=== PATIENT | male | born 1940 | race Caucasian/White ===

== ENCOUNTER 2023-04-25 12:34 | Inpatient (IN) | payer MEDICARE, SELFPAY ==
[2023-04-25] VITALS (30 sets, daily range): BP systolic 105–134; BP diastolic 58–79; PULSE 74–142; RESP 19–41; TEMP 36.9–37.6; O2SAT 90–99; BMI 28.7; BMI 31.7
--- NOTE | 2023-04-25 12:44 | XR_ITS ---
The [place] [id number] Patient Name: CAREN BELLO MRN: [id number] date: 1940 Sex: M Assigned Patient Location: ER Current Patient Location: ER Accession/Order Number: [id number] Exam Date: 04/25/2023 12:55 Report Date: 04/25/2023 13:21 At the request of: ANAIS JONES Procedure: XR hand RT min 3V STUDY: XR hand RT min 3V, [id number] HISTORY: redness, swelling for a few days COMPARISON: None FINDINGS: No acute fracture, dislocation, or suspicious osseous lesion. Severe osteoarthritis of the first carpometacarpal joint and moderate osteoarthritis of the first metacarpophalangeal joint. Extensive vascular calcifications are present. XR/XR hand RT min 3V IMPRESSION: No acute osseous abnormality. Electronically authenticated by: EVANS WHEELER Date: 04/25/2023 13:21
--- NOTE | 2023-04-25 12:44 | ECG_ITS ---
The [facility] Test Date: 2023-04-25 Pat Name: CAREN BELLO Department: Room: - Gender: Male [employer]: : 1940 Requested By: CYNDY PLAZA Order Number: [id number] Reading MD: CYNDY PLAZA Measurements Intervals [place] Rate: 142 P: -50288 HI: -74624 QRS: 42 QRSD: 86 T: -69 QT: 310 QTc: 392 Interpretive Statements 88923 Atrial fibrillation with rapid ventricular response with aberrant conduction, or ventricular premature complexes [address] depression, possible subendocardial injury or digitalis effect ST [place], can't exclude inferolateral ischemia 9150 abnormal ECG No previous ECG available for comparison Electronically Signed On 04-26-2023 7:08:02 EDT by CYNDY PLAZA
--- NOTE | 2023-04-25 12:44 | XR_ITS ---
[facility] [place] [id number] Patient Name: CAREN BELLO MRN: [id number] date: 1940 Sex: M Assigned Patient Location: ER Current Patient Location: ER Accession/Order Number: [id number] Exam Date: 04/25/2023 12:55 Report Date: 04/25/2023 13:22 At the request of: ANAIS JONES Procedure: XR elbow RT min 3V EXAMINATION: XR elbow RT min 3V, [id number] HISTORY: fall COMPARISON: None. FINDINGS: No fracture, dislocation, or suspicious osseous lesion. No elbow joint effusion. Mild triceps insertional enthesopathy. Extensive vascular calcifications are present. XR/XR elbow RT min 3V IMPRESSION: No acute osseous abnormality. Electronically authenticated by: EVANS WHEELER Date: 04/25/2023 13:22
--- NOTE | 2023-04-25 12:45 | ED_ITS ---
HPI - General Adult General Chief complaint: Extremity Injury, Upper Stated complaint: FALL Time Seen by Provider: 04/25/23 12:42 Source: patient Mode of arrival: ambulance History of Present Illness HPI narrative: 83-year-old male presents for right elbow pain. He lost his balance and he fell and he landed on his right elbow. The shoulder and wrist don't hurt and he didn't hit his head. He had difficulty getting himself up. Upon arrival he was noted to have some redness and swelling in his right hand and apparently gets been going on for a few days. He gives no history of trauma to the hand and didn't realize that it was red and swollen. No lower extremity injury including the hips. Related Data Home Medications Medication Instructions Recorded Confirmed hydrochlorothiazide 25 mg tablet 25 mg PO DAILY 04/25/23 04/25/23 metoprolol tartrate 50 mg tablet 50 mg PO Q12H 04/25/23 04/25/23 tamsulosin 0.4 mg capsule 0.4 mg PO DAILY 04/25/23 04/25/23 Allergies Allergy/AdvReac Type Severity Reaction Status Date / Time No Known Drug Allergies Allergy Verified 04/25/23 12:35 Review of Systems ROS Narrative A ten point review of systems is negative except as noted above. PFSH PFSH Social History Smoking status: Never smoker Exam Narrative Exam Narrative: Nurses note and vital signs reviewed and patient is not hypoxic. General: The patient appears well and in no apparent distress. Patient is resting comfortably on cart. Skin: Warm, dry, no pallor noted. There is no rash noted. Head: Normocephalic, atraumatic Eye: Normal conjunctiva, no drainage Ears, Nose, Mouth, and Throat: oral mucosa is moist. Nares patent. Cardiovascular: irregularly irregular Respiratory: Patient is in no distress, no accessory muscle use, lungs are clear to auscultation, no wheezing, rales or rhonchi Back: non-tender GI: obese and nontender Musculoskeletal: the right shoulder is nontender. The right elbow is tender in the skin is intact. The right wrist is nontender. He has erythema and swelling to the dorsum of the right hand. There is no abscess or purulent drainage. Neurological: A&O, normal speech Psychiatric: Cooperative Constitutional Vital Signs, click to edit/add: Last Vital Signs Temp 99.7 F 04/25/23 12:36 Pulse 114 H 04/25/23 14:31 Resp 25 H 04/25/23 14:31 BP 132/67 04/25/23 14:31 Pulse Ox 99 04/25/23 14:20 Course Vital Signs Vital signs: Vital Signs Temperature 99.7 F 04/25/23 12:36 Pulse Rate 77 04/25/23 12:36 Respiratory Rate 24 04/25/23 12:36 Blood Pressure 130/62 04/25/23 12:36 Pulse Oximetry 98 04/25/23 12:36 Temperature 99.7 F 04/25/23 12:36 Pulse Rate 114 H 04/25/23 14:31 Respiratory Rate 25 H 04/25/23 14:31 Blood Pressure 132/67 04/25/23 14:31 Pulse Oximetry 99 04/25/23 14:20 Medical Decision Making MDM Narrative Medical decision making narrative: X-ray of elbow is negative. The patient has right hand cellulitis as WBC is nineteen thousand. Blood cultures were obtained and he was given IV Ancef and he is being admitted. Findings are discussed with the patient and his daughter. Differential Diagnosis Differential Diagnosis: elbow fracture, elbow contusion, cellulitis Lab Data Lab results reviewed: Yes I reviewed the patient's lab results Labs: Lab Results 04/25/23 Range/Units 13:34 WBC 19.2 H (4.0-11.0) 10^3/uL RBC 4.55 L (4.70-6.10) 10^6/uL Hgb 14.2 (14.0-18.0) g/dL Hct 43.2 (42.0-54.0) % MCV 94.9 H (80.0-94.0) fL MCH 31.2 (25.9-34.0) pg MCHC 32.9 (29.9-35.2) g/dL RDW 15.9 H (11.0-15.0) % Plt Count 262 (150-450) 10^3/uL MPV 8.8 L (9.5-13.5) fL Neut % (Auto) 83.1 H (43.0-75.0) % Lymph % (Auto) 4.3 L (20.5-60.0) % [place] % (Auto) 11.5 (1.7-12.0) % Eos % (Auto) 0.1 L (0.9-7.0) % Baso % (Auto) 0.3 (0.2-2.0) % Neut # (Auto) 15.9 H (1.4-6.5) 10^3/uL Lymph # (Auto) 0.8 L (1.2-3.8) 10^3/uL [place] # (Auto) 2.2 H (0.3-0.8) 10^3/uL Eos # (Auto) 0.0 (0.0-0.7) 10^3/uL Baso # (Auto) 0.1 (0.0-0.1) 10^3/uL Abs Immat Gran (auto) 0.14 H (0.00-0.03) 10^3/uL Imm/Tot Granulo (auto) 0.7 H (0.0-0.5) % Sodium 135 L (136-145) mmol/L Potassium 4.2 (3.5-5.1) mmol/L Chloride 99 (98-107) mmol/L Carbon Dioxide 25.4 (21.0-32.0) mmol/L Anion Gap 14.8 BUN 33.0 H (7.0-18.0) mg/dL Creatinine 1.76 H (0.70-1.30) mg/dL Est GFR ( Amer) 45 L (>=60) Est GFR (Non-Af Amer) 37 L (>=60) BUN/Creatinine Ratio 18.8 Glucose 124 H (74-106) mg/dL Lactate 2.8 H* (0.4-2.0) mmol/L Calcium 9.0 (8.5-10.1) mg/dL Total Creatine Kinase 172 (39-308) U/L Imaging Data x-ray of elbow and hand: Radiologist's impression: Procedure: XR hand RT min 3V STUDY: XR hand RT min 3V, [id number] HISTORY: redness, swelling for a few days COMPARISON: None FINDINGS: No acute fracture, dislocation, or suspicious osseous lesion. Severe osteoarthritis of the first carpometacarpal joint and moderate osteoarthritis of the first metacarpophalangeal joint. Extensive vascular calcifications are present. IMPRESSION: No acute osseous abnormality. Electronically authenticated by: EVANS WHEELER Date: 04/25/2023 13:21 Procedure: XR elbow RT min 3V EXAMINATION: XR elbow RT min 3V, [id number] HISTORY: fall COMPARISON: None. FINDINGS: No fracture, dislocation, or suspicious osseous lesion. No elbow joint effusion. Mild triceps insertional enthesopathy. Extensive vascular calcifications are present. IMPRESSION: No acute osseous abnormality. Electronically authenticated by: EVANS WHEELER Date: 04/25/2023 13:22 Discharge Plan Discharge Chief Complaint: Extremity Injury, Upper Clinical Impression: Cellulitis of right hand Patient Disposition: Admitted As Inpatient Time of Disposition Decision: 14:42 Condition: Good
[2023-04-25] MEDS: DILTIAZEM HCL 25 MG/5 ML VIAL 10 MG IV (13:16)
[2023-04-25 13:50] LABS: Basophils Absolute Auto 0.1 10^3/uL (0.0-0.1); Basophils Percent Auto 0.3 % (0.2-2.0); Eosinophils Percent Auto 0.1 % (0.9-7.0); Hematocrit 43.2 % (42.0-54.0); Hemoglobin 14.2 g/dL (14.0-18.0); Immature Granulocytes Abs Auto 0.14 10^3/uL (0.00-0.03); Immature Granulocytes Pct Auto 0.7 % (0.0-0.5); Lymphocytes Absolute Auto 0.8 10^3/uL (1.2-3.8); Lymphocytes Percent Auto 4.3 % (20.5-60.0); Mean Corpuscular HGB Conc 32.9 g/dL (29.9-35.2); Mean Corpuscular Hemoglobin 31.2 pg (25.9-34.0); Mean Corpuscular Volume 94.9 fL (80.0-94.0); Mean Platelet Volume 8.8 fL (9.5-13.5); Monocytes Absolute Auto 2.2 10^3/uL (0.3-0.8); Monocytes Percent Auto 11.5 % (1.7-12.0); Neutrophils Absolute Auto 15.9 10^3/uL (1.4-6.5); Neutrophils Percent Auto 83.1 % (43.0-75.0); Platelet Count 262 10^3/uL (150-450); Red Blood Count 4.55 10^6/uL (4.70-6.10); Red Cell Distribution Width 15.9 % (11.0-15.0); White Blood Count 19.2 10^3/uL (4.0-11.0)
[2023-04-25 13:59] LABS: Anion Gap 14.8; BUN Creatinine Ratio 18.8; Carbon Dioxide 25.4 mmol/L (21.0-32.0); Chloride 99 mmol/L (98-107); Estimated GFR (African America 45 (>=60); Estimated GFR (Non-African Ame 37 (>=60); Glucose 124 mg/dL (74-106); Potassium 4.2 mmol/L (3.5-5.1); Sodium 135 mmol/L (136-145)
[2023-04-25 14:04] LABS: Creatine Kinase 172 U/L (39-308)
[2023-04-25] MEDS: CEFAZOLIN SODIUM/DEXTROSE,ISO 1 GM/50 ML IV.SOLN IV (14:17)
[2023-04-25 14:20] LABS: Lactate/Lactic Acid 2.8 mmol/L (0.4-2.0)
[2023-04-25 15:47] LABS: Lactate/Lactic Acid 1.6 mmol/L (0.4-2.0)
[2023-04-25] MEDS: ENOXAPARIN SODIUM 40 MG/0.4 ML SYRINGE SUBQ (18:14)
[2023-04-25] MEDS: LACTATED RINGER'S SOLUTION 1,000 ML 100 ML IV (18:14)
[2023-04-25] MEDS: ACETAMINOPHEN 325 MG TABLET 650 MG PO (20:40)
[2023-04-25] MEDS: DOCUSATE SODIUM 100 MG CAPSULE PO (20:40)
[2023-04-25] MEDS: LINEZOLID IN DEXTROSE 5% 600 MG/300 ML PIGGYBACK 300 MG IV (20:40)
[2023-04-25] MEDS: METOPROLOL TARTRATE 50 MG TABLET PO (20:41)
[2023-04-26] VITALS (18 sets, daily range): BP systolic 94–130; BP diastolic 58–76; PULSE 64–134; RESP 18–22; TEMP 36.3–37.2; O2SAT 92–97
[2023-04-26] MEDS: LACTATED RINGER'S SOLUTION 1,000 ML 100 ML IV ×3 (04:46→23:42)
[2023-04-26] MEDS: DOCUSATE SODIUM 100 MG CAPSULE PO (04:46)
[2023-04-26] MEDS: ACETAMINOPHEN 325 MG TABLET 650 MG PO ×2 (04:46→20:47)
[2023-04-26 05:40] LABS: Basophils Absolute Auto 0.1 10^3/uL (0.0-0.1); Basophils Percent Auto 0.5 % (0.2-2.0); Eosinophils Absolute Auto 0.1 10^3/uL (0.0-0.7); Hematocrit 40.5 % (42.0-54.0); Hemoglobin 13.4 g/dL (14.0-18.0); Immature Granulocytes Abs Auto 0.17 10^3/uL (0.00-0.03); Immature Granulocytes Pct Auto 1.2 % (0.0-0.5); Lymphocytes Absolute Auto 1.2 10^3/uL (1.2-3.8); Lymphocytes Percent Auto 8.3 % (20.5-60.0); Mean Corpuscular HGB Conc 33.1 g/dL (29.9-35.2); Mean Corpuscular Hemoglobin 31.1 pg (25.9-34.0); Mean Platelet Volume 9.1 fL (9.5-13.5); Monocytes Absolute Auto 1.8 10^3/uL (0.3-0.8); Monocytes Percent Auto 12.1 % (1.7-12.0); Neutrophils Absolute Auto 11.3 10^3/uL (1.4-6.5); Neutrophils Percent Auto 76.9 % (43.0-75.0); Platelet Count 249 10^3/uL (150-450); Red Blood Count 4.31 10^6/uL (4.70-6.10); Red Cell Distribution Width 15.8 % (11.0-15.0); White Blood Count 14.6 10^3/uL (4.0-11.0)
[2023-04-26 06:06] LABS: Alanine Aminotransferase 9 U/L (16-63); Albumin Globulin Ratio 0.7; Albumin Level 2.8 g/dL (3.4-5.0); Alkaline Phosphatase 124 U/L (46-116); Anion Gap 13.1; Aspartate Amino Transferase 22 U/L (15-37); Bilirubin Total 3.4 mg/dL (0.2-1.0); Calcium 8.5 mg/dL (8.5-10.1); Carbon Dioxide 25.9 mmol/L (21.0-32.0); Chloride 97 mmol/L (98-107); Estimated GFR (African America 48 (>=60); Estimated GFR (Non-African Ame 39 (>=60); Globulin 3.8 g/dL; Glucose 105 mg/dL (74-106); Sodium 132 mmol/L (136-145); Total Protein 6.6 g/dL (6.4-8.2)
[2023-04-26] MEDS: LINEZOLID IN DEXTROSE 5% 600 MG/300 ML PIGGYBACK 300 MG IV ×2 (10:28→20:47)
[2023-04-26] MEDS: METOPROLOL TARTRATE 50 MG TABLET PO ×2 (10:28→20:47)
[2023-04-26] MEDS: TAMSULOSIN HCL 0.4 MG CAPSULE PO (10:28)
--- NOTE | 2023-04-26 10:49 | P.HP_ITS ---
H&P: HPI History of Present Illness Chief complaint: right hand cellulitis Narrative: 83 y male who lives alone by himself presented with right hand pain/swelling and redness x 3 days. Started after he sustained a fall at home. Reports being febrile at home. Denies nausea/vomiting, poor PO intake. Admitted for right hand cellulitis overnight for IV abx and Fluids. He has hx of Afib and on arrival his HR was poorly controlled for which he received one dose of IV cardizem This morning when I evaluated him - he reports feeling slightly better but his right hand is still extremely painful, he can barely move his hand. Review of Systems ROS Status of ROS 10 or more systems reviewed and unremarkable except as noted in history and below [facility] Medical History Social History Within the past year, how often did you have a drink containing alcohol: 4 or more times a week Within the past year, how many standard drinks containing alcohol did you have on a typical day: 5 or 6 Within the past year, how often did you have six or more drinks on one occasion: monthly Total score: 6 Score interpretation: A score of 4 or more indicates drinking is likely to affect patient's safety. Smoking status: Never smoker Non-prescribed substance use: denies use Meds Home Medications and Allergies Home Medications Medication Instructions Recorded Confirmed Type hydrochlorothiazide 25 mg tablet 25 mg PO DAILY 04/25/23 04/25/23 History metoprolol tartrate 50 mg tablet 50 mg PO Q12H 04/25/23 04/25/23 History tamsulosin 0.4 mg capsule 0.4 mg PO DAILY 04/25/23 04/25/23 History Allergies Allergy/AdvReac Type Severity Reaction Status Date / Time No Known Drug Allergies Allergy Verified 04/25/23 12:35 Exam Constitutional Vital Signs, click to edit/add: Last Vital Signs Temp 98.1 F 04/26/23 04:42 Pulse 110 H 04/26/23 08:00 Resp 20 04/26/23 08:00 BP 101/70 04/26/23 04:42 Pulse Ox 97 04/26/23 10:27 O2 Del Method Room Air 04/26/23 10:27 Documenting provider has reviewed patient's vital signs: yes Common normals: no apparent distress and oriented x3 General appearance: cooperative HENMT Common normals: normocephalic and head/scalp atraumatic Head and scalp: normocephalic and atraumatic Eye Common normals: conjunctivae normal and no scleral icterus Conjunctiva: conjunctiva(e) normal Respiratory Common normals: normal respiratory effort and clear to auscultation bilaterally Effort & inspection: able to speak in complete sentences Auscultation: clear to auscultation bilaterally Cardio Common normals: regular rate, S1 normal heart sound and S2 normal heart sound Rate: regular rate Heart sounds: S1 normal and S2 normal GI Common normals: Normal to inspection, nondistended, normoactive bowel sounds present, soft to palpation, non-tender and no hepatosplenomegaly Palpation: soft and no hepatosplenomegaly Extremity Right upper extremity: hand and digits Right hand and digits: inspection (swollen, erythematous), palpation (extremely tender and painful), ROM exam (severe ROM - unable to move fingers at all), neurovascular exam (radial pulse is palpable. ) and other (fingers appear pale) Other: thick dried off dirt noted on bottom of his feet. Neuro Common normals: oriented x3, moves all extremities and no focal motor deficits Psych Common normals: mental status grossly normal, denies hallucinations, denies homicidal ideation and denies suicidal ideation Results Labs Labs: Short CBC 04/25/23 04/26/23 Range/Units 13:34 03:50 WBC 19.2 H 14.6 H (4.0-11.0) 10^3/uL Hgb 14.2 13.4 L (14.0-18.0) g/dL Hct 43.2 40.5 L (42.0-54.0) % Plt Count 262 249 (150-450) 10^3/uL BMP 04/25/23 04/26/23 13:34 03:50 Sodium 135 L 132 L Potassium 4.2 4.0 Chloride 99 97 L Carbon Dioxide 25.4 25.9 BUN 33.0 H 35.0 H Creatinine 1.76 H 1.67 H Glucose 124 H 105 Calcium 9.0 8.5 Cardiac Enzymes 04/25/23 Range/Units 13:34 Total Creatine Kinase 172 (39-308) U/L Liver Function 04/26/23 Range/Units 03:50 Total Bilirubin 3.4 H (0.2-1.0) mg/dL AST 22 (15-37) U/L ALT 9 L (16-63) U/L Alkaline Phosphatase 124 H (46-116) U/L Albumin 2.8 L (3.4-5.0) g/dL Assessment and Plan Assessment and Plan (1) Sepsis: Assessment and Plan: SIRS (HR > 100, WBC 19k) along with PRATIK. Improved hemodynamics. Leukocytosis trending down. C/w IVF 100 /hr On IV zyvox and rocephin. F/u blood cx. (2) Cellulitis of right hand: Assessment and Plan: Right hand cellulitis - with sig swelling/painful with suspicion of compartment syndrome Consulted Orthopedic, discussed case and Dr Kwok would evaluate him later today On IV Zyvox/Rocephin Will order an US to r/o DVT/SVT (3) PRATIK (acute kidney injury): Assessment and Plan: Baseline Cr is 1.0 - 1.3 likely pre renal - improving with Hydration (4) A-fib: Assessment and Plan: Persistent AFIB. Presented with RVR. Rate is better controlled now. Cw Lopressor Not on AC as outpatient. (5) Hypertension: Assessment and Plan: HCTZ on hold due to PRATIK and sepsis BP is at goal. (6) Alcohol abuse: Assessment and Plan: Drinks hard Liquor daily - 4,5 drinks. Recent fall. Noted to have poor balance while working with PT Discussed and counseled on alcohol use brandon considering his age, hx of afib. Plan PT/OT eval as poor balance, recent fall IV abx. US ordered to r/o DVT/SVT Orthopedic consult for possible compartment syndrome.
--- NOTE | 2023-04-26 11:38 | CM.NOTE ---
Rounds made with Dr. Cuevas, consulting Dr. Kwok for R wrist and hand swelling. Dr. Cuevas will consult Rissa himself.
--- NOTE | 2023-04-26 11:46 | CM.NOTE ---
Important Message From Medicare discussed with pt, pt verbalizes understanding and signs paper. Original given to pt and copy placed on pt's chart.
[2023-04-26] MEDS: CEFTRIAXONE 1,000 MG in 0.9 % SODIUM CHLORIDE 50 ML 100 MG IV (11:48)
--- NOTE | 2023-04-26 15:03 | US_ITS ---
The [address] [address] Patient Name: CAREN BELLO MRN: [id number] date: 1940 Sex: M Assigned Patient Location: MS Current Patient Location: MS Accession/Order Number: [id number] Exam Date: 04/26/2023 15:20 Report Date: 04/26/2023 17:04 At the request of: SHAIKH BLACK Procedure: US venous doppler UE RT EXAM: US venous doppler UE RT HISTORY: The patient fell, with swelling of the wrist and hand. COMPARISON: None. TECHNIQUE: Multiple sonographic images of the deep veins of the right upper extremity were obtained, supplemented with Doppler. FINDINGS: The deep veins of the right upper extremity are relatively well visualized from the neck to the forearm, although the study is bit limited due to difficulty with moving and positioning of the arm. No filling defect is identified in the visualized deep veins to indicate a thrombus. There is normal compression augmentation to flow in the accessible deep veins. US/US venous doppler UE RT IMPRESSION: The study is bit limited. No direct or indirect evidence of deep vein thrombosis is identified in the right upper extremity at this time. Electronically authenticated by: TEJ DELONG Date: 04/26/2023 17:04
--- NOTE | 2023-04-26 15:17 | SWNOTE1 ---
SW met with pt to discuss dc needs. Pt lives at home by himself. He has a daughter and sister that do help at times as needed. Pt uses a walker at home sometimes to help him get around. Pt is not current with any home health at this time. SW and pt discussed his discharge plans and that therapy recommended he go skilled for strengthening. Pt is in agreement and does feel he needs to get stonger. SW went over the list from medicare.gov with star ratings. Pt would like to stay in [place] and he has been to [facility] before. He would like [facility]. TRA let pt know he is a precert and SW will send for [facility] to review. If they can accept we have to wait for approval from insurance. TRA sent referral to [facility].
--- NOTE | 2023-04-26 16:08 | P.ORCN_ITS ---
History of Present Illness HPI Consult date: 04/26/23 Consult reason: other (Right hand pain and swelling) Chief complaint: right hand cellulitis Narrative: Patient was admitted with right hand pain and swelling after a fall 3 days ago. Since being admitted on IV antibiotics patient reports improvement in symptoms but pain persists. Review of Systems ROS Status of ROS 10 or more systems reviewed and unremarkable except as noted in history and below [facility] Medical History Social History Within the past year, how often did you have a drink containing alcohol: 4 or more times a week Within the past year, how many standard drinks containing alcohol did you have on a typical day: 5 or 6 Within the past year, how often did you have six or more drinks on one occasion: monthly Total score: 6 Score interpretation: A score of 4 or more indicates drinking is likely to affect patient's safety. Smoking status: Never smoker Non-prescribed substance use: denies use Meds Home Medications and Allergies Home Medications Medication Instructions Recorded Confirmed Type hydrochlorothiazide 25 mg tablet 25 mg PO DAILY 04/25/23 04/25/23 History metoprolol tartrate 50 mg tablet 50 mg PO Q12H 04/25/23 04/25/23 History tamsulosin 0.4 mg capsule 0.4 mg PO DAILY 04/25/23 04/25/23 History Allergies Allergy/AdvReac Type Severity Reaction Status Date / Time No Known Drug Allergies Allergy Verified 04/25/23 12:35 Exam Narrative Exam Narrative: Right hand in dependent position. Moderate dorsal swelling. Erythema at 2nd and 3rd MTP joints. Compartments soft. Able to move fingers but with pain. No tenderness in palm or extending to wrist. No fluctuance. Sensation intact to light touch. good cap refill. Constitutional Vital Signs, click to edit/add: Last Vital Signs Temp 98.5 F 04/26/23 14:00 Pulse 107 H 04/26/23 15:42 Resp 18 04/26/23 14:00 BP 94/58 04/26/23 14:00 Pulse Ox 97 04/26/23 14:00 O2 Del Method Room Air 04/26/23 14:00 Results Labs Labs: Abnormal lab results 04/26/23 Range/Units 03:50 WBC 14.6 H (4.0-11.0) 10^3/uL RBC 4.31 L (4.70-6.10) 10^6/uL Hgb 13.4 L (14.0-18.0) g/dL Hct 40.5 L (42.0-54.0) % RDW 15.8 H (11.0-15.0) % MPV 9.1 L (9.5-13.5) fL Neut % (Auto) 76.9 H (43.0-75.0) % Lymph % (Auto) 8.3 L (20.5-60.0) % [place] % (Auto) 12.1 H (1.7-12.0) % Neut # (Auto) 11.3 H (1.4-6.5) 10^3/uL [place] # (Auto) 1.8 H (0.3-0.8) 10^3/uL Abs Immat Gran (auto) 0.17 H (0.00-0.03) 10^3/uL Imm/Tot Granulo (auto) 1.2 H (0.0-0.5) % Sodium 132 L (136-145) mmol/L Chloride 97 L (98-107) mmol/L BUN 35.0 H (7.0-18.0) mg/dL Creatinine 1.67 H (0.70-1.30) mg/dL Est GFR ( Amer) 48 L (>=60) Est GFR (Non-Af Amer) 39 L (>=60) Total Bilirubin 3.4 H (0.2-1.0) mg/dL ALT 9 L (16-63) U/L Alkaline Phosphatase 124 H (46-116) U/L Albumin 2.8 L (3.4-5.0) g/dL H & H 04/25/23 04/26/23 Range/Units 13:34 03:50 Hgb 14.2 13.4 L (14.0-18.0) g/dL Hct 43.2 40.5 L (42.0-54.0) % All other labs normal. Diagnostic results Wrist/Hand x-ray: other (No fractures. Severe thumb CMC OA.) Assessment and Plan Assessment and Plan (1) Sepsis: (2) Cellulitis of right hand: Assessment and Plan: Agree with antibiotics. No concern for compartment syndrome. No sign of abscess. No surgical indication at this time. Reenforced with patient importance of elevation (3) PRATIK (acute kidney injury): (4) A-fib: (5) Hypertension: (6) Alcohol abuse:
[2023-04-26] MEDS: ENOXAPARIN SODIUM 40 MG/0.4 ML SYRINGE SUBQ (17:19)
[2023-04-27] VITALS (14 sets, daily range): BP systolic 105–121; BP diastolic 57–71; PULSE 63–140; RESP 18–24; TEMP 36.5–36.8; O2SAT 93–97
[2023-04-27 04:50] LABS: Basophils Absolute Auto 0.1 10^3/uL (0.0-0.1); Basophils Percent Auto 0.5 % (0.2-2.0); Eosinophils Absolute Auto 0.1 10^3/uL (0.0-0.7); Eosinophils Percent Auto 0.8 % (0.9-7.0); Hematocrit 37.1 % (42.0-54.0); Hemoglobin 12.7 g/dL (14.0-18.0); Immature Granulocytes Pct Auto 2.6 % (0.0-0.5); Lymphocytes Percent Auto 6.2 % (20.5-60.0); Mean Corpuscular HGB Conc 34.2 g/dL (29.9-35.2); Mean Corpuscular Hemoglobin 31.6 pg (25.9-34.0); Mean Corpuscular Volume 92.3 fL (80.0-94.0); Mean Platelet Volume 9.1 fL (9.5-13.5); Monocytes Absolute Auto 1.3 10^3/uL (0.3-0.8); Monocytes Percent Auto 8.6 % (1.7-12.0); Neutrophils Absolute Auto 12.6 10^3/uL (1.4-6.5); Neutrophils Percent Auto 81.3 % (43.0-75.0); Platelet Count 275 10^3/uL (150-450); Red Blood Count 4.02 10^6/uL (4.70-6.10); Red Cell Distribution Width 15.6 % (11.0-15.0); White Blood Count 15.4 10^3/uL (4.0-11.0)
[2023-04-27 05:06] LABS: Alanine Aminotransferase 11 U/L (16-63); Albumin Globulin Ratio 0.7; Albumin Level 2.5 g/dL (3.4-5.0); Alkaline Phosphatase 130 U/L (46-116); Anion Gap 14.6; Aspartate Amino Transferase 18 U/L (15-37); BUN Creatinine Ratio 24.5; Bilirubin Total 2.7 mg/dL (0.2-1.0); Carbon Dioxide 23.7 mmol/L (21.0-32.0); Chloride 96 mmol/L (98-107); Estimated GFR (African America 55 (>=60); Estimated GFR (Non-African Ame 46 (>=60); Globulin 3.7 g/dL; Glucose 114 mg/dL (74-106); Potassium 3.3 mmol/L (3.5-5.1); Sodium 131 mmol/L (136-145); Total Protein 6.2 g/dL (6.4-8.2)
[2023-04-27] MEDS: METOPROLOL TARTRATE 50 MG TABLET PO (08:22)
[2023-04-27] MEDS: TAMSULOSIN HCL 0.4 MG CAPSULE PO (08:22)
[2023-04-27] MEDS: LINEZOLID IN DEXTROSE 5% 600 MG/300 ML PIGGYBACK 300 MG IV (08:24)
--- NOTE | 2023-04-27 09:59 | SWNOTE1 ---
[facility] started precert 04/26/23.
[2023-04-27] MEDS: POTASSIUM CHLORIDE 10 MEQ ER TABLET 40 MEQ PO (10:12)
[2023-04-27] MEDS: CEFTRIAXONE 1,000 MG in 0.9 % SODIUM CHLORIDE 50 ML 100 MG IV (10:15)
--- NOTE | 2023-04-27 11:37 | CM.NOTE ---
Rounds made with Dr. Cuevas, [facility] when precert completed. IV antibiotics to continue.
--- NOTE | 2023-04-27 11:38 | PT.DAILY ---
Physical Therapy Daily Note PT Daily Note/Assess Start: 04/27/23 11:26 Freq: Status: Active Protocol: Document 04/27/23 11:26 RAMIRO (Rec: 04/27/23 11:31 RAMIRO [id number]) Physical Therapy Daily Note/Assessment Time In/Time Out Time In 10:20 Time Out 10:47 Pain In Pain N/A Pain Out Pain N/A Subjective Subjective Pt supine upon arrival. AGrees to get into bedside chair. director of student services present to assist with transfers. Therapeutic Activity Time Therapeutic Activity Minutes (minutes) 25 Therapeutic Activity Units 2 Therapeutic Activity Treatment Bed Mobility Ability Maximum Assist,Total Assist,2 Person Assist Therapeutic Activity Comments Pt transferred from supine>sit with MaxA+2. Needs ModA initially to maintain static sitting balance at EOB but then is able to sit unsupported after about 10 sec of support. Attempted sit> Stand to RW 5x - pt unable to clear bed and reports R hand is in too much pain to put pressure through it on RW. Attempted to transfer pt with Lisa Steady but again but unable to clear his bottom from the bed. Unable to extend knees to stand - bed is elevated at this point and is still unable to clear bed. Pt is laid back down with total assist of 2 and then scooted up in bed with a total assist of 2. Total Physical Therapy Time Total Therapy Minutes 25 Total Physical Therapy Units 2 Summary Daily Note Summary Decreased transfer ability today. Poor tolerance with session. Recommend SNF to regain strength/endurance to return to PLOF.
--- NOTE | 2023-04-27 12:14 | SWNOTE1 ---
[facility] did get approval for pt to go skilled. SW reached out to doctor to let him know.
--- NOTE | 2023-04-27 13:27 | PM.IMPN1 ---
Progress Note: A&P Assessment and Plan (1) Sepsis: Assessment and Plan: Stable hemodynamics except tachycardia which is due to underlying Afib. c/w Zyvox/rocephin. Leukocytosis trending down (2) Cellulitis of right hand: Assessment and Plan: C/w IV zyvox/rocephin F/u blood cx. US negative for DVT. XR negative for fx. Evaluated by orthopedic - no concern for Compartment syndrome. (3) PRATIK (acute kidney injury): Assessment and Plan: Pre renal due to sepsis Improving. More or less close to baseline (4) A-fib: Assessment and Plan: Poorly controlled rate. Increased Lopressor to 100 q12 HR fluctuates never persistently above 120. Asymptomatic Not on AC due to hx of alcoholism (5) Hypertension: Assessment and Plan: Hold HCTZ. Increased Lopressor to 100 q12 for poorly controlled HR. (6) Alcohol abuse: Assessment and Plan: Current sig/daily alcohol use. Does not appear to be in withdrawal. Monitor closely for it. (7) Inspiratory wheezing determined by examination: Assessment and Plan: Audible wheezing on exam. No resp distress. Added duonebs as needed. Monitor for now. CXR ordered to ensure no acute underlying lung disease. (8) Ambulatory dysfunction: Assessment and Plan: Poor balance, generalized weakness and very unsteady on his feet. Can barely ambulate with a walker while requiring assist from one person all the time. PT/OT eval. Will need rehab placement once medically stable. Plan Change to inpatient status as slow recovery, continued need for IV abx and clinical monitoring for Afib with RVR while adjusting his medications. At high risk of clinical deterioration given his age, poor functional status and alcohol use Internal Medicine - PN: Subj Subjective Interval history: Seen and examined. No overnight events. Mild improvement in pain/tenderness and swelling but right hand is still sig swollen and extremely tender to touch Exam Constitutional Vital Signs, click to edit/add: Last Vital Signs Temp 97.8 F 04/27/23 04:21 Pulse 117 H 04/27/23 07:35 Resp 18 04/27/23 07:35 BP 105/71 04/27/23 04:21 Pulse Ox 95 04/27/23 04:21 O2 Del Method Room Air 04/27/23 04:21 Documenting provider has reviewed patient's vital signs: yes Common normals: no apparent distress and oriented x3 General appearance: cooperative HENMT Common normals: normocephalic and head/scalp atraumatic Head and scalp: normocephalic and atraumatic Eye Common normals: conjunctivae normal and no scleral icterus Conjunctiva: conjunctiva(e) normal Respiratory Common normals: normal respiratory effort and no use of accessory muscles Effort & inspection: able to speak in complete sentences Auscultation: wheezes Cardio Common normals: regular rate, S1 normal heart sound and S2 normal heart sound Rate: regular rate Heart sounds: S1 normal and S2 normal GI Common normals: Normal to inspection, nondistended, normoactive bowel sounds present, soft to palpation, non-tender and no hepatosplenomegaly Palpation: soft and no hepatosplenomegaly Extremity Right upper extremity: hand and digits (slight improvement when compared to 04/26/23) Right hand and digits: inspection (swollen, erythematous), palpation (extremely tender and painful), ROM exam (severe ROM - unable to move fingers at all), neurovascular exam (radial pulse is palpable. ) and other Neuro Common normals: oriented x3, moves all extremities and no focal motor deficits Psych Common normals: mental status grossly normal, denies hallucinations, denies homicidal ideation and denies suicidal ideation Internal Medicine - PN: Obj Da Labs Labs: Laboratory Results - last 24 hr 04/26/23 04/27/23 11:21 03:54 WBC 15.4 H RBC 4.02 L Hgb 12.7 L Hct 37.1 L MCV 92.3 MCH 31.6 MCHC 34.2 RDW 15.6 H Plt Count 275 MPV 9.1 L Neut % (Auto) 81.3 H Lymph % (Auto) 6.2 L [place] % (Auto) 8.6 Eos % (Auto) 0.8 L Baso % (Auto) 0.5 Neut # (Auto) 12.6 H Lymph # (Auto) 1.0 L [place] # (Auto) 1.3 H Eos # (Auto) 0.1 Baso # (Auto) 0.1 Abs Immat Gran (auto) 0.40 H Imm/Tot Granulo (auto) 2.6 H Sodium 131 L Potassium 3.3 L Chloride 96 L Carbon Dioxide 23.7 Anion Gap 14.6 BUN 36.0 H Creatinine 1.47 H Est GFR ( Amer) 55 L Est GFR (Non-Af Amer) 46 L BUN/Creatinine Ratio 24.5 Glucose 114 H Calcium 8.0 L Total Bilirubin 2.7 H AST 18 ALT 11 L Alkaline Phosphatase 130 H Total Protein 6.2 L Albumin 2.5 L Globulin 3.7 Albumin/Globulin Ratio 0.7 Vitamin B12 416.0 Folate 2.60 L Urinary Catheter Management Urinary Catheter Management Urethral: Cath placed during this visit: yes Urethral indwelling: No Reason for continuing: acute urinary retention Insertion date: 04/27/23 Insertion time: 04:20
--- NOTE | 2023-04-27 13:40 | SWNOTE1 ---
Pt is not medically stable for discharge today. He is approved, approval is good thru 04/30/23 at midnight. SW to leave packet for weekend in case pt is ready for discharge.
--- NOTE | 2023-04-27 14:06 | XR_ITS ---
The [address] [address] Patient Name: CAREN BELLO MRN: [id number] date: 1940 Sex: M Assigned Patient Location: MS Current Patient Location: MS Accession/Order Number: [id number] Exam Date: 04/27/2023 14:00 Report Date: 04/27/2023 14:22 At the request of: SHAIKH BLACK Procedure: XR chest 1V EXAMINATION: XR chest 1V 04/27/2023 11:20 AM PDT HISTORY: wheezing/ TECHNIQUE: Single frontal view of the chest acquired. COMPARISONS: Chest x-ray 06/09/2020 FINDINGS: Lines/tubes/other: None. Heart and mediastinum: Similar. Bones: No acute osseous abnormality. Lungs: Mild scarring and/or atelectasis in the right base, similar. No new or worsening pulmonary opacity. No pulmonary edema. Pleura: There is no significant pleural effusion or pneumothorax. Other: None. XR/XR chest 1V IMPRESSION: Mild right basilar scarring and/or atelectasis. No new pulmonary abnormality demonstrated. Electronically authenticated by: EVANS WHEELER Date: 04/27/2023 14:22
[2023-04-27] MEDS: IPRATROPIUM/ALBUTEROL SULFATE 3 ML AMPUL.NEB IH (15:41)
[2023-04-27] MEDS: FUROSEMIDE 20 MG/2 ML VIAL IVP (16:57)
[2023-04-27 17:18] LABS: Bilirubin Urine MODERATE (NEGATIVE); Blood Urine LARGE (NEGATIVE); Clarity Urine CLEAR (CLEAR); Glucose Urine UA 100 mg/dL (NEGATIVE); Ketones Urine 15 mg/dL (NEGATIVE); Leukocyte Esterase Urine TRACE (NEGATIVE); Nitrite Urine NEGATIVE (NEGATIVE); Protein Urine 30 mg/dL (NEG/TRACE); Specific Gravity Urine 1.015 (1.005-1.025); Urobilinogen Urine >=8.0 EU/dL (0.2-1.0); pH Urine 5.5 (5.0-9.0)
[2023-04-27 17:36] LABS: Color Urine DK YELLOW (YELLOW)
[2023-04-27] MEDS: OXYCODONE HCL 5 MG TABLET PO (17:43)
[2023-04-27] MEDS: ENOXAPARIN SODIUM 40 MG/0.4 ML SYRINGE SUBQ (17:43)
[2023-04-27] MEDS: POLYETHYLENE GLYCOL 3350 17 GM POWDER PACKET PO (17:44)
[2023-04-27 18:02] LABS: Bacteria Urine TRACE #/HPF (NONE SEEN); Cast Seen? NONE SEEN #/LPF (NONE SEEN); Crystals Seen? None Seen #/HPF (None Seen); Mucus Urine NONE SEEN (NONE SEEN); Squamous Epithelial Cell Urine RARE #/LPF (NONE/RARE); Urine Culture Indicated NO
--- NOTE | 2023-04-27 19:27 | PC.NURSE ---
right hand and wrist is warm to the touch, redness, and edema noted
[2023-04-27] MEDS: METOPROLOL TARTRATE 50 MG TABLET 100 MG PO (20:29)
[2023-04-27] MEDS: MORPHINE SULFATE 2 MG/ML SYRINGE IV (20:29)
[2023-04-27] MEDS: LINEZOLID IN DEXTROSE 5% 600 MG/300 ML PIGGYBACK 150 MG IV (20:32)
[2023-04-28] VITALS (20 sets, daily range): BP systolic 89–118; BP diastolic 54–67; PULSE 62–129; RESP 20; TEMP 36.2–37.4; O2SAT 92–96
[2023-04-28] MEDS: DILTIAZEM HCL 60 MG TABLET 30 MG PO ×4 (05:25→22:40)
[2023-04-28] MEDS: OXYCODONE HCL 5 MG TABLET PO (05:26)
[2023-04-28 05:56] LABS: Basophils Absolute Auto 0.1 10^3/uL (0.0-0.1); Basophils Percent Auto 0.3 % (0.2-2.0); Eosinophils Absolute Auto 0.1 10^3/uL (0.0-0.7); Eosinophils Percent Auto 0.6 % (0.9-7.0); Hematocrit 36.8 % (42.0-54.0); Hemoglobin 12.4 g/dL (14.0-18.0); Immature Granulocytes Abs Auto 0.25 10^3/uL (0.00-0.03); Immature Granulocytes Pct Auto 1.7 % (0.0-0.5); Lymphocytes Absolute Auto 0.7 10^3/uL (1.2-3.8); Lymphocytes Percent Auto 4.6 % (20.5-60.0); Mean Corpuscular HGB Conc 33.7 g/dL (29.9-35.2); Mean Corpuscular Hemoglobin 31.4 pg (25.9-34.0); Mean Corpuscular Volume 93.2 fL (80.0-94.0); Mean Platelet Volume 9.2 fL (9.5-13.5); Monocytes Absolute Auto 1.3 10^3/uL (0.3-0.8); Monocytes Percent Auto 8.7 % (1.7-12.0); Neutrophils Absolute Auto 12.7 10^3/uL (1.4-6.5); Neutrophils Percent Auto 84.1 % (43.0-75.0); Platelet Count 281 10^3/uL (150-450); Red Blood Count 3.95 10^6/uL (4.70-6.10); Red Cell Distribution Width 15.8 % (11.0-15.0); White Blood Count 15.1 10^3/uL (4.0-11.0)
[2023-04-28 06:12] LABS: Alanine Aminotransferase 7 U/L (16-63); Albumin Globulin Ratio 0.6; Albumin Level 2.4 g/dL (3.4-5.0); Alkaline Phosphatase 133 U/L (46-116); Anion Gap 14.7; Aspartate Amino Transferase 15 U/L (15-37); BUN Creatinine Ratio 25.8; Calcium 8.3 mg/dL (8.5-10.1); Carbon Dioxide 23.5 mmol/L (21.0-32.0); Chloride 97 mmol/L (98-107); Estimated GFR (African America 51 (>=60); Estimated GFR (Non-African Ame 42 (>=60); Globulin 3.9 g/dL; Glucose 116 mg/dL (74-106); Potassium 4.2 mmol/L (3.5-5.1); Sodium 131 mmol/L (136-145); Total Protein 6.3 g/dL (6.4-8.2)
--- NOTE | 2023-04-28 08:08 | P.PN_ITS ---
Progress Note: Subjective Subjective Interval history: patient is an 83-year-old gentleman with past medical history of atrial fibrillation, alcoholism, who was admitted for right hand cellulitis and pain. Also is having active atrial fibrillation with RVR. Yesterday his Lopressor was increased and he was also started on Cardizem 30 mg 4 times a day. His heart rate seems much improved today has been in the 80s still in atrial fibrillation. He denies any chest pain shortness of breath this morning. His right hand still has some erythema and is multi slide machine tender to the touch. He has remained afebrile. His left ankle also has some swelling and tenderness. Nurses reported pain with physical therapy this morning. Exam Narrative Exam Narrative: General: Patient is alert, and oriented to person, place and time with normal affect, proper hygiene Skin: skin erythema over the joints of the right hand and medial mallolus of the left ankle Head: atraumatic, acephalic Eyes: PERRLA, no nystagmus present, conjunctiva clear, no scleral icterus Ears: diminished gross auditory acuity Nose: symmetric, no discharge, no maxillary or frontal sinus tenderness Heart: Normal rate and rhythm, no murmurs/rubs/gallops Lungs: no audible wheezes, crackles and normal breath sounds all lung davis Abdomen: Normal audible bowel sounds, no distension, No palpable masses, no organomegaly, no rebound/guarding/ or rigidity Neuro: CN II-X grossly intact, normal sensation upper and lower extremities Constitutional Vital Signs, click to edit/add: Last Vital Signs Temp 97.2 F L 04/28/23 05:33 Pulse 129 H 04/28/23 06:00 Resp 20 04/28/23 05:33 BP 118/67 04/28/23 05:33 Pulse Ox 95 04/28/23 05:33 O2 Del Method Room Air 04/28/23 05:33 Progress Note: Objective Labs Labs: Short CBC 04/28/23 Range/Units 04:45 WBC 15.1 H (4.0-11.0) 10^3/uL Hgb 12.4 L (14.0-18.0) g/dL Hct 36.8 L (42.0-54.0) % Plt Count 281 (150-450) 10^3/uL BMP 04/28/23 04:45 Sodium 131 L Potassium 4.2 Chloride 97 L Carbon Dioxide 23.5 BUN 41.0 H Creatinine 1.59 H Glucose 116 H Calcium 8.3 L Liver Function 04/28/23 Range/Units 04:45 Total Bilirubin 2.0 H (0.2-1.0) mg/dL AST 15 (15-37) U/L ALT 7 L (16-63) U/L Alkaline Phosphatase 133 H (46-116) U/L Albumin 2.4 L (3.4-5.0) g/dL Urine 04/27/23 Range/Units 15:00 Urine Color Dk yellow (YELLOW) Urine Clarity Clear (CLEAR) Urine pH 5.5 (5.0-9.0) Ur Specific [place] 1.015 (1.005-1.025) Urine Protein 30 A (NEG/TRACE) mg/dL Urine Glucose (UA) 100 A (NEGATIVE) mg/dL Progress Note: A&P Assessment and Plan (1) Cellulitis of right hand: Assessment and Plan: patient is currently on IV Zyvox and Rocephin, blood cultures so far have been negative. Patient still with leukocytosis although is trending down. No evidence of sepsis. I have added a CRP, ESR and uric acid level picture more concerning of an inflammatory arthritis and not cellulitis.I will add Solu-Medrol 125 mg twice a day to see if this also helps with the pain in the inflammatory arthritis. X-rays negative for fracture (2) PRATIK (acute kidney injury): Assessment and Plan: avoid nephrotoxins, continue to monitor daily (3) Atrial fibrillation with RVR: Assessment and Plan: rate much improved today continue the Lopressor increase and the addition of Cardizem. ON Telemetry, has not been on anticoagulant in the past due to drinking. Since going to acute rehab facility, will start on Eliquis for this. (4) Hypertension: Assessment and Plan: continue Lopressor at 100 mg twice a day, and continue with addition of Cardizem 30 mg 4 times a day which seems to be improving heart rate on a blood pressure has been stable (5) Alcohol abuse: Assessment and Plan: monitor CIWA scores, no acute withdrawal (6) Inspiratory wheezing determined by examination: Assessment and Plan: monitor for any signs of fluid overload (7) Ambulatory dysfunction: Assessment and Plan: continue to work with PT OT, will be doing patient rehab Plan patient is a full code Lovenox for deep vein thrombosis prophylaxis Hopeful discharge tomorrow pending improvement in symptoms, pain control and labs
--- NOTE | 2023-04-28 08:12 | PT.DAILY ---
Physical Therapy Daily Note PT Daily Note/Assess Start: 04/27/23 11:26 Freq: Status: Active Protocol: Document 04/28/23 08:09 RAMIRO (Rec: 04/28/23 08:12 RAMIRO [id number]) Visit Not Completed Visit Not Completed Visit Not Completed Due to: Inability to participate,Pt refusing Other Reason Visit Not Completed In patients room for 20 min. He agrees to PT but screams in pain every time he moves any part of his body. He screams in pain if my hands even gets close to his legs or R arm. Pt Verbalizes understanding of needed to attempt therapy but his actions do not reflect this. He rates his pain 8/10 with movement (taking pillows out from under legs/placing them back under legs) but denies pain at rest. Pt finally states he cannot participate and wishes to be left alone to rest. Physical Therapy Daily Note/Assessment Time In/Time Out Time In 07:10 Time Out 07:34 Pain In Pain N/A Pain Out Pain N/A GG. Functional Abilities and Goals-Complete for Swing Bed Patients Only [id number]. Self-Care [id number]. Mobility
[2023-04-28] MEDS: TAMSULOSIN HCL 0.4 MG CAPSULE PO (09:01)
[2023-04-28] MEDS: LINEZOLID IN DEXTROSE 5% 600 MG/300 ML PIGGYBACK 300 MG IV (09:01)
[2023-04-28] MEDS: METOPROLOL TARTRATE 50 MG TABLET 100 MG PO (09:01)
[2023-04-28] MEDS: MORPHINE SULFATE 2 MG/ML SYRINGE IV (09:02)
[2023-04-28] MEDS: CEFTRIAXONE 1,000 MG in 0.9 % SODIUM CHLORIDE 50 ML 100 MG IV (10:19)
[2023-04-28 10:40] LABS: Erythrocyte Sedimentation Rate 113 mm/hr (<=20)
[2023-04-28 11:51] LABS: C Reactive Protein 33.9 mg/dL (<=1.0); Uric Acid 7.3 mg/dL (3.5-7.2)
[2023-04-28] MEDS: METHYLPREDNISOLONE SOD SUCC PF 125 MG/2 ML VIAL IVP (12:09)
[2023-04-28] MEDS: MORPHINE SULFATE 2 MG/ML SYRINGE 1 MG IV (15:34)
--- NOTE | 2023-04-28 17:00 | XR_ITS ---
The [address] [address] Patient Name: CAREN BELLO MRN: [id number] date: 1940 Sex: M Assigned Patient Location: MS Current Patient Location: Accession/Order Number: [id number] Exam Date: 04/28/2023 17:20 Report Date: 04/28/2023 18:31 At the request of: DANNY ABDULLAHI Procedure: XR chest 1V EXAMINATION:XR chest 1V INDICATION:wheezing COMPARISON:04/27/2023 TECHNIQUE:A single frontal view of the chest is submitted. FINDINGS: Cardiomediastinal silhouette is enlarged but stable. Lungs are underinflated contributing to vascular crowding. There is elevation of the right hemidiaphragm similar to the previous study with adjacent atelectasis. No acute infiltrates have developed within the lungs. There is no costophrenic angle blunting. XR/XR chest 1V IMPRESSION: Hypoventilatory changes in the chest. No acute cardiopulmonary process. Electronically authenticated by: JENS VILLARREAL Date: 04/28/2023 18:31
[2023-04-28 17:12] LABS: Alanine Aminotransferase 9 U/L (16-63); Albumin Globulin Ratio 0.6; Albumin Level 2.4 g/dL (3.4-5.0); Alkaline Phosphatase 138 U/L (46-116); Anion Gap 19.3; Aspartate Amino Transferase 16 U/L (15-37); BUN Creatinine Ratio 23.7; Bilirubin Total 2.3 mg/dL (0.2-1.0); Calcium 8.4 mg/dL (8.5-10.1); Carbon Dioxide 19.8 mmol/L (21.0-32.0); Chloride 93 mmol/L (98-107); Estimated GFR (African America 37 (>=60); Estimated GFR (Non-African Ame 30 (>=60); Globulin 4.3 g/dL; Glucose 143 mg/dL (74-106); Potassium 5.1 mmol/L (3.5-5.1); Sodium 127 mmol/L (136-145); Total Protein 6.7 g/dL (6.4-8.2)
[2023-04-28 17:15] LABS: Lactate/Lactic Acid 1.8 mmol/L (0.4-2.0)
[2023-04-28] MEDS: ENOXAPARIN SODIUM 40 MG/0.4 ML SYRINGE SUBQ (17:19)
[2023-04-28] MEDS: ACETAMINOPHEN 325 MG TABLET 650 MG PO (17:19)
[2023-04-28] MEDS: LACTATED RINGER'S SOLUTION 1,000 ML 125 ML IV (17:31)
--- NOTE | 2023-04-28 20:54 | RESP.RT ---
Titrated to 1 lpm
[2023-04-29] VITALS (20 sets, daily range): BP systolic 87–100; BP diastolic 49–69; PULSE 69–112; RESP 18–20; TEMP 35.9–36.8; O2SAT 93–99
[2023-04-29] MEDS: METHYLPREDNISOLONE SOD SUCC PF 125 MG/2 ML VIAL IVP ×3 (02:50→23:16)
[2023-04-29] MEDS: LACTATED RINGER'S SOLUTION 1,000 ML 125 ML IV ×3 (02:51→18:09)
[2023-04-29 05:12] LABS: Basophils Percent Auto 0.2 % (0.2-2.0); Hematocrit 37.3 % (42.0-54.0); Hemoglobin 12.4 g/dL (14.0-18.0); Immature Granulocytes Abs Auto 0.21 10^3/uL (0.00-0.03); Immature Granulocytes Pct Auto 1.5 % (0.0-0.5); Lymphocytes Absolute Auto 0.6 10^3/uL (1.2-3.8); Lymphocytes Percent Auto 4.2 % (20.5-60.0); Mean Corpuscular HGB Conc 33.2 g/dL (29.9-35.2); Mean Corpuscular Hemoglobin 31.5 pg (25.9-34.0); Mean Corpuscular Volume 94.7 fL (80.0-94.0); Mean Platelet Volume 9.7 fL (9.5-13.5); Monocytes Absolute Auto 0.5 10^3/uL (0.3-0.8); Monocytes Percent Auto 3.5 % (1.7-12.0); Neutrophils Absolute Auto 12.8 10^3/uL (1.4-6.5); Neutrophils Percent Auto 90.6 % (43.0-75.0); Platelet Count 261 10^3/uL (150-450); Red Blood Count 3.94 10^6/uL (4.70-6.10); Red Cell Distribution Width 15.6 % (11.0-15.0); White Blood Count 14.2 10^3/uL (4.0-11.0)
[2023-04-29 05:30] LABS: Alanine Aminotransferase 12 U/L (16-63); Albumin Globulin Ratio 0.5; Albumin Level 2.1 g/dL (3.4-5.0); Alkaline Phosphatase 122 U/L (46-116); Anion Gap 15.5; Aspartate Amino Transferase 24 U/L (15-37); BUN Creatinine Ratio 28.3; Bilirubin Total 1.5 mg/dL (0.2-1.0); Calcium 8.4 mg/dL (8.5-10.1); Carbon Dioxide 23.2 mmol/L (21.0-32.0); Chloride 93 mmol/L (98-107); Estimated GFR (African America 34 (>=60); Estimated GFR (Non-African Ame 28 (>=60); Globulin 4.4 g/dL; Glucose 175 mg/dL (74-106); Potassium 4.7 mmol/L (3.5-5.1); Sodium 127 mmol/L (136-145); Total Protein 6.5 g/dL (6.4-8.2)
[2023-04-29 05:40] LABS: INR 1.14
--- NOTE | 2023-04-29 07:55 | US_ITS ---
The [address] [address] Patient Name: CAREN BLELO MRN: [id number] date: 1940 Sex: M Assigned Patient Location: MS Current Patient Location: MS Accession/Order Number: [id number] Exam Date: 04/29/2023 10:40 Report Date: 04/29/2023 12:11 At the request of: DANNY ABDULLAHI Procedure: US renal BI US renal BI CLINICAL HISTORY: worsening renal failure, low urine output COMPARISON: None Available. TECHNIQUE: Routine transverse and longitudinal grayscale images of the bilateral kidneys. FINDINGS: The right kidney measures 9.6 x 5.7 x 7.7 cm with parenchymal thickness 1.3 cm. No hydronephrosis. Normal parenchymal echogenicity. Right lower pole 3.0 cm hypoechoic focus from the kidney, suboptimally visualized and cannot exclude internal echoes. Left kidney measures 11.5 x 5.3 x 5.5 cm with parenchymal thickness 1.4 cm. No hydronephrosis. Normal parenchymal echogenicity. 4.8 cm left lower pole cyst and upper pole of 3.5 cm cyst. US/US renal BI IMPRESSION: Unobstructed kidneys. A few left renal cysts but right lower pole hypoechoic focus and cannot exclude internal echoes. Recommend multiphasic CT or MRI evaluation on a routine outpatient basis when patient can obtain oral IV contrast versus follow-up renal ultrasound in 3-4 months. Electronically authenticated by: MYRNA KELLOGG Date: 04/29/2023 12:11
--- NOTE | 2023-04-29 07:59 | PM.PN ---
Progress Note: Subjective Subjective Interval history: patient is an 83-year-old gentleman with past medical history of atrial fibrillation, alcoholism, who was admitted for right hand cellulitis and pain. Also is having active atrial fibrillation with RVR. His Lopressor was increased and he was also started on Cardizem 30 mg 4 times a day. His heart rate seems much improved. He denies any chest pain shortness of breath this morning. His right hand still has some erythema and is marking machine tender to the touch but improved. He has remained afebrile. He is more alert today and says he feels much better. Exam Narrative Exam Narrative: General: Patient is alert, and oriented to person, place and time with normal affect, proper hygiene Skin: skin erythema over the joints of the right hand and medial malleolus of the left ankle Head: atraumatic, acephalic Eyes: PERRLA, no nystagmus present, conjunctiva clear, no scleral icterus Ears: diminished gross auditory acuity Nose: symmetric, no discharge, no maxillary or frontal sinus tenderness Heart: Normal rate and rhythm, no murmurs/rubs/gallops Lungs: no audible wheezes, crackles and normal breath sounds all lung davis Abdomen: Normal audible bowel sounds, no distension, No palpable masses, no organomegaly, no rebound/guarding/ or rigidity Neuro: CN II-X grossly intact, normal sensation upper and lower extremities Constitutional Vital Signs, click to edit/add: Last Vital Signs Temp 98.2 F 04/29/23 06:00 Pulse 83 04/29/23 06:00 Resp 20 04/29/23 06:00 BP 91/50 04/29/23 06:00 Pulse Ox 95 04/29/23 06:00 O2 Del Method Nasal Cannula 04/29/23 06:00 O2 Flow Rate 1 04/29/23 06:00 Progress Note: Objective Labs Labs: Short CBC 04/29/23 Range/Units 04:35 WBC 14.2 H (4.0-11.0) 10^3/uL Hgb 12.4 L (14.0-18.0) g/dL Hct 37.3 L (42.0-54.0) % Plt Count 261 (150-450) 10^3/uL BMP 04/28/23 04/29/23 16:51 04:35 Sodium 127 L 127 L Potassium 5.1 4.7 Chloride 93 L 93 L Carbon Dioxide 19.8 L 23.2 BUN 50.0 H 63.0 H Creatinine 2.11 H 2.23 H Glucose 143 H 175 H Calcium 8.4 L 8.4 L Liver Function 04/28/23 04/29/23 Range/Units 16:51 04:35 Total Bilirubin 2.3 H 1.5 H (0.2-1.0) mg/dL AST 16 24 (15-37) U/L ALT 9 L 12 L (16-63) U/L Alkaline Phosphatase 138 H 122 H (46-116) U/L Albumin 2.4 L 2.1 L (3.4-5.0) g/dL Progress Note: A&P Assessment and Plan (1) Cellulitis of right hand: Assessment and Plan: patient is currently on IV Zyvox and Rocephin, blood cultures so far have been negative. Patient still with leukocytosis although is trending down. No evidence of sepsis. I have added a CRP, ESR and uric acid which all were elevated. More concerning for inflammatory arthritis and not cellulitis.I will add Solu-Medrol 125 mg twice a day which has helped with the pain in the inflammatory arthritis. X-rays negative for fracture. I also stopped Zyvox. (2) PRATIK (acute kidney injury): Assessment and Plan: worsening renal function, stopped Lovenox and placed on low dose eliquis, stopped Zyvox. provided fluid hydration, will check ultrasound of the kidneys and recheck UA (3) Atrial fibrillation with RVR: Assessment and Plan: rate controlled, placed on eliquis today, continue cardizem and lopressor (4) Hypertension: Assessment and Plan: more hypotensive today, push fluids, hold lopressor (5) Alcohol abuse: Assessment and Plan: no acute withdrawal (6) Ambulatory dysfunction: Assessment and Plan: approved for rehab once medically improved. continue to work with pt/ot Plan patient is a full code Eliquis for deep vein thrombosis prophylaxis patient is inpatient status and expected to stay more than 2 midnights yesterday afternoon patient became more somnolent, chest X-ray was normal, lactate normal, worsening renal function; started fluids, stopped linezolid, stopped lovenox. Stopped narcotics. Much improved today. hopeful discharge tomorrow if improvement in renal function.
[2023-04-29] MEDS: TAMSULOSIN HCL 0.4 MG CAPSULE PO (09:09)
[2023-04-29] MEDS: ACETAMINOPHEN 325 MG TABLET 650 MG PO (09:09)
[2023-04-29] MEDS: APIXABAN 5 MG TABLET 2.5 MG PO ×2 (09:09→23:16)
[2023-04-29] MEDS: DILTIAZEM HCL 60 MG TABLET 30 MG PO ×3 (09:09→23:16)
[2023-04-29] MEDS: CEFTRIAXONE 1,000 MG in 0.9 % SODIUM CHLORIDE 50 ML 100 MG IV (09:19)
[2023-04-29 12:49] LABS: Bilirubin Urine NEGATIVE (NEGATIVE); Blood Urine MODERATE (NEGATIVE); Clarity Urine CLEAR (CLEAR); Color Urine DK YELLOW (YELLOW); Glucose Urine UA NEGATIVE (NEGATIVE); Ketones Urine NEGATIVE (NEGATIVE); Leukocyte Esterase Urine NEGATIVE (NEGATIVE); Nitrite Urine NEGATIVE (NEGATIVE); Protein Urine NEGATIVE (NEG/TRACE); Urine Microscopic Indicated YES; pH Urine 5.5 (5.0-9.0)
[2023-04-29 12:54] LABS: Bacteria Urine NONE SEEN #/HPF (NONE SEEN); Cast Seen? SEEN #/LPF (NONE SEEN); Crystals Seen? None Seen #/HPF (None Seen); Hyaline Casts Urine FEW; Mucus Urine NONE SEEN (NONE SEEN); RBC Urine 0-2 #/HPF (0-2); Squamous Epithelial Cell Urine NONE SEEN #/LPF (NONE/RARE); WBC Urine NONE SEEN #/HPF (NONE SEEN)
[2023-04-29 12:55] LABS: Urine Culture Indicated NO
[2023-04-30] VITALS (11 sets, daily range): BP systolic 108–111; BP diastolic 64–65; PULSE 61–105; RESP 18–20; TEMP 36.4–36.5; O2SAT 94–95
[2023-04-30] MEDS: LACTATED RINGER'S SOLUTION 1,000 ML 125 ML IV (02:21)
[2023-04-30 04:59] LABS: Basophils Percent Auto 0.1 % (0.2-2.0); Hemoglobin 12.2 g/dL (14.0-18.0); Immature Granulocytes Abs Auto 0.15 10^3/uL (0.00-0.03); Immature Granulocytes Pct Auto 1.3 % (0.0-0.5); Lymphocytes Absolute Auto 0.5 10^3/uL (1.2-3.8); Lymphocytes Percent Auto 4.2 % (20.5-60.0); Mean Corpuscular HGB Conc 33.9 g/dL (29.9-35.2); Mean Corpuscular Hemoglobin 31.1 pg (25.9-34.0); Mean Corpuscular Volume 91.8 fL (80.0-94.0); Mean Platelet Volume 9.1 fL (9.5-13.5); Monocytes Absolute Auto 0.4 10^3/uL (0.3-0.8); Monocytes Percent Auto 3.1 % (1.7-12.0); Neutrophils Absolute Auto 10.5 10^3/uL (1.4-6.5); Neutrophils Percent Auto 91.3 % (43.0-75.0); Platelet Count 299 10^3/uL (150-450); Red Blood Count 3.92 10^6/uL (4.70-6.10); Red Cell Distribution Width 15.2 % (11.0-15.0); White Blood Count 11.5 10^3/uL (4.0-11.0)
[2023-04-30 05:23] LABS: Alanine Aminotransferase 11 U/L (16-63); Albumin Globulin Ratio 0.5; Albumin Level 1.9 g/dL (3.4-5.0); Alkaline Phosphatase 110 U/L (46-116); Anion Gap 13.2; Aspartate Amino Transferase 31 U/L (15-37); BUN Creatinine Ratio 43.8; Bilirubin Total 0.9 mg/dL (0.2-1.0); Calcium 8.4 mg/dL (8.5-10.1); Carbon Dioxide 23.4 mmol/L (21.0-32.0); Chloride 93 mmol/L (98-107); Estimated GFR (African America 45 (>=60); Estimated GFR (Non-African Ame 37 (>=60); Glucose 169 mg/dL (74-106); Potassium 4.6 mmol/L (3.5-5.1); Sodium 125 mmol/L (136-145); Total Protein 5.9 g/dL (6.4-8.2)
--- NOTE | 2023-04-30 08:09 | PM.DS1 ---
DS: Providers Provider Date of admission: 04/27/23 09:42 Primary care physician: Abdelrahman Reynoso DO Admitting clinician: Shaikh Faith Consults: 04/25/23 15:03 Occupational Therapy Eval and Treat Routine Reason for consultation: generalized weakness Physical Therapy Eval and Treat Routine Reason for consultation: generalized weakness 04/26/23 10:30 Consult to Orthopedics Routine Consulting Provider: Alli Kwok Reason for consultation: right hand cellulitis Attending physician on discharge: Shae Parker DS: Diagnosis Discharge Diagnosis (1) Cellulitis of right hand: (2) Reactive inflammatory arthritis: (3) PRATIK (acute kidney injury): (4) Atrial fibrillation with RVR: (5) Hypertension: (6) Alcohol abuse: (7) Ambulatory dysfunction: DS: Summary Hospital Course Hospital Course: Patient did well on the addition of the solumedrol and stopping Zyvox. His pain is improved, erythema in the hand and ankle have improved and leukocytosis has improved. will be discharged on prednisone 40mg daily for 7 days. Patient was continued on rocephin, Blood cultures negative. Will place on Keflex 500mg BID X 7 days for the presumed cellulitis. PRATIK has improved with IVF and stopping Lovenox and Linezolid. Cr was 1.76 this morning. Ultrasound of the kidneys did not show any acute changes. Afib has been rate controlled on Metoprolol and Cardizem, will continue these. Started on Eliquis, renally dosed. Dosage may need to be adjusted again as kidney function improves. REcommend cmp and cbc recheck within 1 week. Patient will be discharged to halfway facility, [facility] today. Status at Discharge Functional status at discharge: bed bound Time Spent with Patient Time attestation: Total time spent providing and/or coordinating discharge services: Time spent: greater than 30 minutes Quality: Stroke Symptom Onset Unknown: No Exam Narrative Exam Narrative: General: Patient is alert, and oriented to person, place and time with normal affect, proper hygiene Skin: skin erythema over the joints of the right hand and medial malleolus of the left ankle has improved, moving right hand much better today Head: atraumatic, acephalic Eyes: PERRLA, no nystagmus present, conjunctiva clear, no scleral icterus Ears: diminished gross auditory acuity Nose: symmetric, no discharge, no maxillary or frontal sinus tenderness Heart: Normal rate and rhythm, no murmurs/rubs/gallops Lungs: no audible wheezes, crackles and normal breath sounds all lung davis Abdomen: Normal audible bowel sounds, no distension, No palpable masses, no organomegaly, no rebound/guarding/ or rigidity Neuro: CN II-X grossly intact, normal sensation upper and lower extremities Constitutional Vital Signs, click to edit/add: Last Vital Signs Temp 97.6 F 04/30/23 08:00 Pulse 61 04/30/23 08:00 Resp 18 04/30/23 08:00 BP 111/65 04/30/23 08:00 Pulse Ox 94 L 04/30/23 08:00 O2 Del Method Room Air 04/30/23 08:00 O2 Flow Rate 1 04/29/23 06:00 DS: Data Data Completed and Pending Labs on day of discharge: Labs from last 24 hours 04/30/23 04/29/23 04:10 08:10 WBC 11.5 H RBC 3.92 L Hgb 12.2 L Hct 36.0 L MCV 91.8 MCH 31.1 MCHC 33.9 RDW 15.2 H Plt Count 299 MPV 9.1 L Neut % (Auto) 91.3 H Lymph % (Auto) 4.2 L [place] % (Auto) 3.1 Eos % (Auto) 0.0 L Baso % (Auto) 0.1 L Neut # (Auto) 10.5 H Lymph # (Auto) 0.5 L [place] # (Auto) 0.4 Eos # (Auto) 0.0 Baso # (Auto) 0.0 Abs Immat Gran (auto) 0.15 H Imm/Tot Granulo (auto) 1.3 H Sodium 125 L Potassium 4.6 Chloride 93 L Carbon Dioxide 23.4 Anion Gap 13.2 BUN 77.0 H* Creatinine 1.76 H Est GFR ( Amer) 45 L Est GFR (Non-Af Amer) 37 L BUN/Creatinine Ratio 43.8 Glucose 169 H Calcium 8.4 L Total Bilirubin 0.9 AST 31 ALT 11 L Alkaline Phosphatase 110 Total Protein 5.9 L Albumin 1.9 L Globulin 4.0 Albumin/Globulin Ratio 0.5 Urine Color Dk yellow Urine Clarity Clear Urine pH 5.5 Ur Specific [place] 1.020 Urine Protein Negative Urine Glucose (UA) Negative Urine Ketones Negative Urine Occult Blood Moderate A Urine Nitrite Negative Urine Bilirubin Negative Urine Urobilinogen 1.0 Ur Leukocyte Esterase Negative Urine RBC 0-2 Urine WBC None seen Ur Squamous Epith Cells None seen Urine Crystals None seen Urine Bacteria None seen Urine Casts Seen A Hyaline Casts Few Urine Mucus None seen Ur Culture Indicated? No Preliminary micro results at discharge 04/25/23 14:35 - Preliminary Blood NO GROWTH AT 36-48 HOURS. FINAL TO FOLLOW. 04/25/23 14:25 Blood Culture Result 1 - Preliminary Blood NO GROWTH AT 36-48 HOURS. FINAL TO FOLLOW. 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 Forms: Portal Instructions Follow Up Appointments: will need BMP and CBC within 1 week, medications are renally dosed so may need adjusted if renal function continues to improve
[2023-04-30] MEDS: DILTIAZEM HCL 60 MG TABLET 30 MG PO (09:00)
[2023-04-30] MEDS: CEFTRIAXONE 1,000 MG in 0.9 % SODIUM CHLORIDE 50 ML 100 MG IV (09:07)
[2023-04-30] MEDS: APIXABAN 5 MG TABLET 2.5 MG PO (09:10)
[2023-04-30] MEDS: TAMSULOSIN HCL 0.4 MG CAPSULE PO (09:12)
[2023-04-30] MEDS: ACETAMINOPHEN 325 MG TABLET 650 MG PO (09:14)
[2023-04-30] MEDS: METOPROLOL TARTRATE 50 MG TABLET 100 MG PO (09:14)
--- NOTE | 2023-04-30 10:08 | SWNOTE1 ---
SW spoke with doctor and pt is going to be dc today. SW to work on discharge once orders are in.
--- NOTE | 2023-04-30 10:44 | CM.NOTE ---
Rounds made with zita Carmen for pt to discharge to skilled facility today.
[2023-04-30] MEDS: METHYLPREDNISOLONE SOD SUCC PF 125 MG/2 ML VIAL IVP (11:03)
--- NOTE | 2023-04-30 11:31 | PT.DAILY ---
Physical Therapy Daily Note PT Daily Note/Assess Start: 04/27/23 11:26 Freq: Status: Active Protocol: Document 04/30/23 11:16 RAMIRO (Rec: 04/30/23 11:31 [email or web address] [id number]) Physical Therapy Daily Note/Assessment Time In/Time Out Time In 09:45 Time Out 10:23 Pain In Pain N/A Pain Out Pain N/A Subjective Subjective Pt supine upon arrival. Agreeable to PT today. When taking pt's blankets off him therapist noticed he has soiled his bed. Therapeutic Activity Time Therapeutic Activity Minutes (minutes) 30 Therapeutic Activity Units 2 Therapeutic Activity Treatment Bed Mobility Ability Maximum Assist,Total Assist,2 Person Assist Therapeutic Activity Comments pt needs maxA+2 to roll to R side while pericare is performed. Once in side lying he is able to hold bed rail and cont to need MaxA of 1 to maintain side lying position. MaxA+2 to then roll onto L side to clean other side. When finished cleaning bottom area pt washes his face with clean wash cloth and is assisted to clean under arms. Gown is changed along with his sheets at this time. Pt requires total assist of 2 to scoot him up in bed. Pillows placed under both arms and legs at this time. Call light is within reach and needs met. Total Physical Therapy Time Total Therapy Minutes 30 Total Physical Therapy Units 2 Summary Daily Note Summary Con to need heavy assistance for transfer/repositioning. Recommend SNF.
--- NOTE | 2023-04-30 12:15 | PC.NURSE ---
REport called to [facility] Sruthi
--- NOTE | 2023-04-30 12:28 | SWNOTE1 ---
Pt is able to be discharged today. TRA set up transport for 1:00 with [facility]. SW updated packet and sent over dc med rec and CRF. SW completed HENS as well. Pt is going to [facility] skilled.
--- NOTE | 2023-04-30 12:37 | PC.NURSE ---
discontinued urinary catheter for discharge to long-term, deflated balloon, patient tolerated well
== END 2023-04-30 13:20 | DRG 872 ==
LOC: ER 15:27 → MS 15:45
PROVIDERS: Admitting Provider Family Medicine; Emergency Provider Emergency Medicine; PCP Internal Medicine; Visit Provider Internal Medicine
DX: A41.9 Sepsis, unspecified organism (principal); L03.113 Cellulitis of right upper limb; N17.9 Acute kidney failure, unspecified; I48.19 Other persistent atrial fibrillation; R65.20 Severe sepsis without septic shock; D72.829 Elevated white blood cell count, unspecified; I10 Essential (primary) hypertension; F10.10 Alcohol abuse, uncomplicated; R26.81 Unsteadiness on feet; R53.1 Weakness; R29.6 Repeated falls; R06.2 Wheezing; Z91.81 History of falling; Z79.899 Other long term (current) drug therapy
CPT/HCPCS: 36415; 51798; 71045; 73080; 73130; 76775; 80048; 80053; 81001; 82550; 82607; 82746; 83605; 84550; 85025; 85610; 85652; 86140; 87040; 93005; 93971; 94640; 94761; 96365; 96366; 96367; 96368; 96372; 96375; 96376; 97110; 97112; 97162; 97165; 97530; 99285; G0378; J2020; J2930

== ENCOUNTER 2023-05-04 06:13 | Outpatient (REF) | payer MEDICARE, SELFPAY ==
[2023-05-04 10:27] LABS: Hematocrit 45.6 % (42.0-54.0); Hemoglobin 14.7 g/dL (14.0-18.0); Mean Corpuscular HGB Conc 32.2 g/dL (29.9-35.2); Mean Corpuscular Hemoglobin 30.9 pg (25.9-34.0); Mean Corpuscular Volume 95.8 fL (80.0-94.0); Platelet Count 236 10^3/uL (150-450); Red Blood Count 4.76 10^6/uL (4.70-6.10); Red Cell Distribution Width 15.6 % (11.0-15.0)
[2023-05-04 10:58] LABS: Alanine Aminotransferase 44 U/L (16-63); Albumin Globulin Ratio 0.7; Albumin Level 2.7 g/dL (3.4-5.0); Alkaline Phosphatase 173 U/L (46-116); Anion Gap 9.9; Aspartate Amino Transferase 45 U/L (15-37); BUN Creatinine Ratio 42.1; Bilirubin Total 0.9 mg/dL (0.2-1.0); C Reactive Protein 5.8 mg/dL (<=1.0); Calcium 8.9 mg/dL (8.5-10.1); Carbon Dioxide 31.9 mmol/L (21.0-32.0); Chloride 98 mmol/L (98-107); Estimated GFR (African America >60 (>=60); Estimated GFR (Non-African Ame >60 (>=60); Glucose 143 mg/dL (74-106); Potassium 4.8 mmol/L (3.5-5.1); Sodium 135 mmol/L (136-145); Total Protein 6.7 g/dL (6.4-8.2)
[2023-05-04 11:17] LABS: Band Neutrophils Absolute 0.2 10^3/uL (0.0-0.3); Lymphocytes Absolute Manual 2.21 10^3/uL (1.20-3.80); Metamyelocytes Absolute Manual 0.17; Monocytes Absolute Manual 1.02 10^3/uL (0.30-0.80); Segmented Neut Absolute Manual 13.43 10^3/uL (1.4-6.5)
== END 2023-05-04 06:14 | disposition home or self-care (01) ==
LOC: LAB 06:13
PROVIDERS: PCP Internal Medicine; Visit Provider Internal Medicine
DX: Z51.89 Encounter for other specified aftercare (principal)
CPT/HCPCS: 36415; 80053; 85027; 86140

== ENCOUNTER 2023-05-07 04:43 | Outpatient (REF) | payer MEDICARE, MEDICAID, SELFPAY ==
[2023-05-07 09:09] LABS: Hematocrit 44.8 % (42.0-54.0); Hemoglobin 14.5 g/dL (14.0-18.0); Mean Corpuscular HGB Conc 32.4 g/dL (29.9-35.2); Mean Corpuscular Hemoglobin 30.9 pg (25.9-34.0); Mean Corpuscular Volume 95.5 fL (80.0-94.0); Mean Platelet Volume 9.1 fL (9.5-13.5); Platelet Count 245 10^3/uL (150-450); Red Blood Count 4.69 10^6/uL (4.70-6.10); Red Cell Distribution Width 15.7 % (11.0-15.0); White Blood Count 21.1 10^3/uL (4.0-11.0)
[2023-05-07 09:26] LABS: Band Neutrophils Absolute 1.9 10^3/uL (0.0-0.3); Eosinophils Absolute Manual 0.21 10^3/uL (0.00-0.70); Lymphocytes Absolute Manual 1.47 10^3/uL (1.20-3.80); Monocytes Absolute Manual 1.68 10^3/uL (0.30-0.80); Segmented Neut Absolute Manual 15.82 10^3/uL (1.4-6.5)
[2023-05-07 09:27] LABS: Anisocytosis 1+
[2023-05-07 10:04] LABS: Anion Gap 10.1; BUN Creatinine Ratio 38.9; Calcium 8.7 mg/dL (8.5-10.1); Carbon Dioxide 29.5 mmol/L (21.0-32.0); Chloride 99 mmol/L (98-107); Estimated GFR (African America >60 (>=60); Estimated GFR (Non-African Ame >60 (>=60); Glucose 114 mg/dL (74-106); Potassium 4.6 mmol/L (3.5-5.1); Sodium 134 mmol/L (136-145)
== END 2023-05-07 04:44 | disposition home or self-care (01) ==
LOC: LAB 04:43
PROVIDERS: PCP Internal Medicine; Visit Provider Internal Medicine
DX: A41.9 Sepsis, unspecified organism (principal); I50.20 Unspecified systolic (congestive) heart failure
CPT/HCPCS: 36415; 80048; 83880; 85027

== ENCOUNTER 2023-05-14 03:33 | Outpatient (REF) | payer MEDICARE, MEDICAID, SELFPAY ==
[2023-05-14 10:01] LABS: Bilirubin Urine NEGATIVE (NEGATIVE); Blood Urine NEGATIVE (NEGATIVE); Clarity Urine CLEAR (CLEAR); Color Urine LT. YELLOW (YELLOW); Glucose Urine UA NEGATIVE (NEGATIVE); Ketones Urine NEGATIVE (NEGATIVE); Leukocyte Esterase Urine NEGATIVE (NEGATIVE); Nitrite Urine NEGATIVE (NEGATIVE); Protein Urine NEGATIVE (NEG/TRACE); Urobilinogen Urine 0.2 EU/dL (0.2-1.0); pH Urine 5.5 (5.0-9.0)
[2023-05-14 10:01] LABS: Basophils Percent Auto 0.2 % (0.2-2.0); Eosinophils Absolute Auto 0.2 10^3/uL (0.0-0.7); Eosinophils Percent Auto 1.4 % (0.9-7.0); Hematocrit 39.9 % (42.0-54.0); Hemoglobin 12.8 g/dL (14.0-18.0); Immature Granulocytes Abs Auto 0.13 10^3/uL (0.00-0.03); Lymphocytes Absolute Auto 1.2 10^3/uL (1.2-3.8); Mean Corpuscular HGB Conc 32.1 g/dL (29.9-35.2); Mean Corpuscular Hemoglobin 30.9 pg (25.9-34.0); Mean Corpuscular Volume 96.4 fL (80.0-94.0); Mean Platelet Volume 9.5 fL (9.5-13.5); Monocytes Percent Auto 7.9 % (1.7-12.0); Neutrophils Absolute Auto 9.9 10^3/uL (1.4-6.5); Neutrophils Percent Auto 79.5 % (43.0-75.0); Platelet Count 367 10^3/uL (150-450); Red Blood Count 4.14 10^6/uL (4.70-6.10); Red Cell Distribution Width 15.7 % (11.0-15.0); White Blood Count 12.4 10^3/uL (4.0-11.0)
[2023-05-14 10:02] LABS: Urine Microscopic Indicated NO
[2023-05-14 11:22] LABS: Alanine Aminotransferase 14 U/L (16-63); Albumin Globulin Ratio 0.7; Albumin Level 2.4 g/dL (3.4-5.0); Alkaline Phosphatase 161 U/L (46-116); Anion Gap 9.4; Aspartate Amino Transferase 23 U/L (15-37); BUN Creatinine Ratio 25.7; Bilirubin Total 1.4 mg/dL (0.2-1.0); Calcium 8.5 mg/dL (8.5-10.1); Carbon Dioxide 30.9 mmol/L (21.0-32.0); Chloride 98 mmol/L (98-107); Estimated GFR (African America 43 (>=60); Estimated GFR (Non-African Ame 36 (>=60); Globulin 3.5 g/dL; Glucose 133 mg/dL (74-106); Potassium 4.3 mmol/L (3.5-5.1); Sodium 134 mmol/L (136-145); Thyroid Stimulating Hormone 0.896 uIU/mL (0.358-3.740); Total Protein 5.9 g/dL (6.4-8.2)
== END 2023-05-14 03:34 | disposition home or self-care (01) ==
LOC: LAB 03:33
PROVIDERS: PCP Internal Medicine; Visit Provider Internal Medicine
DX: R41.0 Disorientation, unspecified (principal)
CPT/HCPCS: 36415; 80053; 81003; 83880; 84443; 85025

== ENCOUNTER 2023-05-16 04:18 | Outpatient (REF) | payer MEDICARE, MEDICAID, SELFPAY ==
[2023-05-16 10:18] LABS: Anion Gap 11.3; BUN Creatinine Ratio 23.2; Calcium 8.9 mg/dL (8.5-10.1); Carbon Dioxide 32.4 mmol/L (21.0-32.0); Chloride 98 mmol/L (98-107); Estimated GFR (African America 49 (>=60); Estimated GFR (Non-African Ame 40 (>=60); Glucose 158 mg/dL (74-106); Potassium 3.7 mmol/L (3.5-5.1); Sodium 138 mmol/L (136-145)
== END 2023-05-16 04:19 | disposition home or self-care (01) ==
LOC: LAB 04:18
PROVIDERS: PCP Internal Medicine; Visit Provider Internal Medicine
DX: N17.9 Acute kidney failure, unspecified (principal); I10 Essential (primary) hypertension
CPT/HCPCS: 36415; 80048; 83880

== ENCOUNTER 2023-05-28 03:51 | Outpatient (REF) | payer MEDICARE, MEDICAID, SELFPAY ==
[2023-05-28 07:55] LABS: Basophils Absolute Auto 0.1 10^3/uL (0.0-0.1); Basophils Percent Auto 1.2 % (0.2-2.0); Eosinophils Absolute Auto 0.6 10^3/uL (0.0-0.7); Eosinophils Percent Auto 9.5 % (0.9-7.0); Hematocrit 34.2 % (42.0-54.0); Hemoglobin 11.6 g/dL (14.0-18.0); Immature Granulocytes Abs Auto 0.41 10^3/uL (0.00-0.03); Immature Granulocytes Pct Auto 6.2 % (0.0-0.5); Lymphocytes Absolute Auto 1.3 10^3/uL (1.2-3.8); Mean Corpuscular HGB Conc 33.9 g/dL (29.9-35.2); Mean Corpuscular Hemoglobin 31.5 pg (25.9-34.0); Mean Corpuscular Volume 92.9 fL (80.0-94.0); Mean Platelet Volume 8.4 fL (9.5-13.5); Monocytes Absolute Auto 0.6 10^3/uL (0.3-0.8); Monocytes Percent Auto 8.5 % (1.7-12.0); Neutrophils Absolute Auto 3.6 10^3/uL (1.4-6.5); Neutrophils Percent Auto 54.6 % (43.0-75.0); Platelet Count 182 10^3/uL (150-450); Red Blood Count 3.68 10^6/uL (4.70-6.10); White Blood Count 6.6 10^3/uL (4.0-11.0)
[2023-05-28 08:25] LABS: Alanine Aminotransferase 13 U/L (16-63); Albumin Globulin Ratio 0.7; Alkaline Phosphatase 114 U/L (46-116); Anion Gap 8.1; Aspartate Amino Transferase 15 U/L (15-37); BUN Creatinine Ratio 6.9; Bilirubin Total 0.4 mg/dL (0.2-1.0); Calcium 8.2 mg/dL (8.5-10.1); Carbon Dioxide 28.9 mmol/L (21.0-32.0); Chloride 106 mmol/L (98-107); Estimated GFR (African America >60 (>=60); Estimated GFR (Non-African Ame >60 (>=60); Glucose 94 mg/dL (74-106); Sodium 139 mmol/L (136-145)
== END 2023-05-28 03:52 | disposition home or self-care (01) ==
LOC: LAB 03:51
PROVIDERS: PCP Internal Medicine; Visit Provider Internal Medicine
DX: R19.7 Diarrhea, unspecified (principal)
CPT/HCPCS: 36415; 80053; 85025; 87493

== ENCOUNTER 2023-05-28 16:16 | Outpatient (REF) | payer MEDICARE, MEDICAID, SELFPAY ==
[2023-05-29 14:17] LABS: C. Difficile PCR NEGATIVE (NEGATIVE)
== END 2023-05-28 16:17 | disposition home or self-care (01) ==
LOC: LAB 16:16
PROVIDERS: PCP Internal Medicine
DX: R19.7 Diarrhea, unspecified (principal)
CPT/HCPCS: 87493

== ENCOUNTER 2023-06-15 11:09 | Outpatient (OUT) | payer MEDICARE, MEDICAID, SELFPAY ==
[2023-06-15 11:54] LABS: Anion Gap 7.9; BUN Creatinine Ratio 13.5; Calcium 9.1 mg/dL (8.5-10.1); Carbon Dioxide 30.2 mmol/L (21.0-32.0); Chloride 102 mmol/L (98-107); Estimated GFR (African America >60 (>=60); Estimated GFR (Non-African Ame >60 (>=60); Glucose 103 mg/dL (74-106); Potassium 4.1 mmol/L (3.5-5.1); Sodium 136 mmol/L (136-145)
[2023-06-15 12:19] LABS: Basophils Absolute Auto 0.1 10^3/uL (0.0-0.1); Basophils Percent Auto 1.3 % (0.2-2.0); Eosinophils Absolute Auto 0.7 10^3/uL (0.0-0.7); Eosinophils Percent Auto 8.1 % (0.9-7.0); Hematocrit 38.8 % (42.0-54.0); Hemoglobin 12.2 g/dL (14.0-18.0); Immature Granulocytes Abs Auto 0.08 10^3/uL (0.00-0.03); Lymphocytes Absolute Auto 1.4 10^3/uL (1.2-3.8); Lymphocytes Percent Auto 16.3 % (20.5-60.0); Mean Corpuscular HGB Conc 31.4 g/dL (29.9-35.2); Mean Corpuscular Hemoglobin 30.3 pg (25.9-34.0); Mean Corpuscular Volume 96.3 fL (80.0-94.0); Monocytes Absolute Auto 0.9 10^3/uL (0.3-0.8); Monocytes Percent Auto 10.6 % (1.7-12.0); Neutrophils Absolute Auto 5.3 10^3/uL (1.4-6.5); Neutrophils Percent Auto 62.7 % (43.0-75.0); Platelet Count 192 10^3/uL (150-450); Red Blood Count 4.03 10^6/uL (4.70-6.10); Red Cell Distribution Width 15.1 % (11.0-15.0); White Blood Count 8.4 10^3/uL (4.0-11.0)
== END 2023-06-15 11:10 | disposition home or self-care (01) ==
LOC: LAB 11:11
PROVIDERS: PCP Internal Medicine; Visit Provider Internal Medicine
DX: R60.9 Edema, unspecified (principal)
CPT/HCPCS: 36415; 80048; 85025

== ENCOUNTER 2023-06-22 04:19 | Outpatient (REF) | payer MEDICARE, MEDICAID, SELFPAY ==
[2023-06-22 08:03] LABS: Basophils Absolute Auto 0.1 10^3/uL (0.0-0.1); Basophils Percent Auto 1.6 % (0.2-2.0); Eosinophils Absolute Auto 1.1 10^3/uL (0.0-0.7); Eosinophils Percent Auto 12.8 % (0.9-7.0); Hematocrit 36.4 % (42.0-54.0); Hemoglobin 11.6 g/dL (14.0-18.0); Immature Granulocytes Abs Auto 0.09 10^3/uL (0.00-0.03); Immature Granulocytes Pct Auto 1.1 % (0.0-0.5); Lymphocytes Percent Auto 23.7 % (20.5-60.0); Mean Corpuscular HGB Conc 31.9 g/dL (29.9-35.2); Mean Corpuscular Hemoglobin 30.6 pg (25.9-34.0); Monocytes Absolute Auto 0.9 10^3/uL (0.3-0.8); Monocytes Percent Auto 10.5 % (1.7-12.0); Neutrophils Absolute Auto 4.3 10^3/uL (1.4-6.5); Neutrophils Percent Auto 50.3 % (43.0-75.0); Platelet Count 213 10^3/uL (150-450); Red Blood Count 3.79 10^6/uL (4.70-6.10); Red Cell Distribution Width 14.7 % (11.0-15.0); White Blood Count 8.5 10^3/uL (4.0-11.0)
[2023-06-22 08:38] LABS: Anion Gap 13.6; BUN Creatinine Ratio 12.6; Calcium 8.5 mg/dL (8.5-10.1); Carbon Dioxide 29.8 mmol/L (21.0-32.0); Chloride 101 mmol/L (98-107); Estimated GFR (African America >60 (>=60); Estimated GFR (Non-African Ame >60 (>=60); Glucose 87 mg/dL (74-106); Potassium 3.4 mmol/L (3.5-5.1); Sodium 141 mmol/L (136-145); Uric Acid 8.2 mg/dL (3.5-7.2)
== END 2023-06-22 04:20 | disposition home or self-care (01) ==
LOC: LAB 04:19
PROVIDERS: PCP Internal Medicine; Visit Provider Internal Medicine
DX: Z51.81 Encounter for therapeutic drug level monitoring (principal)
CPT/HCPCS: 36415; 80048; 83880; 84550; 85025

== ENCOUNTER 2023-06-27 06:59 | Outpatient (REF) | payer MEDICARE, SELFPAY ==
[2023-06-27 08:44] LABS: Basophils Absolute Auto 0.1 10^3/uL (0.0-0.1); Basophils Percent Auto 1.5 % (0.2-2.0); Eosinophils Absolute Auto 0.9 10^3/uL (0.0-0.7); Eosinophils Percent Auto 12.1 % (0.9-7.0); Hematocrit 37.6 % (42.0-54.0); Hemoglobin 11.9 g/dL (14.0-18.0); Immature Granulocytes Abs Auto 0.06 10^3/uL (0.00-0.03); Immature Granulocytes Pct Auto 0.8 % (0.0-0.5); Lymphocytes Absolute Auto 1.8 10^3/uL (1.2-3.8); Lymphocytes Percent Auto 23.3 % (20.5-60.0); Mean Corpuscular HGB Conc 31.6 g/dL (29.9-35.2); Mean Corpuscular Hemoglobin 29.9 pg (25.9-34.0); Mean Corpuscular Volume 94.5 fL (80.0-94.0); Mean Platelet Volume 8.9 fL (9.5-13.5); Monocytes Absolute Auto 0.7 10^3/uL (0.3-0.8); Monocytes Percent Auto 9.1 % (1.7-12.0); Neutrophils Absolute Auto 4.1 10^3/uL (1.4-6.5); Neutrophils Percent Auto 53.2 % (43.0-75.0); Platelet Count 227 10^3/uL (150-450); Red Blood Count 3.98 10^6/uL (4.70-6.10); Red Cell Distribution Width 14.4 % (11.0-15.0); White Blood Count 7.8 10^3/uL (4.0-11.0)
[2023-06-27 10:05] LABS: Anion Gap 11.1; Calcium 8.6 mg/dL (8.5-10.1); Carbon Dioxide 31.7 mmol/L (21.0-32.0); Chloride 103 mmol/L (98-107); Estimated GFR (African America >60 (>=60); Estimated GFR (Non-African Ame >60 (>=60); Glucose 91 mg/dL (74-106); Potassium 3.8 mmol/L (3.5-5.1); Sodium 142 mmol/L (136-145)
== END 2023-06-27 07:00 | disposition home or self-care (01) ==
LOC: LAB 06:59
PROVIDERS: PCP Internal Medicine; Visit Provider Internal Medicine
DX: R60.9 Edema, unspecified (principal)
CPT/HCPCS: 36415; 80048; 85025

== ENCOUNTER 2023-07-02 14:06 | Outpatient (OUT) | payer MEDICARE, SELFPAY ==
--- NOTE | 2023-07-02 15:31 | CA_ITS ---
Patient Name: CAREN BELLO MR#: [id number] : 1940 Exam Date: 07/02/2023 Ordering Doctor: DR Abdelrahman Reynoso D.O. ECHOCARDIOGRAM REPORT PROCEDURE: CA ECHO DOPPLER COMPLETE INDICATIONS: Acute on chronic diastolic heart failure COMPARISON: None. DESCRIPTION: COMPLETE ECHOCARDIOGRAM Real-time transthoracic echocardiography with 2D, M-mode, spectral and color flow Doppler performed. QUALITY: Technical quality was difficult due to patient's condition and respiratory artifact. LEFT VENTRICLE: Normal chamber size. Mild concentric left ventricular hypertrophy. Global left ventricular systolic function is difficult to assess due to rhythm but appears mildly to moderately reduced. LV EF: Visual estimation of left ventricular ejection fraction is 35-40% DIASTOLIC: Not adequately assessed due to heart rhythm. ATRIAL SEPTUM: LEFT ATRIUM: Severe dilatation. RIGHT ATRIUM: Moderate dilatation. RIGHT VENTRICLE: Mild dilatation. Normal right ventricular systolic function. TRICUSPID VALVE: Normal mobility and thickness. No stenosis with mild regurgitation. Mild pulmonary hypertension. RVSP 35 mmHg MITRAL VALVE: Normal mobility and thickness. No evidence of mitral valve stenosis. Moderate mitral annular calcification. Mild mitral regurgitation. AORTIC VALVE: Moderately calcified aortic valve. Moderately diminished mobility. Doppler velocity suggests mild aortic valve stenosis. No aortic regurgitation. AORTIC ROOT: Mildly dilated. Measuring 3.9 cm. PULMONIC VALVE: Grossly normal. No stenosis. No regurgitation. PERICARDIUM: No evidence of pericardial effusion. IVC: Collapses with inspirations. Normal size. PLEURA: CONCLUSION: 1. Mild concentric left ventricular hypertrophy. Left ventricular systolic function is difficult to assess due to rhythm but appears mildly to moderately reduced. LVEF is estimated at 35 to 40%. 2. Mildly dilated right ventricle with normal systolic function. 3. Moderate to severe biatrial dilatation. 4. Mild mitral and tricuspid regurgitation. 5. Mild aortic valve stenosis. 6. Mildly elevated right-sided pressures. 7. Mildly dilated aortic root measuring 3.9 cm. Adult Echocardiography Procedure Report Left Ventricle LVEDD (3.7 - 5.6 cm): 5.28 cm LVESD (2.2 - 4.0 cm): 4.62 cm LVIVS thickness (0.6 - 1.2 cm): 1.19 cm LVPW thickness (0.5 - 1.0 cm): 1.06 cm e': 0.21 m/s E - e': 5.29 LVOT Max Gradient: 1.28 mm[Hg], 1.21 mm[Hg] LVOT Area (cm2): 0.56 m/s Peak Velocity (LVOT): 0.57 m/s, 0.55 m/s Mean Velocity (LVOT): 0.37 m/s LVOT Diameter 2.16 cm Left Ventricular Ejection Fraction: 35-40 % Left Atrium LA Volume Index (2D A2C): 41.13 ml/m2 Left Atrium Systolic Dimension: 3.90 cm Mitral Valve Mitral Valve E-Wave Peak Velocity: 1.13 m/s Right Ventricle RV Internal Diastolic Dimension: 3.66 cm Aorta AO Root Diam: 3.85 cm Ascending Ao Diam: 3.53 cm Aortic Valve AoV Area (Peak Hair): 1.22 cm2, 1.28 cm2, 1.16 cm2 AoV Area (VTI): 1.31 cm2, 1.37 cm2, 1.26 cm2 Peak Velocity(Antegrade Flow): 1.63 m/s, 1.74 m/s Peak Gradient(Antegrade Flow): 10.63 mm[Hg], 12.15 mm[Hg] Mean Velocity(Antegrade Flow): 1.12 m/s, 1.16 m/s Mean Gradient(Antegrade Flow): 5.78 mm[Hg], 6.21 mm[Hg] Velocity Time Integral: 32.06 cm, 31.69 cm Tricuspid Valve Peak Velocity (Regurgitant Flow): 2.83 m/s, 2.47 m/s, 2.84 m/s Pulmonic Valve Peak Velocity: 1.03 m/s Peak Gradient: 4.26 mm[Hg] Right Atrium Right Atrium Systolic Pressure: 60.95 ml, 60.95 ml Dictated by: Yayo Mayes M.D. on 07/04/2023 at 19:56 Approved by: Yayo Mayes M.D. on 07/04/2023 at 20:06
== END 2023-07-02 14:07 | disposition home or self-care (01) ==
LOC: CARD 14:07
PROVIDERS: PCP Internal Medicine; Visit Provider Internal Medicine
DX: I50.33 Acute on chronic diastolic (congestive) heart failure (principal)
CPT/HCPCS: 93306

== ENCOUNTER 2023-07-11 02:28 | Outpatient (REF) | payer MEDICARE, SELFPAY ==
[2023-07-11 06:44] LABS: Basophils Absolute Auto 0.2 10^3/uL (0.0-0.1); Basophils Percent Auto 2.2 % (0.2-2.0); Eosinophils Percent Auto 11.8 % (0.9-7.0); Hemoglobin 12.4 g/dL (14.0-18.0); Immature Granulocytes Abs Auto 0.13 10^3/uL (0.00-0.03); Immature Granulocytes Pct Auto 1.6 % (0.0-0.5); Lymphocytes Absolute Auto 1.8 10^3/uL (1.2-3.8); Lymphocytes Percent Auto 22.5 % (20.5-60.0); Mean Corpuscular HGB Conc 31.8 g/dL (29.9-35.2); Mean Corpuscular Hemoglobin 29.5 pg (25.9-34.0); Mean Corpuscular Volume 92.6 fL (80.0-94.0); Mean Platelet Volume 8.8 fL (9.5-13.5); Monocytes Absolute Auto 0.8 10^3/uL (0.3-0.8); Monocytes Percent Auto 9.2 % (1.7-12.0); Neutrophils Absolute Auto 4.3 10^3/uL (1.4-6.5); Neutrophils Percent Auto 52.7 % (43.0-75.0); Platelet Count 276 10^3/uL (150-450); Red Blood Count 4.21 10^6/uL (4.70-6.10); Red Cell Distribution Width 14.1 % (11.0-15.0); White Blood Count 8.2 10^3/uL (4.0-11.0)
[2023-07-11 07:13] LABS: Anion Gap 9.3; BUN Creatinine Ratio 25.8; Calcium 8.7 mg/dL (8.5-10.1); Carbon Dioxide 32.5 mmol/L (21.0-32.0); Chloride 101 mmol/L (98-107); Estimated GFR (African America >60 (>=60); Estimated GFR (Non-African Ame 54 (>=60); Glucose 96 mg/dL (74-106); Potassium 3.8 mmol/L (3.5-5.1); Sodium 139 mmol/L (136-145)
== END 2023-07-11 02:29 | disposition home or self-care (01) ==
LOC: LAB 02:28
PROVIDERS: PCP Internal Medicine; Visit Provider Internal Medicine
DX: I48.91 Unspecified atrial fibrillation (principal); R60.9 Edema, unspecified
CPT/HCPCS: 36415; 80048; 83880; 85025

== ENCOUNTER 2023-07-13 02:29 | Outpatient (REF) | payer MEDICARE, SELFPAY ==
[2023-07-13 08:39] LABS: Basophils Absolute Auto 0.2 10^3/uL (0.0-0.1); Basophils Percent Auto 2.1 % (0.2-2.0); Eosinophils Absolute Auto 0.9 10^3/uL (0.0-0.7); Eosinophils Percent Auto 9.1 % (0.9-7.0); Hematocrit 43.4 % (42.0-54.0); Hemoglobin 13.8 g/dL (14.0-18.0); Immature Granulocytes Abs Auto 0.12 10^3/uL (0.00-0.03); Immature Granulocytes Pct Auto 1.2 % (0.0-0.5); Lymphocytes Absolute Auto 2.2 10^3/uL (1.2-3.8); Lymphocytes Percent Auto 21.2 % (20.5-60.0); Mean Corpuscular HGB Conc 31.8 g/dL (29.9-35.2); Mean Corpuscular Hemoglobin 29.9 pg (25.9-34.0); Mean Corpuscular Volume 94.1 fL (80.0-94.0); Monocytes Absolute Auto 0.8 10^3/uL (0.3-0.8); Monocytes Percent Auto 7.7 % (1.7-12.0); Neutrophils Absolute Auto 6.1 10^3/uL (1.4-6.5); Neutrophils Percent Auto 58.7 % (43.0-75.0); Platelet Count 300 10^3/uL (150-450); Red Blood Count 4.61 10^6/uL (4.70-6.10); White Blood Count 10.3 10^3/uL (4.0-11.0)
[2023-07-13 08:41] LABS: Anion Gap 9.6; BUN Creatinine Ratio 19.8; Calcium 9.2 mg/dL (8.5-10.1); Carbon Dioxide 33.2 mmol/L (21.0-32.0); Chloride 101 mmol/L (98-107); Estimated GFR (African America >60 (>=60); Estimated GFR (Non-African Ame 55 (>=60); Glucose 110 mg/dL (74-106); Potassium 3.8 mmol/L (3.5-5.1); Sodium 140 mmol/L (136-145)
== END 2023-07-13 02:30 | disposition home or self-care (01) ==
LOC: LAB 02:29
PROVIDERS: PCP Internal Medicine; Visit Provider Internal Medicine
DX: R60.9 Edema, unspecified (principal)
CPT/HCPCS: 36415; 80048; 85025

== ENCOUNTER 2023-07-27 03:36 | Outpatient (REF) | payer MEDICARE, SELFPAY ==
--- OUTSIDE RECORDS SUMMARY | 2023-07-27 03:39 | XMS_ITS | CCD ---
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 Name Role Phone EDGARDO, DR NAYLOR Admitting Unavailable EDGARDO, DR NAYLOR Attending Unavailable EDGARDO, DR NAYLOR Primary Care Unavailable EDGARDO, DR NAYLOR Admitting Unavailable EDGARDO, DR NAYLOR Attending Unavailable EDGARDO, DR NAYLOR Primary Care Unavailable EDGARDO, DR NAYLOR Consulting Abdelrahman Argueta Unavailable ABDELRAHMAN REYNOSO Primary Care Physician Shanell FAGAN Attending Unavailable Shanell FAGAN Admitting Unavailable Allergies Allergy Classification Reported Allergen(s) Allergy Type Date of Onset Reaction(s) Facility (1 source) patient allergy list reviewed by nurse or physicia Propensity to adverse reactions Comment:Done [employer] Other (1 source) No Known Medication Allergies; Translations: [No Known Medication Allergies] Propensity to adverse reactions (disorder) [facility] Repository Medications Current Medications Medication Drug Class(es) Dates Sig (Normalized) Sig (Original) allopurinol 100 mg oral tablet (20 sources) Xanthine Oxidase Inhibitor Start: 05-10-2023 Allopurinol 100 MG 2 Orally Once a day for 30 days May, Active Start: 05-10-2023 take 1 tablet by samantha th every twenty-four hours Allopurinol 100 MG 1 tablet Orally Once a day May, Active apixaban 2.5 mg oral tablet (20 sources) Factor Xa Inhibitor Start: 04-30-2023 take 1 tablet by mouth twice daily apixaban 2.5 mg oral tablet 2.5 mg = 1 tab(s), Oral, BID Start Date: 04/30/23 Status: Ordered carvedilol 25 mg oral tablet (2 sources) alpha-Adrenergic Rene, beta-Adrenergic Rene take 1 tablet by mouth every twelve hours Carvedilol 25 MG 1 tablet with food Orally Twice a day Active colchicine 0.6 mg oral tablet (20 sources) Start: 05-24-2023 take 0.3 mg by mouth once daily colchicine 0.6 mg Tab 0.3 mg = 0.5 tab(s), Oral, Daily Start Date: 05/24/23 Status: Ordered Start: 05-10-2023 Colchicine 0.6 MG 1 tablet Orally bid x 7 days then qd for 30 days May, Active docusate sodium 100 mg oral capsule (17 sources) Start: 05-24-2023 take 1 capsule by mouth once daily docusate sodium 100 mg Cap 100 mg = 1 cap(s), Oral, Daily Start Date: 05/24/23 Status: Ordered inulin 200 mg / lactobacillus rhamnosus gg [id number] unt oral capsule (9 sources) Culturelle - as directed Orally Active ammonium lactate 120 mg/ml topical lotion (11 sources) Ammonium Lactate 12 % 1 application Externally Twice a day Active Ammonium Lactate 12 % 1 application Externally Twice a day Active levoFLOXacin 500 mg oral tablet (6 sources) Quinolone Antimicrobial Start: 05-25-2023 take 1 tablet by mouth once daily Levaquin 500 mg Tab 500 mg = 1 tab(s), Oral, Daily, # 7 tab(s), Refills(s) 0 Start Date: 05/25/23 Status: Ordered LORazepam 0.5 mg oral tablet (6 sources) Benzodiazepine Start: 05-25-2023 take 1 tablet by mouth twice daily as needed for anxiety Ativan 0.5 mg Tab 0.5 mg = 1 tab(s), Oral, BID, PRN as needed for anxiety, # 10 tab(s), Refills(s) 0 Start Date: 05/25/23 Status: Ordered take 1 tablet by samantha th every twelve hours as needed Ativan 0.5 MG 1 tablet Orally every 12 hours, as needed Active metoprolol tartrate 100 mg oral tablet (20 sources) beta-Adrenergic Rene Start: 05-24-2023 take 1 tablet by mouth twice daily metoprolol tartrate 100 mg Tab 100 mg = 1 tab(s), Oral, BID, Refills(s) 0 Start Date: 05/24/23 Status: Ordered Miralax (1 source) Osmotic Laxative Start: 05-23-2023 take 17 g by mouth once daily MiraLax 17 gm, Oral, Daily Constipation, Refill(s) 0 Start Date: 05/23/23 Status: Ordered Polyethylene Glycols (16 sources) Polyethylene Glycol - as directed Active predniSONE 20 mg oral tablet (7 sources) take 2 tablets by mouth every twenty-four hours predniSONE 20 MG 2 tablets Orally Once a day Active thiamine 100 mg oral tablet (12 sources) Start: 05-24-2023 take 1 tablet by mouth once daily thiamine 100 mg Tab 100 mg = 1 tab(s), Oral, Daily Start Date: 05/24/23 Status: Ordered torsemide 20 mg oral tablet (11 sources) Loop Diuretic Start: 06-15-2023 Torsemide 20 MG as directed Orally Once a day Jun, Active traMADol hydrochloride 50 mg oral tablet (20 sources) Opioid Agonist Start: 05-03-2023 take 1 tablet by mouth every eight hours as needed for pain traMADol HCl 50 MG 1 tablet as needed Orally every 8 hours PRN pain Apr, Active Triad Hydrophilic Wound Dress - (11 sources) Triad Hydrophili c Wound Dress - as directed Externally Active triamcinolone acetonide 5 mg/ml topical cream (11 sources) Corticosteroid Triamcinolone Acetonide 0.5 % 1 application Externally Two times a Week Active Triamcinolone Ac etonide 0.5 % 1 application Externally Two times a Week Active Completed/Discontinued Medications Medication Drug Class(es) Dates Sig (Normalized) Sig (Original) bumetanide 1 mg oral tablet (10 sources) Loop Diuretic Start: 05-10-20 take 1 tablet by mouth every twelve hours Bumetanide 1 MG 1 tablet Orally bid for 30 days May, Not-Taking cephalexin 500 mg oral capsule (5 sources) Cephalosporin Antibacterial Start: 04-30-20 End: 05-07-20 take 1 capsule by mouth twice daily Cephalexin 500 MG 1 capsule Orally TWO TIMES DAILY Apr, May, Active dilTIAZem hydrochloride 30 mg oral tablet (17 sources) Calcium Channel Rene take 1 tablet by mouth twice daily dilTIAZem HCl 30 MG 1 tablet Orally two times daily Not-Taking hydroCHLOROthiazide 25 mg oral tablet (12 sources) Thiazide Diuretic take 1 tablet by mouth every twenty-four hours hydroCHLOROthiazide 25 MG 1 tablet in the morning Orally Once a day Not-Taking losartan potassium 25 mg oral tablet (12 sources) Angiotensin 2 Receptor Rene Start: 05-10-20 take 1 tablet by mouth every twenty-four hours Losartan Potassium 25 MG 1 tablet Orally Once a day for 30 days May, Not-Taking tamsulosin hydrochloride 0.4 mg oral capsule (20 sources) alpha-Adrenergic Rene Start: 05-23-20 End: 05-25-20 tamsulosin 0.4 mg Cap 0.4 mg = 1 cap(s), Cap, Oral, Start date 05/25/23 9:00:00 AM EDT, 05/24/23 11:50:00 EDT Start Date: 05/25/23 Stop Date: 05/25/23 Status: Completed Problems Active Problems Problem Classification Problem Date Documented Date Episodic/Chronic Acute and unspecified renal failure (2 sources) Acute renal failure syndrome; Translations: [Acute kidney failure, unspecified] Onset: 05-23-2023 Episodic Cardiac dysrhythmias (20 sources) Persistent atrial fibrillation; Translations: [Other persistent atrial fibrillation] Onset: 05-23-2023 Resolved: 10-18-2020 Chronic Congestive heart failure; nonhypertensive (20 sources) Heart failure with reduced ejection fraction; Translations: [Unspecified systolic (congestive) heart failure] Chronic Fluid and electrolyte disorders (2 sources) Hypokalemia; Translations: [Hypokalemia] Onset: 05-23-2023 Episodic Genitourinary symptoms and ill-defined conditions (9 sources) Dysuria; Translations: [Dysuria] Episodic Gout and other crystal arthropathies (20 sources) Gout; Translations: [Gout, unspecified] Chronic Heart valve disorders (1 source) Cardiac murmur, unspecified Episodic Hyperplasia of prostate (20 sources) Benign prostatic hypertrophy with outflow obstruction; Translations: [Hypertrophy (benign) of prostate with urinary obstruction and other lower urinary tract symptoms [LUTS]] Onset: [birth year]06-1959 Resolved: 11-07-2019 Chronic Immunizations and screening for infectious disease (7 sources) Vaccination given; Translations: [Encounter for immunization] Episodic Inflammatory conditions of male genital organs (1 source) Acute prostatitis Episodic Malaise and fatigue (18 sources) Other fatigue; Translations: [Malaise and fatigue] Onset: 11-30-2017 Episodic Osteoarthritis (20 sources) Osteoarthritis; Translations: [Polyosteoarthritis, unspecified] Onset: 11-22-2018 Resolved: 11-07-2019 Chronic Other and ill-defined heart disease (7 sources) Heart disease; Translations: [Heart disease, unspecified] Chronic Other connective tissue disease (2 sources) Personal history of other diseases of the musculoskeletal system and connective tissue; Translations: [PERS HX OTH DZ MSK SYS AND CNCTV TISSUE] Onset: 11-30-2021 Episodic Other connective tissue disease (7 sources) H/O: musculoskeletal disease; Translations: [Personal history of other diseases of the musculoskeletal system and connective tissue] Episodic Other connective tissue disease (7 sources) Other bursal cyst, unspecified ankle and foot; Translations: [Other bursal cyst, unspecified ankle and foot] Episodic Other diseases of veins and lymphatics (20 sources) Peripheral venous insufficiency; Translations: [Venous insufficiency (chronic) (peripheral)] Onset: 01-02-2019 Episodic Other diseases of veins and lymphatics (5 sources) Venous insufficiency (chronic) (peripheral) Episodic Other ear and sense organ disorders (7 sources) Sensorineural hearing loss, bilateral; Translations: [Sensorineural hearing loss, bilateral] Onset: 03-07-2019 Chronic Other injuries and conditions due to external causes (7 sources) History of fall; Translations: [History of falling] Episodic Other non-traumatic joint disorders (1 source) Pain in right wrist Episodic Other nutritional; endocrine; and metabolic disorders (20 sources) Body mass index 30+ - obesity; Translations: [Body mass index 36.0-36.9, adult] Onset: 08-06-1959 Resolved: 11-07-2019 Chronic Other nutritional; endocrine; and metabolic disorders (7 sources) Obesity; Translations: [Obesity, unspecified] Chronic Other nutritional; endocrine; and metabolic disorders (1 source) Obesity, unspecified Chronic Other skin disorders (7 sources) Vesicular eczema of hands and/or feet; Translations: [Dyshidrosis [pompholyx]] Episodic Tasha-; endo-; and myocarditis; cardiomyopathy (except that caused by tuberculosis or sexually transmitted disease) (20 sources) Dilated cardiomyopathy; Translations: [Dilated cardiomyopathy] Onset: 11-30-2021 Chronic Septicemia (except in labor) (1 source) Sepsis, unspecified organism; Translations: [A41.9] Onset: 05-23-2023 Episodic Shock (3 sources) Septic shock; Translations: [Severe sepsis with septic shock] Onset: 05-23-2023 Episodic Spondylosis; intervertebral disc disorders; other back problems (20 sources) Lumbosacral spondylosis without myelopathy; Translations: [Spondylosis without myelopathy or radiculopathy, lumbar region] Chronic Spondylosis; intervertebral disc disorders; other back problems (7 sources) Low back pain; Translations: [Lumbago] Episodic Unclassified (7 sources) History of disease caused by Severe acute respiratory syndrome coronavirus 2 (situation); Translations: [Personal history of COVID-19] Urinary tract infections (1 source) Urinary tract infectious disease; Translations: [Urinary tract infection, site not specified] Onset: 05-23-2023 Episodic Past or Other Problems Problem Classification Problem Date Documented Date Episodic/Chronic Alcohol-related disorders (7 sources) Alcohol abuse; Translations: [Alcohol abuse, uncomplicated] Onset: 01-02-2019 Resolved: 11-07-2019 Chronic Essential hypertension (14 sources) Benign essential hypertension; Translations: [Essential hypertension, benign] Onset: 01-06-2015 Resolved: 06-30-2020 Chronic Fracture of lower limb (14 sources) Late effect of fracture of lower extremities; Translations: [Other fracture of right patella, sequela] Onset: 11-22-2018 Resolved: 11-07-2019 Episodic Hemorrhoids (7 sources) Hemorrhoids; Translations: [Unspecified hemorrhoids] Resolved: 11-07-2019 Episodic Other and ill-defined heart disease (7 sources) Cardiomegaly; Translations: [Cardiomegaly] Resolved: 11-07-2019 Chronic Other connective tissue disease (7 sources) Disorder of musculoskeletal system; Translations: [Other symptoms and signs involving the musculoskeletal system] Onset: 01-29-2019 Resolved: 11-07-2019 Episodic Other ear and sense organ disorders (7 sources) Impacted cerumen; Translations: [Impacted cerumen] Onset: 03-07-2019 Resolved: 11-07-2019 Episodic Other injuries and conditions due to external causes (7 sources) Accident while engaged in household activity; Translations: [Place of occurrence, home] Onset: 11-22-2018 Episodic Other nutritional; endocrine; and metabolic disorders (7 sources) Simple obesity ; Translations: [Other obesity due to excess calories] Onset: 08-06-1959 Resolved: 11-07-2019 Chronic Other nutritional; endocrine; and metabolic disorders (7 sources) Obese class I; Translations: [Body mass index 33.0-33.9, adult] Onset: 08-06-1959 Resolved: 11-07-2019 Chronic Other nutritional; endocrine; and metabolic disorders (7 sources) Obese class II; Translations: [Body mass index 35.0-35.9, adult] Onset: 08-06-1959 Resolved: 11-07-2019 Chronic Other nutritional; endocrine; and metabolic disorders (7 sources) Morbid obesity; Translations: [Morbid (severe) obesity due to excess calories] Onset: 08-06-1959 Resolved: 11-07-2019 Chronic Other nutritional; endocrine; and metabolic disorders (7 sources) Body mass index 40+ - severely obese; Translations: [Body mass index (BMI) 40.0-44.9, adult] Onset: 08-06-1959 Resolved: 11-07-2019 Chronic Other screening for suspected conditions (not mental disorders or infectious disease) (7 sources) Encounter for screening for diseases of the blood and blood-forming organs and certain disorders involving the immune mechanism; Translations: [Encntr screen for dis of the bld/bld-form org/immun mechnsm] Onset: 07-05-2017 Resolved: 11-07-2019 Episodic Pneumonia (except that caused by tuberculosis or sexually transmitted disease) (14 sources) Pneumonia due to Streptococcus; Translations: [Pneumonia due to other streptococci] Onset: 11-22-2018 Resolved: 11-07-2019 Episodic Unclassified (4 sources) Other persistent atrial fibrillation Viral infection (7 sources) Disease caused by 2019-nCoV; Translations: [COVID-19] Resolved: 05-17-2021 Results Test Name Value Interpretation Reference Range Facility Insurance Correspondence Off 06-08-2023 Insurance Correspondence Office [id number]# 1.00TIFF [facility] Insurance Correspondence Off 05-30-2023 Insurance Correspondence Office [id number]# 1.00TIFF [facility] Coding Queryon 05-27-2023 Coding Query - From: Chuyita Rosas RN To: Shanell FAGAN MD; Sent: 05/24/2023 10:52:39 EDT ! Subject: Coding Query Due Date/Time: 05/25/2023 10:52:00 EDT Caller Name: CAREN THORNE; Caller Number: H Documentation per a tax consultant in the medical record indicates this patient has been diagnosed as having: Pressure ulcer coccyx The following is also documented in the medical record: Documented by nursing on 05/23 no tenderness, surrounding tissue erythema, open to air Based on your medical judgment of the documented diagnoses by the tax consultant, do you agree with the diagnosis? [___]Yes, I agree with the diagnosis documented by the tax consultant. Please further specify location and stage [___]No, I do not agree with the diagnosis documented by the tax consultant. Reason: [___]Other: In responding to this request, please exercise your independent professional judgement. The fact that a question is asked does not imply that any particular answer is desired or expected. Thank you! Chuyita [phone] From: Shanell FAGAN MD To: Chuyita Rosas RN; Sent: 05/27/2023 17:56:12 EDT Subject: RE: Coding Query Caller Name: CAREN THORNE; Caller Number: H yes i agree [facility] Coding Query - From: hCuyita Rosas RN To: Shanell FAGAN MD; Sent: 05/24/2023 10:49:07 EDT ! Subject: Coding Query Due Date/Time: 05/25/2023 10:49:00 EDT Caller Name: CAREN THORNE; Caller Number: H Documentation in the medical record indicates this patient has been admitted with or diagnosed as having: Confused disoriented The following is also documented in the medical record: H&G-88-bdul-old white male past medical history of hypertension, A-fib, BPH presented to emergency room with change mental status. He was confused disoriented Based on your medical judgment, can you please clarify any underlying cause of the above clinical indicators/diagnosis? Select all that apply: [___]Metabolic encephalopathy [___]Septic encephalopathy [___]Other: In responding to this request, please exercise your independent professional judgement. The fact that a question is asked does not imply that any particular answer is desired or expected. Thank you! Chuyita [phone] From: Shanell FAGAN MD To: Chuyita Rosas RN; Sent: 05/27/2023 17:55:57 EDT Subject: RE: Coding Query Caller Name: CAREN THORNE; Caller Number: H metabolic encephalopathy Normal [facility] Coding Query - From: Chuyita Rosas RN To: Shanell FAGAN MD; Sent: 05/24/2023 10:46:31 EDT ! Subject: Coding Query Due Date/Time: 05/25/2023 10:46:00 EDT Caller Name: CAREN THORNE; Caller Number: H Documentation in the medical record indicates this patient has been admitted with or diagnosed as having: Sepsis (Septic shock-severe sepsis with septic shock) The following is also documented in the medical record: 05/24 progress note-No fever No Leukocytosis Blood cultures are pending Urine culture is pending C/w Rocephin IV Daily Based on your medical judgment, can you please further validate the above diagnosis? [___]The above diagnosis is not supported by clinical indicators and is ruled out. [___]The above diagnosis is supported by the following clinical indicators: [___]Other: In responding to this request, please exercise your independent professional judgement. The fact that a question is asked does not imply that any particular answer is desired or expected. Thank you! Chuyita [phone] From: Shanell FAGAN MD To: Alison CALHOUN, Chuyita; Sent: 05/27/2023 17:55:42 EDT Subject: RE: Coding Query Caller Name: CAREN THORNE; Caller Number: Bobby hypotension , not responded to fluid, on Levophed , positive urine culture Normal [facility] BMPon 05-25-2023 Anion gap [Moles/Vol] 9 mmol/L Normal 6-16 [facility] Comment on above: Performed By: #### 1 [id number], [id number] ####[facility] [address] [place] [address] Calcium [Mass/Vol] 7.9 mg/dL Low 8.9-11.1 [facility] Comment on above: Performed By: #### 1 [id number], [id number] ####[facility] [address] [place] [address] Chloride [Moles/Vol] 104 mmol/L Normal 101-111 [facility] Comment on above: Performed By: #### 1 [id number], [id number] ####[facility] [address] [place] [address] CO2 [Moles/Vol] 25 mmol/L Normal 21-31 [facility] Comment on above: Performed By: #### 1 [id number], [id number] ####[facility] [address] [place] [address] Creatinine [Mass/Vol] 0.9 mg/dL Normal 0.5-1.3 [facility] Comment on above: Performed By: #### 1 [id number], [id number] ####[facility] [address] [place] [address] Glucose [Mass/Vol] 86 mg/dL Normal 55-199 [facility] Comment on above: Result Comment: If t his glucose result represents a fasting glucose, interpretation should refer to the following reference range: 55-99 mg/dL Performed By: #### 1 [id number], [id number] ####[facility] [address] [place] [address] Potassium [Moles/Vol] 3.6 mmol/L Normal 3.5-5.3 [facility] Comment on above: Performed By: #### 1 [id number], [id number] ####[facility] [address] [place] [address] Sodium [Moles/Vol] 134 mmol/L Low 135-145 [facility] Comment on above: Performed By: #### 1 [id number], [id number] ####[facility] [address] [place] [address] Urea nitrogen [Mass/Vol] 13 mg/dL Normal 5-21 [facility] Comment on above: Performed By: #### 1 [id number], [id number] ####[facility] [address] [place] [address] Urea nitrogen/Creatinine [Mass ratio] 14 No Units Normal 10-20 [facility] Comment on above: Performed By: #### 1 [id number], [id number] ####[facility] [address] [place] [address] C Urineon 05-25-2023 Bacteria identified Cx Nom (U) Microbiology PROCEDURE: Urine Culture [R1] SOURCE: U Cath BODY SITE: COLLECTED DATE/TIME: 05/23/2023 11:36 EDT RECEIVED DATE/TIME: 05/23/2023 12:16 EDT START DATE/TIME: 05/23/2023 12:16 EDT FREE TEXT SOURCE: Higinio Fink DO, DO, Higinio Romero FINAL REPORTS Final Report [] Verified Date/Time: 05/25/2023 09:42 EDT >100,000 cfu/ml Citrobacter youngae SUSCEPTIBILITY RESULTS LEGEND: S=Susceptible, N/R=Not Reported, Blank=Data not available, or drug not advisable or tested, I=Intermediate, ESBL=Extended spectrum beta-lactamase, R=Resistant, TFG=Thymidine-depende nt strain, ZAC=Beta-lactamase positive, ROBBY=mcg/m;(mg/L), S*=Predicted susceptible interp, R*=Predicted resistant interp [facility] Antibiotic ROBBY Dilutn ROBBY Interp Amikacin <=16 S Ampicillin >16 R Ampicillin/ >16/8 R Sulbactam Aztreonam 16 I Cefazolin >16 R Cefepime <=2 S Cefoxitin >16 R Ceftazidime >16 R Ceftazidime/ <=8 S Avibactam Ceftriaxone >32 R Ciprofloxacin <=1 S Ertapenem <=0.5 S Gentamicin <=4 S Levofloxacin <=2 S Meropenem <=1 S Nitrofurantoin <=32 S Piperacillin/ <=16 S Tazobactam Tetracycline <=4 S Tigecycline <=2 S Tobramycin <=4 S Trimethoprim/ <=2/38 S Sulfa Performing Locations R1: This test was performed at: [facility], [address] [place] [address], [address] , , [facility] Comment on above: Performed By: #### 1 [id number], [id number] #### [facility] [address] [place] [address] CHEMISTRYOrdered By: SYSTEM SYSTEM on 05-25-2023 Anion gap [Moles/Vol] 9 mmol/L Normal 6 - 16 mEq/L [facility] Remisol Calcium [Mass/Vol] 7.9 mg/dL Low 8.9 - 11. 1 mg/dL [facility] Remisol Chloride [Moles/Vol] 104 mmol/L Normal 101 - 1 11 mmol/L FT Remisol CO2 [Moles/Vol] 25 mmol/L Normal 21 - 31 mmol/L [facility] Creatinine [Mass/Vol] 0.9 mg/dL Normal 0.5 - 1.3 mg/dL [facility] GFR/1.73 sq M.predicted among non-blacks MDRD (S/P/Bld) [Vol rate/Area] 85 mL/min/1.73 m2 Normal >=59mL/min/1 .73 m2 [facility] Comment on above: Interpretive Data: C hronic kidney disease could be indicated at eGFR's of less than 60 mL/min/1.73m2. Kidney failure is indicated at less than 15 mL/min/1.73m2. Glucose [Mass/Vol] 86 mg/dL Normal 55 - 199 mg/dL [facility] Comment on above: Interpretive Data: I f this glucose result represents a fasting glucose, interpretation should refer to the following reference range: 55-99 mg/dL Potassium [Moles/Vol] 3.6 mmol/L Normal 3.5 - 5.3 mmol/L [facility] Sodium [Moles/Vol] 134 mmol/L Low 135 - 145 mmol/L [facility] Urea nitrogen [Mass/Vol] 13 mg/dL Normal 5 - 21 mg/dL [facility] Urea nitrogen/Creatinine [Mass ratio] 14 mg/mg Normal 10 - 20 [facility] Discharge Instructionson Discharge Instructions [id number]# 1.00TIFF Normal [facility] Discharge Note-Nursingon Discharge Note-Nursing CAREN THORNE :1940 Visit Date:05/23/2023 Inpatient Discharge Instructions Your Care Team Admitting Physician - Shanell FAGAN MD Reason for Your Visit pt went unresponsive at [facility] Your Diagnosis UTI (urinary tract infection) Acute renal failure Hypokalemia Hyponatremia Afib Septic shock, Septic shock Syncope/Near syncope Tests Performed ABO/Rh ABO/Rh Retype Antibody Screen Automated Diff BMP Capillary Glucose POC CBC w/ Auto Diff CMP eGFR Lactic Acid PT & PTT Troponin UA With Cult Reflex CT Abdomen/Pelvis w/ Contrast CTA Chest XR Chest Single View This Is Your Medications List allopurinol (allopurinol 100 mg Tab) apixaban (apixaban 2.5 mg oral tablet) colchicine (colchicine 0.6 mg Tab) docusate (docusate sodium 100 mg Cap) levofloxacin (Levaquin 500 mg Tab) lorazepam (Ativan 0.5 mg Tab) metoprolol (metoprolol tartrate 100 mg Tab) polyethylene glycol 3350 (MiraLax) tamsulosin (tamsulosin 0.4 mg Cap) thiamine (thiamine 100 mg Tab) tramadol (traMADOL 50 mg Tab) [Image Removed: STOP]Stop taking these medications bumetanide (bumetanide 1 mg Tab) losartan (losartan 25 mg Tab) Procedure History Cataract extraction and insertion of intraocular lens (05/27/2019), Cataract extraction and insertion of intraocular lens (05/13/2019). Discharge Vitals Temperature (Axillary) 36.2 ?C Heart Rate (Monitored) 80 Respiratory Rate 17 Blood Pressure 147/80 Weight 105.4 kg What to do next Instructions From Your Doctor Event Name Event Result Discharge Activity Ambulate as tolerated Discharge Restrictions No restrictions Discharge Diet(s) Regular Pending Diagnostic Test Results None Pharmacy Information [facility] New Follow Up Appointments after Discharge Follow Up with ABDELRAHMAN REYNOSO When: In 0 days Where: [address] [place] [address]- Business (1) Medications What How Much When Instructions Next Dose New levofloxacin (Levaquin 500 mg Tab) 1 Tablets By Mouth Every day Printed Prescription Changed colchicine (colchicine 0.6 mg Tab) 0.5 Tablets By Mouth Every day Changed docusate (docusate sodium 100 mg Cap) 1 Capsules By Mouth Every day Changed metoprolol (metoprolol tartrate 100 mg Tab) 1 Tablets By Mouth 2 times a day Changed polyethylene glycol 3350 (MiraLax) 17 Gram By Mouth Every day as needed for Constipation Changed tamsulosin (tamsulosin 0.4 mg Cap) 1 Capsules By Mouth Every day Changed thiamine (thiamine 100 mg Tab) 1 Tablets By Mouth Every day Changed tramadol (traMADOL 50 mg Tab) 1 Tablets By Mouth Every 8 hours as needed for as needed for pain Printed Prescription Unchanged allopurinol (allopurinol 100 mg Tab) 1 Tablets By Mouth Every day at bedtime Unchanged apixaban (apixaban 2.5 mg oral tablet) 1 Tablets By Mouth 2 times a day Unchanged lorazepam (Ativan 0.5 mg Tab) 1 Tablets By Mouth 2 times a day as needed for as needed for anxiety Printed Prescription What How Much When Comments Stop Taking bumetanide (bumetanide 1 mg Tab) 1 Tablets By Mouth Every day Stop Taking losartan (losartan 25 mg Tab) 1 Tablets By Mouth Every day Test Results CBC BMP WBC: 4 E9/L (05/23/23 09:29:00) Glucose Lvl: 86 mg/dL (05/25/23 06:08:00) RBC: 3.9 E12/L Low (05/23/23:29:00) BUN: 13 mg/dL (05/25/23 06:08:00) HGB: 11.7 gm/dL Low (05/23/23::) Creatinine: 0.9 mg/dL (05/25/23 06:08:00) Hct: 35.1 % Low (05/23/23:29:00) BUN/Creat Ratio: 14 (05/25/23 06:08:00) MCV: 90.8 fL (05/23/23:29:00) Sodium Lvl: 134 mmol/L Low (05/25/23 06:08:00) MCH: 30.4 pg (05/23/23:29:00) Potassium Lvl: 3.6 mmol/L (05/25/23 06:08:00) MCHC: 33.5 gm/dL (05/23/23:29:00) Chloride: 104 mmol/L (05/25/23 06:08:00) RDW: 16.5 % High (05/23/23:29:00) CO2: 25 mmol/L (05/25/23 06:08:00) Platelet: 164 E9/L (05/23/23 09:29:00) AGAP: 9 mEq/L (05/25/23 06:08:00) MPV: 7 fL (10/18/23 09:29:00) Calcium Lvl: 7.9 mg/dL Low (05/25/23 06:08:00) Allergies No Known Medication Allergies Problems Ongoing - Any problem that you are currently receiving treatment for. Septic shock Education Materials Hyponatremia Hyponatremia is when the amount of salt (sodium) in a person's blood is too low. When sodium levels are low, the cells absorb extra water, which causes them to swell. The swelling happens throughout the body, but it mostly affects the brain. What are the causes? This condition may be caused by: ? Certain medical conditions, such as: ? Heart, kidney, or liver problems. ? Thyroid problems. ? Adrenal gland problems. ? Metabolic conditions, such as Naif's disease or syndrome of inappropriate antidiuresis (SIAD). ? Excessive vomiting, diarrhea, or sweating. ? Certain medicines or illegal drugs. ? Fluids given through an IV. What increases the risk? You (more content not included)... [facility] Facesheeton 05-25-2023 Facesheet [id number]# 1.00TIFF [facility] Interdisciplinary Note - Aba e Manageron 05-25-2023 Interdisciplinary Note - Management Retail Intern Pt is awake and alert in bed, previously rounded with Dr. Fagan. Pt is aware of plan to DC back to [facility] once precert obtained, pt is medically ready to DC once precert obtained. Decline need to call family at this time. Updated on change to inpatient status, medicare rights reviewed, form signed and original provided. Nursing updated. . PCP verified and insurance information reviewed and DME discussed. Contact information provided and white board updated. [facility] attempted to call pt daughter Trice [phone] to update on plan to DC back to [facility], no answer, provided with update and contact information [facility] Comment on above: Result Comment: Elec tronically Signed By: Traci CALHOUN, Soraya\.charli\Date and Time Signed: 05/25/23 13:05 EDT Living Will/POAon 05-25-2023 Living Will/POA [id number]# 1.00TIFF [facility] Medication Listson 3 Medication Lists [id number]# 1.00TIFF Normal [facility] Medication Lists [id number]# 1.00TIFF Normal [facility] Message from Medicareon 05-07 Message from Medicare [id number]# 1.00TIFF Normal [facility] Outside Recordson 05-25-2023 Outside Records [id number]# 1.00TIFF Normal [facility] Outside Records [id number]# 1.00TIFF Normal [facility] Patient Education - Texton 1 Patient Education - Text Nephrology Acute Kidney Injury, Adult Acute kidney injury is a sudden worsening of kidney function. The kidneys are a pair of organs that do many important jobs in the body, including: ? Make urine. ? Make hormones. ? Keep the right amount of fluids and chemicals in the body. This condition ranges from mild to severe. Over time, it may develop into long-lasting (chronic) kidney disease. Finding it and treating it early may keep it from becoming a long-lasting disease. What are the causes? Common causes of this condition include: ? A problem with blood flow to the kidneys. This may be caused by: ? Low blood pressure or shock. ? Blood loss. ? Heart and blood vessel disease. ? Severe grewal. ? Liver disease. ? Direct damage to the kidneys. This may be caused by: ? Certain medicines. ? A kidney infection. ? Poisoning. ? Being around or in contact with toxic substances. ? A wound from surgery. ? A hard, direct hit to the kidney area. ? A sudden block in urine flow. This may be caused by: ? Cancer. ? Kidney stones. ? An enlarged prostate. What increases the risk? ? Being older than age 65. ? Being female. ? Being in the hospital. This is especially true if you are very sick. ? Having certain conditions, such as: ? Long-lasting kidney or liver disease. ? Diabetes. ? Heart disease and heart failure. ? Lung disease. What are the signs or symptoms? This condition may not cause symptoms until it becomes severe. Symptoms can include: ? Feeling very tired or having trouble staying awake. ? Nausea or vomiting. ? Swelling (edema) of the face, legs, ankles, or feet. ? Pain in the belly or pain along the side of your stomach (flank). ? Urine changes, such as: ? Making little or no urine. ? Passing urine with a weak flow. ? Muscle twitches and cramps, most often in the legs. ? Confusion or trouble concentrating. ? Not feeling the urge to eat. ? Fever. How is this diagnosed? This condition may be diagnosed based on: ? Your symptoms. ? Your medical history. ? A physical exam. You may have other tests, such as: ? Blood tests. ? Urine tests. ? Imaging tests. ? A kidney biopsy. This involves removing a sample of kidney tissue to be looked at under a microscope. How is this treated? Treatment depends on the cause and how severe the condition is. In mild cases, treatment may not be needed. The kidneys may heal on their own. In severe cases, treatment may include: ? Treating the cause of the kidney injury. This may mean that you have to change your medicines or the doses you take. ? Getting fluids through an IV tube. ? Having a small, thin tube (catheter) put in. This tube will drain urine and prevent blockages. ? Trying to keep problems from starting. This may mean not using certain medicines or not having tests done that could cause more kidney injury. In some cases, these treatments are also needed: ? Dialysis or continuous renal replacement therapy (CRRT). This treatment uses a machine to do the job of the kidneys. ? Surgery. This may be done to repair a damaged kidney. It could also be done to remove a blockage in the urinary tract. Follow these instructions at home: Medicines ? Take nfug-xzo-lkpeywv and prescription medicines only as told by your health care provider. ? Do not take any new medicines unless approved by your health care provider. Many medicines can make kidney damage worse. ? Do not take any vitamin or mineral supplements unless approved by your health care provider. Some of these can make kidney damage worse. Lifestyle ? Make changes to your diet as told by your health care provider. You may need to eat less protein. ? Get to, and stay at, a healthy weight. If you need help, ask your health care provider. ? Start or keep up an exercise plan. Exercise at least 30 minutes a day, 5 days a week. ? Do not smoke or use any products that contain nicotine or tobacco. If you need help quitting, ask your health care provider. General instructions ? Keep track of your blood pressure. Tell your health care provider if you notice any changes. ? Keep your vaccines up to date. Ask your health care provider which vaccines you need. ? Keep all follow-up visits. Where to find more information ? [place] [employer]: www.aakp.org ? National Kidney Foundation: www.kidney.org ? [place] [employer]: www.akfinc.org ? Medical Education [place]: ? [employer]: www.BTIG.org ? Kidney School: www.kidneyschool.org Contact a health care provider if: ? Your symptoms get worse. ? You have new symptoms such as: ? Headaches. ? Skin that is darker or jack tamp operator than normal. ? Easy bruising. ? Itchiness. ? Hiccups. ? Lack of menstrual periods. ? You have a fever. Get help right away if: ? You have symptoms of wors (more content not included)... Normal [facility] Prescriptions/Work Noteson 1 Prescriptions/Work Notes [id number]# 1.00TIFF Normal [facility] Progress Note-Physicianon Progress Note-Physician Basic Information 83-year-old white male past medical history of hypertension, A-fib, BPH presented to emergency room with change mental status. Patient was found in the skilled nursing unresponsive today in the morning. Blood pressure was very low systolic blood pressure was in the 60s. He was confused disoriented. He has no fever or chills. Patient given IV fluids bolus in the emergency room. Hold on interview him he was alert awake answer questions. Daughter is at bedside. Patient had a fall couple weeks ago and there was discharged to skilled rehab. He was found unresponsive by nursing staff. He has no nausea vomiting. He has no diarrhea. He denies any chest pain or shortness of breath. He denies any dysuria, hematuria, frequency. In the emergency room his blood pressure was 66/45. . His blood pressure improved to 87/58 after couple liters of IV fluids and after he was started on Levophed.. He was found to have UTI. He was given Rocephin IV. He was admitted to the hospital for further management. A/P 1. Septic shock (R65.21: Severe sepsis with septic shock) Off Levophed Secondary to UTI 2. UTI (urinary tract infection) (N39.0: Urinary tract infection, site not specified) Urine culture grew >950281 gram negative Rods Rocephin 1 g daily 3. Acute renal failure (N17.9: Acute kidney failure, unspecified) Resolved 4. Hypokalemia (E87.6: Hypokalemia) Replaced 5. Hyponatremia (E87.1: Hypo-osmolality and hyponatremia) NS at 125 cc per hour BMP daily 6. Afib (I48.91: Unspecified atrial fibrillation) Hold Lopressor due to hypotension DVT prophylaxis Lovenox daily Plan to dc to SNF Subjective Doing better No complaints No fever or chills Review of Systems Constitutional: no fever, no chills, no sweats, no weakness Respiratory: no shortness of breath, no cough, no orthopnea, no wheezing Cardiovascular: no chest pain, no palpitations, no edema Additional ROS info: Except as noted in the above Review of Systems and in the History of Present Illness all other systems have been reviewed and are negative or noncontributory. Objective Vitals & Measurements T: 36.6 ?C(Axillary) TMIN: 36.3 ?C(Axillary) TMAX: 36.6 ?C(Axillary) HR: 94(Monitored) RR: 17 BP: 132/74 SpO2: 97% WT: 105.4 kg Intake & Output This visit (24 hour periods starting at 07:00 EDT) 05/25/23 * 05/24/23 05/23/23 Total Summary Intake mL -- 976.26 2,559.53 Output mL -- 1,140 2,700 Fluid Balance -- -163.74 -140.47 Intake (4) Oral Intake mL -- 120 560 Sodium Chloride 0.9% intravenous solution 1,000 mL mL -- 798.51 1,803.7 Sodium Chloride 0.9%, ceftriaxone mL -- 50 50 norepinephrine 8 mg [0.07 mcg/kg/min] + Dextrose 5% in Water intravenous solution 250 mL mL -- 7.75 145.83 Total -- 976.26 2,559.53 Output (2) Urine Catheter mL -- 1,140 1,700 Urine Output Initial mL -- -- 1,000 Total -- 1,140 2,700 Counts (1) Stool Count -- 2 -- * This column has not completed the indicated time period. Physical Exam General: alert, no acute distress Skin: warm, dry Head: no trauma, normocephalic Neck: Trachea midline, no adenopathy, no tenderness Eye: normal conjunctiva, sclera clear ENMT: TM's clear, oral mucosa moist, no pharyngeal erythema or exudate Cardiovascular: regular rate and rhythm, normal peripheral perfusion Respiratory: Lungs CTA, respirations non labored Chest wall: no deformity. Gastrointestinal: soft, non distended, no tenderness, no guarding. Back: No tenderness, Normal ROM, Normal alignment. Extremities: no deformity, no trauma Neurological: oriented x 4, LOC appropriate for age, CN II-XII intact, motor strength equal & normal bilaterally, sensation equal & normal bilaterally, speech normal Psychiatric: cooperative, affect appropriate for age, normal judgement, normal psychiatric thoughts. Lab Results Glucose Lvl: 86 mg/dL (05/25/23 06:08:00) BUN: 13 mg/dL (05/25/23 06:08:00) Creatinine: 0.9 mg/dL (05/25/23 06:08:00) eGFR: 85 mL/min/1.73 m2 (05/25/23 06:08:00) BUN/Creat Ratio: 14 (05/25/23 06:08:00) Sodium Lvl: 134 mmol/L Low (05/25/23 06:08:00) Potassium Lvl: 3.6 mmol/L (05/25/23 06:08:00) Chloride: 104 mmol/L (05/25/23 06:08:00) CO2: 25 mmol/L (05/25/23 06:08:00) AGAP: 9 mEq/L (05/25/23 06:08:00) Calcium Lvl: 7.9 mg/dL Low (05/25/23 06:08:00) Problem List/Past Medical History Ongoing Septic shock Historical No qualifying data Medications Inpatient acetaminophen 325 mg Tab, 650 mg= 2 tab(s), Oral, q6hr, PRN Al hydroxide/Mg hydroxide/simethicone 200 mg-200 mg-20 mg/5 mL oral suspension, 30 mL, Oral, q6hr, PRN allopurinol 100 mg Tab, 100 mg= 1 tab(s), Oral, Daily Ambien 5 mg Tab, 5 mg= 1 tab(s), Oral, Bedtime, PRN apixaban 2.5 mg oral tablet, 2.5 mg= 1 tab(s), Oral, BID Ativan 0.5 mg Tab, 0.5 mg= 1 tab(s), Oral, BID, PRN ceftriaxone additive + Sodium Chloride 0.9% intravenous solution 50 mL co (more content not included)... Normal [facility] Comment on above: Result Comment: Elec tronically Signed By: MARISELA HERNANDEZ, Shanell\.br\Date and Time Signed: 05/25/23 09:41 EDT Transfer Documentson 023 Transfer Documents [id number]# 1.00TIFF [facility] Transfer Documents [id number]# 1.00TIFF Normal [facility] Transfer Documents [id number]# 1.00TIFF Normal [facility] eGFRon 05-25-2023 GFR/1.73 sq M.predicted among non-blacks MDRD (S/P/Bld) [Vol rate/Area] 85 mL/min/1.73 m2 Normal >=59 [facility] Comment on above: Order Comment: Order added by Discern Expert. Result Comment: Under Trimmer bety kidney disease could be indicated at eGFR's of less than 60 mL/min/1.73m2. Kidney failure is indicated at less than 15 mL/min/1.73m2. Performed By: #### 2 [id number] #### [facility] [address] [place] [address] ABO/Rh History Checkon 05-24 ABO/Rh History Check Type verified by second s Normal [facility] Comment on above: Performed By: #### 2 [id number] #### [facility] [address] [place] [address] ABO/Rh Retypeon 05-24-2023 ABO/Rh Retype Interp Positive Invalid Interpretation Code [facility] Comment on above: Performed By: #### 1 [id number] #### [facility] [address] [place] [address] BLOOD BANKOrdered By: Coty Pederson on 05-24-2023 ABO/Rh Retype Interp Positive Invalid Interpretation Code [facility] [place] Subsection BMPon 05-24-2023 Calcium [Mass/Vol] 7.9 mg/dL Low 8.9-11.1 [facility] Comment on above: Performed By: #### 1 [id number], [id number] #### [facility] [address] [place] [address] Creatinine [Mass/Vol] 1.1 mg/dL Normal 0.5-1.3 [facility] Comment on above: Performed By: #### 1 [id number], [id number] #### [facility] [address] [place] [address] Urea nitrogen [Mass/Vol] 18 mg/dL Normal 5-21 [facility] Comment on above: Performed By: #### 1 [id number], [id number], [id number] #### [facility] [address] [place] [address] Urea nitrogen/Creatinine [Mass ratio] 16 No Units Normal 10-20 [facility] Comment on above: Performed By: #### 1 [id number], [id number], [id number] #### [facility] [address] [place] [address] Anion gap [Moles/Vol] 13 mmol/L Normal 6-16 [facility] Comment on above: Performed By: #### 1 [id number], [id number], [id number] #### [facility] [address] [place] [address] Chloride [Moles/Vol] 100 mmol/L Low 101-111 [facility] Comment on above: Performed By: #### 1 [id number], [id number], [id number] #### [facility] [address] [place] [address] CO2 [Moles/Vol] 25 mmol/L Normal 21-31 [facility] Comment on above: Performed By: #### 1 [id number], [id number], [id number] #### [facility] [address] [place] [address] Glucose [Mass/Vol] 98 mg/dL Normal 55-199 [facility] Comment on above: Result Comment: If t his glucose result represents a fasting glucose, interpretation should refer to the following reference range: 55-99 mg/dL Performed By: #### 1 [id number], [id number], [id number] #### [facility] [address] [place] [address] Potassium [Moles/Vol] 3.6 mmol/L Normal 3.5-5.3 [facility] Comment on above: Performed By: #### 1 [id number], [id number], [id number] #### [facility] [address] [place] [address] Sodium [Moles/Vol] 134 mmol/L Low 135-145 [facility] Comment on above: Performed By: #### 1 [id number], [id number], [id number] #### [facility] [address] [facility] [place] [address] CHEMISTRYOrdered By: SYSTEM SYSTEM on 05-24-2023 Anion gap [Moles/Vol] 13 mmol/L Normal 6 - 16 mEq/L [facility] Calcium [Mass/Vol] 7.9 mg/dL Low 8.9 - 11. 1 mg/dL [facility] Chloride [Moles/Vol] 100 mmol/L Low 101 - 1 11 mmol/L [facility] CO2 [Moles/Vol] 25 mmol/L Normal 21 - 31 mmol/L [facility] Creatinine [Mass/Vol] 1.1 mg/dL Normal 0.5 - 1.3 mg/dL [facility] GFR/1.73 sq M.predicted among non-blacks MDRD (S/P/Bld) [Vol rate/Area] 67 mL/min/1.73 m2 Normal >=59mL/min/1 .73 m2 [facility] Comment on above: Interpretive Data: C hronic kidney disease could be indicated at eGFR's of less than 60 mL/min/1.73m2. Kidney failure is indicated at less than 15 mL/min/1.73m2. Glucose [Mass/Vol] 98 mg/dL Normal 55 - 199 mg/dL [facility] Comment on above: Interpretive Data: I f this glucose result represents a fasting glucose, interpretation should refer to the following reference range: 55-99 mg/dL Potassium [Moles/Vol] 3.6 mmol/L Normal 3.5 - 5.3 mmol/L [facility] Sodium [Moles/Vol] 134 mmol/L Low 135 - 145 mmol/L [facility] Urea nitrogen [Mass/Vol] 18 mg/dL Normal 5 - 21 mg/dL [facility]isol Urea nitrogen/Creatinine [Mass ratio] 16 mg/mg Normal 10 - 20 [facility] Interdisciplinary Note - Aba e Manageron 05-24-2023 Interdisciplinary Note - Management Retail Intern Pt is awake and alert in bed, previously rounded with Dr. Fagan. pt is from [facility], will verify if LTC or SNF. Observation status reviewed, BRUCE form reviewed, signed and original provided. Pt is aware of plan to wean off levophed and will likely move out of ICU today. Pt declines need to call his sister or daughter at this time, states they will be in to see him. Pending therapy evals, PT is on 2L oxygen currently, states he does not normally wear oxygen at [facility], CRM following . PCP verified and insurance information reviewed and DME discussed. Contact information provided and white board updated. Pt is from [facility] SNF and will need precert to return, pending therapy evals and precert will be started today. Normal [facility] Comment on above: Result Comment: Elec tronically Signed By: Traci CALHOUN, Soraya\.charli\Date and Time Signed: 05/24/23 13:30 EDT Message from Medicareon 05-06 Message from Medicare [id number]# 1.00TIFF Normal [facility] Monitor Recordon 05-24-2023 Monitor Record [id number]# 1.00TIFF Normal [facility] Progress Note-Physicianon Progress Note-Physician Basic Information 83-year-old white male past medical history of hypertension, A-fib, BPH presented to emergency room with change mental status. Patient was found in the skilled nursing unresponsive today in the morning. Blood pressure was very low systolic blood pressure was in the 60s. He was confused disoriented. He has no fever or chills. Patient given IV fluids bolus in the emergency room. Hold on interview him he was alert awake answer questions. Daughter is at bedside. Patient had a fall couple weeks ago and there was discharged to skilled rehab. He was found unresponsive by nursing staff. He has no nausea vomiting. He has no diarrhea. He denies any chest pain or shortness of breath. He denies any dysuria, hematuria, frequency. In the emergency room his blood pressure was 66/45. . His blood pressure improved to 87/58 after couple liters of IV fluids and after he was started on Levophed.. He was found to have UTI. He was given Rocephin IV. He was admitted to the hospital for further management. A/P 1. Septic shock (R65.21: Severe sepsis with septic shock) Seen and examined Clinically better More awake and alert Still on small dose of Levophed infusion No fever No Leukocytosis Blood cultures are pending Urine culture is pending C/w Rocephin IV Daily 2. UTI (urinary tract infection) (N39.0: Urinary tract infection, site not specified) Urine culture is pending Rocephin 1 g daily 3. Acute renal failure (N17.9: Acute kidney failure, unspecified) Normal saline at 125 cc BMP daily BMP now 4. Hypokalemia (E87.6: Hypokalemia) Replaced 5. Hyponatremia (E87.1: Hypo-osmolality and hyponatremia) NS at 125 cc per hour BMP daily 6. Afib (I48.91: Unspecified atrial fibrillation) Hold Lopressor due to hypotension DVT prophylaxis Lovenox daily Subjective Doing better More awake and alert Review of Systems Constitutional: no fever, no chills, no sweats, no weakness Respiratory: no shortness of breath, no cough, no orthopnea, no wheezing Cardiovascular: no chest pain, no palpitations, no edema Additional ROS info: Except as noted in the above Review of Systems and in the History of Present Illness all other systems have been reviewed and are negative or noncontributory. Objective Vitals & Measurements T: 36.7 ?C(Axillary) TMIN: 36.4 ?C(Oral) TMAX: 36.7 ?C(Axillary) HR: 71(Monitored) RR: 14 BP: 119/61 SpO2: 95% HT: 177.8 cm WT: 105.6 kg Intake & Output This visit (24 hour periods starting at 07:00 EDT) 05/24/23 * 05/23/23 05/22/23 Total Summary Intake mL -- 2,559.53 -- Output mL -- 2,700 -- Fluid Balance -- -140.47 -- Intake (4) Oral Intake mL -- 560 -- Sodium Chloride 0.9% intravenous solution 1,000 mL mL -- 1,803.7 -- Sodium Chloride 0.9%, ceftriaxone mL -- 50 -- norepinephrine 8 mg [0.07 mcg/kg/min] + Dextrose 5% in Water intravenous solution 250 mL mL -- 145.83 -- Total -- 2,559.53 -- Output (2) Urine Catheter mL -- 1,700 -- Urine Output Initial mL -- 1,000 -- Total -- 2,700 -- Counts (0) * This column has not completed the indicated time period. Physical Exam General: alert, no acute distress Skin: warm, dry Head: no trauma, normocephalic Neck: Trachea midline, no adenopathy, no tenderness Eye: normal conjunctiva, sclera clear ENMT: TM's clear, oral mucosa moist, no pharyngeal erythema or exudate Cardiovascular: regular rate and rhythm, normal peripheral perfusion Respiratory: Lungs CTA, respirations non labored Chest wall: no deformity. Gastrointestinal: soft, non distended, no tenderness, no guarding. Back: No tenderness, Normal ROM, Normal alignment. Extremities: no deformity, no trauma Neurological: oriented x 4, LOC appropriate for age, CN II-XII intact, motor strength equal & normal bilaterally, sensation equal & normal bilaterally, speech normal Psychiatric: cooperative, affect appropriate for age, normal judgement, normal psychiatric thoughts. Lab Results WBC: 4 E9/L (05/23/23:29:00) RBC: 3.9 E12/L Low (05/23/23:29:00) HGB: 11.7 gm/dL Low (05/23/23:29:00) Hct: 35.1 % Low (05/23/23::) MCV: 90.8 fL (05/23/23:29:) MCH: 30.4 pg (05/23/23::) MCHC: 33.5 gm/dL (05/23/23:29:) RDW: 16.5 % High (05/23/23:29:00) Platelet: 164 E9/L (05/23/23:29:00) MPV: 7 fL (05/23/23:29:00) Neutro Auto: 52.8 % (05/23/23:29:00) Lymph Auto: 22 % (05/23/23:29:00) [place] Auto: 13.6 % (05/23/23:29:00) Eos Auto: 10.7 % High (05/23/23:29:00) Basophil Auto: 0.9 % (05/23/23:29:00) Neutro Absolute: 2.1 E9/L (05/23/23:29:00) Lymph Absolute: 0.9 E9/L Low (05/23/23:29:00) [place] Absolute: 0.6 E9/L (05/23/23:29:00) Eos Absolute: 0.4 E9/L (05/23/23:29:00) Basophil Absolute: 0 E9/L (05/23/23:29:00) PT: 17 second(s) High (10/18/23 09:29:00) INR: 1.5 (05/23/23 09:29:00) PTT: 35.2 second(s) (05/23/23 09:29:00) Glucos (more content not included)... Normal [facility] Comment on above: Result Comment: Elec tronically Signed By: MARISELA HERNANDEZ, Shanell\.br\Date and Time Signed: 05/24/23 07:55 EDT eGFRon 05-24-2023 GFR/1.73 sq M.predicted among non-blacks MDRD (S/P/Bld) [Vol rate/Area] 67 mL/min/1.73 m2 Normal >=59 [facility] Comment on above: Order Comment: Order added by Discern Expert. Result Comment: Under Trimmer bety kidney disease could be indicated at eGFR's of less than 60 mL/min/1.73m2. Kidney failure is indicated at less than 15 mL/min/1.73m2. Performed By: #### 1 [id number], [id number], [id number] #### [facility] [address] [place] [address] ABO/Rhon 05-23-2023 ABO/Rh Positive Invalid Interpretation Code [facility] Comment on above: Performed By: #### 2 [id number] #### [facility] [address] [place] [address] ABSCon 05-23-2023 ABSC Gel Interp Negative Normal [facility] Comment on above: Performed By: #### 2 [id number] #### [facility] [address] [place] [address] Auto Diffon 05-23-2023 Basophils/100 WBC (Bld) 0.9 % Normal 0.0-2.0 [facility] Comment on above: Order Comment: Order Added by Discern Expert. Performed By: #### 1 [id number], 74791106, 0091940, 0587491, 6771120, 6573938, 4694881 ####[facility] [address] [place] [address] Basophils/Leukocytes Auto (Bld) [Pure # fraction] 0.0 E9/L Normal 0.0-0.2 [facility] Comment on above: Order Comment: Order Added by Discern Expert. Performed By: #### 1 [id number], 47876844, 1219774, 8681565, 2470050, 7586069, 9146419 ####[place] [address] [place] [address] Eosinophils/100 WBC (Bld) 10.7 % High 0.0-8.0 [facility] Comment on above: Order Comment: Order Added by Discern Expert. Performed By: #### 1 9586445, 03263161, 2194551, 5609894, 0178042, 4231889, 2991141 ####[place] [address] [place] [address] Eosinophils/Leukocytes Auto (Bld) [Pure # fraction] 0.4 E9/L Normal 0.0-0.5 [facility] Comment on above: Order Comment: Order Added by Discern Expert. Performed By: #### 1 [id number], 26459057, 0637183, 1124663, 9879468, 6914438, 3352581 ####[address] [address] Lymphocytes/100 WBC (Bld) 22.0 % Normal 14.0-50.0 [facility] Comment on above: Order Comment: Order Added by Discern Expert. Performed By: #### 1 6990870, 69202677, 4028902, 2944708, 7167689, 1211863, 4132175 ####[address] [address] Lymphocytes/Leukocytes Auto (Bld) [Pure # fraction] 0.9 E9/L Low 1.0-4.0 [facility] Comment on above: Order Comment: Order Added by Discern Expert. Performed By: #### 1 8972712, 22033873, 7223173, 3773396, 8929015, 8579813, 3341861 ####[address] [place] [address] Monocytes/100 WBC (Bld) 13.6 % Normal 4.0-14.0 [facility] Comment on above: Order Comment: Order Added by Discern Expert. Performed By: #### 1 8500591, 36840350, 8309311, 3231455, 7266799, 9991530, 6183330 ####[facility] [address] [place] [address] Monocytes/Leukocytes Auto (Bld) [Pure # fraction] 0.6 E9/L Normal 0.2-1.0 [facility] Comment on above: Order Comment: Order Added by Discern Expert. Performed By: #### 1 6161712, 90943801, 5379992, 1299196, 4182933, 0339987, 5894836 ####[facility] [address] [place] [address] Neutrophils/100 WBC (Bld) 52.8 % Normal 36.0-75.0 [facility] Comment on above: Order Comment: Order Added by Discern Expert. Performed By: #### 1 3698795, 79553194, 8659539, 2540401, 8247985, 1177477, 5289182 ####[facility] [address] [place] [address] Neutrophils/Leukocytes Auto (Bld) [Pure # fraction] 2.1 E9/L Normal 2.0-7.5 [facility] Comment on above: Order Comment: Order Added by Discern Expert. Performed By: #### 1 [id number], 75148085, 3888500, 4094806, 1183792, 8808464, 7493374 ####[facility] [address] [place] [address] BLOOD BANKOrdered By: Kiara mendiola on 05-23-2023 ABO/Rh Interp Positive Invalid Interpretation Code [facility] BB Subsection ABSC Gel Interp Negative (05/23/23 9:29 AM) Normal [facility] BB Subsection Blood Bank ID#on 05-23-2023 BBID# [id number] Invalid Interpretation Code [facility] Comment on above: Performed By: #### 2 [id number] #### [facility] [address] [place] [address] CBC w/ Auto Diffon Erythrocyte distribution width (RBC) [Ratio] 16.5 % High 10.9-14.2 [facility] Comment on above: Performed By: #### 1 0379866, 22791869, 9722766, 5830414, 2678367, 8038664, 4452409 ####[place] [place] [address]457 Hematocrit (Bld) [Volume fraction] 35.1 % Low 37.7-49.0 [facility] Comment on above: Performed By: #### 1 2247730, 65971816, 6431384, 8413543, 0517454, 8449196, 9911337 ####[place] [place] [address]334457 Hemoglobin (Bld) [Mass/Vol] 11.7 g/dL Low 13.5-17.5 [facility] Comment on above: Performed By: #### 1 0344581, 59917507, 1056432, 3913656, 2085145, 1939309, 5409486 ####[place] [place] 8[address]457 MCH (RBC) [Entitic mass] 30.4 pg Normal 27.0-34.0 [facility] Comment on above: Performed By: #### 1 3226512, 58514390, 0021537, 8781325, 1589645, 2071549, 8661561 ####[place] [address] MCHC (RBC) [Mass/Vol] 33.5 g/dL Normal 31.4-36.0 [facility] Comment on above: Performed By: #### 1 3902548, 95135983, 6671489, 5446682, 4613967, 5748166, 0249082 ####[place] [place] [address] MCV (RBC) [Entitic vol] 90.8 fL Normal 80.0-100.0 [facility] Comment on above: Performed By: #### 1 5135653, 72995104, 3744191, 9092307, 5311046, 3282718, 8107023 ####[facility] [address] [place] [address] Platelet mean volume (Bld) [Entitic vol] 7.0 fL Normal 6.4-10.8 [facility] Comment on above: Performed By: #### 1 2183055, 89673151, 9469537, 6383121, 0205392, 5421244, 6724549 ####[facility] [address] [place] [address] Platelets (Bld) [#/Vol] 164.0 E9/L Normal 150.0-500.0 [facility] Comment on above: Performed By: #### 1 8632060, 77231870, 7225115, 9842104, 2005886, 0684694, 2152494 ####[place] [address] RBC (Bld) [#/Vol] 3.9 E12/L Low 4.3-5.9 [facility] Comment on above: Performed By: #### 1 0200421, 35952241, 7140811, 1342445, 6213123, 6933352, 2243343 ####[address] [place] [address] WBC corrected for nucl RBC Auto (Bld) [#/Vol] 4.0 E9/L Normal 4.0-11.0 [facility] Comment on above: Result Comment: Slid e reviewed by BC. Performed By: #### 1 1798957, 53428820, 5694155, 3711127, 8518981, 5684802, 5492278 ####[address] [address] CHEMISTRYOrdered By: SYSTEM SYSTEM on 05-23-2023 Lactate [Mass/Vol] 1.6 mmol/L Normal 0.5 - 2.2 mmol/L [facility] Albumin [Mass/Vol] 2.2 g/dL Low 3.3 - 5.0 gm/dL [facility] Albumin/Globulin [Mass ratio] 0.8 {ratio} Low 1.1 - 2.2 [facility] ALP [Catalytic activity/Vol] 106 [iU]/d High 21 - 98 Int._Unit/L [facility] ALT No additional P-5'-P [Catalytic activity/Vol] 12 [iU]/d Normal 6 - 46 Int._Unit/L [facility] Anion gap [Moles/Vol] 9 mmol/L Normal 6 - 16 mEq/L [facility] AST [Catalytic activity/Vol] 18 [iU]/d Normal 5 - 43 Int._Unit/L [facility] Bilirubin [Mass/Vol] 0.7 mg/dL Normal 0.0 - 1 .1 mg/dL [facility] Calcium [Mass/Vol] 7.7 mg/dL Low 8.9 - 11. 1 mg/dL [facility] Chloride [Moles/Vol] 102 mmol/L Normal 101 - 1 11 mmol/L [facility] CO2 [Moles/Vol] 26 mmol/L Normal 21 - 31 mmol/L [facility] Creatinine [Mass/Vol] 1.4 mg/dL High 0.5 - 1.3 mg/dL [facility] GFR/1.73 sq M.predicted among non-blacks MDRD (S/P/Bld) [Vol rate/Area] 50 mL/min/1.73 m2 Low >=59mL/min/1 .73 m2 [facility] Comment on above: Interpretive Data: C hronic kidney disease could be indicated at eGFR's of less than 60 mL/min/1.73m2. Kidney failure is indicated at less than 15 mL/min/1.73m2. Globulin (S) [Mass/Vol] 2.9 g/dL Normal 1.4 - 4.0 gm/dL [facility] Glucose [Mass/Vol] 122 mg/dL Normal 55 - 199 mg/dL [facility] Comment on above: Interpretive Data: I f this glucose result represents a fasting glucose, interpretation should refer to the following reference range: 55-99 mg/dL Lactate [Mass/Vol] 1.3 mmol/L Normal 0.5 - 2.2 mmol/L [facility] Potassium [Moles/Vol] 3.4 mmol/L Low 3.5 - 5.3 mmol/L [facility] Remisol Protein [Mass/Vol] 5.1 g/dL Low 6.0 - 7.8 gm/dL [facility] Remisol Sodium [Moles/Vol] 134 mmol/L Low 135 - 145 mmol/L [facility] Remisol Troponin I.cardiac [Mass/Vol] 9.10 pg/mL Low 15.90 - 38.40 pg/mL [facility] Remisol Comment on above: Interpretive Data: T he 95% CI (Confidence Interval) PPV (Positive Predictive Value) for myocardial infarction in females is 38 pg/mL, in males 51 pg/mL. The results should be used in conjunction with clinical conditions of myocardial infarction. (Access High Sensitivity Troponin I Instructions For Use, [employer], March 2018) Urea nitrogen [Mass/Vol] 23 mg/dL High 5 - 21 mg/dL [facility] Remisol Urea nitrogen/Creatinine [Mass ratio] 16 mg/mg Normal 10 - 20 [facility] CHEMISTRYOrdered By: Lab ROP User on 05-23-2023 Glucose [Mass/Vol] 134 mg/dL High 55 - 99 mg/dL [facility] POC Subsection POC Username DUQUE, ROMINA Invalid Interpretation Code [facility] POC Subsection Sodium [Moles/Vol] [id number] mmol/L Invalid Interpretation Code [facility] POC Subsection Sodium [Moles/Vol] [id number] mmol/L Invalid Interpretation Code [facility] POC Subsection CMPon 05-23-2023 Albumin [Mass/Vol] 2.2 g/dL Low 3.3-5.0 [facility] Comment on above: Performed By: #### 1 1541619, 79410622, 9916795, 8308098, 1184736, 6118261, 8407852 ####[facility] [address] [place] [address] Albumin/Globulin (S) [Mass conc ratio] 0.8 Low 1.1-2.2 [facility] Comment on above: Performed By: #### 1 9799917, 21567521, 7248053, 6909974, 2639766, 2011092, 7917207 ####[facility] [address] [place] [address] ALP [Catalytic activity/Vol] 106 Int._Unit/L High 21-98 [facility] Comment on above: Performed By: #### 1 8092369, 82457341, 4947553, 8288356, 8689272, 0448671, 2327320 ####[facility] [address] [place] [address] ALT No additional P-5'-P [Catalytic activity/Vol] 12 Int._Unit/L Normal 6-46 [facility] Comment on above: Performed By: #### 1 1088961, 63185818, 1696519, 1415470, 3187939, 8258687, 9216812 ####[facility] [address] [place] [address] AST [Catalytic activity/Vol] 18 Int._Unit/L Normal 5-43 [facility] Comment on above: Performed By: #### 1 5380680, 66519357, 3770102, 0774362, 8511060, 6670254, 6788189 ####[facility] [address] [place] [address] Bilirubin [Mass/Vol] 0.7 mg/dL Normal 0.0-1.1 [facility] Comment on above: Performed By: #### 1 0483334, 29492694, 1283326, 2834362, 0519141, 8034154, 3851837 ####[facility] [address] [place] [address] Creatinine [Mass/Vol] 1.4 mg/dL High 0.5-1.3 [facility] Comment on above: Performed By: #### 1 2659643, 00984092, 0479201, 3161825, 1731952, 7067450, 4763569 ####[facility] [address] [place] [address] Globulin (S) [Mass/Vol] 2.9 g/dL Normal 1.4-4.0 [facility] Comment on above: Performed By: #### 1 7392007, 97336193, 8966448, 0741199, 1361061, 0876781, 5649501 ####[facility] [address] [place] [address] Protein [Mass/Vol] 5.1 g/dL Low 6.0-7.8 [facility] Comment on above: Performed By: #### 1 8837742, 62658504, 7795397, 1045586, 5917673, 7059220, 4487439 ####[facility] [address] [place] [address] Urea nitrogen [Mass/Vol] 23 mg/dL High 5-21 [facility] Comment on above: Performed By: #### 1 6798943, 97309833, 1836527, 7452502, 2560467, 4644373, 3954726 ####[facility] [address] [place] [address] Urea nitrogen/Creatinine [Mass ratio] 16 No Units Normal 10-20 [facility] Comment on above: Performed By: #### 1 6912008, 16982077, 8763315, 9703173, 8005417, 1615620, 6048897 ####[facility] [address] [place] [address] Anion gap [Moles/Vol] 9 mmol/L Normal 6-16 [facility] Comment on above: Performed By: #### 1 5003786, 35041753, 6424214, 9322371, 9267370, 8324884, 7863231 ####[facility] [address] [place] [address] Calcium [Mass/Vol] 7.7 mg/dL Low 8.9-11.1 [facility] Comment on above: Performed By: #### 1 6157174, 08489396, 1643897, 2220296, 4477245, 5155296, 3150210 ####[facility] [address] [place] [address] Chloride [Moles/Vol] 102 mmol/L Normal 101-111 [facility] Comment on above: Performed By: #### 1 0030764, 48667535, 7892922, 3062219, 6394836, 4591632, 5982152 ####[facility] [address] [place] [address] CO2 [Moles/Vol] 26 mmol/L Normal 21-31 [facility] Comment on above: Performed By: #### 1 1253525, 59793192, 1374942, 3142906, 9212984, 0290308, 2867336 ####[facility] [address] [place] [address] Glucose [Mass/Vol] 122 mg/dL Normal 55-199 [facility] Comment on above: Result Comment: If t his glucose result represents a fasting glucose, interpretation should refer to the following reference range: 55-99 mg/dL Performed By: #### 1 1831936, 08349244, 4965525, 0577208, 8558382, 6150998, 9151636 ####[facility] [address] [place] [address] Potassium [Moles/Vol] 3.4 mmol/L Low 3.5-5.3 [facility] Comment on above: Performed By: #### 1 5372945, 70934190, 2455391, 9075697, 8209568, 1903852, 8830132 ####[facility] [address] [place] [address] Sodium [Moles/Vol] 134 mmol/L Low 135-145 [facility] Comment on above: Performed By: #### 1 3181333, 86276900, 4054916, 3177329, 5239953, 6612344, 1101682 ####[facility] [address] [place] [address] COAGULATIONOrdered By: Lorie Ha on 05-23-2023 aPTT Coag (PPP) [Time] 35.2 s Normal 25.1 - 36.5 second(s) [facility] Auto Coag Comment on above: Interpretive Data: P arameter 15 days - 4 weeks 1 - 5 months 6 - 11 months 1 - 5 years 6 - 10 years 11 - 17 years PTT Mean: 35.4 (27.6-45.6) Mean: 33.5 (24.8-40.7) Mean: 32.4 (25.1-40.7) Mean: 31.6 (24.0-39.2) Mean: 31.6 (26.9-38.7) Mean: 31.0 (24.6-38.4) Pediatric Reference ranges were obtained from a study by christie Cardenas alJesús prepared from 1437 samples obtained at 7 different centers using the same coagulation reagent and instrumentation as [facility]. Currently there are no coagulation studies available worldwide for children to 14 days, and no normal ranges. Heparin therapeutic range (represented by Anti-Factor Xa activity of 0.2 - 0.4 U/mL) corresponds to PTT of 56.6 - 109.0 sec. INR Coag (PPP) [Relative time] 1.5 {INR} Invalid Interpretation Code [facility] Auto Coag Comment on above: Interpretive Data: I NR results are specifically intended to assess patients stabilized on long-term Anticoagulation therapy suggested INR s Less Intensive Anticoagulation 2.0 3.0 Conventional Range 3.0 4.5 PT Coag (PPP) [Time] 17.0 s High 9.4 - 1 2.5 second(s) [facility] Comment on above: Interpretive Data: 1 5 days - 4 weeks 1 - 5 months 6 -11 months 1-5 years 6-10 years 11 -17 years Mean: 11.2 (9.5-12.6) Mean: 11.0 (9.7-12.8) Mean: 11.0 (9.8-13.0) Mean: 11.3 (9.9-13.4) Mean: 11.7 (10.0-14.6) Mean: 11.8 (10.0 - 14.1) Pediatric Reference ranges were obtained from a study by cherrie Cardenas prepared from 1437 samples obtained at 7 different centers using the same coagulation reagent and instrumentation as [facility]. Currently there are no coagulation studies available worldwide for children to 14 days, and no normal ranges. CT Abdomen/Pelvis w/ Contras ton 05-23-2023 CT Abdomen/Pelvis w/ Contrast Exam Date/Time: 05/23/2023 11:18 EDT Reason for Exam: Abdominal aortic Aneurysm (AAA) Report PLEASE SEE CTA Chest REPORT DATED: 05/23/2023. All CT scans at this facility use dose modulation, iterative reconstruction, and/or weight based dosing when appropriate to reduce radiation dose to as low as reasonably achievable. Ordering Provider: Higinio Reyna FINAL REPORT Dictated: 05/23/2023 11:54 am Stan Waller MD Signed (Electronic Signature): 05/23/2023 11:54 am Signed by: Stan Waller MD Transcribed by: BONILLA Technologist: LENNOX Technical Comments GFR (mL/min/1/73m2) 50 Contrast: Isovue 370 Contrast amount in ml's: 100 Rectal Contrast Given? No Oral contrast amount in ml's: 0 Normal [facility] CTA Cheston 05-23-2023 CTA Chest Exam Date/Time: 05/23/2023 11:17 EDT Reason for Exam: Pulmonary Emboli (PE) Report IMPRESSION: NO EVIDENCE OF PULMONARY EMBOLI. PROBABLE MODERATE CHRONIC ELEVATION OF THE RIGHT HEMIDIAPHRAGM WITH MILD SCARRING AND/OR ATELECTASIS IN THE RIGHT LUNG BASE. MILD RIGHT LOWER LOBE BRONCHOPNEUMONIA AND/OR ASPIRATION ARE ALSO CONSIDERATIONS. MODERATE TO MARKED URINARY BLADDER DISTENTION WITH MILD FULLNESS OF THE UPPER URINARY TRACTS. MILD CARDIOMEGALY AND OTHER CHRONIC FINDINGS, NOTED. EXAM: CTA Chest, CT Abdomen/Pelvis w/ Contrast DATE: 05/23/2023 CLINICAL HISTORY: Unresponsive and hypotensive. COMPARISON: None available TECHNIQUE: Spiral enhanced images were obtained of the chest after the infusion of approximately 100 mL of Isovue 370 contrast with pulmonary artery CTA protocol. Routine imaging was then obtained of the abdomen and pelvis. Routine and volume rendered images were performed on a three-dimensional workstation. All CT scans at this facility use dose modulation, iterative reconstruction, and/or weight based dosing when appropriate to reduce radiation dose to as low as reasonably achievable. CHEST CTA FINDINGS: Pulmonary arteries: Normal in caliber without filling defects identified to suggest pulmonary emboli. Thoracic aorta: Normal in caliber with mild atherosclerotic plaquing. There is no dissection. Heart: Mildly enlarged. Coronary artery, mitral and aortic valve calcifications are present. No significant pericardial effusion. Mediastinum & lymph nodes: No pathologically enlarged mediastinal, hilar, or axillary lymph nodes. Lungs and pleura: Moderate elevation of the right hemidiaphragm with mild to moderate probable scarring and/or atelectasis. Bronchopneumonia and/or aspiration can't to be less likely. Thyroid: Unremarkable. Esophagus: Unremarkable. Report Bones/soft tissue: No displaced fractures or worrisome bone destruction identified. Mild to moderate degenerative changes. ABDOMEN AND PELVIS CT FINDINGS: Liver: Unremarkable. No mass or lesion. Biliary: The gallbladder is unremarkable. No bile duct dilation. Pancreas: Unremarkable. No mass or duct dilation. Spleen: Unremarkable. No mass. No splenomegaly. Adrenals: Unremarkable. Kidneys: Mild fullness of the upper urinary tracts likely related to moderate urinary bladder distention. Several fluid density cysts, measuring up to approximately 3 to 4 cm, which do not require further imaging follow-up. No suspicious mass or significant urinary tract calculi. GI tract: No abnormal dilation or wall thickening. Normal appendix. Mild colonic diverticulosis without diverticulitis. Lymph nodes: No suspicious lymphadenopathy. Mesentery/peritoneum: No ascites or mass. Retroperitoneum: No mass. Vasculature: Mild atherosclerotic plaquing. Pelvis: No mass, organized fluid collection, or ascites. The urinary bladder is moderate to markedly distended, but otherwise unremarkable in appearance. Bones/soft tissue: No acute osseous findings. 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 Small fat-containing periumbilical and inguinal hernias. Ordering Provider: Higinio Reyna FINAL REPORT Dictated: 05/23/2023 11:53 am Stan Waller MD Signed (Electronic Signature): 05/23/2023 11:53 am Signed by: Stan Waller MD Transcribed by: BONILLA Technologist: LENNOX Technical Comments GFR (mL/min/1/73m2) 50 Contrast: Isovue 370 Contrast amount in ml's: 100 Normal [facility] Capillary Glucose POCon 05-06 Glucose [Mass/Vol] 134 mg/dL High 55-99 [facility] Comment on above: Performed By: #### 2 [id number] #### [facility] [address] [place] [address] Consent for Treatmenton 05-06 Consent for Treatment [id number]# 1.00TIFF Normal [facility] DNR - Do Not Resuscitateon 1 DNR - Do Not Resuscitate [id number]# 1.00TIFF Normal [facility] ED Clinical Summaryon 2022 ED Clinical Summary [place] [id number] ED Clinical Summary Person Information Name: CAREN THORNE [place] Age: 83 Years : 1940 Sex: Male Language: Liberian PCP: ABDELRAHMAN REYNOSO DO Marital Status: Unknown Phone: [phone] Visit Id: Visit Reason: Syncope/Near syncope; unresponsive Speciality: Acuity: 1 Enc Type: Inpatient Med Service: Medical Arrival: 05/23/2023 08:52:31 Discharge: LOS: 000 07:03 Checkin: 05/23/2023 08:52:31 Checkout: 05/23/2023 15:55:42 Dispo Type: Admit to ICCU EVENTS: Event Name Event Status Request Date/Time Start Date/Time Complete Date/Time Arrive Complete 05/23/2023 08:52:31 05/23/2023 08:52:31 05/23/2023 08:52:31 Document Home Meds Request 05/23/2023 08:52:31 Triage Complete 05/23/2023 08:52:31 05/23/2023 09:04:29 05/23/2023 09:04:29 Bed Assign Complete 05/23/2023 08:52:31 05/23/2023 08:52:31 05/23/2023 08:52:31 Dr Exam Complete 05/23/2023 08:52:31 05/23/2023 09:07:42 05/23/2023 09:07:42 RN Exam Complete 05/23/2023 08:52:31 05/23/2023 12:06:22 05/23/2023 12:06:22 EKG Complete 05/23/2023 08:55:28 05/23/2023 08:56:59 Registration Complete 05/23/2023 09:07:42 05/23/2023 09:19:13 05/23/2023 09:19:13 Meds Admin Request 05/23/2023 09:11:58 Pending Labs Complete 05/23/2023 09:12:25 05/23/2023 09:12:25 05/23/2023 09:12:26 Pending Labs Inlab 05/23/2023 09:13:33 Lab Inlab 05/23/2023 09:13:33 Urine Collect Complete 05/23/2023 09:13:33 05/23/2023 11:59:57 Patient Care Request 05/23/2023 09:13:33 X-Ray Complete 05/23/2023 09:13:33 05/23/2023 09:14:08 05/23/2023 09:51:19 RT Request 05/23/2023 09:13:33 Blood Collect Request 05/23/2023 09:13:33 Meds Admin Request 05/23/2023 09:18:04 Reg Complete Request 05/23/2023 09:19:13 CT Complete 05/23/2023 09:32:34 05/23/2023 10:47:30 05/23/2023 11:17:46 Pending Labs Complete 05/23/2023 09:41:51 05/23/2023 09:41:51 05/23/2023 10:37:36 Lab Complete 05/23/2023 09:41:51 05/23/2023 09:41:51 05/23/2023 10:37:36 Pending Labs Complete 05/23/2023 09:50:08 05/23/2023 09:50:08 05/23/2023 09:50:08 Wet Read Request 05/23/2023 09:51:19 CT Complete 05/23/2023 10:07:22 05/23/2023 10:47:34 05/23/2023 11:18:44 EKG Complete 05/23/2023 10:15:05 05/23/2023 11:19:29 Pending Labs Complete 05/23/2023 10:46:36 05/23/2023 10:46:36 05/23/2023 10:46:44 Lab Complete 05/23/2023 10:46:36 05/23/2023 10:46:36 05/23/2023 10:46:44 Pending Labs Inlab 05/23/2023 11:45:10 05/23/2023 11:45:10 Lab Inlab 05/23/2023 11:45:10 05/23/2023 11:45:10 Meds Admin Request 05/23/2023 11:47:22 Meds Admin Complete 05/23/2023 12:03:27 05/23/2023 12:52:52 NPO Request 05/23/2023 12:06:22 Fall Risk Request 05/23/2023 12:06:23 Patient Care Request 05/23/2023 12:51:06 Patient Care Request 05/23/2023 12:51:06 Patient Care Request 05/23/2023 12:51:06 Patient Care Request 05/23/2023 12:51:07 Patient Care Request 05/23/2023 12:57:21 Meds Admin Request 05/23/2023 12:57:21 Bed Request Request 05/23/2023 12:57:21 Reg Bed Request Request 05/23/2023 12:57:21 Admit Request 05/23/2023 12:57:21 Meds Admin Request 05/23/2023 12:57:59 Patient Care Request 05/23/2023 15:25:12 ADDRESS: [address] [place] [phone] [facility] DOC NOTES: MEDICAL INFORMATION: Prescriptions Given: Medications to Continue with No Changes Other Medications aspirin 325 Milligram By Mouth every day. benazepril (benazepril 5 mg oral tablet) 1 Tablets By Mouth every day. docusate 100 Milligram By Mouth every day. hydrochlorothiazide (hydrochlorothiazide 25 mg oral tablet) 1 Tablets By Mouth every day. metoprolol (Metoprolol tartrate 50 mg Tab) 1 Tablets By Mouth 2 times a day. tamsulosin (tamsulosin 0.4 mg oral capsule) 1 Capsules By Mouth every day. PATIENT EDUCATION INFORMATION: Instructions: Follow up: DIAGNOSIS: 1:Septic shock; 2:UTI (urinary tract infection); 3:Acute renal failure; 4:Hypokalemia; 5:Hyponatremia; 6:Afib [facility] ED Note-Physicianon 05-23-20 ED Note-Physician Basic Information Time Seen: Higinio Reyna DOJesús 05/23/2023 09:07 Chief Complaint Pt had unresponsive episode at skilled nursing. Pt was out for a reported 5 minutes. hypotensive History of Present Illness 83-year-old male to the emergency department with chief complaint of low blood pressure. Patient is a resident at [facility]. Patient reports he feels fine. He denies any chest pain, shortness of breath, abdominal pain, nausea, vomiting, diarrhea, blood in the stool, dark tarry stools. He is reported to of lost consciousness for 5 minutes at the nursing facility prompting the evaluation. He is otherwise been at his baseline health. Review of Systems A 10 point review of systems is negative except as noted above. Medical and Surgical History: Reviewed and noted Social history: Lives at home Tobacco: Denies. Physical Exam Vitals & Measurements T: 36.6 ?C(Oral) HR: 51(Monitored) RR: 14 BP: 111/80 SpO2: 97% HT: 177.8 cm WT: 110 kg BMI: 34.8 VITALS: I have reviewed the triage vital signs. GENERAL: Elderly adult male in no acute distress. NEURO: Alert and oriented x2. Moves all extremities. Face is symmetric and expressive. EYES: PERRL. No scleral icterus or conjunctival injection. No discharge. HENT: Normocephalic, atraumatic. Hearing is grossly intact. Nares grossly patent and without discharge. Mucous membranes moist. NECK: No JVD. Patient moves neck without restriction. CARDIO: Rhythm regular. Normal rate. No murmur, rub, or gallop. Pulses equal bilaterally in the upper and lower extremity. No lower extremity edema. PULM: Lungs clear to auscultation in all davis. No wheezes, rales, or rhonchi. No conversational dyspnea. No splinting, stridor, or accessory muscle use. GI/: Abdomen is soft and non-tender. Normoactive bowel sounds. EXTREMITIES: Symmetric muscle bulk. No joint swelling. No clubbing, cyanosis, or deformity. SKIN: Warm and dry. Normal turgor. No rash or lesions appreciated. PSYCH: Mood, affect, and interaction is appropriate to the setting. Alcohol Procedure Critical Care Procedure Note Authorized and Performed by: Higinio Reyna DO Total critical care time: 80 min Due to a high probability of clinically significant, life threatening deterioration, the patient required my highest level of preparedness to intervene emergently and I personally spent this critical care time directly and personally managing the patient. This critical care time included obtaining a history; examining the patient; pulse oximetry; ordering and review of studies; arranging urgent treatment with development of a management plan; evaluation of patient's response to treatment; frequent reassessment; and, discussions with other providers. This critical care time was performed to assess and manage the high probability of imminent, life-threatening deterioration that could result in multi-organ failure. It was exclusive of separately billable procedures and treating other patients and teaching time. Please see MDM section and the rest of the note for further information on patient assessment and treatment. Medical Decision Making 83-year-old male to the emergency department chief complaint of hypotension and unresponsive episode. He is hypertensive, otherwise stable vitals. The patient is afebrile. Patient has no complaints. He is alert and oriented x2 with some mild confusion. Patient with undifferentiated hypotension, history and exam do not give obvious source. Septic work-up is initiated with addition of type and screen. We will obtain a CT angiogram chest abdomen pelvis to evaluate for potential sources including pulmonary embolism, aortic catastrophe, intra-abdominal source. Patient received 1 L of crystalloid fluids prior to arrival via EMS. Additional 1 liter of crystalloid is ordered for fluid challenge. CBC without major abnormality. Renal function shows slight renal insufficiency. No significant electrolyte abnormality. His lactate is normal. CT chest abdomen pelvis without acute source. His urinalysis does suggest acute UTI. 2L of total crystalloid were delivered to the patient, he does not appear to be fluid responsive, patient has a history of congestive heart failure therefore further fluids (sepsis bolus) was not given to avoid volume overload and pressors were initiated early. Peripheral vasopressors were initiated and titrated at the bedside. Patient does appear to be septic secondary to urinary tract infection. Fluid challenge with 2 L of crystalloid was attempted with no response therefore pressors were initiated. Appropriate antibiotics were initiated for the patient's source. Tissue perfusion exam was performed at 1200. Patient's family arrived and reported that he has a DNR. They are unable to produce a DNR. [facility] is unable to produce a DNR. Patient's daughter who is power of commercial attorney is at the bedside. Patient's sister is also at the bedside who helps support decisions made by the daughter. Long conv (more content not included)... [facility] Comment on above: Result Comment: Elec tronically Signed By: Higinio Reyna DO\.br\Date and Time Signed: 05/23/23 15:39 EDT ED Patient Education Noteon 05-23-2023 ED Patient Education Note [facility] ED Patient Summaryon 023 ED Patient Summary [place] [id number] Patient Discharge Instructions Person Information Name: CAREN THORNE Age: 83 Years Arrival Date: 05/23/2023 08:52:31 Discharge Diagnosis: 1:Septic shock; 2:UTI (urinary tract infection); 3:Acute renal failure; 4:Hypokalemia; 5:Hyponatremia; 6:Afib Primary Care Physician: ABDELRAHMAN REYNOSO DO Provider Information Primary Provider: Higinio Reyna DO Advanced Reservoir Engineer:None The exam and treatment you received in the Emergency Department were for an urgent problem and are not intended as complete care. It is important that you follow up with a doctor, nurse practitioner, or physician?s bar assistant for ongoing care. If your symptoms become worse or you do not improve as expected and you are unable to reach your usual health care provider, you should return to the Emergency Department. We are available 24 hours a day. CAREN THORNE has been given the following list of patient education materials, prescriptions and follow-up instructions: Follow-up Instructions: In the event that this physician does not participate in your insurance network, please consult with your insurance company to find a nearby participating provider. Patient Education Materials: A MESSAGE TO ALL PATIENTS REGARDING OPIOIDS PRESCRIPTION OPIOIDS: WHAT YOU NEED TO KNOW Prescription opioids can be used to help relieve plikmyio-rm-kazecf pain and are often prescribed following a surgery or injury, or for certain health conditions. These medications can be an important part of the treatment but also come with serious risks. It is important to work with your healthcare provider to make sure you are getting the safest, most effective care. WHAT ARE THE RISKS AND SIDE EFFECTS OF OPIOID USE? Prescription opioids carry serious risks of addiction and overdose, especially with prolonged use. An opioid overdose, often marked by slowed breathing, can cause sudden . The use of prescription opioids can have a number of side effects as well, even when taken as directed: ? Tolerance?meaning you might need to take more of the medication for the same pain relief ? Physical dependence?meaning you have symptoms of withdrawal when a medication is stopped ? Increased sensitivity to pain ? Constipation ? Nausea, vomiting, and dry mouth ? Sleepiness and dizziness ? Confusion ? Depression ? Low levels of testosterone that can result in lower sex drive, energy, and strength ? Itching and sweating RISKS ARE GREATER WITH: ? History of drug misuse, substance use disorder, or overdose ? Mental health conditions (such as depression or anxiety) ? Sleep apnea ? Older age (65 years and older) ? Avoid alcohol while taking prescription opioids. Also, unless specifically advised by your health care provider, medications to avoid include: ? Benzodiazepines (such as Xanax or Valium) ? Muscle relaxants (such as Soma or Flexeril) ? Hypnotics (such as Ambien or Lunesta) ? Other prescription opioids KNOW YOUR OPTIONS Talk to your health care provider about ways to manage your pain that don?t involve prescription opioids. Some of these options may actually work better and have fewer risks and side effects. Options may include: ? Pain relievers such as acetaminophen, ibuprofen, and naproxen ? Some medication that are also used for depression or seizures ? Physical therapy and exercise ? Cognitive behavioral therapy, a psychological, goal-directed approach, in which patients learn how to modify physical, behavioral, and emotional triggers of pain and stress. IF YOU ARE PRESCRIBED OPIOIDS FOR PAIN: ? Never take opioids in greater amounts or more often than prescribed. ? Follow up with your primary health care provider. o Work together to create a plan on how to manage your pain. o Talk about ways to help manage your pain that don?t involve prescription opioids. o Talk about any and all concerns and side effects. ? Help prevent misuse and abuse o Never sell or share prescription opioids. o Never use another person?s prescription opioids. ? Store prescription opioids in a secure place and out of reach of others (this may include visitors, children, friends, and family). ? Safely dispose of unused prescription opioids: Find your community drug take-back program or your pharmacy mail-back program, or flush them down the toilet, following guidance from the Food and Drug Administration (www.fda.gov/Drugs/Re sourcesForYou). ? Visit www.cdc.gov/drugoverd ose to learn about the risks of opioids abuse and overdose. ? If you believe you may be struggling with addiction, tell your health career development coordinator/teacher and ask for guidance or call [facility] National Helpline at 6-925-285-DCVB. i Source: US Department of Health and Human Services/Center for Disease Control & Prevention (more content not included)... [facility] EMS Documentationon 05-23-20 EMS Documentation Please click on link to see report [facility] Comment on above: Result Comment: Miss higuera Attachment - attachment exceeds size limitation [id number] Can be viewed in source system Formson 05-23-2023 Forms [id number]# 1.00TIFF [facility] HEMATOLOGYOrdered By: SYSTEM SYSTEM on 05-23-2023 Basophils/100 WBC (Bld) 0.9 % Normal 0.0 - 2.0 % [facility] Basophils/Leukocytes Auto (Bld) [Pure # fraction] 0.0 E9/L Normal 0.0 - 0.2 E9/L [facility] Eosinophils/100 WBC (Bld) 10.7 % High 0.0 - 8.0 % [facility] Eosinophils/Leukocytes Auto (Bld) [Pure # fraction] 0.4 E9/L Normal 0.0 - 0.5 E9/L [facility] Lymphocytes/100 WBC (Bld) 22.0 % Normal 14.0 - 50.0 % [facility] Lymphocytes/Leukocytes Auto (Bld) [Pure # fraction] 0.9 E9/L Low 1.0 - 4.0 E9/L [facility] Monocytes/100 WBC (Bld) 13.6 % Normal 4.0 - 14.0 % [facility] Monocytes/Leukocytes Auto (Bld) [Pure # fraction] 0.6 E9/L Normal 0.2 - 1.0 E9/L [facility] Neutrophils/100 WBC (Bld) 52.8 % Normal 36.0 - 75.0 % [facility] Neutrophils/Leukocytes Auto (Bld) [Pure # fraction] 2.1 E9/L Normal 2.0 - 7.5 E9/L [facility] HEMATOLOGYOrdered By: Coty Pederson on 05-23-2023 Erythrocyte distribution width (RBC) [Ratio] 16.5 % High 10.9 - 14.2 % [facility] Hematocrit (Bld) [Volume fraction] 35.1 % Low 37.7 - 49.0 % [facility] Hemoglobin (Bld) [Mass/Vol] 11.7 g/dL Low 13.5 - 17.5 gm/dL [facility] MCH (RBC) [Entitic mass] 30.4 pg Normal 27.0 - 34.0 pg [facility] MCHC (RBC) [Mass/Vol] 33.5 g/dL Normal 31.4 - 36.0 gm/dL [facility] MCV (RBC) [Entitic vol] 90.8 fL Normal 80.0 - 100.0 fL [facility] Platelet mean volume (Bld) [Entitic vol] 7.0 fL Normal 6.4 - 10.8 fL [facility] Platelets (Bld) [#/Vol] 164.0 E9/L Normal 150.0 - 500.0 E9/L [facility] RBC (Bld) [#/Vol] 3.9 E12/L Low 4.3 - 5.9 E12/L [facility] WBC corrected for nucl RBC Auto (Bld) [#/Vol] 4.0 E9/L Normal 4.0 - 11.0 E9/L [facility] Comment on above: Result Comment: Slid e reviewed by BC. Inpatient Clinical Summaryon 05-23-2023 Inpatient Clinical Summary [address] [address] Clinical Summary Person Information: Name: CAREN THORNE Age: 83 Years : 1940 Sex: Male PCP: ABDELRAHMAN REYNOSO DO Marital Status: Unknown Phone: [phone] Race: White Ethnicity: Non- or Language: Liberian Visit Id: Visit Reason: Syncope/Near syncope; unresponsive Speciality: Acuity: Enc Type: Inpatient Med Service: Medical Arrival: 05/23/2023 08:52:31 Discharge: Dispo Type: Address: [address] [place] [phone] Provider Notes: Diagnosis: 1:Septic shock; 2:UTI (urinary tract infection); 3:Acute renal failure; 4:Hypokalemia; 5:Hyponatremia; 6:Afib Problems No Problems Documented Smoking Status: Never Smoker Functional Status: Sensory Deficits: History of Falls: Mobility Assistance Prior to Admission: ADLs: Current Level of Assistance for Self-Care/Mobility: Cognitive Status: Oriented x 3 Allergies No Known Medication Allergies Measurements: Height: 177.8 cm Weight: 110 kg Blood Pressure: 107 mmHg / 63 mmHg BMI: 34.8 kg/m2 Procedures No Procedures Documented Immunizations No Immunizations Documented This Visit Final Med List: aspirin 325 Milligram By Mouth every day. benazepril (benazepril 5 mg oral tablet) 1 Tablets By Mouth every day. docusate 100 Milligram By Mouth every day. hydrochlorothiazide (hydrochlorothiazide 25 mg oral tablet) 1 Tablets By Mouth every day. metoprolol (Metoprolol tartrate 50 mg Tab) 1 Tablets By Mouth 2 times a day. tamsulosin (tamsulosin 0.4 mg oral capsule) 1 Capsules By Mouth every day. Care Team Members: Attending Physician: Higinio Reyna DO Consulting Physician: Referring Physician: Follow up: Patient Education Information: [facility] Inpatient Patient Summaryon 05-23-2023 Inpatient Patient Summary [address] [address] Patient Discharge Instructions PERSON INFORMATION Name: CAREN THORNE Date of : 1940 Current Date: 05/23/2023 15:35:15 PHYSICIANS Admitting Physician: Shanell FAGAN MD Primary Care Physician: ABDELRAHMAN REYNOSO DO PCP Comment: Discharge Diagnosis: 1:Septic shock; 2:UTI (urinary tract infection); 3:Acute renal failure; 4:Hypokalemia; 5:Hyponatremia; 6:Afib Condition at Discharge: CAREN THORNE has been given the following list of follow-up instructions, prescriptions, and patient education materials: PATIENT FOLLOW-UP INFORMATION Diet: Discharge Activity: Discharge Restrictions: Wound Care Instructions: Remove Your Dressing In Days Call Your Doctor For: IF UNABLE TO CONTACT YOUR PHYSICIAN AND YOU FEEL IT IS AN EMERGENCY, GO TO THE NEAREST EMERGENCY ROOM OR CALL 911 Home Treatment: Devices/Equipment: Special Services: Additional Instructions: Primary Care Physician to provide the following pending test results: Follow up: In the event that this physician does not participate in your insurance network, please consult with your insurance company to find a nearby participating provider. Comment: EUGENIA Sutton KENNETH L, have received the attached patient education materials/instruction s and have verbalized understanding: Patient Signature Date Clinican/Nurse Signature Date HERE ARE THE MEDICATION CHANGES THAT OCCURRED DURING YOUR HOSPITAL STAY Medications to Continue with No Changes Other Medications aspirin 325 Milligram By Mouth every day. Last Dose: ____Next Dose: ____ benazepril (benazepril 5 mg oral tablet) 1 Tablets By Mouth every day. Last Dose: ____Next Dose: ____ docusate 100 Milligram By Mouth every day. Last Dose: ____Next Dose: ____ hydrochlorothiazide (hydrochlorothiazide 25 mg oral tablet) 1 Tablets By Mouth every day. Last Dose: ____Next Dose: ____ metoprolol (Metoprolol tartrate 50 mg Tab) 1 Tablets By Mouth 2 times a day. Last Dose: ____Next Dose: ____ tamsulosin (tamsulosin 0.4 mg oral capsule) 1 Capsules By Mouth every day. Last Dose: ____Next Dose: ____ Comment: MEDICATION LIST PROVIDED FOR YOU IS A LIST OF YOUR CURRENT MEDICATIONS. PLEASE CARRY THIS WITH YOU AT ALL TIMES. aspirin 325 Milligram By Mouth every day. benazepril (benazepril 5 mg oral tablet) 1 Tablets By Mouth every day. docusate 100 Milligram By Mouth every day. hydrochlorothiazide (hydrochlorothiazide 25 mg oral tablet) 1 Tablets By Mouth every day. metoprolol (Metoprolol tartrate 50 mg Tab) 1 Tablets By Mouth 2 times a day. tamsulosin (tamsulosin 0.4 mg oral capsule) 1 Capsules By Mouth every day. Pharmacy Information: Comment: PATIENT EDUCATION INFORMATION Instructions: Medication Leaflets: You may receive a survey from Dilia Mast asking you to rate your care experience. Your feedback is important and will help us understand what we do well and how we can improve the quality of care we provide to you, your loved ones and our community. It?s an honor to serve you. Thank you for choosing [facility] Lactic Acidon 05-23-2023 Lactate [Mass/Vol] 1.6 mmol/L Normal 0.5-2.2 [facility] Comment on above: Performed By: #### 2 [id number] ####[facility] [address] [place] [address] Lactate [Mass/Vol] 1.3 mmol/L Normal 0.5-2.2 [facility] Comment on above: Performed By: #### 1 [id number], [id number], [id number], [id number], [id number], [id number] #### [facility] [address] [place] [address] Monitor Recordon 05-23-2023 Monitor Record [id number]# 1.00TIFF Normal [facility] Monitor Record [id number]# 1.00TIFF Normal [facility] Monitor Record [id number]# 1.00TIFF Normal [facility] No Panel InformationOrdered By: ANGPROCESSSERVER MICROBIOLOGY on 05-23-2023 Blood Culture Charcoal No growth at 2 da ys. Final to follow at 7 days. [facility] Blood Culture Charcoal No growth at 2 da ys. Final to follow at 7 days. [facility] Alf Recordson 05-23 Alf Records [id number]# 1.00TIFF Normal [facility] PIPERACILLIN+TAZOBACTAM:SUSC :PT:ISOLATE:ORDQN:MICOrdered By: Lakia Crowder on 05-23-2023 Piperacillin+Tazobacta m ROBBY [Susc] >100,000 cfu/ml Citrobacter youngae [facility] PT & PTTon 05-23-2023 aPTT Coag (PPP) [Time] 35.2 second(s) Normal 25.1-36.5 [facility] Comment on above: Result Comment: Para meter 15 days - 4 weeks 1 - 5 months 6 - 11 months 1 - 5 years 6 - 10 years 11 - 17 years PTT Mean: 35.4 (27.6-45.6) Mean: 33.5 (24.8-40.7) Mean: 32.4 (25.1-40.7) Mean: 31.6 (24.0-39.2) Mean: 31.6 (26.9-38.7) Mean: 31.0 (24.6-38.4) Pediatric Reference ranges were obtained from a study by Jerel Robledo et al. prepared from 1437 samples obtained at 7 different centers using the same coagulation reagent and instrumentation as [facility]. Currently there are no coagulation studies available worldwide for children to 14 days, and no normal ranges. Heparin therapeutic range (represented by Anti-Factor Xa activity of 0.2 - 0.4 U/mL) corresponds to PTT of 56.6 - 109.0 sec. Performed By: #### 1 [id number], [id number], [id number], [id number], [id number], [id number] #### [facility] [address] [place] [address] INR Coag (PPP) [Relative time] 1.5 {INR} Invalid Interpretation Code [facility] Comment on above: Result Comment: INR results are specifically intended to assess patients stabilized on long-term Anticoagulation therapy suggested INR?s ?Less Intensive Anticoagulation? 2.0 ? 3.0 Conventional Range 3.0 ? 4.5 Performed By: #### 1 [id number], [id number], [id number], 5660640, 0934281, [id number] #### [facility] [address] [place] [address] PT Coag (PPP) [Time] 17.0 second(s) High 9.4-12.5 [facility] Comment on above: Result Comment: 15 d ays - 4 weeks 1 - 5 months 6 -11 months 1- 5 years 6-10 years 11 -17 years Mean: 11.2 (9.5-12.6) Mean: 11.0 (9.7-12.8) Mean: 11.0 (9.8-13.0) Mean: 11.3 (9.9-13.4) Mean: 11.7 (10.0-14.6) Mean: 11.8 (10.0 - 14.1) Pediatric Reference ranges were obtained from a study by Jerel Robledo et al. prepared from 1437 samples obtained at 7 different centers using the same coagulation reagent and instrumentation as [facility] Currently there are no coagulation studies available worldwide for children to 14 days, and no normal ranges. Performed By: #### 1 [id number], [id number], [id number], [id number], [id number], [id number], [id number] #### [facility] [address] [place] [address] Piperacillin+Tazobactam ROBBY [Susc]Ordered By: Lakia Crowder on 05-23-2023 Citrobacter youngae Citrobacter youngae [facility] Pre-Arrival Noteon Pre-Arrival Note Pre-Arrival Summary Name: , [facility] Current Date: 05/23/2023 08:53:11 EDT Gender: Male Date of : Age: 83 Pre-Arrival Type: EMS ETA: 05/23/2023 09:10:00 EDT Primary Care Physician: Presenting Problem: low BP/unresponsive awake now Pre-Arrival User: Cristopher Katz RN Referring Source: Location: [place] Completion Date/Time: 05/23/2023 08:41:00 [facility] Emergency Department Pre-Hospital Report Form Vital Signs: Pre-Hospital Report: Treatment in Route: Response to Treatment: Misc. Issues: Normal [facility] Troponinon 05-23-2023 Troponin I.cardiac [Mass/Vol] 9.10 pg/mL Low 15.90-38.40 [facility] Comment on above: Result Comment: The 95% CI (Confidence Interval) PPV (Positive Predictive Value) for myocardial infarction in females is 38 pg/mL, in males 51 pg/mL. The results should be used in conjunction with clinical conditions of myocardial infarction. (Access High Sensitivity Troponin I Instructions For Use, [employer], March 2018) Performed By: #### 1 [id number], [id number], [id number], [id number], [id number], [id number], [id number] ####[facility] [id number] [place] [address] UA With Cult Reflexon 2022 Bacteria LM Ql (Urine sed) 2+ /HPF Abnormal Trace [facility] Comment on above: Performed By: #### 1 [id number], [id number] #### [facility] [address] [place] [address] Bilirubin Ql (U) Negative Normal Negative [facility] Comment on above: Performed By: #### 1 [id number], [id number] #### [facility] [address] [place] [address] Clarity (U) SL CLOUDY Invalid Interpretation Code [facility] Comment on above: Performed By: #### 1 [id number], [id number] #### [facility] [address] [place] [address] Color (U) YELLOW Normal Yellow [facility] Comment on above: Performed By: #### 1 [id number], [id number] #### [facility] [address] [place] [address] Epithelial cells.squamous LM.HPF (Urine sed) [#/Area] 3-4 Normal 0-2 [facility] Comment on above: Performed By: #### 1 [id number], [id number] #### [facility] [address] [place] [address] Glucose Test strip (U) [Mass/Vol] Negative Normal Negative [facility] Comment on above: Performed By: #### 1 [id number], [id number] #### [facility] [address] [place] [address] Hemoglobin Ql (U) 1+ Abnormal Negative [facility] Comment on above: Performed By: #### 1 [id number], [id number] #### [facility] [address] [place] [address] Ketones (U) [Mass/Vol] Negative Normal Negative [facility] Comment on above: Performed By: #### 1 [id number], [id number] #### [facility] [address] [place] [address] Boone.plasma/Boone .RBC (Bld) [Mass ratio] 4-20 Normal 0-3 [facility] Comment on above: Performed By: #### 1 [id number], [id number] #### [facility] [address] [place] [address] Nitrite Ql (U) Positive Abnormal Negative [facility] Comment on above: Performed By: #### 1 [id number], [id number] #### [facility] [address] [place] [id number] pH (U) 7.0 [pH] Invalid Interpretation Code 5.0-9.0 [facility] Comment on above: Performed By: #### 1 [id number], [id number] #### [facility] [address] [place] [address] Protein (U) [Mass/Vol] 1+ Abnormal Negative [facility] Comment on above: Performed By: #### 1 [id number], [id number] #### [facility] [address] [place] [address] Specific gravity (U) [Rel density] 1.010 Invalid Interpretation Code 1.005-1.030 [facility] Comment on above: Performed By: #### 1 [id number], [id number] #### [facility] [address] [place] [address] Type of Urine collection method Cook Normal [facility] Comment on above: Performed By: #### 1 [id number], [id number] #### [facility] [address] [place] [address] Urobilinogen Qn (U) 0.2 {Maki'U}/dL Normal 0.0-1.0 [facility] Comment on above: Performed By: #### 1 [id number], [id number] #### [facility] [address] [place] [address] WBC Auto Ql (U) 3+ Abnormal Negative [facility] Comment on above: Performed By: #### 1 [id number], [id number] #### [facility] [address] [place] [address] WBC LM.HPF (Urine sed) [#/Area] /[HPF] Abnormal 0-5 [facility] Comment on above: Performed By: #### 1 [id number], [id number] #### [facility] [address] [place] [address] URINALYSISOrdered By: Michael Ha on 05-23-2023 Bacteria LM Ql (Urine sed) 2+ /HPF Invalid Interpretation Code Trace/HPF [facility] UA Auto SS Bilirubin Ql (U) Negative (05/23/23 11:36 AM) Normal Negative [facility] UA Auto SS Clarity (U) SL CLOUDY Invalid Interpretation Code [facility] UA Auto SS Color (U) Yellow (05/23/23 11:36 AM) Normal Yellow [facility] UA Auto SS Epithelial cells.squamous LM.HPF (Urine sed) [#/Area] 3-4 /HPF Normal 0-2/HPF [facility] UA Aut o SS Glucose Test strip (U) [Mass/Vol] Negative (05/23/23 11:36 AM) Normal Negative [facility] UA Auto SS Hemoglobin Ql (U) 1+ *ABN* (05/23/23 11:36 AM) Invalid Interpretation Code Negative [facility] UA Auto SS Ketones (U) [Mass/Vol] Negative (05/23/23 11:36 AM) Normal Negative [facility] UA Auto SS Boone.plasma/Boone .RBC (Bld) [Mass ratio] 4-20 /HPF Normal 0-3/HPF [facility] UA Auto SS Nitrite Ql (U) Positive *ABN* (05/23/23 11:36 AM) Invalid Interpretation Code Negative [facility] UA Auto SS pH (U) 7.0 *NA* (05/23/23 11:36 AM) Invalid Interpretation Code 5.0 - 9.0 [facility] UA Auto SS Protein (U) [Mass/Vol] 1+ *ABN* (05/23/23 11:36 AM) Invalid Interpretation Code Negative [facility] UA Auto SS Specific gravity (U) [Rel density] 1.010 *NA* (05/23/23 11:36 AM) Invalid Interpretation Code 1.005 - 1.030 [facility] UA Auto SS UA Spec Desc Cook (05/23/23 11:36 AM) Normal [facility] UA Auto SS Urobilinogen Qn (U) 0.7508389 {Maki'U}/dL Normal 0.0 - 1.0 EU/dL [facility] UA Auto SS WBC Auto Ql (U) 3+ *ABN* (05/23/23 11:36 AM) Invalid Interpretation Code Negative [facility] UA Auto SS WBC LM.HPF (Urine sed) [#/Area] /[HPF] Invalid Interpretation Code 0-5/HPF [facility] UA Auto SS XR Chest Single Viewon 05-23 XR Chest Single View Exam Date/Time: 05/23/2023 09:51 EDT Reason for Exam: Shortness of breath (SOB) Report IMPRESSION: There are no acute cardiopulmonary changes. CLINICAL HISTORY: Shortness of breath (SOB) EXAMINATION: XR Chest Single View COMPARISON: FINDINGS: The cardiomediastinal silhouette is unremarkable. The lungs are free of infiltrates effusions or consolidations. There is asymmetric elevation of the right hemidiaphragm. There are no acute osseous changes. Ordering Provider: Higinio Reyna FINAL REPORT Dictated: 05/23/2023 10:09 am Dru Hong MD, V. Signed (Electronic Signature): 05/23/2023 10:09 am Signed by: Dru Hong MD, V. Transcribed by: BONILLA Technologist: AMBROCIO Technical Comments Radiation Dose: Ka,r in mGy = na DAP = na Normal [facility] eGFRon 05-23-2023 GFR/1.73 sq M.predicted among non-blacks MDRD (S/P/Bld) [Vol rate/Area] 50 mL/min/1.73 m2 Low >=59 [facility] Comment on above: Order Comment: Order added by Discern Expert. Result Comment: Under Trimmer bety kidney disease could be indicated at eGFR's of less than 60 mL/min/1.73m2. Kidney failure is indicated at less than 15 mL/min/1.73m2. Performed By: #### 1 [id number], [id number], [id number], 9457792, 5833636, [id number], [id number] ####[facility] [address] [place] [address] CBC AUTO DIFFon 11-25-2021 BASO # 0.1 103/ul Normal 0.0-0.1 [facility] Comment on above: Performed By: #### C BC #### [facility] [address] [place] [address] Dr. Mychal Jordan Basophils/100 WBC (Bld) 1.1 % Normal 0.2-2.0 [facility] Comment on above: Performed By: #### C BC #### [facility] [address] [place] [address] Dr. Mychal Jordan EO # 0.4 103/ul Normal 0.0-0.7 [facility] Comment on above: Performed By: #### C BC #### [facility] [address] [place] [address] Dr. Mychal Jordan Eosinophils/100 WBC (Bld) 3.6 % Normal 0.9-7.0 [facility] Comment on above: Performed By: #### C BC #### [facility] [address] [place] [address] Dr. Mychal Jordan Erythrocyte distribution width (RBC) [Ratio] 14.1 % Normal 11.0-15.0 [facility] Comment on above: Performed By: #### C BC #### [facility] [address] [place] [address] Dr. Mychal Jordan Hematocrit (Bld) [Volume fraction] 44.8 % Normal 42.0-54.0 [facility] Comment on above: Performed By: #### C BC #### [facility] [address] [place] [address] Dr. Mychal Jordan Hemoglobin (Bld) [Mass/Vol] 14.5 g/dL Normal 14.0-18.0 [facility] Comment on above: Performed By: #### C BC #### [facility] [address] [place] [address] Dr. Mychal Jordan IG # 0.06 10e3/ul Critically high 0.00-0.03 [facility] Comment on above: Performed By: #### C BC #### [facility] [address] [place] [address] Dr. Mychal Jordan IG % 0.6 % Critically high 0.0-0.5 [facility] Comment on above: Performed By: #### C BC #### [facility] [address] [place] [address] Dr. Mychal Jordan LYMPH # 1.4 103/ul Normal 1.2-3.8 [facility] Comment on above: Performed By: #### C BC #### [facility] [address] [place] [address] Dr. Mychal Jordan Lymphocytes/100 WBC (Bld) 14.2 % Critically low 20.5-60.0 [facility] Comment on above: Performed By: #### C BC #### [facility] [address] [place] [address] Dr. Mychal Jordan MANUAL DIFF REQ NO Normal [facility] Comment on above: Performed By: #### C BC #### [facility] [address] [place] [address] Dr. Mychal Jordan MCH (RBC) [Entitic mass] 30.8 pg Normal 25.9-34.0 [facility] Comment on above: Performed By: #### C BC #### [facility] [address] [place] [address] Dr. Mychal Jordan MCHC (RBC) [Mass/Vol] 32.4 g/dL Normal 29.9-35.2 [facility] Comment on above: Performed By: #### C BC #### [facility] [address] [place] [address] Dr. Mychal Jordan MCV (RBC) [Entitic vol] 95.1 fL Critically high 80.0-94.0 [facility] Comment on above: Performed By: #### C BC #### [facility] [address] [address] [address] Mychal Jordan MONO # 0.9 103/ul Critically high 0.3-0.8 [facility] Comment on above: Performed By: #### C BC #### [facility] [address] [address] [address] Mychal Jordan Monocytes/100 WBC (Bld) 8.6 % Normal 1.7-12.0 [facility] Comment on above: Performed By: #### C BC #### [facility] [address] [address] [address] Mychal Jordan NEUT # 7.2 103/ul Critically high 1.4-6.5 [facility] Comment on above: Performed By: #### C BC #### [facility] [address] [place] [address] Dr. Mychal Jordan Neutrophils/100 WBC (Bld) 71.9 % Normal 43.0-75.0 [facility] Comment on above: Performed By: #### C BC #### [facility] [address] [place] [address] Dr. Mychal Jordan Platelet mean volume (Bld) [Entitic vol] 8.6 fL Critically low 9.5-13.5 [facility] Comment on above: Performed By: #### C BC #### [facility] [address] [place] [address] Dr. Mychal Jordan PLT 237 103/ul Normal 150-[address] [facility] Comment on above: Performed By: #### C BC #### [facility] [address] [address] [address] Mychal Jordan RBC 4.71 106/ul Normal 4.70-6.[address] [facility] Comment on above: Performed By: #### C BC #### [facility] [address] [address] [address] Mychal Jordan WBC 10.0 103/ul Normal 4.0-11.[address] [facility] Comment on above: Performed By: #### C BC #### [facility] [address] [place] [address] Dr. Mychal Jordan PROF CHEM 8 (BAS METB)on Anion gap [Moles/Vol] 11.8 mmol/L Normal [facility] Comment on above: Performed By: #### B MP, URIC, TSH #### [facility] [address] [place] [address] Dr. Mychal Jordan Calcium [Mass/Vol] 8.6 mg/dL Normal 8.5-10.[address] [facility] Comment on above: Performed By: #### B MP, URIC, TSH #### [facility] [address] [place] [address] Dr. Mychla Jordan Chloride [Moles/Vol] 100 mmol/L Normal 98-107 [facility] Comment on above: Performed By: #### B MP, URIC, TSH #### [facility] [address] [place] [address] Dr. Mychal Jordan CO2 [Moles/Vol] 29.1 mmol/L Normal 22.0-30.0 [facility] Comment on above: Performed By: #### B MP, URIC, TSH #### [facility] [address] [place] [address] Dr. Mychal Jordan Creatinine [Mass/Vol] 1.66 mg/dL Critically high 0.66-1.25 [facility] Comment on above: Performed By: #### B MP, URIC, TSH #### [facility] [address] [place] [address] Dr. Mychal Jordan EGFR-AF MACANESE 48 mL/min/1.73m2 Critically low >=60 [facility] Comment on above: Performed By: #### B MP, URIC, TSH #### [facility] [address] [place] [address] Dr. Mychal Jordan EGFR-NON AF MACANESE 40 mL/min/1.73m2 Critically low >=60 [facility] Comment on above: Performed By: #### B MP, URIC, TSH #### [facility] [address] [place] [address] Dr. Mychal Jordan Glucose [Mass/Vol] 114 mg/dL Critically high 74-106 [facility] Comment on above: Performed By: #### B MP, URIC, TSH #### [facility] [address] [place] [address] Dr. Mychal Jordan Potassium [Moles/Vol] 3.9 mmol/L Normal 3.4-5.0 [facility] Comment on above: Performed By: #### B MP, URIC, TSH #### [facility] [address] [address] [address] Mychal Jordan Sodium [Moles/Vol] 137 mmol/L Normal 137-[address] [facility] Comment on above: Performed By: #### B MP, URIC, TSH #### [facility] [address] [place] [address] Dr. Mychal Jordan Urea nitrogen [Mass/Vol] 22.0 mg/dL Critically high 7.0-18.0 [facility] Comment on above: Performed By: #### B MP, URIC, TSH #### [facility] [address] [place] [address] Dr. Mychal Jordan Urea nitrogen/Creatinine [Mass ratio] 13.3 mg/mg Normal [facility] Comment on above: Performed By: #### B MP, URIC, TSH #### [facility] [address] [place] [address] Dr. Mychal Jordan TSHon 11-25-2021 TSH 1.779 uIU/mL Normal 0.470-4.680 [facility] Comment on above: Performed By: #### B MP, URIC, TSH #### [facility] [address] [place] [address] Dr. Mychal Jordan TSH RANGE SEE BELOW Normal [facility] Comment on above: Result Comment: <0.3 4 UIU/ml HYPERTHYROID 0.34-5.60 UIU/ml EUTHYROID >5.60 UIU/ml HYPOTHYROID Performed By: #### B MP, URIC, TSH #### [facility] [address] [place] [address] Dr. Mychal Jordan URIC ACID SERUMon 11-25-2021 Urate [Mass/Vol] 7.6 mg/dL Normal 3.5-8.5 [facility] Comment on above: Performed By: #### B MP, URIC, TSH #### [facility] [address] [place] [address] Dr. Mychal Jordan Vital Signs Date Time Vital Sign Value Performing Clinician Gem cotto 05-25-2023 14:15-0400 Hourly Rounding [facility] 05-25-2023 14:15-0400 Promise to Return [facility] 05-25-2023 14:00-0400 Blood Pressure Location [facility] 05-25-2023 14:00-0400 Heart rate 85 /min [facility] 05-25-2023 14:00-0400 Respiratory rate 17 /min [facility] 05-25-2023 13:35-0400 Hourly Rounding [facility] 05-25-2023 13:35-0400 Promise to Return [facility] 05-25-2023 12:23-0400 Hourly Rounding [facility] 05-25-2023 12:23-0400 Promise to Return [facility] 05-25-2023 11:31-0400 Heart rate 80 /min [facility] 05-25-2023 11:31-0400 SaO2% (BldA) [Mass fraction] 97 % [facility] 05-25-2023 11:31-0400 Body temperature 97.16 [degF] [facility] 05-25-2023 11:31-0400 Diastolic blood pressure 80 mm[Hg] [facility] 05-25-2023 11:31-0400 Mean blood pressure 102 mm[Hg] [facility] 05-25-2023 11:31-0400 Systolic blood pressure 147 mm[Hg] [facility] 05-25-2023 10:23-0400 Diastolic blood pressure 74 mm[Hg] [facility] 05-25-2023 10:23-0400 Systolic blood pressure 132 mm[Hg] [facility] 05-25-2023 07:49-0400 Heart rate 94 /min [facility] 05-25-2023 07:49-0400 Body temperature 97.88 [degF] [facility] 05-25-2023 07:49-0400 Diastolic blood pressure 74 mm[Hg] [facility] 05-25-2023 07:49-0400 Mean blood pressure 94 mm[Hg] [facility] 05-25-2023 07:49-0400 Systolic blood pressure 132 mm[Hg] [facility] 05-24-2023 20:29-0400 Mean blood pressure 88 mm[Hg] [facility] 05-24-2023 20:00-0400 Blood Pressure Location [facility] 05-24-2023 20:00-0400 Respiratory rate 18 /min [facility] 05-24-2023 14:00-0400 Mean blood pressure 87 mm[Hg] [facility] 05-24-2023 14:00-0400 Respiratory rate 17 /min [facility] 05-24-2023 13:00-0400 Mean blood pressure 69 mm[Hg] [facility] 05-24-2023 12:30-0400 Mean blood pressure 83 mm[Hg] [facility] 05-23-2023 20:00-0400 Body temperature 97.7 [degF] [facility] 05-23-2023 15:30-0400 Body temperature 97.52 [degF] [facility] 05-23-2023 15:30-0400 Heart rate 75 /min [facility] MARISELA [facility] 05-23-2023 15:30-0400 Respiratory rate 22 /min [facility] F[facility] 05-23-2023 09:10-0400 gluc 134 mg/dL [facility] 05-23-2023 09:10-0400 gluc [facility] 05-23-2023 08:56-0400 Heart rate 84 /min [facility] 05-23-2023 08:56-0400 Respiratory rate 18 /min [facility] Encounters Encounter Date Encounter Type Care Provider Facility Start: 07-23-2023 ambulatory [facility] Facility:Mandie Lock Carlos Start: 07-16-2023 End: 07-16-2023 ambulatory Abdelrahman Reynoso Other [employer] Other Start: 07-16-2023 Telephone encounter Abdelrahman QUIROS [facility] Start: 07-12-2023 End: 07-12-2023 ambulatory Abdelrahman Ball Other [employer] Other Start: 07-12-2023 Telephone encounter Abdelrahman Ball [facility] Start: 07-11-2023 End: 07-11-2023 ambulatory Abdelrahman Ball Other [employer] Other Start: 07-11-2023 Telephone encounter Abdelrahman Ball FP [facility] Start: 07-05-2023 End: 07-05-2023 ambulatory Abdelrahman Ball Other [employer] Other Start: 07-05-2023 Telephone encounter Abdelrahman Ball FP [facility] Start: 07-04-2023 End: 07-04-2023 ambulatory Abdelrahman Ball Other [employer] Other Start: 07-04-2023 Telephone encounter Abdelrahman Ball FP [facility] Start: 06-22-2023 End: 06-22-2023 ambulatory Abdelrahman Ball Other [employer] Other Start: 06-22-2023 Telephone encounter Abdelrahman Ball FP [facility] Start: 06-21-2023 End: 06-21-2023 ambulatory Abdelrahman Ball Other [employer] Other Start: 06-21-2023 Sbsq nursing facil care/day new problem 25 min Abdelrahman Reynoso [facility] Start: 06-19-2023 End: 06-19-2023 ambulatory Abdelrahman Ball Other [employer] Other Start: 06-19-2023 Telephone encounter Abdelrahman Ball FP [facility] Start: 06-15-2023 End: 06-15-2023 ambulatory Abdelrahman Ball Other [employer] Other Start: 06-15-2023 Telephone encounter Abdelrahman Ball FP [facility] Start: 05-31-2023 End: 05-31-2023 ambulatory Abdelrahman Ball Other [employer] Other Start: 05-31-2023 Initial nursing facility care/day 35 minutes Abdelrahman Reynoso [facility] Start: 05-31-2023 Telephone encounter Abdelrahman Ball FP [facility] Start: 05-30-2023 End: 05-30-2023 ambulatory Abdelrahman Ball Other [employer] Other Start: 05-30-2023 Telephone encounter Abdelrahman Ball FP [facility] Start: 05-28-2023 End: 05-28-2023 ambulatory Abdelrahman Ball Other [employer] Other Start: 05-28-2023 Telephone encounter Abdelrahman Ball FP [facility] Start: 05-24-2023 End: 05-24-2023 ambulatory Abdelrahman Ball Other [employer] Other Start: 05-24-2023 Telephone encounter Abdelrahman Ball FP [facility] Start: 05-23-2023 End: 05-25-2023 Evaluation and management of inpatient Shanell FAGAN [facility] Start: 05-23-2023 End: 05-25-2023 Evaluation and management of inpatient Alaa PANCHITOAD [facility] Start: 05-18-2023 End: 05-18-2023 ambulatory Abdelrahman Ball Other [employer] Other Start: 05-18-2023 Telephone encounter Abdelrahman Ball FP [facility] Start: 05-17-2023 End: 05-17-2023 ambulatory Abdelrahman Ball Other [employer] Other Start: 05-17-2023 Sbsq nursing facil care/day new problem 25 min [facility] Start: 05-15-2023 End: 05-15-2023 ambulatory Abdelrahman Ball Other [employer] Other Start: 05-15-2023 Telephone encounter Abdelrahman Ball FP [facility] Start: 05-10-2023 End: 05-10-2023 ambulatory Abdelrahman Ball Other [employer] Other Start: 05-10-2023 Sbsq nursing facil care/day new problem 25 min Abdelrahman [facility] Start: 05-10-2023 Telephone encounter Abdelrahman Ball FP [facility] Start: 05-08-2023 End: 05-08-2023 ambulatory Abdelrahman Ball Other [employer] Other Start: 05-08-2023 Telephone encounter Abdelrahman Ball FP [facility] Start: 05-07-2023 End: 05-07-2023 ambulatory Abdelrahman Ball Other [employer] Other Start: 05-07-2023 Telephone encounter Abdelrahman Ball FP G [facility] Start: 05-03-2023 End: 05-03-2023 ambulatory Abdelrahman Ball Other [employer] Other Start: 05-03-2023 Initial nursing facility care/day 45 minutes Abdelrahman Reynoso [facility] Start: 05-03-2023 Telephone encounter [facility] Start: 05-01-2023 End: 05-01-2023 ambulatory Abdelrahman Reynoso Other [employer] Other Start: 05-01-2023 Telephone encounter [facility] Start: 11-25-2021 End: 11-26-[address] ABDELRAHMAN REYNOSO Facility:[facility] Start: 06-19-[address] ABDELRAHMAN REYNOSO Facili ty:[facility] Start: 04-15-2020 Adult health examination Abdelrahman Reynoso Other [employer] Other Procedures Date Procedure Procedure Detail Performing Clinician Start: 05-27-2019 Cataract extraction and insertion of intraocular lens Shanell FAGAN Comment on above: right Start: 05-13-2019 Cataract extraction and insertion of intraocular lens Alaa MARISELA Comment on above: left Start: 07-05-2017 End: 11-07-2019 Diabetes mellitus screening Abdelrahman Reynoso Other Start: 12-31-2015 End: 11-07-2019 Screening for malignant neoplasm of prostate Abdelrahman Reynoso Other Start: 05-21-2014 End: 04-15-2020 General examination of patient Abdelrahman Reynoso Other Depression screening Marco Reynoso Other Immunizations Immunization Date Immunization Notes Care Provider Lauren evans 05-10-2022 COVID-19 Pfizer (Pediatric) Abdelrahman Reynoso Other [employer] Other 05-10-2022 influenza virus vaccine, split virus (incl. purified surface antigen) Abdelrahman Reynoso Other [employer] Other 05-27-2021 influenza virus vaccine, split virus (incl. purified surface antigen) Abdelrahman Reynoso Other [employer] Other 09-08-2020 COVID-19 Vaccine Pfizer - Documentation Purposes Only Abdelrahman Reynoso Other [employer] Other 08-19-2020 COVID-19 Vaccine Moderna - Documentation Purposes Only Abdelrahman Reynoso Other [employer] Other 04-15-2020 influenza virus vaccine, split virus (incl. purified surface antigen) Abdelrahman Reynoso Other [employer] Other 05-15-2018 influenza virus vaccine, split virus (incl. purified surface antigen) Abdelrahman Reynoso Other [employer] Other 06-20-2017 influenza virus vaccine, split virus (incl. purified surface antigen) Abdelrahman Reynoso Other [employer] Other 06-19-2016 influenza virus vaccine, split virus (incl. purified surface antigen) Abdelrahman Reynoso Other [employer] Other 05-26-2015 pneumococcal conjuga te vaccine, 13 valent Abdelrahman Reynoso Other [employer] Other 05-19-2015 influenza virus vaccine, split virus (incl. purified surface antigen) Abdelrahman Reynoso Other [employer] Other 05-21-2014 tetanus and diphther ia toxoids, adsorbed, preservative free, for adult use (5 Lf of tetanus toxoid and 2 Lf of diphtheria toxoid) Abdelrahman Reynoso Other [employer] Other 06-27-2013 pneumococcal polysaccharide vaccine, 23 valent Abdelrahman Reynoso Other [employer] Other 05-08-2012 tetanus and diphther ia toxoids, adsorbed, preservative free, for adult use (5 Lf of tetanus toxoid and 2 Lf of diphtheria toxoid) Abdelrahman Reynoso Other [employer] Other pneumococcal Conjugate, unspecified formulation; Translations: [Need for prophylactic vaccination against Streptococcus pneumoniae (pneumococcus)] Abdelrahman Reynoso Other [employer] Other NEGATED: Highlighted row has not occurred!05-28-2019 influenza virus vaccine, split virus (incl. purified surface antigen) Abdelrahman Reynoso Other [employer] Other Payers Date Payer Category Payer Medicaid [id number] 1959 Self-pay [id number] 1959 Unknown [id number] 1940 Unknown [id number] 1940 Unknown [id number] 1940 Unknown [id number] [id number] 1940 Unknown [id number] Social History Date Type Detail Facility Sex Assigned At [facility] Tobacco smoking status No Smoking Status Entered [facility] Functional Status Date Assessment Result Facility 05-23-2023 Functional Status No [facility] 05-23-2023 Functional Status [facility] Clinical Notes 05-03-2023 to 07-04-2023 Note Date & Type Note Facility 07-04-2023 Evaluation note Encounter Date Diagnosis Assessment Notes Jun, HFrEF (heart failure with reduced ejection fraction) (ICD-10 - I50.20) Echo: 06/2023 - LVH w/ LVEF at 35 to 40%. - RADHA - Mild - Mildly elevated RVSP - Mildly dilated aortic root measuring 3.9 cm. [employer] Other [id number] Evaluation note* Encounter Date Diagnosis Assessment Notes Treatment Notes Treatment Clinical Notes Jun, Nonischemic cardiomyopathy (ICD-10 - I42.8) Healthy, low salt diet. Monitor weight and lower extremity edema. Jun, HFrEF (heart failure with reduced ejection fraction) (ICD-10 - I50.20) Instructed on low salt diet, exercise and daily weights. Instructed to notify office for any unexpected weight gain > 3lbs and/or increased dyspnea, difficulty breathing during sleep, worsening lower extremity swelling, chest pain or lightheadedness. Reviewed GDMT w/ beta blockers, LACY/ARB/ARNI, MRA and SGLT-2 Check Echocardiogram to assess LVEF and valvular function. 16 Jun, 2023 Persistent atrial fibrillation (ICD-10 - I48.19) This patient is in NSR or rate controlled. This patient is anticoagulated to prevent thromboembolic events. They are maintaining regular scheduled appts with their tailercpa. No bleeding complications Jun, Chronic venous insufficiency (ICD-10 - I87.2) Avoid salt and elevate lower extremities, support stockings, inspect legs and feet daily for blisters and ulcerations. 16 Jun, 2023 Lumbar spondylosis (ICD-10 - M47.816) The patient is instructed to avoid bending, twisting or lifting. They are to use intermittent heat and ice as needed. They may schedule a massage or gentle manipulation. They may safely use Tylenol as needed. Jun, Heart murmur, systolic (ICD-10 - R01.1) Echocardiogram to assess valvular function. Jun, Benign prostatic hyperplasia with lower urinary tract symptoms (ICD-10 - N40.1) Continue Flomax bid. Contionue indwelling cook catheter to prevent obstructive uropathy Jun, Feeling of incomplete bladder emptying (ICD-10 - R39.14) PVR consistently > 350. Cook placed to prevent obstructive uropathy Continue FLomax. Refer to [facility]? 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 UTI (urinary tract infection), 05/23/2023 2. Acute renal failure, 05/23/2023 3. Hypokalemia, 05/23/2023 4. Hyponatremia, 05/23/2023 5. Afib, 05/23/2023 6. Septic shock, Septic shock Syncope/Near syncope, 05/23/2023 Procedure History Cataract extraction and insertion of intraocular lens (05/27/2019), Cataract extraction and insertion of intraocular lens (05/13/2019). Hospital Course Significant Findings 83-year-old white male past medical history of hypertension, A-fib, BPH presented to emergency roomwith change mental status. Patient was found in the skilled nursing unresponsive today in the morning.Blood pressure was very low systolic blood pressure was in the 60s. He was confused disoriented. Hehas no fever or chills. Patient given IV fluids bolus in the emergency room. Hold on interview him he was alert awake answer questions. Daughter is at bedside. Patient had a fall couple weeks ago andthere was discharged to skilled rehab. He was found unresponsive by nursing staff. He has no nauseavomiting. He has no diarrhea. He denies any chest pain or shortness of breath. He denies any dysuria , hematuria, frequency. In the emergency room his blood pressure was 66/45. . His blood pressure improved to 87/58 after couple liters of IV fluids and after he was started on Levophed.. He was foundto have UTI. He was given Rocephin IV. He was admitted to the hospital for further management. A/P 1. Septic shock (R65.21: Severe sepsis with septic shock) Off Levophed Secondary to UTI 2. UTI (urinary tract infection) (N39.0: Urinary tract infection, site not specified) Urine culture grew >475997 gram negative Rods Rocephin 1 g daily 3. Acute renal failure (N17.9: Acute kidney failure, unspecified) Resolved 4. Hypokalemia (E87.6: Hypokalemia) Replaced 5. Hyponatremia (E87.1: Hypo-osmolality and hyponatremia) NS at 125 cc per hour BMP daily 6. Afib (I48.91: Unspecified atrial fibrillation) Hold Lopressor due to hypotension DVT prophylaxis Lovenox daily Physical Exam General: alert, no acute distress Skin: warm, dry Head: no trauma, normocephalic Neck: Trachea midline, no adenopathy, no tenderness Eye: normal conjunctiva, sclera clear ENMT: TM's clear, oral mucosa moist, no pharyngeal erythema or exudate Cardiovascular: regular rate and rhythm, normal peripheral perfusion Respiratory: Lungs CTA, respirations non labored Chest wall: no deformity. Gastrointestinal: soft, non distended, no tenderness, no guarding. Back: No tenderness, Normal ROM, Normal alignment. Extremities: no deformity, no trauma Neurological: oriented x 4, LOC appropriate for age, CN II-XII intact, motor strength equal & normal bilaterally, sensation equal & normal bilaterally, speech normal Psychiatric: cooperative, affect appropriate for age, normal judgement, normal psychiatric thoughts. Laboratory Results ABO/Rh (05/23/2023) ABO/Rh - A POS ABO/Rh Retype (05/24/2023) ABO/Rh Retype Interp - A POS Antibody Screen (05/23/2023) ABSC Gel Interp - Negative Automated Diff (05/23/2023) Neutro Auto - 52.8 % Lymph Auto - 22.0 % [place] Auto - 13.6 % Eos Auto - 10.7 % Basophil Auto - 0.9 % Neutro Absolute - 2.1 E9/L Lymph Absolute - 0.9 E9/L [place] Absolute - 0.6 E9/L Eos Absolute - 0.4 E9/L Basophil Absolute - 0.0 E9/L BMP (05/25/2023) Glucose Lvl - 86 mg/dL BUN - 13 mg/dL Creatinine - 0.9 mg/dL BUN/Creat Ratio - 14 Sodium Lvl - 134 mmol/L Potassium Lvl - 3.6 mmol/L Chloride - 104 mmol/L CO2 - 25 mmol/L AGAP - 9 mEq/L Calcium Lvl - 7.9 mg/dL Capillary Glucose POC (05/23/2023) Glucose Cap - 134 mg/dL POC Device SN - [id number] POC User ID - [id number] POC Username - DUQUE, ROMINA CBC w/ Auto Diff (05/23/2023) WBC - 4.0 E9/L RBC - 3.9 E12/L Hgb - 11.7 gm/dL Hct - 35.1 % MCV - 90.8 fL MCH - 30.4 pg MCHC - 33.5 gm/dL RDW - 16.5 % Platelet - 164.0 E9/L MPV - 7.0 fL CMP (05/23/2023) Glucose Lvl - 122 mg/dL BUN - 23 mg/dL Creatinine - 1.4 mg/dL BUN/Creat Ratio - 16 Sodium Lvl - 134 mmol/L Potassium Lvl - 3.4 mmol/L Chloride - 102 mmol/L CO2 - 26 mmol/L AGAP - 9 mEq/L Calcium Lvl - 7.7 mg/dL Alk Phos - 106 Int._Unit/L ALT - 12 Int._Unit/L AST - 18 Int._Unit/L Total Protein - 5.1 gm/dL Albumin Lvl - 2.2 gm/dL Globulin - 2.9 gm/dL A/G Ratio - 0.8 Bili Total - 0.7 mg/dL eGFR (05/25/2023) eGFR - 85 mL/min/1.73 m2 Lactic Acid (05/23/2023) Lactic Acid Lvl - 1.6 mmol/L PT & PTT (05/23/2023) PT - 17.0 second(s) INR - 1.5 PTT - 35.2 second(s) Troponin (05/23/2023) Troponin - 9.10 pg/mL UA With Cult Reflex (05/23/2023) UA Spec Desc - Cook UA Color - Yellow2 UA Clarity - SL CLOUDY UA Spec Grav - 1.010 UA pH - 7.0 UA Protein - 1+ UA Glucose - NEGATIVE1 UA Ketones - NEGATIV (more content not included)...[facility] Comment on above:Result Comment: Electronically Signed By: MARISELA HERNANDEZ, Shanell\.br\Date and Time Signed: 06/10/23 17:[id number] Evaluation note* Encounter Date Diagnosis Assessment Notes Treatment Notes Treatment Clinical Notes May, Nonischemic cardiomyopathy (ICD-10 - I42.8) Healthy diet Monitor volume status May, Persistent atrial fibrillation (ICD-10 - I48.19) This patient is in NSR or rate controlled. This patient is anticoagulated to prevent thromboembolic events. They are maintaining regular scheduled appts with their tailercpa. 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 May, Chronic venous insufficiency (ICD-10 - I87.2) Avoid salt and elevate lower extremities, support stockings, inspect legs and feet daily for blisters and ulcerations. May, Lumbar spondylosis (ICD-10 - M47.816) May, Acute kidney injury (ICD-10 - N17.9) Hydrate, monitor BP closely Care to avoid overdiuresis. [employer] Other 10-25-2023 NoteMicrobiology PROCEDURE: Blood Culture Charcoal [R1] SOURCE: Blood BODY SITE: Hand L COLLECTED DATE/TIME: 05/23/2023 09:29 EDT RECEIVED DATE/TIME: 05/23/2023 09:45 EDT START DATE/TIME: 05/23/2023 09:45 EDT FREE TEXT SOURCE: Higinio Reyna DO. Higinio Reyna DO FINAL REPORTS Final Report [] Verified Date/Time: 05/30/2023 16:13 EDT No growth at 7 days. Performing Locations R1: This test was performed at: [facility], [address] [place] [address], [id number] , [facility] HospitalComment on above:Performed By: #### [id number] #### [facility] [address] [place] [address] [id number] NoteMicrobiology PROCEDURE: Blood Culture Charcoal [R1] SOURCE: Blood BODY SITE: Hand R COLLECTED DATE/TIME: 05/23/2023 09:36 EDT RECEIVED DATE/TIME: 05/23/2023 09:45 EDT START DATE/TIME: 05/23/2023 09:45 EDT FREE TEXT SOURCE: Higinio Reyna DO, DO, Kevin M. FINAL REPORTS Final Report [] Verified Date/Time: 05/30/2023 16:12 EDT No growth at 7 days. Performing Locations R1: This test was performed at: [facility], [address] [place] [address], [id number], EexrxgW[facility]itt[facility] HospitalComment on above:Performed By: #### [id number] ####[facility] [address] [place], [place] [id number] Hospital Discharge instructions Patient Education 05/25/2023 09:25:41 Hyponatremia Hyponatremia Hyponatremia is when the amount of salt (sodium) in a person's blood is too low. When sodium levelsare low, the cells absorb extra water, which causes them to swell. The swelling happens throughout the body, but it mostly affects the brain. What are the causes? This condition may be caused by: Certain medical conditions, such as: ?Heart, kidney, or liver problems. ?Thyroid problems. ?Adrenal gland problems. ?Metabolic conditions, such as Naif's disease or syndrome of inappropriate antidiuresis (SIAD). Excessive vomiting, diarrhea, or sweating. Certain medicines or illegal drugs. Fluids given through an IV. What increases the risk? You are more likely to develop this condition if you: Have certain medical conditions such as heart, kidney, or liver failure. Have a medical condition that causes frequent or excessive diarrhea. Participate in intense physical activities, such as marathon running. Take certain medicines that affect the sodium and fluid balance in the blood. Some of these medicine types include: ?Diuretics. ?NSAIDs, such as ibuprofen. ?Some opioid pain medicines. ?Some antidepressants. ?Some seizure prevention medicines. What are the signs or symptoms? Symptoms of this condition include: Headache. Nausea and vomiting. Being very tired (lethargic). Muscle weakness and cramping. Loss of appetite. Feeling weak or light-headed. Severe symptoms of this condition include: Confusion. Agitation. Having a rapid heart rate. Fainting. Seizures. Coma. How is this diagnosed? This condition is diagnosed based on: A physical exam. Your medical history. Tests, including: ?Blood tests. ?Urine tests. How is this treated? Treatment for this condition depends on the cause. Treatment may include: Getting fluids through an IV that is inserted into one of your veins. Medicines to correct the sodium imbalance. If medicines are causing the condition, the medicines will need to be adjusted. Limiting your water or fluid intake to get the correct sodium balance, in certain cases. Monitoring in the hospital to closely watch your symptoms for improvement. Follow these instructions at home: Take axng-yju-crlgqnm and prescription medicines only as told by your health care provider. Many medicines can make this condition worse. Talk with your health care provider about any medicines that you are currently taking. Do not drink alcohol. Keep all follow-up visits. This is important. Contact a health care provider if: You develop worsening nausea, fatigue, headache, confusion, or weakness. Your symptoms go away and then return. Get help right away if: You have a seizure. You faint. You have ongoing diarrhea or vomiting. Summary Hyponatremia is when the amount of salt (sodium) in your blood is too low. When sodium levels are low, your cells absorb extra water, which causes them to swell. The swelling happens throughout the body, but it mostly affects the brain. Treatment for this condition depends on the cause. It may include receiving IV fluids, taking or adjusting medicines, limiting fluid intake, and monitoring in the hospital. This information is not intended to replace advice given to you by your health care provider. Make sure you discuss any questions you have with your health care provider. Document Revised: 01/31/2022 Document Reviewed: 01/31/2022 [employer] Patient Education 2022 [employer]. 05/25/2023 09:25:38 Hypokalemia Hypokalemia Hypokalemia means that the amount of potassium in the blood is lower than normal. Potassium is a mineral (electrolyte) that helps regulate the amount of fluid in the body. It also stimulates muscle tightening (contraction) and helps nerves work properly. Normally, most of the body's potassium is inside cells, and only a very small amount is in the blood. Because the amount in the blood is so small, minor changes to potassium levels in the blood can be life-threatening. What are the causes? This condition may be caused by: Antibiotic medicine. Diarrhea or vomiting. Taking too much of a medicine that helps you have a bowel movement (laxative)can cause diarrhea and lead to hypokalemia. Chronic kidney disease (CKD). Medicines that help the body get rid of excess fluid (diuretics). Eating disorders, such as anorexia or bulimia. Low magnesium levels in the body. Sweating a lot. What are the signs or symptoms? Symptoms of this condition include: Weakness. Constipation. Fatigue. Muscle cramps. Mental confusion. Skipped heartbeats or irregular heartbeat (palpitations). Tingling or numbness. How is this diagnosed? This condition is diagnosed with a blood test. How is this treated? This condition may be treated by: Taking potassium supplements. Adjusting the medicines that you take. Eating more foods that contain a lot of potassium. If your potassium level is very low, you may need to get potassium through an IV and be monitored in the hospital. Follow these instructions at home: Eating and drinking Eat a healthy diet. A healthy diet includes fresh fruits and vegetables, whole grains, healthy fats, and lean proteins. If told, eat more foods that contain a lot of potassium. These include: ?Nuts, such as peanuts and pistachios. ?Seeds, such as sunflower seeds and pumpkin seeds. ?Peas, lentils, and barragan beans. ?Whole grain and bran cereals and breads. ?Fresh fruits and vegetables, such as apricots, avocado, bananas, cantaloupe, kiwi, oranges, tomatoes, asparagus, and potatoes. ?Juices, such as orange, tomato, and prune. ?Lean meats, including fish. ?Milk and milk products, such as yogurt. General instructions Take ajso-axq-gfuwmym and prescription medicines only as told by your health care provider. This includes vitamins, natural food products, and supplements. Keep all follow-up visits. This is important. Contact a health care provider if: You have weakness that gets worse. You feel your heart pounding or racing. You vomit. You have diarrhea. You have diabetes and you have trouble keeping your blood sugar in your target range. Get help right away if: You have chest pain. You have shortness of breath. You have vomiting or diarrhea that lasts for more than 2 days. You faint. These symptoms may be an emergency. Get help right away. Call 911. Do not wait to see if the symptoms will go away. Do not drive yourself to the hospital. Summary Hypokalemia means that the amount of potassium in the blood is lower than normal. This condition is diagnosed with a blood test. Hypokalemia may be treated by taking potassium supplements, adjusting the medicines that you take, or eating more foods that are high in potassium. If your potassium level is very low, you may need to get potassium through an IV and be monitored in the hospital. This information is not intended to replace advice given to you by your health care provider. Make sure you discuss any questions you have with your health care provider. Document Revised: 04/06/2022 Document Reviewed: 04/06/2022 [employer] Patient Education 2022 [employer]. 05/25/2023 09:25:34 Urinary Tract Infection, Adult Urinary Tract Infection, Adult A urinary tract infection (UTI) is an infection of any part of the urinary tract. The urinary tractincludes the kidneys, ureters, bladder, and urethra. These organs make, store, and get rid of urinein the body. An upper UTI affects the ureters and kidneys. A lower UTI affects the bladder and urethra. What are the causes? Most urinary tract infections are caused by bacteria in your genital area around your urethra, where urine leaves your body. These bacteria grow and cause inflammation of your urinary tract. What increases the risk? You are more likely to develop this condition if: You have a urinary catheter that stays in place. You are not able to control when you urinate or have a bowel movement (incontinence). You are female and you: ?Use a spermicide or diaphragm for control. ?Have low estrogen levels. ?Are . You have certain genes that increase your risk. You are sexually active. You take antibiotic medicines. You have a condition that causes your flow of urine to slow down, such as: ?An enlarged prostate, if you are male. ?Blockage in your urethra. ?A kidney stone. ?A nerve condition that affects your bladder control (neurogenic bladder). ?Not getting enough to drink, or not urinating often. You have certain medical conditions, such as: ?Diabetes. ?A weak disease-fighting system (immunesystem). ?Sickle cell disease. ?Gout. ?Spinal cord injury. What are the signs or symptoms? Symptoms of this condition include: Needing to urinate right away (urgency). Frequent urination. This may include small amounts of urine each time you urinate. Pain or burning with urination. Blood in the urine. Urine that smells bad or unusual. Trouble urinating. Cloudy urine. Vaginal discharge, if you are female. Pain in the abdomen or the lower back. You may also have: Vomiting or a decreased appetite. Confusion. Irritability or tiredness. A fever or chills. Diarrhea. The first symptom in older adults may be confusion. In some cases, they may not have any symptoms until the infection has worsened. How is this diagnosed? This condition is diagnosed based on your medical history and a physical exam. You may also have other tests, including: Urine tests. Blood tests. Tests for STIs (sexually transmitted infections). If you have had more than one UTI, a cystoscopy or imaging studies may be done to determine the cause of the infections. How is this treated? Treatment for this condition includes: Antibiotic medicine. Tbqh-yub-ferriji medicines to treat discomfort. Drinking enough water to stay hydrated. If you have frequent infections or have other conditions such as a kidney stone, you may need to see a health care provider who specializes in the urinary tract (urologist). In rare cases, urinary tract infections can cause sepsis. Sepsis is a life- threatening condition that occurs when the body responds to an infection. Sepsis is treated in the hospital with IV antibiotics, fluids, and other medicines. Follow these instructions at home: Medicines Take ajoj-cfk-bhsczdy and prescription medicines only as told by your health care provider. If you were prescribed an antibiotic medicine, take it as told by your health care provider. Do notstop using the antibiotic even if you start to feel better. General instructions Make sure you: ?Empty your bladder often and completely. Do not hold urine for long periods of time. ?Empty your bladder after sex. ?Wipe from front to back after urinating or having a bowel movement if you are female. Use each tissue only one time when you wipe. Drink enough fluid to keep your urine pale yellow. Keep all follow-up visits. This is important. Contact a health care provider if: Your symptoms do not get better after 1 2 days. Your symptoms go away and then return. Get help right away if: You have severe pain in your back or your lower abdomen. You have a fever or chills. You have nausea or vomiting. Summary A urinary tract infection (UTI) is an infection of any part of the urinary tract, which includes the kidneys, ureters, bladder, and urethra. Most urinary tract infections are caused by bacteria in your genital area. Treatment for this condition often includes antibiotic medicines. If you were prescribed an antibiotic medicine, take it as told by your health care provider. Do notstop using the antibiotic even if you start to feel better. Keep all follow-up visits. This is important. This information is not intended to replace advice given to you by your health care provider. Make sure you discuss any questions you have with your health care provider. Document Revised: 03/04/2021 Document Reviewed: 03/04/2021 [employer] Patient Education 2022 [employer]. 05/25/2023 09:25:27 Sepsis, Diagnosis, Adult Sepsis, Diagnosis, Adult Sepsis is a serious bodily reaction to an infection. The infection that triggers sepsis may be froma bacteria, virus, or fungus. Sepsis can result from an infection in any part of your body. Infections that commonly lead to sepsis include skin, lung, and urinary tract infections. Sepsis is a medical emergency that must be treated right away in a hospital. In severe cases, it can lead to septic shock. Septic shock can weaken your heart and cause your blood pressure to drop. This can cause your central nervous system and your body's organs to stop working. What are the causes? This condition is caused by a severe reaction to infections from bacteria, viruses, or fungus. The germs that most often lead to sepsis include: Escherichia coli (E. coli) bacteria. Staphylococcus aureus (staph) bacteria. Some types of Streptococcus bacteria. The most common infections affect these organs: The lung (pneumonia). The kidneys or bladder (urinary tract infection). The skin (cellulitis). The bowel, gallbladder, or pancreas. What increases the risk? You are more likely to develop this condition if: Your body's disease-fighting system (immune system) is weakened. You are age 65 or older. You are male. You had surgery or you have been hospitalized. You have these devices inserted into your body: ?A small, thin tube (catheter). ?IV line. ?Breathing tube. ?Drainage tube. You are not getting enough nutrients from food (malnourished). You have a chronic disease, such as cancer, lung disease, kidney disease, or diabetes. What are the signs or symptoms? Symptoms of this condition may include: Fever. Chills or feeling very cold. Confusion or anxiety. Fatigue. Muscle aches. Shortness of breath or rapid breathing (hyperventilation). Nausea and vomiting. Urinating much less than usual. Fast heart rate. Changes in skin color. Your skin may look blotchy, pale, or blue. Cool, clammy, or sweaty skin. Skin rash. Other symptoms depend on the source of your infection. How is this diagnosed? This condition is diagnosed based on your symptoms, medical history, and physical exam. Other testsmay also be done to find out the cause of the infection and how severe the sepsis is. Tests may include: Blood tests. Urine tests. Swabs from other areas of your body that may have an infection. These samples may be tested (cultured) to find out what type of bacteria is causing the infection. Chest X-ray to check for pneumonia. Other imaging tests, such as a CT scan, may also be done. Lumbar puncture. This removes a small amount of the fluid that surrounds your brain and spinal cord. The fluid is then examined for infection. How is this treated? This condition must be treated in a hospital. Based on the cause of your infection, you may be given an antibiotic, antiviral, or antifungal medicine. You may also receive: Fluids through an IV. Oxygen and breathing assistance. Medicines to increase your blood pressure. Kidney dialysis. This process cleans your blood if your kidneys have failed. Surgery to remove infected tissue. Blood transfusion if needed. Medicine to prevent blood clots. Nutrients to correct imbalances in basic body function (metabolism). You may: ?Receive important salts and minerals (electrolytes) through an IV. ?Have your blood sugar level adjusted. Follow these instructions at home: Medicines Take ijgm-fua-jhgcdbb and prescription medicines only as told by your health care provider. If you were prescribed an antibiotic, antiviral, or antifungal medicine, take it as told by your health care provider. Do not stop taking the medicine even if you start to feel better. General instructions If you have a catheter or other indwelling device, ask to have it removed as soon as possible. Keep all follow-up visits. This is important. Contact a health care provider if: You do not feel like you are getting better or regaining strength. You are having trouble coping with your recovery. You frequently feel tired. You feel worse or do not seem to get better after surgery. You think you may have an infection after surgery. Get help right away if: You have any symptoms of sepsis. You have difficulty breathing. You have a rapid or skipping heartbeat. You become confused or disoriented. You have a high fever. Your skin becomes blotchy, pale, or blue. You have an infection that is getting worse or not getting better. These symptoms may represent a serious problem that is an emergency. Do not wait to see if the symptoms will go away. Get medical help right away. Call your local emergency services (911 in the [place] Do not drive yourself to the hospital. Summary Sepsis is a medical emergency that requires immediate treatment in a hospital. This condition is caused by a severe reaction to infections from bacteria, viruses, or fungus. Based on the cause of your infection, you may be given an antibiotic, antiviral, or antifungal medicine. Treatment may also include IV fluids, breathing assistance, and kidney dialysis. This information is not intended to replace advice given to you by your health care provider. Make sure you discuss any questions you have with your health care provider. Document Revised: 06/06/2021 Document Reviewed: 06/06/2021 [employer] Patient Education 2022 [employer]. 05/25/2023 09:25:19 Acute Kidney Injury, Adult Acute Kidney Injury, Adult Acute kidney injury is a sudden worsening of kidney function. The kidneys are a pair of organs thatdo many important jobs in the body, including: Make urine. Make hormones. Keep the right amount of fluids and chemicals in the body. This condition ranges from mild to severe. Over time, it may develop into long- lasting (chronic) kidney disease. Finding it and treating it early may keep it from becoming a long-lasting disease. What are the causes? Common causes of this condition include: A problem with blood flow to the kidneys. This may be caused by: ?Low blood pressure or shock. ?Blood loss. ?Heart and blood vessel disease. ?Severe grewal. ?Liver disease. Direct damage to the kidneys. This may be caused by: ?Certain medicines. ?A kidney infection. ?Poisoning. ?Being around or in contact with toxic substances. ?A wound from surgery. ?A hard, direct hit to the kidney area. A sudden block in urine flow. This may be caused by: ?Cancer. ?Kidney stones. ?An enlarged prostate. What increases the risk? Being older than age 65. Being female. Being in the hospital. This is especially true if you are very sick. Having certain conditions, such as: ?Long-lasting kidney or liver disease. ?Diabetes. ?Heart disease and heart failure. ?Lung disease. What are the signs or symptoms? This condition may not cause symptoms until it becomes severe. Symptoms can include: Feeling very tired or having trouble staying awake. Nausea or vomiting. Swelling (edema) of the face, legs, ankles, or feet. Pain in the belly or pain along the side of your stomach (flank). Urine changes, such as: ?Making little or no urine. ?Passing urine with a weak flow. Muscle twitches and cramps, most often in the legs. Confusion or trouble concentrating. Not feeling the urge to eat. Fever. How is this diagnosed? This condition may be diagnosed based on: Your symptoms. Your medical history. A physical exam. You may have other tests, such as: Blood tests. Urine tests. Imaging tests. A kidney biopsy. This involves removing a sample of kidney tissue to be looked at under a microscope. How is this treated? Treatment depends on the cause and how severe the condition is. In mild cases, treatment may not beneeded. The kidneys may heal on their own. In severe cases, treatment may include: Treating the cause of the kidney injury. This may mean that you have to change your medicines or the doses you take. Getting fluids through an IV tube. Having a small, thin tube (catheter) put in. This tube will drain urine and prevent blockages. Trying to keep problems from starting. This may mean not using certain medicines or not having tests done that could cause more kidney injury. In some cases, these treatments are also needed: Dialysis or continuous renal replacement therapy (CRRT). This treatment uses a machine to do the job of the kidneys. Surgery. This may be done to repair a damaged kidney. It could also be done to remove a blockage inthe urinary tract. Follow these instructions at home: Medicines Take mgqe-xsv-hmchbtr and prescription medicines only as told by your health care provider. Do not take any new medicines unless approved by your health care provider. Many medicines can makekidney damage worse. Do not take any vitamin or mineral supplements unless approved by your health care provider. Some of these can make kidney damage worse. Lifestyle Make changes to your diet as told by your health care provider. You may need to eat less protein. Get to, and stay at, a healthy weight. If you need help, ask your health care provider. Start or keep up an exercise plan. Exercise at least 30 minutes a day, 5 days a week. Do not smoke or use any products that contain nicotine or tobacco. If you need help quitting, ask your health care provider. General instructions Keep track of your blood pressure. Tell your health care provider if you notice any changes. Keep your vaccines up to date. Ask your health care provider which vaccines you need. Keep all follow-up visits. Where to find more information [place] [employer]: www.aakp.org National Kidney Foundation: www.kidney.org [employer] [employer]: www.akfinc.org Medical Education [place]: ?[employer]: www.lifeoptions.org ?[employer]: www.kidneyschool.org Contact a health care provider if: Your symptoms get worse. You have new symptoms such as: ?Headaches. ?Skin that is darker or jack tamp operator than normal. ?Easy bruising. ?Itchiness. ?Hiccups. ?Lack of menstrual periods. You have a fever. Get help right away if: You have symptoms of worsening kidney disease, such as: ?Chest pain. ?Shortness of breath. ?Seizures. ?Confusion or trouble thinking. ?Belly or back pain. You have pain or bleeding when you pass urine. You are making little or no urine. These symptoms may be an emergency. Get help right away. Call 911. Do not wait to see if the symptoms will go away. Do not drive yourself to the hospital. Summary Acute kidney injury is a sudden worsening of kidney function. This condition can be caused by problems with blood flow to the kidneys, damage to the kidneys, or a sudden block in urine flow. This condition may not cause symptoms until it becomes severe. Acute kidney injury can be diagnosed with blood tests, urine tests, imaging tests, and other tests. Treatment depends on the cause and how severe the condition is. This information is not intended to replace advice given to you by your health care provider. Make sure you discuss any questions you have with your health care provider. Document Revised: 07/10/2022 Document Reviewed: 06/01/2020 [employer] Patient Education 2022 [employer]. Follow Up Care 05/23/2023 08:53:10 With:ABDELRAHMAN REYNOSO Address: [facility] [facility] [place] [address]- Business (1) When: Unknown [facility]. Pt requires assist w/ all transfers and Iadls. Inpatient OT services to follow daily to progress as able w/ Adls/transfers.[facility] 05-24-2023 NotePT Evaluation completed with an [facility] score of 03/29. Pt currently requires Mod A for bed mobility, but able to maintain sitting balance x 6 min with CGA. Pt did perform LE sitting exercises. Did not perform transfers as pt states he uses a [employer] for transfers. Will follow daily, but would recommend returning to SNF [facility] NoteChief Complaint Pt had unresponsive episode at skilled nursing. Pt was out for a reported 5 minutes. hypotensive History of Present Illness 83-year-old white male past medical history of hypertension, A-fib, BPH presented to emergency roomwith change mental status. Patient was found in the skilled nursing unresponsive today in the morning.Blood pressure was very low systolic blood pressure was in the 60s. He was confused disoriented. Hehas no fever or chills. Patient given IV fluids bolus in the emergency room. Hold on interview him he was alert awake answer questions. Daughter is at bedside. Patient had a fall couple weeks ago andthere was discharged to skilled rehab. He was found unresponsive by nursing staff. He has no nauseavomiting. He has no diarrhea. He denies any chest pain or shortness of breath. He denies any dysuria , hematuria, frequency. In the emergency room his blood pressure was 66/45. . His blood pressure improved to 87/58 after couple liters of IV fluids and after he was started on Levophed.. He was foundto have UTI. He was given Rocephin IV. He was admitted to the hospital for further management. Review of Systems Constitutional: no fever, no chills, no sweats, moderate weakness Skin: no Jaundice, no rash, no lesions, nopetechiae ENMT: no ear pain, no sore throat, no congestion, no hoarseness Respiratory: no shortness of breath, no cough, no orthopnea, no wheezing Cardiovascular: no chest pain, no palpitations, no edema Gastrointestinal: no nausea, no vomiting, no diarrhea, no GI bleeding Genitourinary: no dysuria, no hematuria, no discharge, no pain Musculoskeletal: no back pain, no trauma Neurologic: no headache, no dizziness, no numbness, no weakness Psychiatric: no sleeping problems, no irritability, no mood swings/depression. Heme/Lymph: no bleeding tendency, no bruising tendency, no petechiae, no swollen nodes Allergy/Immunologic: no seasonal allergies, no food allergies, no recurrent infections, no impairedimmunity Additional ROS info: Except as noted in the above Review of Systems and in the History of Present Illness all other systems have been reviewed and are negative or noncontributory. Scoring Romero Fall Risk Score: 60 High (05/23/23) Physical Exam Vitals & Measurements T: 36.6 ?C(Oral) HR: 75(Monitored) RR: 14 BP: 87/58 SpO2: 96% HT: 177.8 cm WT: 110 kg General: alert, no acute distress Skin: warm, dry Head: no trauma, normocephalic Neck: Trachea midline, no adenopathy, no tenderness Eye: normal conjunctiva, sclera clear ENMT: TM's clear, oral mucosa moist, no pharyngeal erythema or exudate Cardiovascular: regular rate and rhythm, normal peripheral perfusion Respiratory: Lungs CTA, respirations non labored Chest wall: no deformity. Gastrointestinal: soft, non distended, no tenderness, no guarding. Back: No tenderness, Normal ROM, Normal alignment. Extremities: no deformity, no trauma Neurological: Lethartic but easily arousable , oriented x 2, LOC appropriate for age, CN II-XII intact, motor strength equal & normal bilaterally, sensation equal & normal bilaterally, no focal deficit , Psychiatric: cooperative, affect appropriate for age, normal judgement, normal psychiatric thoughts. Lab Results WBC: 4 E9/L (05/23/23 09:29:00) RBC: 3.9 E12/L Low (05/23/23::) HGB: 11.7 gm/dL Low (05/23/23::) Hct: 35.1 % Low (05/23/23::) MCV: 90.8 fL (05/23/23::) MCH: 30.4 pg (05/23/23::) MCHC: 33.5 gm/dL (05/23/23::) RDW: 16.5 % High (05/23/23::) Platelet: 164 E9/L (05/23/23::) MPV: 7 fL (05/23/23) Neutro Auto: 52.8 % (05/23/23::) Lymph Auto: 22 % (05/23/23::) [place] Auto: 13.6 % (05/23/23::) Eos Auto: 10.7 % High (05/23/23::) Basophil Auto: 0.9 % (05/23/23::) Neutro Absolute: 2.1 E9/L (05/23/23::) Lymph Absolute: 0.9 E9/L Low (05/23/23:) [place] Absolute: 0.6 E9/L (05/23/23::) Eos Absolute: 0.4 E9/L (05/23/23::) Basophil Absolute: 0 E9/L (05/23/23::) PT: 17 second(s) High (05/23/23::) INR: 1.5 (05/23/23::) PTT: 35.2 second(s) (05/23/23::) Glucose Lvl: 122 mg/dL (05/23/23::00) BUN: 23 mg/dL High (05/23/23:29:) Creatinine: 1.4 mg/dL High (05/23/23::) eGFR: 50 mL/min/1.73 m2 Low (05/23/23 09:29:00) BUN/Creat Ratio: 16 (05/23/23 09:29:00) Sodium Lvl: 134 mmol/L Low (05/23/23 09:29:00) Potassium Lvl: 3.4 mmol/L Low (05/23/23 09:29:00) Chloride: 102 mmol/L (05/23/23:29:00) CO2: 26 mmol/L (05/23/23 09:29:00) AGAP: 9 mEq/L (05/23/23 09:29:00) Calcium Lvl: 7.7 mg/dL Low (05/23/23 09:29:00) Alk Phos: 106 Int._Unit/L High (05/23/23 09:29:00) ALT: 12 Int._Unit/L (05/23/23 09:29:00) AST: 18 Int._Unit/L (05/23/23 09:29:00) Total Protein: 5.1 gm/dL Low (05/23/23 09:29:00) Albumin Lvl: 2.2 gm/dL Low (05/23/23 09:29:00) Globulin: 2.9 gm/dL (05/23/23 09:29:00) A/G Ratio: 0.8 Low (05/23/ (more content not included)...[facility]:Result Comment: Electronically Signed By: MARISELA HERNANDEZ, Shanell\.br\Date and Time Signed: 05/23/23 13:[id number] Evaluation + Plan noteExtracted from: Title:ED Note Author:Higinio Reyna DO Date:1 1. Septic shock (R65.21: Sev ere sepsis with septic shock) 2. UTI (urinary tract infection) (N39.0: Urinary tract infection, site not specified) 3. Acute renal failure (N17.9: Acute kidney failure, unspecified) 4. Hypokalemia (E87.6: Hypokalemia) 5. Hyponatremia (E87.1: Hypo-osmolality and hyponatremia) 6. Afib (I48.91: Unspecified atrial fibrillation) Orders: ceftriaxone + Sodium Chloride 0.9% intravenous solution 50 mL, 1,000 mg = 1 EA, IV Piggyback, Once, Stop date 05/23/23 12:03:00 EDT, STAT, Start date 05/23/23 12:03:00 EDT, 100 mL/hr, Infuse over 30 minute(s), 05/23/23 12:03:00 EDT norepinephrine 8 mg [0.01 mcg/kg/min] + Dextrose 5% in Water intravenous solution 250 mL, 250 mL, IV, 2.06 mL/hr, STAT, Start date 05/23/23 9:17:00 EDT, 121.4 hour(s), Total volume (mL): 250, 0.05-3.3 mcg/kg/min, Titrate per protocol, 110 kg, 2.33, m2 Sodium Chloride 0.9% intravenous solution 1,000 mL, 1,000 mL, IV, 999 mL/hr, STAT, Start date 05/23/23 11:46:00 EDT, 1 hour(s), Total volume (mL): 1,000, 110 kg, 2.33, m2 Sodium Chloride 0.9% intravenous solution 1,000 mL, 1,000 mL, IV, 999 mL/hr, STAT, Start date 05/23/23 9:11:00 EDT, 1 hour(s), Total volume (mL): 1,000, 110 kg, 2.33, m2 ABO/Rh ABO/Rh History Check Antibody Screen Automated Diff Blood Bank ID# Blood Culture Charcoal Blood Culture Charcoal CBC w/ Auto Diff Comprehensive Metabolic Panel Continuous Pulse Oximetry CT Abdomen/Pelvis w/ Contrast CTA Chest ECG 12 Lead Adult ECG 12 Lead Adult ED Cardiac Monitoring ED Pulse Ox Study eGFR Extra SST Tube Lactic Acid Lactic Acid Oxygen Therapy PT & PTT Saline Lock Insert Troponin UA With Cult Reflex Urine Culture XR Chest Single View Extracted from: Title:Admission H & P Author:Shanell FAGAN MD te:05/23/23 83-year-old white male past medical history of hypertension, A-fib, BPH presented to emergency room with change mental status. Patient was found in the skilled nursing unresponsive today in the morning. Blood pressure was very low systolic blood pressure was in the 60s. He was confused disoriented. He has no fever or chills. Patient given IV fluids bolus in the emergency room. Hold on interview him he was alert awake answer questions. Daughter is at bedside. Patient had a fall couple weeks ago and there was discharged to skilled rehab. He was found unresponsive by nursing staff. He has no nausea vomiting. He has no diarrhea. He denies any chest pain or shortness of breath. He denies any dysuria, hematuria, frequency. In the emergency room his blood pressure was 66/45. . His blood pressure improved to 87/58 after couple liters of IV fluids and after he was started on Levophed.. He was found to have UTI. He was given Rocephin IV. He was admitted to the hospital for further management. A/P 1. Septic shock (R65.21: Severe sepsis with septic shock) Inpatient admission Patient will be admitted to ICU Patient will require more than 2 nights in the hospital Blood cultures times Urine culture Normal saline at 125 cc/h hold hydrochlorothiazide CBC with differential daily Hold lisinopril Rocephin 1 g daily CODE STATUS discussed with his daughters DNR CCA no intubation no CPR 2. UTI (urinary tract infection) (N39.0: Urinary tract infection, site not specified) Urine culture Rocephin 1 g daily 3. Acute renal failure (N17.9: Acute kidney failure, unspecified) Strict input output Normal saline at 125 cc BMP daily 4. Hypokalemia (E87.6: Hypokalemia) Replaced 5. Hyponatremia (E87.1: Hypo-osmolality and hyponatremia) NS at 125 cc per hour BMP daily 6. Afib (I48.91: Unspecified atrial fibrillation) Hold Lopressor due to hypotension DVT prophylaxis Lovenox daily Orders: acetaminophen, 650 mg = 2 tab(s), Tab, Oral, q6hr PRN Pain, Routine, Start date 05/23/23 12:56:00 EDT, 05/23/23 12:56:00 EDT Al hydroxide/Mg hydroxide/simethicone, 30 mL, Susp-Oral, Oral, q6hr PRN Indigestion, Routine, Start date 05/23/23 12:56:00 EDT ceftriaxone + Sodium Chloride 0.9% intravenous solution 50 mL, 1,000 mg = 1 EA, Injection, IV Piggyback, Daily, Routine, Start date 05/24/23 9:00:00 EDT, 100 mL/hr, Infuse over 30 minute(s) enoxaparin, 40 mg = 0.4 mL, Injection, SubCutaneous, Daily for 30 day(s), Stop date 06/23/23 8:59:00 EST, Routine, Start date 05/24/23 9:00:00 EDT, 05/23/23 12:56:00 EDT magnesium hydroxide, 30 mL, Susp-Oral, Oral, q6hr PRN Constipation, Routine, Start date 05/23/23 12:56:00 EDT ondansetron, 4 mg = 2 mL, Injection, IV Push, q6hr PRN Nausea, Routine, Start date 05/23/23 12:56:00 EDT, 05/23/23 12:56:00 EDT senna, 17.2 mg = 2 tab(s), Tab, Oral, BID PRN Other (see comment), Routine, Start date 05/23/23 12:56:00 EDT Sodium Chloride 0.9% intravenous solution 1,000 mL, 1,000 mL, IV, 125 mL/hr, Routine, Start date 05/23/23 12:56:00 EDT, 8 hour(s), Total volume (mL): 1,000, 110 kg, 2.33, m2 zolpidem, 5 mg = 1 tab(s), Tab, Oral, Bedtime PRN Sleep, Routine, Start date 05/23/23 12:56:00 EDT Elevate Head of Bed Intake and Output Occupational Therapy Evaluate Patient, Develop a Plan of Care and Implement Plan Physical Therapy Evaluate Patient, Develop a Plan of Care and Implement Plan Place in Status Regular Diet Resuscitation Status - DNR CCA (Comfort Care Arrest) Saline Lock Convert From IV Up ad Patricia Vital Signs Weight [facility]10-12-2023 Evaluation note* Encounter Date Diagnosis Assessment Notes Treatment Notes Treatment Clinical Notes May, Persistent atrial fibrillation (ICD-10 - I48.19) This patient is in NSR or rate controlled. This patient is anticoagulated to prevent thromboembolic events. They are maintaining regular scheduled appts with their tailercpa. No bleeding complications May, Nonischemic cardiomyopathy (ICD-10 - I42.8) Healthy diet, avoid salt, daily weights. Maintain euvolemic state. Increase activity May, HFrEF (heart failure with reduced ejection fraction) (ICD-10 - I50.20) Instructed on low salt diet, exercise and daily weights. Instructed to notify office for any unexpected weight gain > 3lbs and/or increased dyspnea, difficulty breathing during sleep, worsening lower extremity swelling, chest pain or lightheadedness. Reviewed GDMT w/ beta blockers, LACY/ARB/ARNI, MRA and SGLT-2 May, Acute idiopathic gout of right foot (ICD-10 - M10.071) Diet instructions. Finish Colchicine Allopurinol restarted May, Chronic venous insufficiency (ICD-10 - I87.2) Avoid salt and elevate lower extremities, support stockings, inspect legs and feet daily for blisters and ulcerations. May, Lumbar spondylosis (ICD-10 - M47.816) The patient is instructed to avoid bending, twisting or lifting. They are to use intermittent heat and ice as needed. They may schedule a massage or gentle manipulation. They may safely use Tylenol as needed. Continue PT/OT - increase activity [employer] Other 10-05-2023 Evaluation note* Encounter Date Diagnosis Assessment Notes Treatment Notes Treatment Clinical Notes May, Nonischemic cardiomyopathy (ICD-10 - I42.8) This patient is stable without activity related CP, dyspnea or lightheadedness. They are instructed to continue exercise and AHA diet plan. Continue secondary prevention measures. May, HFrEF (heart failure with reduced ejection fraction) (ICD-10 - I50.20) Instructed on low salt diet, exercise and daily weights. Instructed to notify office for any unexpected weight gain > 3lbs and/or increased dyspnea, difficulty breathing during sleep, worsening lower extremity swelling, chest pain or lightheadedness. Reviewed GDMT w/ beta blockers, LACY/ARB/ARNI, MRA and SGLT-2 May, Acute idiopathic gout of right foot (ICD-10 - M10.071) Push fluids, elevate legs. Initiate Allopurinol 100mg qd - plan to titrate every 2 wks until UA < 6 - plan to add Colchicine bid until pain controlled then qd until UA < 6 Ice May, Chronic venous insufficiency (ICD-10 - I87.2) Avoid salt and elevate lower extremities, support stockings, inspect legs and feet daily for blisters and ulcerations. May, Lumbar spondylosis (ICD-10 - M47.816) The patient is instructed to avoid bending, twisting or lifting. They are to use intermittent heat and ice as needed. They may schedule a massage or gentle manipulation. They may safely use Tylenol as needed. May, Persistent atrial fibrillation (ICD-10 - I48.19) This patient is in NSR or rate controlled. This patient is anticoagulated to prevent thromboembolic events. They are maintaining regular scheduled appts with their tailercpa. No bleeding complications [employer] Other 10-03-2023 Evaluation note* Encounter Date Diagnosis Assessment Notes Treatment Notes Treatment Clinical Notes May, HFrEF (heart failure with reduced ejection fraction) (ICD-10 - I50.20) [employer] Other 09-28-2023 Evaluation note* Encounter Date Diagnosis Assessment Notes Treatment Notes Treatment Clinical Notes Apr, Right wrist pain (ICD-10 - M25.531) [employer] Other 09-28-2023 Evaluation note* Encounter Date Diagnosis Assessment Notes Treatment Notes Treatment Clinical Notes Apr, Nonischemic cardiomyopathy (ICD-10 - I42.8) Healthy, low salt diet. Weekly weights Elevate legs and gentle diuresis Apr, HFrEF (heart failure with reduced ejection fraction) (ICD-10 - I50.20) Instructed on low salt diet, exercise and daily weights. Instructed to notify office for any unexpected weight gain > 3lbs and/or increased dyspnea, difficulty breathing during sleep, worsening lower extremity swelling, chest pain or lightheadedness. Reviewed GDMT w/ beta blockers, LACY/ARB/ARNI, MRA and SGLT-2 Patient has been reluctant in the past to initiate medical treatment Apr, Paroxysmal atrial fibrillation (ICD-10 - I48.0) This patient is in NSR or rate controlled. This patient is not anticoagulated to prevent thromboembolic events. He is aware the risk for thromboembolic strokes but has refused AC in the past. Apr, Chronic venous insufficiency (ICD-10 - I87.2) Avoid salt and elevate lower extremities, support stockings, inspect legs and feet daily for blisters and ulcerations. Apr, Lumbar spondylosis (ICD-10 - M47.816) The patient is instructed to avoid bending, twisting or lifting. They are to use intermittent heat and ice as needed. They may schedule a massage or gentle manipulation. They may safely use Tylenol as needed. Apr, Benign prostatic hyperplasia with lower urinary tract symptoms (ICD-10 - N40.1) Symptoms tolerable Apr, Nocturia (ICD-10 - R35.1) Apr, Obesity (BMI 30-39.9) (ICD-10 - E66.9) This patient has been instructed on a low-fat, high-fiber diet. They are instructed to reduce calories, portion sizes and snacks. It is recommended that they exercise for 30 minutes, 3-5 times weekly. Apr, Hx of gout (ICD-10 - Z87.39) Suspected gout in the right wrist but didn't respond as expected to treatment. Diet instructions [facility] [employer] Other Evaluation noteNo InformationNort reportbrain Other History general Narrative - Reported* Type Description Date Medical History Non-ischemic cardiomyopathy Medical History Chronic venous insufficiency Medical History Benign prostatic hyp erplasia with lower urinary tract symptoms Medical History Lumbar spondylosis Medical History Paroxysmal atrial fibrillation Surgical History HEMRRHOIDECTOMY Hospitalization History SEE SURGICAL HX [facility] [email or web address] Other Hospital course Narrative No data available for this section [facility] No data available for this section [facility] IncReason for referral (narrative)* Reason Referral for urinary retention. Diagnosis 1 Benign prostatic hyp erplasia with lower urinary tract symptoms (N40.1) Diagnosis 2 Feeling of incomplet e bladder emptying (R39.14) Referral Organization [facility] Edgardo allen Referring Provider First Name Abdelrahman Referring Provider Last Name Edgardo Referring Provider Specialty Internal Me brett Referred Organization [facility] Referred Provider David Ervin Referred Address [address],[place], [place],[address] Referred Provider Specialty Urology Referral Priority Routine General Notes Mr. Thorne was recen [place] [facility] [place]/ [place] secondary to acute prostatitis. It is suspected to be secondary to incomplete bladder emptying due to BPH. Upon d/c back to the [place], he was prescribed FLomax, which was titrated up to bid. Despite this treatment, he continued w/ persistent PVR > 350 and a cook was placed to prevent obstructive uropathy. He is being referred for further evaluation and treatment. [employer] Other Summary Purpose Family History No Family History Records Found No data available for this section No Family History Records Found Advance Directives No Advanced Directives Records FoundNo Advanced Directives Records Found Additional Source Comments (unrecognized sect ion and content) No Status Records FoundNo Status Records Found INFORMATION SOURCE (unrecogn ized section and content) DATE CREATED AUTHOR 12/03/2021 [facility] DATE CREATED AUTHOR AUTHOR'S ORGANIZ ATION 07/24/2023 [facility] REASON FOR VISIT (unrecogniz ed section and content) UROLOGY UPDATEMedication Samreen ngeWILLOWSConcernsdc medicationLab ResultsNew ordersAdd on labBCCPain Medication Patient Care team informatio n (unrecognized section and content) Personnel Name: ABDELRAHMAN REYNOSO DO Address: Address: [address] [place], [place] [address] FOR RECORDS PERTAINING TO PATIENTS WHO ARE OR HAVE BEEN ENROLLED IN A CHEMICAL DEPENDENCY/SUBSTANCEABUSE PROGRAM, SOME INFORMATION MAY BE OMITTED. This clinical summary was aggregated from multiple sources. Caution should be exercised in using it in the provision of clinical care. This summary normalizes information from multiple sources, and as a consequence, information in this document may materially change the coding, format and clinical context of patient data. In addition, data may be omitted in some cases. CLINICAL DECISIONS SHOULD BE BASED ON THE PRIMARY CLINICAL RECORDS. [email or web address] [facility] provides no warranty or guarantee of the accuracy or completeness of information in this document.
[2023-07-27 09:22] LABS: Basophils Absolute Auto 0.1 10^3/uL (0.0-0.1); Basophils Percent Auto 1.9 % (0.2-2.0); Eosinophils Absolute Auto 0.8 10^3/uL (0.0-0.7); Eosinophils Percent Auto 10.8 % (0.9-7.0); Hemoglobin 13.2 g/dL (14.0-18.0); Immature Granulocytes Abs Auto 0.02 10^3/uL (0.00-0.03); Immature Granulocytes Pct Auto 0.3 % (0.0-0.5); Lymphocytes Absolute Auto 1.7 10^3/uL (1.2-3.8); Lymphocytes Percent Auto 22.9 % (20.5-60.0); Mean Corpuscular HGB Conc 31.4 g/dL (29.9-35.2); Mean Corpuscular Hemoglobin 29.4 pg (25.9-34.0); Mean Corpuscular Volume 93.5 fL (80.0-94.0); Mean Platelet Volume 9.3 fL (9.5-13.5); Monocytes Absolute Auto 0.7 10^3/uL (0.3-0.8); Monocytes Percent Auto 9.7 % (1.7-12.0); Neutrophils Absolute Auto 3.9 10^3/uL (1.4-6.5); Neutrophils Percent Auto 54.4 % (43.0-75.0); Platelet Count 201 10^3/uL (150-450); Red Blood Count 4.49 10^6/uL (4.70-6.10); Red Cell Distribution Width 14.1 % (11.0-15.0); White Blood Count 7.2 10^3/uL (4.0-11.0)
[2023-07-27 09:39] LABS: Anion Gap 9.2; BUN Creatinine Ratio 23.7; Calcium 9.3 mg/dL (8.5-10.1); Carbon Dioxide 31.6 mmol/L (21.0-32.0); Chloride 102 mmol/L (98-107); Estimated GFR (African America 59 (>=60); Estimated GFR (Non-African Ame 49 (>=60); Glucose 102 mg/dL (74-106); Potassium 3.8 mmol/L (3.5-5.1); Sodium 139 mmol/L (136-145)
== END 2023-07-27 03:37 | disposition home or self-care (01) ==
LOC: LAB 03:36
PROVIDERS: PCP Internal Medicine; Visit Provider Internal Medicine
DX: R60.9 Edema, unspecified (principal)
CPT/HCPCS: 36415; 80048; 85025

== ENCOUNTER 2023-08-03 00:54 | Outpatient (REF) | payer MEDICARE, MEDICAID, SELFPAY ==
--- OUTSIDE RECORDS SUMMARY | 2023-08-03 00:57 | XMS_ITS | CCD ---
Author Name Unknown Address [address] [place] [address] Organization [facility] Care Team Providers Care Life Science Research Assistant Name Role Phone EDGARDO, DR NAYLOR Admitting Unavailable EDGARDO, DR NAYLOR Attending Unavailable EDGARDO, DR NAYLOR Primary Care Unavailable EDGARDO, DR NAYLOR Admitting Unavailable EDGARDO, DR NAYLOR Attending Unavailable EDGARDO, DR NAYLOR Primary Care Unavailable EDGARDO, DR NAYLOR Consulting Abdelrahman Argueta Unavailable ABDELRAHMAN REYNOSO Primary Care Physician [phone] ABDELRAHMAN REYNOSO Referring Unavailable David ERVIN Attending Unavailable Shanell FAGAN Attending Unavailable Shanell FAGAN Admitting Unavailable Allergies Allergy Classification Reported Allergen(s) Allergy Type Date of Onset Reaction(s) Facility (1 source) patient allergy list reviewed by nurse or physicia Propensity to adverse reactions 9 Comment:Done Dispop Other (1 source) No Known Medication Allergies; Translations: [No Known Medication Allergies] Propensity to adverse reactions (disorder) [facility] Repository Medications Current Medications Medication Drug Class(es) Dates Sig (Normalized) Sig (Original) allopurinol 100 mg oral tablet (20 sources) Xanthine Oxidase Inhibitor Start: 05-10-2023 Allopurinol 100 MG 2 Orally Once a day May, Active Start: 05-10-2023 take 1 tablet [...] Status: Ordered carvedilol 25 mg oral tablet (5 sources) alpha-Adrenergic Rene, beta-Adrenergic Rene take 1 [...] Orally bid x 7 days then qd May, Active docusate sodium 100 mg oral capsule (20 sources) Start: 05-24-2023 take 1 capsule by mouth once daily docusate sodium 100 mg Cap 100 mg = 1 cap(s), Oral, Daily Start Date: 05/24/23 Status: Ordered inulin 200 mg / lactobacillus rhamnosus gg [id number] unt oral capsule (9 sources) Culturelle - as directed Orally Active ammonium lactate 120 mg/ml topical lotion (14 sources) Ammonium Lactate 12 % 1 application [...] Start Date: 05/23/23 Status: Ordered Polyethylene Glycols (19 sources) Polyethylene Glycol - as directed Active predniSONE 20 mg oral tablet (7 sources) take 2 tablets by mouth every twenty-four hours predniSONE 20 MG 2 tablets Orally Once a day Active thiamine 100 mg oral tablet (15 sources) Start: 05-24-2023 take 1 tablet by mouth once daily thiamine 100 mg Tab 100 mg = 1 tab(s), Oral, Daily Start Date: 05/24/23 Status: Ordered torsemide 20 mg oral tablet (14 sources) Loop Diuretic Start: 06-15-2023 Torsemide 20 MG as directed Orally Once a day Jun, Active traMADol hydrochloride 50 mg oral tablet (20 sources) Opioid Agonist Start: 05-03-2023 take 1 tablet by mouth every eight hours as needed for pain traMADol HCl 50 MG 1 tablet as needed Orally every 8 hours PRN pain Apr, Active Triad Hydrophilic Wound Dress - (14 sources) Triad Hydrophili c Wound Dress - as directed Externally Active triamcinolone acetonide 5 mg/ml topical cream (14 sources) Corticosteroid Triamcinolone Acetonide 0.5 % 1 [...] Not-Taking losartan potassium 25 mg oral tablet (15 sources) Angiotensin 2 Receptor Rene Start: 05-10-20 [...] 05-23-2023 Episodic Genitourinary symptoms and ill-defined conditions (10 sources) Dysuria; Translations: [Dysuria] Episodic Gout and [...] Other fatigue; Translations: [Malaise and fatigue] Onset: 07-05-2017 Episodic Osteoarthritis (20 sources) Osteoarthritis; Translations: [Polyosteoarthritis, [...] Episodic Other diseases of veins and lymphatics (6 sources) Venous insufficiency (chronic) (peripheral) Episodic Other [...] streptococci] Onset: 11-22-2018 Resolved: 11-07-2019 Episodic Unclassified (5 sources) Other persistent atrial fibrillation Viral infection (7 sources) Disease caused by 2019-nCoV; Translations: [COVID-19] Resolved: 05-17-2021 Results Test Name Value Interpretation Reference Range Facility Insurance Correspondence Off 06-08-2023 Insurance Correspondence Office [id number]# 1.00TIFF [facility] Insurance Correspondence Off 05-30-2023 Insurance Correspondence Office [id number]# 1.00TIFF [facility] Coding Queryon 05-27-2023 Coding Query - From: Chuyita Rosas RN To: Shanell FAGAN MD; Sent: 05/24/2023 10:52:39 EDT ! Subject: Coding Query Due Date/Time: 05/25/2023 10:52:00 EDT Caller Name: CAREN THORNE; Caller Number: H Documentation per a corporate consultant in the medical record indicates this patient has been diagnosed as having: Pressure ulcer coccyx The following is also documented in the medical record: Documented by nursing on 05/23 no tenderness, surrounding tissue erythema, open to air Based on your medical judgment of the documented diagnoses by the corporate consultant, do you agree with the diagnosis? [___]Yes, I agree with the diagnosis documented by the corporate consultant. Please further specify location and stage [___]No, I do not agree with the diagnosis documented by the corporate consultant. Reason: [___]Other: In responding to this request, please exercise your independent professional judgement. The fact that a question is asked does not imply that any particular answer is desired or expected. Thank you! Chuyita [phone] From: Shanell FAGAN MD To: Chuyita Rosas RN; Sent: 05/27/2023 17:56:12 EDT Subject: RE: Coding Query Caller Name: CAREN THORNE; Caller Number: H yes i agree [facility] Coding Query - From: Chuyita Rosas RN To: Shanell FAGAN MD; Sent: 05/24/2023 10:49:07 EDT ! Subject: Coding Query Due Date/Time: 05/25/2023 10:49:00 EDT Caller Name: CAREN THORNE; Caller Number: H Documentation in the medical record indicates this patient has been admitted with or diagnosed as having: Confused disoriented The following is also documented in the medical record: H&A-06-lnab-old white male past medical history of hypertension, [...] THORNE; Caller Number: H metabolic encephalopathy Normal [facility] Coding Query - From: Chuyita Rosas RN [...] [phone] From: Shanell FAGAN MD To: Alison CALHOUN Chuyita; Sent: 05/27/2023 17:55:42 EDT Subject: RE: Coding Query Caller Name: CAREN THORNE; Caller Number: Bobby hypotension , not responded to fluid, on Levophed , positive urine culture Normal [facility] BMPon 05-25-2023 Anion gap [Moles/Vol] 9 mmol/L Normal 6-16 [facility] Comment on above: Performed By: #### 2 [id number], [id number] ####[facility] [address] [place] [address] Calcium [Mass/Vol] 7.9 mg/dL Low 8.9-11.1 [facility] Comment on above: Performed By: #### 2 [id number], [id number] ####[facility] [address] [place] [address] Chloride [Moles/Vol] 104 mmol/L Normal 101-111 [facility] Comment on above: Performed By: #### 2 036727, [id number] ####[facility] [address] [place] [address] CO2 [Moles/Vol] 25 mmol/L Normal 21-31 [facility] Comment on above: Performed By: #### 2 [id number], [id number] ####[facility] [address] [place] [address] Creatinine [Mass/Vol] 0.9 mg/dL Normal 0.5-1.3 [facility] Comment on above: Performed By: #### 2 837201, [id number] ####[facility] [address] [place] [address] Glucose [Mass/Vol] 86 mg/dL Normal 55-199 [facility] Comment on above: Result Comment: If t his glucose result represents a fasting glucose, interpretation should refer to the following reference range: 55-99 mg/dL Performed By: #### 2 [id number], [id number] ####[facility] [address] [place] [address] Potassium [Moles/Vol] 3.6 mmol/L Normal 3.5-5.3 [facility] Comment on above: Performed By: #### 2 605396, [id number] ####[facility] [address] [place] [address] Sodium [Moles/Vol] 134 mmol/L Low 135-145 [facility] Comment on above: Performed By: #### 2 500540, [id number] ####[facility] [address] [place] [address] Urea nitrogen [Mass/Vol] 13 mg/dL Normal 5-21 [facility] Comment on above: Performed By: #### 2 902573, [id number] ####[facility] [address] [place] [address] Urea nitrogen/Creatinine [Mass ratio] 14 No Units Normal 10-20 [facility] Comment on above: Performed By: #### 2 980712, [id number] ####[facility] [address] [place] [address] C Urineon 05-25-2023 Bacteria identified Cx Nom (U) Microbiology PROCEDURE: Urine Culture [R1] SOURCE: U Cath BODY SITE: COLLECTED DATE/TIME: 05/23/2023 11:36 EDT RECEIVED DATE/TIME: 05/23/2023 12:16 EDT START DATE/TIME: 05/23/2023 12:16 EDT FREE TEXT SOURCE: Raegan Reyna DO, Higinio Reyna DO, Higinio Romero FINAL REPORTS Final Report [] Verified Date/Time: 05/25/2023 09:42 EDT >100,000 cfu/ml Citrobacter youngae SUSCEPTIBILITY RESULTS LEGEND: S=Susceptible, N/R=Not Reported, Blank=Data not available, or drug not advisable or tested, I=Intermediate, ESBL=Extended spectrum beta-lactamase, R=Resistant, TFG=Thymidine-depende nt strain, ZAC=Beta-lactamase positive, ROBBY=mcg/m;(mg/L), S*=Predicted susceptible interp, R*=Predicted resistant interp City Antibiotic ROBBY Dilutn ROBBY Interp Amikacin <=16 [...] Locations R1: This test was performed at: [facility], [address] [place] [address], [id number] , [place], [facility] Comment on above: Performed By: #### 1 [id number], [id number] ####[place] [address] CHEMISTRYOrdered By: SYSTEM SYSTEM on 05-25-2023 Anion gap [Moles/Vol] 9 mmol/L Normal 6 - 16 mEq/L [facility] Calcium [Mass/Vol] 7.9 mg/dL Low 8.9 - 11. 1 mg/dL FT [facility] Chloride [Moles/Vol] 104 mmol/L Normal 101 - 1 11 mmol/L FT [facility] CO2 [Moles/Vol] 25 mmol/L Normal 21 - 31 mmol/L [facility] Creatinine [Mass/Vol] 0.9 mg/dL Normal 0.5 - 1.3 mg/dL FT [facility] GFR/1.73 sq M.predicted among non-blacks MDRD (S/P/Bld) [Vol rate/Area] 85 mL/min/1.73 m2 Normal >=59mL/min/1 .73 m2 [facility] S Comment on above: Interpretive Data: C hronic kidney disease could be indicated at eGFR's of less than 60 mL/min/1.73m2. Kidney failure is indicated at less than 15 mL/min/1.73m2. Glucose [Mass/Vol] 86 mg/dL Normal 55 - 199 mg/dL [facility] Remisol Comment on above: Interpretive Data: I f this glucose result represents a fasting glucose, interpretation should refer to the following reference range: 55-99 mg/dL Potassium [Moles/Vol] 3.6 mmol/L Normal 3.5 - 5.3 mmol/L [facility] Sodium [Moles/Vol] 134 mmol/L Low 135 - 145 mmol/L [facility] Remisol Urea nitrogen [Mass/Vol] 13 mg/dL Normal 5 - 21 mg/dL [facility] Remisol Urea nitrogen/Creatinine [Mass ratio] 14 mg/mg Normal 10 - 20 [facility] Remisol Discharge Instructionson Discharge Instructions [id number]# 1.00TIFF Normal [facility] Discharge Note-Nursingon Discharge Note-Nursing CAREN THORNE Spike :1940 Visit Date:05/23/2023 Inpatient Discharge Instructions Your Care Team Admitting Physician - Shanell FAGAN MD Reason for Your Visit pt went unresponsive at [facility] Your Diagnosis UTI (urinary tract infection) Acute [...] Pending Diagnostic Test Results None Pharmacy Information [facility] New Follow Up Appointments after Discharge Follow Up with ABDELRAHMAN REYNOSO When: In 0 days Where: [address] [place] [address]- Business (1) Medications What How Much When [...] mg/dL (05/25/23 06:08:00) RBC: 3.9 E12/L Low (05/23/23 09:29:00) BUN: 13 mg/dL (05/25/23 06:08:00) HGB: 11.7 gm/dL Low (05/23/23:29:00) Creatinine: 0.9 mg/dL (05/25/23 06:08:00) Hct: 35.1 % Low (05/23/23:29:00) BUN/Creat Ratio: 14 (05/25/23 06:08:00) MCV: 90.8 fL (05/23/23:29:00) Sodium Lvl: 134 mmol/L Low (05/25/23 06:08:00) MCH: 30.4 pg (05/23/23:29:00) Potassium Lvl: 3.6 mmol/L (05/25/23 06:08:00) MCHC: 33.5 gm/dL (05/23/23 09:29:00) Chloride: 104 mmol/L (05/25/23 06:08:00) RDW: 16.5 % High (05/23/23:29:00) CO2: 25 mmol/L (05/25/23 06:08:00) Platelet: 164 E9/L (05/23/23 09:29:00) AGAP: 9 mEq/L (05/25/23 06:08:00) MPV: 7 fL (05/23/23 09:29:00) Calcium Lvl: 7.9 mg/dL Low (05/25/23 [...] gland problems. ? Metabolic conditions, such as Sylvester's disease or syndrome of inappropriate antidiuresis (SIAD). ? Excessive vomiting, diarrhea, or sweating. ? Certain medicines or illegal drugs. ? Fluids given through an IV. What increases the risk? You (more content not included)... Normal [facility] Facesheeton 05-25-2023 Facesheet [id number]# 1.00TIFF [facility] Interdisciplinary Note - Aba e Manageron 05-25-2023 Interdisciplinary Note - Slot Floorperson Pt is awake and alert in bed, previously rounded with Dr. Fagan. Pt is aware of plan to DC back to [facility] once precert obtained, pt is medically ready to DC once precert obtained. Decline need to call family at this time. Updated on change to inpatient status, medicare rights reviewed, form signed and original provided. Nursing updated. . PCP verified and insurance information reviewed and DME discussed. Contact information provided and white board updated. [facility] attempted to call pt daughter Trice [phone] to update on plan to DC back to [facility] no answer, provided with update and contact information [facility] Comment on above: Result Comment: Elec tronically Signed By: Traci CALHOUN, Soraya\.charli\Date and Time Signed: 05/25/23 13:05 EDT Living Will/POAon 05-25-2023 Living Will/POA [id number]# 1.00TIFF Normal [facility] Medication Listson 3 Medication Lists [id number]# 1.00TIFF Normal [facility] Medication Lists [id number]# 1.00TIFF Normal [facility] Message from Medicareon 05-07 Message from Medicare [id number]# 1.00TIFF Normal [facility] Outside Recordson 05-25-2023 Outside Records [id number]# 1.00TIFF Normal [facility] Outside Records [id number]# 1.00TIFF Normal [facility] Patient Education - Texton 1 Patient Education [...] these instructions at home: Medicines ? Take yrqu-riy-xleycce and prescription medicines only as told by [...] visits. Where to find more information ? [place] Patients: www.aakp.org ? National Kidney Foundation: www.kidney.org ? [employer]: www.akfinc.org ? Medical Education [place]: ? LifeOptions: www.lifeoptions.org ? Kidney School: www.kidneyschool.org Contact a health care provider if: ? Your symptoms get worse. ? You have new symptoms such as: ? Headaches. ? Skin that is darker or sports book server than normal. ? Easy bruising. ? Itchiness. ? Hiccups. ? Lack of menstrual periods. ? You have a fever. Get help right away if: ? You have symptoms of wors (more content not included)... Normal [facility] Prescriptions/Work Noteson 1 Prescriptions/Work Notes [id number]# 1.00TIFF Normal [facility] Progress Note-Physicianon Progress Note-Physician Basic Information 83-year-old white male past medical history of hypertension, A-fib, BPH presented to emergency room with change mental status. Patient was found in the fpc unresponsive today in the morning. Blood pressure [...] infection, site not specified) Urine culture grew >611931 gram negative Rods Rocephin 1 g daily [...] mL co (more content not included)... Normal [facility] Comment on above: Result Comment: Elec tronically Signed By: MARISELA HERNANDEZ, Shanell\.br\Date and Time Signed: 05/25/23 09:41 EDT Transfer Documentson 023 Transfer Documents [id number]# 1.00TIFF Normal [facility] Transfer Documents [id number]# 1.00TIFF Normal [facility] Transfer Documents [id number]# 1.00TIFF [facility] eGFRon 05-25-2023 GFR/1.73 sq M.predicted among non-blacks MDRD (S/P/Bld) [Vol rate/Area] 85 mL/min/1.73 m2 Normal >=59 [facility] Comment on above: Order Comment: Order added by Discern Expert. Result Comment: Parts Room Assistant bety kidney disease could be indicated at eGFR's of less than 60 mL/min/1.73m2. Kidney failure is indicated at less than 15 mL/min/1.73m2. Performed By: #### 2 [id number], [id number] ####[facility] [address] [place] [address] ABO/Rh History Checkon 05-24 ABO/Rh History Check Type verified by second s Normal [facility] Comment on above: Performed By: #### 1 [id number], [id number], [id number], [id number] ####[facility] [address] [place] [address] ABO/Rh Retypeon 05-24-2023 ABO/Rh Retype Interp Positive Invalid Interpretation Code [facility] Comment on above: Performed By: #### 2 627227, [id number], [id number] ####[facility] [address] [place] [address] BLOOD BANKOrdered By: Coty Pederson on 05-24-2023 ABO/Rh Retype Interp Positive Invalid Interpretation Code [facility] BB Subsection BMPon 05-24-2023 Calcium [Mass/Vol] 7.9 mg/dL Low 8.9-11.1 [facility] Comment on above: Performed By: #### 2 843765, [id number], [id number] ####[facility] [address] [place] [address] Creatinine [Mass/Vol] 1.1 mg/dL Normal 0.5-1.3 [facility] Comment on above: Performed By: #### 2 674808, [id number], [id number] ####[facility] [address] [place] [address] Urea nitrogen [Mass/Vol] 18 mg/dL Normal 5-21 [facility] Comment on above: Performed By: #### 2 027143, [id number], [id number] ####[facility] [address] [place] [address] Urea nitrogen/Creatinine [Mass ratio] 16 No Units Normal - [facility] Comment on above: Performed By: #### 2 805638, [id number], [id number] ####[facility] [address] [place] [address] Anion gap [Moles/Vol] 13 mmol/L Normal 6-16 [facility] Comment on above: Performed By: #### 2 470395, [id number], [id number] ####[facility] [address] [place] [address] Chloride [Moles/Vol] 100 mmol/L Low 101-111 [facility] Comment on above: Performed By: #### 2 680819, [id number], [id number] ####[facility] [address] [facility] [place] [address] CO2 [Moles/Vol] 25 mmol/L Normal 21-31 [facility] Comment on above: Performed By: #### 2 277927, 12098344, [id number] ####[facility] [address] [facility] [place] [address] Glucose [Mass/Vol] 98 mg/dL Normal 55-199 [facility] Comment on above: Result Comment: If t his glucose result represents a fasting glucose, interpretation should refer to the following reference range: 55-99 mg/dL Performed By: #### 2 404832, [id number], [id number] ####[facility] [address] [facility] [place] [address] Potassium [Moles/Vol] 3.6 mmol/L Normal 3.5-5.3 [facility] Comment on above: Performed By: #### 2 768679, [id number], [id number] ####[facility] [address] [facility] [place] [address] Sodium [Moles/Vol] 134 mmol/L Low 135-145 [facility] Comment on above: Performed By: #### 2 921387, [id number], [id number] ####[facility] [address] [facility] [place] [address] CHEMISTRYOrdered By: SYSTEM SYSTEM on 05-24-2023 Anion gap [Moles/Vol] 13 mmol/L Normal 6 - 16 mEq/L [facility] Calcium [Mass/Vol] 7.9 mg/dL Low 8.9 - 11. 1 mg/dL [facility] Chloride [Moles/Vol] 100 mmol/L Low 101 - 1 11 mmol/L [facility] CO2 [Moles/Vol] 25 mmol/L Normal 21 - 31 mmol/L [facility] Creatinine [Mass/Vol] 1.1 mg/dL Normal 0.5 - 1.3 mg/dL [facility] GFR/1.73 sq M.predicted among non-blacks MDRD (S/P/Bld) [Vol rate/Area] 67 mL/min/1.73 m2 Normal >=59mL/min/1 .73 m2 [facility] Comment on above: Interpretive Data: C hronic kidney disease could be indicated at eGFR's of less than 60 mL/min/1.73m2. Kidney failure is indicated at less than 15 mL/min/1.73m2. Glucose [Mass/Vol] 98 mg/dL Normal 55 - 199 mg/dL [facility] Remisol Comment on above: Interpretive Data: I f this glucose result represents a fasting glucose, interpretation should refer to the following reference range: 55-99 mg/dL Potassium [Moles/Vol] 3.6 mmol/L Normal 3.5 - 5.3 mmol/L [facility] Sodium [Moles/Vol] 134 mmol/L Low 135 - 145 mmol/L [facility] Remisol Urea nitrogen [Mass/Vol] 18 mg/dL Normal 5 - 21 mg/dL [facility] Remisol Urea nitrogen/Creatinine [Mass ratio] 16 mg/mg Normal 10 - 20 [facility] Interdisciplinary Note - Aba e Manageron 05-24-2023 Interdisciplinary Note - Slot Floorperson Pt is awake and alert in bed, previously rounded with Dr. Fagan. pt is from [facility] will verify if LTC or SNF. Observation [...] he does not normally wear oxygen at [facility], CRM following . PCP verified and insurance information reviewed and DME discussed. Contact information provided and white board updated. Pt is from [facility] SNF and will need precert to return, pending therapy evals and precert will be started today. Normal [facility] Comment on above: Result Comment: Elec tracyally Signed By: Traci CALHOUN, Soraya\bharathi\Date and Time Signed: 05/24/23 13:30 EDT Message from Medicareon 10- Message from Medicare [id number]# 1.00TIFF Normal [facility] Monitor Recordon 05-24-2023 Monitor Record [id number]# 1.00TIFF Normal [facility] Progress Note-Physicianon Progress Note-Physician Basic Information 83-year-old white male past medical history of hypertension, A-fib, BPH presented to emergency room with change mental status. Patient was found in the fpc unresponsive today in the morning. Blood pressure [...] E9/L (05/23/23 09:29:00) RBC: 3.9 E12/L Low (05/23/23:29:00) HGB: 11.7 gm/dL Low (05/23/23 09:29:00) Hct: 35.1 % Low (05/23/23 09:29:00) MCV: 90.8 fL (05/23/23 09:29:00) MCH: 30.4 pg (05/23/23:29:00) MCHC: 33.5 gm/dL (05/23/23:29:00) RDW: 16.5 % High (05/23/23 09:29:00) Platelet: 164 E9/L (05/23/23 09:29:00) MPV: 7 fL (05/23/23 09:29:00) Neutro Auto: 52.8 % (05/23/23 09:29:00) Lymph Auto: 22 % (05/23/23 09:29:00) Grainger Auto: 13.6 % (05/23/23 09:29:00) Eos Auto: 10.7 % High (05/23/23 09:29:00) Basophil Auto: 0.9 % (05/23/23 09:29:00) Neutro Absolute: 2.1 E9/L (05/23/23 09:29:00) Lymph Absolute: 0.9 E9/L Low (05/23/23 09:29:00) Grainger Absolute: 0.6 E9/L (05/23/23 09:29:00) Eos Absolute: 0.4 E9/L (05/23/23 09:29:00) Basophil Absolute: 0 E9/L (05/23/23 09:29:00) PT: 17 second(s) High (05/23/23 09:29:00) INR: 1.5 (05/23/23 09:29:00) PTT: 35.2 second(s) (05/23/23 09:29:00) Glucos (more content not included)... Normal [facility] Comment on above: Result Comment: Elec tronically Signed By: MARISELA HERNANDEZ, Shanell\.br\Date and Time Signed: 05/24/23 07:55 EDT eGFRon 05-24-2023 GFR/1.73 sq M.predicted among non-blacks MDRD (S/P/Bld) [Vol rate/Area] 67 mL/min/1.73 m2 Normal >=59 [facility] Comment on above: Order Comment: Order added by Discern Expert. Result Comment: Parts Room Assistant bety kidney disease could be indicated at eGFR's of less than 60 mL/min/1.73m2. Kidney failure is indicated at less than 15 mL/min/1.73m2. Performed By: #### 2 001398, [id number], [id number] ####[facility] [address] [place] [address] ABO/Rhon 05-23-2023 ABO/Rh Positive Invalid Interpretation Code [facility] Comment on above: Performed By: #### 1 7146225, 1918355, 01706337, 73947771 ####[facility] [address] [place] [address] ABSCon 05-23-2023 ABSC Gel Interp Negative Normal [facility] Comment on above: Performed By: #### 1 9283209, 7638588, 84878085, 11056947 ####[facility] [address] [place] [address] Auto Diffon 05-23-2023 Basophils/100 WBC (Bld) 0.9 % Normal 0.0-2.0 [facility] Comment on above: Order Comment: Order Added by Discern Expert. Performed By: #### 1 6049440, 3716968, 5834123, 3843296, 77485662, 1313318, 4810216 ####[address] [place] [address] Basophils/Leukocytes Auto (Bld) [Pure # fraction] 0.0 E9/L Normal 0.0-0.2 [facility] Comment on above: Order Comment: Order Added by Discern Expert. Performed By: #### 1 7637005, 1545552, 4904055, 5242501, 28451334, 6045378, 0829857 ####[address] [place] [address] Eosinophils/100 WBC (Bld) 10.7 % High 0.0-8.0 [facility] Comment on above: Order Comment: Order Added by Discern Expert. Performed By: #### 1 0920189, 6568127, 7013247, 3480315, 58106959, 0391698, 2157562 ####[address] [address] Eosinophils/Leukocytes Auto (Bld) [Pure # fraction] 0.4 E9/L Normal 0.0-0.5 [facility] Comment on above: Order Comment: Order Added by Discern Expert. Performed By: #### 1 5707273, 3297772, 5691930, 1140446, 75257718, 4583971, 9095991 ####[address] [address] Lymphocytes/100 WBC (Bld) 22.0 % Normal 14.0-50.0 [facility] Comment on above: Order Comment: Order Added by Discern Expert. Performed By: #### 1 8508426, 5659473, 9474124, 1789642, 26338229, 7537318, 8970494 ####[address] [place] [address] Lymphocytes/Leukocytes Auto (Bld) [Pure # fraction] 0.9 E9/L Low 1.0-4.0 [facility] Comment on above: Order Comment: Order Added by Discern Expert. Performed By: #### 1 8696515, 5742737, 1668155, 6561526, 99987494, 0615475, 2637105 ####[address] [place] [address] Monocytes/100 WBC (Bld) 13.6 % Normal 4.0-14.0 [facility] Comment on above: Order Comment: Order Added by Discern Expert. Performed By: #### 1 8819167, 2611700, 2321071, 6888302, 31981316, 5245070, 9585799 ####[address] [place] [address] Monocytes/Leukocytes Auto (Bld) [Pure # fraction] 0.6 E9/L Normal 0.2-1.0 [facility] Comment on above: Order Comment: Order Added by Discern Expert. Performed By: #### 1 6556608, 9528718, 5465041, 1919440, 96539690, 1370594, 2422157 ####[address] [address] Neutrophils/100 WBC (Bld) 52.8 % Normal 36.0-75.0 [facility] Comment on above: Order Comment: Order Added by Discern Expert. Performed By: #### 1 4742396, 1111337, 5918766, 2907541, 34231633, 3369592, 4250771 ####[address] [place] [address] Neutrophils/Leukocytes Auto (Bld) [Pure # fraction] 2.1 E9/L Normal 2.0-7.5 [facility] Comment on above: Order Comment: Order Added by Discern Expert. Performed By: #### 1 9811554, 5414080, 9206824, 0521099, 96783028, 3290527, 7618212 ####[address] [place] [address] BLOOD BANKOrdered By: Kiara mendiola on 05-23-2023 ABO/Rh Interp Positive Invalid Interpretation Code FT BB Subsection ABSC Gel Interp Negative (05/23/23 9:29 AM) Normal [facility] BB Subsection Blood Bank ID#on 05-23-2023 BBID# [id number] Invalid Interpretation Code [facility] Comment on above: Performed By: #### 1 7270444, 0443025, 68734211, 91318785 ####[facility] [address] [place] [address] CBC w/ Auto Diffon Erythrocyte distribution width (RBC) [Ratio] 16.5 % High 10.9-14.2 [facility] Comment on above: Performed By: #### 1 9970571, 4669669, 5171026, 1116525, 03439332, 1099072, 1315395 ####[facility] [address] [place] [address] Hematocrit (Bld) [Volume fraction] 35.1 % Low 37.7-49.0 [facility] Comment on above: Performed By: #### 1 7196398, 4662341, 2623925, 6198977, 70547387, 5944625, 2959164 ####[facility] [address] [place] [address] Hemoglobin (Bld) [Mass/Vol] 11.7 g/dL Low 13.5-17.5 [facility] Comment on above: Performed By: #### 1 8688716, 7328590, 0888556, 7590416, 91636869, 5087729, 4344575 ####[facility] [address] [place] [address] MCH (RBC) [Entitic mass] 30.4 pg Normal 27.0-34.0 [facility] Comment on above: Performed By: #### 1 5038154, 8955417, 5352503, 0162095, 96856030, 0120068, 0886614 ####[facility] [address] [place] [address] MCHC (RBC) [Mass/Vol] 33.5 g/dL Normal 31.4-36.0 [facility] Comment on above: Performed By: #### 1 7743313, 3604815, 0343153, 6145414, 46726367, 1688759, 3355237 ####[address] [place] [address] MCV (RBC) [Entitic vol] 90.8 fL Normal 80.0-100.0 [facility] Comment on above: Performed By: #### 1 4440987, 8544162, 9640155, 1459566, 45653169, 1840338, 7762301 ####[address] [place] [address] Platelet mean volume (Bld) [Entitic vol] 7.0 fL Normal 6.4-10.8 [facility] Comment on above: Performed By: #### 1 7516284, 7064573, 3855489, 3847913, 50184159, 5812963, 2909144 ####[address] [place] [address] Platelets (Bld) [#/Vol] 164.0 E9/L Normal 150.0-500.0 [facility] Comment on above: Performed By: #### 1 7638566, 9784880, 7828289, 7377000, 31014728, 7150407, 6774979 ####[address] [address] RBC (Bld) [#/Vol] 3.9 E12/L Low 4.3-5.9 [facility] Comment on above: Performed By: #### 1 7952167, 0921254, 6412981, 5676648, 96397617, 7810829, 5593573 ####[address] [place] [address] WBC corrected for nucl RBC Auto (Bld) [#/Vol] 4.0 E9/L Normal 4.0-11.0 [facility] Comment on above: Result Comment: Slid e reviewed by BC. Performed By: #### 1 1731218, 3950214, 8787448, 5777391, 42288526, 1446823, 3333279 ####[address] [place] [address] CHEMISTRYOrdered By: SYSTEM SYSTEM on 05-23-2023 Lactate [...] 50 mL/min/1.73 m2 Low >=59mL/min/1 .73 m2 [facility] Chem S Comment on above: Interpretive Data: C hronic kidney disease could be indicated at eGFR's of less than 60 mL/min/1.73m2. Kidney failure is indicated at less than 15 mL/min/1.73m2. Globulin (S) [Mass/Vol] 2.9 g/dL Normal 1.4 - 4.0 gm/dL [facility] Remisol Glucose [Mass/Vol] 122 mg/dL Normal 55 - 199 mg/dL [facility] Remisol Comment on above: Interpretive Data: I f this glucose result represents a fasting glucose, interpretation should refer to the following reference range: 55-99 mg/dL Lactate [Mass/Vol] 1.3 mmol/L Normal 0.5 - 2.2 mmol/L [facility] Remisol Potassium [Moles/Vol] 3.4 mmol/L Low 3.5 - 5.3 mmol/L [facility] Remisol Protein [Mass/Vol] 5.1 g/dL Low 6.0 - 7.8 gm/dL [facility] Remisol Sodium [Moles/Vol] 134 mmol/L Low 135 - 145 mmol/L [facility] Remisol Troponin I.cardiac [Mass/Vol] 9.10 pg/mL Low 15.90 - 38.40 pg/mL [facility] Remisol Comment on above: Interpretive Data: T he 95% CI (Confidence Interval) PPV (Positive Predictive Value) for myocardial infarction in females is 38 pg/mL, in males 51 pg/mL. The results should be used in conjunction with clinical conditions of myocardial infarction. (Access High Sensitivity Troponin I Instructions For Use, [place], March 2018) Urea nitrogen [Mass/Vol] 23 mg/dL High 5 - 21 mg/dL [facility] Urea nitrogen/Creatinine [Mass ratio] 16 mg/mg Normal 10 - 20 [facility] CHEMISTRYOrdered By: Rosalino ROP User on 05-23-2023 Glucose [Mass/Vol] 134 mg/dL High 55 - 99 mg/dL [facility] POC Subsection POC Username DUNIA, ROMINA Invalid Interpretation Code [facility] POC Subsection Sodium [Moles/Vol] 230295216901 mmol/L Invalid Interpretation Code [facility] POC Subsection Sodium [Moles/Vol] [id number] mmol/L Invalid Interpretation Code [facility] POC Subsection CMPon 05-23-2023 Albumin [Mass/Vol] 2.2 g/dL Low 3.3-5.0 [facility] Comment on above: Performed By: #### 1 2906907, 2357316, 3717371, 2411706, 29939690, 6110528, 0349467 ####[facility] [address] [place] [address] Albumin/Globulin (S) [Mass conc ratio] 0.8 Low 1.1-2.2 [facility] Comment on above: Performed By: #### 1 7024036, 3485352, 0501174, 3836453, 19899166, 9431764, 0144183 ####[facility] [address] [place] [address] ALP [Catalytic activity/Vol] 106 Int._Unit/L High 21-98 [facility] Comment on above: Performed By: #### 1 0405809, 0418483, 6981213, 9981232, 02887421, 9606128, 5564740 ####[facility] [address] [place] [address] ALT No additional P-5'-P [Catalytic activity/Vol] 12 Int._Unit/L Normal 6-46 [facility] Comment on above: Performed By: #### 1 8749292, 9237620, 1369247, 5207697, 57235738, 7185998, 8234500 ####[facility] [address] [place] [address] AST [Catalytic activity/Vol] 18 Int._Unit/L Normal 5-43 [facility] Comment on above: Performed By: #### 1 7600175, 8090817, 1558275, 6274728, 21133023, 8752415, 0684642 ####[facility] [address] [place] [address] Bilirubin [Mass/Vol] 0.7 mg/dL Normal 0.0-1.1 [facility] Comment on above: Performed By: #### 1 9660775, 7980015, 0013109, 0683798, 01644222, 5878769, 0997507 ####[facility] [address] [place] [address] Creatinine [Mass/Vol] 1.4 mg/dL High 0.5-1.3 [facility] Comment on above: Performed By: #### 1 8759033, 3891647, 5152315, 0871083, 95469641, 3113567, 4528925 ####[facility] [address] [place] [address] Globulin (S) [Mass/Vol] 2.9 g/dL Normal 1.4-4.0 [facility] Comment on above: Performed By: #### 1 7189098, 0493051, 2391718, 8472802, 18111526, 0082822, 8454376 ####[facility] [address] [place] [address] Protein [Mass/Vol] 5.1 g/dL Low 6.0-7.8 [facility] Comment on above: Performed By: #### 1 3870456, 7396399, 5399032, 2818242, 93032428, 5824372, 9204835 ####[facility] [address] [place] [address] Urea nitrogen [Mass/Vol] 23 mg/dL High 5-21 [facility] Comment on above: Performed By: #### 1 0249700, 0430711, 7255878, 3459895, 82776738, 0926826, 0351902 ####[facility] [address] [place] [address] Urea nitrogen/Creatinine [Mass ratio] 16 No Units Normal 10-20 [facility] Comment on above: Performed By: #### 1 1810894, 5620641, 6441689, 4605876, 81939495, 9352891, 1751534 ####[facility] [address] [place] [address] Anion gap [Moles/Vol] 9 mmol/L Normal 6-16 [facility] Comment on above: Performed By: #### 1 1822723, 0853739, 4919508, 5364070, 40839661, 0196334, 7265418 ####[facility] [address] [place] [address] Calcium [Mass/Vol] 7.7 mg/dL Low 8.9-11.1 [facility] Comment on above: Performed By: #### 1 1823099, 2157684, 6034505, 2919432, 31903018, 0457174, 1706431 ####[facility] [address] [place] [address] Chloride [Moles/Vol] 102 mmol/L Normal 101-111 [facility] Comment on above: Performed By: #### 1 6665477, 0338067, 4270508, 4238559, 36649859, 8009144, 8513344 ####[facility] [address] [place] [address] CO2 [Moles/Vol] 26 mmol/L Normal 21-31 [facility] Comment on above: Performed By: #### 1 9226468, 0305237, 4669683, 7219573, 23877852, 3859368, 1392077 ####[facility] [address] [place] [address] Glucose [Mass/Vol] 122 mg/dL Normal 55-199 [facility] Comment on above: Result Comment: If t his glucose result represents a fasting glucose, interpretation should refer to the following reference range: 55-99 mg/dL Performed By: #### 1 5563781, 2819692, 2852340, 2296551, 90557948, 0905557, 3939267 ####[facility] [address] [place] [address] Potassium [Moles/Vol] 3.4 mmol/L Low 3.5-5.3 [facility] Comment on above: Performed By: #### 1 3379800, 3146061, 5148926, 4499125, 72770208, 0331604, 6256675 ####[facility] [address] [place] [address] Sodium [Moles/Vol] 134 mmol/L Low 135-145 [facility] Comment on above: Performed By: #### 1 0630232, 3683317, 2154415, 7104248, 65635886, 6951108, 5802892 ####[facility] [address] [place] [address] COAGULATIONOrdered By: Lorie Ha on 05-23-2023 aPTT Coag (PPP) [Time] 35.2 s Normal 25.1 - 36.5 second(s) [facility] Auto Coag Comment on above: Interpretive Data: Bambi ervin 15 days - 4 weeks 1 - [...] the same coagulation reagent and instrumentation as [facility]. Currently there are no coagulation studies available worldwide for children to 14 days, and no normal ranges. Heparin therapeutic range (represented by Anti-Factor Xa activity of 0.2 - 0.4 U/mL) corresponds to PTT of 56.6 - 109.0 sec. INR Coag (PPP) [Relative time] 1.5 {INR} Invalid Interpretation Code [facility] Auto Coag Comment on above: Interpretive Data: I NR results are specifically intended to assess patients stabilized on long-term Anticoagulation therapy suggested INR s Less Intensive Anticoagulation 2.0 3.0 Conventional Range 3.0 4.5 PT Coag (PPP) [Time] 17.0 s High 9.4 - 1 2.5 second(s) [facility] Auto Coag Comment on above: Interpretive Data: [...] the same coagulation reagent and instrumentation as [facility]. Currently there are no coagulation studies available [...] Oral contrast amount in ml's: 0 Normal [facility] CTA Cheston 05-23-2023 CTA Chest Exam Date/Time: [...] 370 Contrast amount in ml's: 100 Normal [facility] Capillary Glucose POCon 10-1 8-2023 Glucose [Mass/Vol] 134 mg/dL High 55-99 [facility] Comment on above: Performed By: #### 2 [id number] ####[facility] [address] [place] [address] Consent for Treatmenton 05-06 Consent for Treatment [id number]# 1.00TIFF Normal [facility] DNR - Do Not Resuscitateon DNR - Do Not Resuscitate [id number]# 1.00TIFF Normal [facility] ED Clinical Summaryon 2022 ED Clinical Summary [address] [address] ED Clinical Summary Person Information Name: CAREN THORNE [facility] Age: 83 Years : 1940 Sex: Male Language: Greenlandic PCP: ABDELRAHMAN REYNOSO DO Marital Status: Unknown Phone: [phone] Visit Id: Visit Reason: Syncope/Near syncope; unresponsive [...] 12:57:59 Patient Care Request 05/23/2023 15:25:12 ADDRESS: [address] [place] [address] [phone] [facility] DOC NOTES: MEDICAL INFORMATION: Prescriptions Given: [...] 3:Acute renal failure; 4:Hypokalemia; 5:Hyponatremia; 6:Afib Normal [facility] ED Note-Physicianon 05-23-20 ED Note-Physician Basic Information Time Seen: Higinio Reyna DO 05/23/2023 09:07 Chief Complaint Pt had unresponsive episode at [facility]. Pt was out for a reported 5 minutes. hypotensive History of Present Illness 83-year-old male to the emergency department with chief complaint of low blood pressure. Patient is a resident at [facility]. Patient reports he feels fine. He denies [...] They are unable to produce a DNR. [facility] is unable to produce a DNR. Patient's daughter who is power of consumer attorney is at the bedside. Patient's sister is also at the bedside who helps support decisions made by the daughter. Long conv (more content not included)... Normal [facility] Comment on above: Result Comment: Elec tronically Signed By: Higinio Reyna DO\.br\Date and Time Signed: 05/23/23 15:39 EDT ED Patient Education Noteon 05-23-2023 ED Patient Education Note Normal [facility] ED Patient Summaryon 023 ED Patient Summary [place] [address] Patient Discharge Instructions Person Information Name: CAREN THORNE Age: 83 Years Arrival Date: 05/23/2023 08:52:31 Discharge Diagnosis: 1:Septic shock; 2:UTI (urinary tract infection); 3:Acute renal failure; 4:Hypokalemia; 5:Hyponatremia; 6:Afib Primary Care Physician: ABDELRAHMAN REYNOSO DO Provider Information Primary Provider: Higinio Reyna DO Advanced Crm Analyst:None The exam and treatment you received in the Emergency Department were for an urgent problem and are not intended as complete care. It is important that you follow up with a doctor, nurse practitioner, or physician?s psychiatric technician assistant for ongoing care. If your symptoms [...] opioids can be used to help relieve vmxumvst-ql-mzdvev pain and are often prescribed following a [...] be struggling with addiction, tell your health health and social care teacher and ask for guidance or call [facility]?S National Helpline at 4-898-015-ZJWS. p Source: [place] Department of Health and Human Services/Center for Disease Control & Prevention (more content not included)... Normal [facility] EMS Documentationon 05-23-20 EMS Documentation Please click on link to see report [facility] Comment on above: Result Comment: Miss higuera Attachment - attachment exceeds size limitation [id number] Can be viewed in source system Formson 05-23-2023 Forms [id number]# 1.00TIFF [facility] HEMATOLOGYOrdered By: SYSTEM SYSTEM on 05-23-2023 [...] [facility] HemeAutoSS Comment on above: Result Comment: Meagan waddell reviewed by BC. Inpatient Clinical Summaryon 05-23-2023 Inpatient Clinical Summary [address] [address] Clinical Summary Person Information: Name: CAREN THORNE Age: 83 Years : 1940 Sex: Male PCP: ABDELRAHMAN REYNOSO DO Marital Status: Unknown Phone: [phone] Race: White Ethnicity: Non- or Language: Greenlandic Visit Id: Visit Reason: Syncope/Near syncope; unresponsive Speciality: Acuity: Enc Type: Inpatient Med Service: Medical Arrival: 05/23/2023 08:52:31 Discharge: Dispo Type: Address: [address] [place] [phone] Provider Notes: Diagnosis: 1:Septic shock; 2:UTI (urinary [...] Physician: Follow up: Patient Education Information: Normal [facility] Inpatient Patient Summaryon 05-23-2023 Inpatient Patient Summary [address] [address] Patient Discharge Instructions PERSON INFORMATION [...] to find a nearby participating provider. Comment: IEUGENIA KENNETH L, have received the attached patient [...] to serve you. Thank you for choosing [facility] Normal [facility] Lactic Acidon 05-23-2023 Lactate [Mass/Vol] 1.6 mmol/L Normal 0.5-2.2 [facility] Comment on above: Performed By: #### 2 980468 ####[address] [place] [address] Lactate [Mass/Vol] 1.3 mmol/L Normal 0.5-2.2 [facility] Comment on above: Performed By: #### 1 0727439, 6235312, 8067057, 9419859, 67732505, 7135884, 2086114 ####[address] [place] [address] Monitor Recordon 05-23-2023 Monitor Record [id number]# 1.00TIFF Normal [facility] Monitor Record [id number]# 1.00TIFF Normal [facility] Monitor Record [id number]# 1.00TIFF Normal [facility] No Panel InformationOrdered By: ANGPROCESSSERVER MICROBIOLOGY on 05-23-2023 Blood Culture Charcoal No growth at 2 da ys. Final to follow at 7 days. [facility] Blood Culture Charcoal No growth at 2 da ys. Final to follow at 7 days. [facility] Senior Care Recordson 05-23 Senior Care Records [id number]# 1.00TIFF Normal [facility] PIPERACILLIN+TAZOBACTAM:SUSC :PT:ISOLATE:ORDQN:MICOrdered By: Lakia Crowder on 05-23-2023 Piperacillin+Tazobacta m ROBBY [Susc] >100,000 cfu/ml Citrobacter youngae [facility] PT & PTTon 05-23-2023 aPTT Coag (PPP) [Time] 35.2 second(s) Normal 25.1-36.5 [facility] Comment on above: Result Comment: Para meter 15 days - 4 weeks 1 - 5 months 6 - 11 months 1 - 5 years 6 - 10 years 11 - 17 years PTT Mean: 35.4 (27.6-45.6) Mean: 33.5 (24.8-40.7) Mean: 32.4 (25.1-40.7) Mean: 31.6 (24.0-39.2) Mean: 31.6 (26.9-38.7) Mean: 31.0 (24.6-38.4) Pediatric Reference ranges were obtained from a study by christie Cardenas al. prepared from 1437 samples obtained at 7 different centers using the same coagulation reagent and instrumentation as [facility]. Currently there are no coagulation studies available worldwide for children to 14 days, and no normal ranges. Heparin therapeutic range (represented by Anti-Factor Xa activity of 0.2 - 0.4 U/mL) corresponds to PTT of 56.6 - 109.0 sec. Performed By: #### 1 1895873, 9900783, 5665678, 3695673, 82517819, 4877410, 2941529 ####[facility] [address] [place] [address] INR Coag (PPP) [Relative time] 1.5 {INR} Invalid Interpretation Code [facility] Comment on above: Result Comment: INR results are specifically intended to assess patients stabilized on long-term Anticoagulation therapy suggested INR?s ?Less Intensive Anticoagulation? 2.0 ? 3.0 Conventional Range 3.0 ? 4.5 Performed By: #### 1 0848259, 3468362, 8234692, 9123232, 53551994, 9506027, 9096922 ####[facility] [address] [place] [address] PT Coag (PPP) [Time] 17.0 second(s) High 9.4-12.5 [facility] Comment on above: Result Comment: 15 d [...] the same coagulation reagent and instrumentation as [facility]. Currently there are no coagulation studies available worldwide for children to 14 days, and no normal ranges. Performed By: #### 1 7204894, 6658213, 2562937, 2202447, 69079074, 8103031, 5047624 ####[facility] [address] [place] [address] Piperacillin+Tazobactam ROBBY [Susc]Ordered By: Lakia Crowder on 05-23-2023 Citrobacter youngae Citrobacter youngae [facility] Pre-Arrival Noteon 3 Pre-Arrival Note [facility] Date: 05/23/2023 08:53:11 EDT Gender: Male Date of : Age: 83 Pre-Arrival Type: EMS ETA: 05/23/2023 09:10:00 EDT Primary Care Physician: Presenting Problem: low BP/unresponsive awake now Pre-Arrival User: Gianna CALHOUN, Cristopher Lala Referring Source: Location: [place] Completion Date/Time: 05/23/2023 08:41:00 [facility] Emergency Department Pre-Hospital Report Form Vital Signs: Pre-Hospital Report: Treatment in Route: Response to Treatment: Misc. Issues: Normal [facility] Troponinon 05-23-2023 Troponin I.cardiac [Mass/Vol] 9.10 pg/mL Low 15.90-38.40 [facility] Comment on above: Result Comment: The 95% CI (Confidence Interval) PPV (Positive Predictive Value) for myocardial infarction in females is 38 pg/mL, in males 51 pg/mL. The results should be used in conjunction with clinical conditions of myocardial infarction. (Access High Sensitivity Troponin I Instructions For Use, Convergent Radiotherapy, March 2018) Performed By: #### 1 [id number], [id number], [id number], [id number], [id number], [id number], [id number] ####[facility] [address] [place] [address] UA With Cult Reflexon 2022 Bacteria LM Ql (Urine sed) 2+ /HPF Abnormal Trace [facility] Comment on above: Performed By: #### 1 [id number], [id number] ####[address] [address] Bilirubin Ql (U) Negative Normal Negative [facility] Comment on above: Performed By: #### 1 [id number], [id number] ####[address] [address] Clarity (U) SL CLOUDY Invalid Interpretation Code [facility] Comment on above: Performed By: #### 1 [id number], [id number] ####[address] [address] Color (U) YELLOW Normal Yellow [facility] Comment on above: Performed By: #### 1 [id number], [id number] ####[address] [address] Epithelial cells.squamous LM.HPF (Urine sed) [#/Area] 3-4 Normal 0-2 [facility] Comment on above: Performed By: #### 1 [id number], [id number] ####[facility] [address] [place] [address] Glucose Test strip (U) [Mass/Vol] Negative Normal Negative [facility] Comment on above: Performed By: #### 1 [id number], [id number] ####[facility] [address] [place] [address] Hemoglobin Ql (U) 1+ Abnormal Negative [facility] Comment on above: Performed By: #### 1 [id number], [id number] ####[address] [place] [address] Ketones (U) [Mass/Vol] Negative Normal Negative [facility] Comment on above: Performed By: #### 1 [id number], [id number] ####[address] [address] [place].plasma/[place] .RBC (Bld) [Mass ratio] 4-20 Normal 0-3 [facility] Comment on above: Performed By: #### 1 [id number], [id number] ####[address] [address] Nitrite Ql (U) Positive Abnormal Negative [facility] Comment on above: Performed By: #### 1 [id number], [id number] ####[address] [address] pH (U) 7.0 [pH] Invalid Interpretation Code 5.0-9.0 [facility] Comment on above: Performed By: #### 1 [id number], [id number] ####[address] [address] Protein (U) [Mass/Vol] 1+ Abnormal Negative [facility] Comment on above: Performed By: #### 1 [id number], [id number] ####[address] [address] Specific gravity (U) [Rel density] 1.010 Invalid Interpretation Code 1.005-1.030 [facility] Comment on above: Performed By: #### 1 [id number], [id number] ####[id number] Type of Urine collection method Cook Normal [facility] Comment on above: Performed By: #### 1 [id number], [id number] ####[facility] [address] [place] [address] Urobilinogen Qn (U) 0.2 {Maki'U}/dL Normal 0.0-1.0 [facility] Comment on above: Performed By: #### 1 [id number], [id number] ####[facility] [address] [place] [address] WBC Auto Ql (U) 3+ Abnormal Negative [facility] Comment on above: Performed By: #### 1 [id number], [id number] ####[facility] [address] [place] [address] WBC LM.HPF (Urine sed) [#/Area] /[HPF] Abnormal 0-5 [facility] Comment on above: Performed By: #### 1 [id number], [id number] ####[facility] [address] [place] [address] URINALYSISOrdered By: Michael Ha on 05-23-2023 Bacteria LM Ql (Urine sed) 2+ /HPF Invalid Interpretation Code Trace/HPF [facility] UA Auto SS Bilirubin Ql (U) Negative (05/23/23 11:36 AM) Normal Negative [facility] UA Auto SS Clarity (U) SL CLOUDY Invalid Interpretation Code FT UA Auto SS Color (U) Yellow (05/23/23 11:36 AM) Normal Yellow [facility] UA Auto SS Epithelial cells.squamous LM.HPF (Urine sed) [#/Area] 3-4 /HPF Normal 0-2/HPF [facility] UA Aut o SS Glucose Test strip (U) [Mass/Vol] Negative (05/23/23 11:36 AM) Normal Negative [facility] UA Auto SS Hemoglobin Ql (U) 1+ *ABN* (05/23/23 11:36 AM) Invalid Interpretation Code Negative [facility] UA Auto SS Ketones (U) [Mass/Vol] Negative (05/23/23 11:36 AM) Normal Negative [facility] UA Auto SS [place].plasma/[place] .RBC (Bld) [Mass ratio] 4-20 /HPF Normal 0-3/HPF [facility] UA Auto SS Nitrite Ql (U) Positive *ABN* (05/23/23 11:36 AM) Invalid Interpretation Code Negative [facility] UA Auto SS pH (U) 7.0 *NA* (05/23/23 11:36 AM) Invalid Interpretation Code 5.0 - 9.0 [facility] UA Auto SS Protein (U) [Mass/Vol] 1+ *ABN* (05/23/23 11:36 AM) Invalid Interpretation Code Negative [facility] UA Auto SS Specific gravity (U) [Rel density] 1.010 *NA* (05/23/23 11:36 AM) Invalid Interpretation Code 1.005 - 1.030 [facility] UA Auto SS UA Spec Desc Cook (05/23/23 11:36 AM) Normal [facility] UA Auto SS Urobilinogen Qn (U) 0.9323142 {Maki'U}/dL Normal 0.0 - 1.0 EU/dL [facility] UA Auto SS WBC Auto Ql (U) 3+ *ABN* (05/23/23 11:36 AM) Invalid Interpretation Code Negative [facility] UA Auto SS WBC LM.HPF (Urine sed) [#/Area] /[HPF] Invalid Interpretation Code 0-5/HPF [facility] UA Auto SS XR Chest Single Viewon [...] mGy = na DAP = na Normal [facility] eGFRon 05-23-2023 GFR/1.73 sq M.predicted among non-blacks MDRD (S/P/Bld) [Vol rate/Area] 50 mL/min/1.73 m2 Low >=59 [facility] Comment on above: Order Comment: Order added by Discern Expert. Result Comment: Parts Room Assistant bety kidney disease could be indicated at eGFR's of less than 60 mL/min/1.73m2. Kidney failure is indicated at less than 15 mL/min/1.73m2. Performed By: #### 1 [id number], [id number], [id number], [id number], [id number], [id number], [id number] ####[facility] [address] [place] [address] CBC AUTO DIFFon 11-25-2021 BASO # 0.1 103/ul Normal 0.0-0.1 [facility] Comment on above: Performed By: #### C BC #### [facility] [address] [place] [address] Dr. Mychal Jordan Basophils/100 WBC (Bld) 1.1 % Normal 0.2-2.0 [facility] Comment on above: Performed By: #### C BC #### [facility] [address] [place] [address] Dr. Mychal Jordan EO # 0.4 103/ul Normal 0.0-0.7 [facility] Comment on above: Performed By: #### C BC #### [facility] [address] [place] [address] Dr. Mychal Jordan Eosinophils/100 WBC (Bld) 3.6 % Normal 0.9-7.0 [facility] Comment on above: Performed By: #### C BC #### [facility] [address] [place] [address] Dr. Mychal Jordan Erythrocyte distribution width (RBC) [Ratio] 14.1 % Normal 11.0-15.0 [facility] Comment on above: Performed By: #### C BC #### [facility] [address] [place] [address] Dr. Mychal Jordan Hematocrit (Bld) [Volume fraction] 44.8 % Normal 42.0-54.0 [facility] Comment on above: Performed By: #### C BC #### [facility] [address] [place] [address] Dr. Mychal Jordan Hemoglobin (Bld) [Mass/Vol] 14.5 g/dL Normal 14.0-18.0 [facility] Comment on above: Performed By: #### C BC #### [facility] [address] [place] [address] Dr. Mychal Jordan IG # 0.06 10e3/ul Critically high 0.00-0.03 [facility] Comment on above: Performed By: #### C BC #### [facility] [address] [place] [address] Dr. Mychal Jrodan IG % 0.6 % Critically high 0.0-0.5 [facility] Comment on above: Performed By: #### C BC #### [facility] [address] [place] [address] Dr. Mychal Jordan LYMPH # 1.4 103/ul Normal 1.2-3.8 [facility] Comment on above: Performed By: #### C BC #### [facility] [address] [place] [address] Dr. Mychal Jordan Lymphocytes/100 WBC (Bld) 14.2 % Critically low 20.5-60.0 [facility] Comment on above: Performed By: #### C BC #### [facility] [address] [place] [address] Dr. Mychal Jordan MANUAL DIFF REQ NO Normal [facility] Comment on above: Performed By: #### C BC #### [facility] [address] [place] [address] Dr. Mychal Jordan MCH (RBC) [Entitic mass] 30.8 pg Normal 25.9-34.0 [facility] Comment on above: Performed By: #### C BC #### [facility] [address] [place] [address] Dr. Mychal Jordan MCHC (RBC) [Mass/Vol] 32.4 g/dL Normal 29.9-35.2 [facility] Comment on above: Performed By: #### C BC #### [facility] [address] [address] [address] Mychal Jordan MCV (RBC) [Entitic vol] 95.1 fL Critically high 80.0-94.0 [facility] Comment on above: Performed By: #### C BC #### [facility] [address] [place] [address] Dr. Mychal Jordan MONO # 0.9 103/ul Critically high 0.3-0.8 [facility] Comment on above: Performed By: #### C BC #### [facility] [address] [place] [address] Dr. Mychal Jordan Monocytes/100 WBC (Bld) 8.6 % Normal 1.7-12.0 [facility] Comment on above: Performed By: #### C BC #### [facility] [address] [place] [address] Dr. Mychal Jordan NEUT # 7.2 103/ul Critically high 1.4-6.5 [facility] Comment on above: Performed By: #### C BC #### [facility] [address] [place] [address] Dr. Mychal Jordan Neutrophils/100 WBC (Bld) 71.9 % Normal 43.0-75.0 [facility] Comment on above: Performed By: #### C BC #### [facility] [address] [place] [address] Dr. Mychal Jordan Platelet mean volume (Bld) [Entitic vol] 8.6 fL Critically low 9.5-13.5 [facility] Comment on above: Performed By: #### C BC #### [facility] [address] [place] [address] Dr. Mychal Jordan PLT 237 103/ul Normal 150-450 [facility] Comment on above: Performed By: #### C BC #### [facility] [address] [place] [address] Dr. Mychal Jordan RBC 4.71 106/ul Normal 4.70-6.10 [facility] Comment on above: Performed By: #### C BC #### [facility] [address] [place] [address] Dr. Mychal Jordan WBC 10.0 103/ul Normal 4.0-11.0 [facility] Comment on above: Performed By: #### C BC #### [facility] [address] [place] [address] Dr. Mychal Jordan PROF CHEM 8 (BAS METB)on Anion gap [Moles/Vol] 11.8 mmol/L Normal [facility] Comment on above: Performed By: #### B MP, URIC, TSH #### [facility] [address] [place] [address] Dr. Mychal Jordan Calcium [Mass/Vol] 8.6 mg/dL Normal 8.5-10.1 [facility] Comment on above: Performed By: #### B MP, URIC, TSH #### [facility] [address] [place] [address] Dr. Mychal Jordan Chloride [Moles/Vol] 100 mmol/L Normal 98-107 [facility] Comment on above: Performed By: #### B MP, URIC, TSH #### [facility] [address] [place] [address] Dr. Mychal Jordan CO2 [Moles/Vol] 29.1 mmol/L Normal 22.0-30.0 [facility] Comment on above: Performed By: #### B MP, URIC, TSH #### [facility] [address] [place] [address] Dr. Mychal Jordan Creatinine [Mass/Vol] 1.66 mg/dL Critically high 0.66-1.25 [facility] Comment on above: Performed By: #### B MP, URIC, TSH #### [facility] [address] [place] [address] Dr. Mychal Jordan EGFR-AF TRINIDADIAN 48 mL/min/1.73m2 Critically low >=60 [facility] Comment on above: Performed By: #### B MP, URIC, TSH #### [facility] [address] [place] [address] Dr. Mychal Jordan EGFR-NON AF TRINIDADIAN 40 mL/min/1.73m2 Critically low >=60 [facility] Comment on above: Performed By: #### B MP, URIC, TSH #### [facility] [address] [address] [address] Mychal Jordan Glucose [Mass/Vol] 114 mg/dL Critically high 74-106 [facility] Comment on above: Performed By: #### B MP, URIC, TSH #### [facility] [address] [address] [address] Mychal Jordan Potassium [Moles/Vol] 3.9 mmol/L Normal 3.4-5.0 [facility] Comment on above: Performed By: #### B MP, URIC, TSH #### [facility] [address] [address] [address] Mychal Jordan Sodium [Moles/Vol] 137 mmol/L Normal 137-145 [facility] Comment on above: Performed By: #### B MP, URIC, TSH #### [facility] [address] [address] [address] Mychal Jordan Urea nitrogen [Mass/Vol] 22.0 mg/dL Critically high 7.0-18.0 [facility] Comment on above: Performed By: #### B MP, URIC, TSH #### [facility] [address] [address] [address] Mychal Jordan Urea nitrogen/Creatinine [Mass ratio] 13.3 mg/mg Normal [facility] Comment on above: Performed By: #### B MP, URIC, TSH #### [facility] [address] [address] [address] Mychal Jordan TSHon 11-25-2021 TSH 1.779 uIU/mL Normal 0.470-4.680 [facility] Comment on above: Performed By: #### B MP, URIC, TSH #### [facility] [address] [address] [address] Mychal Jordan TSH RANGE SEE BELOW Normal [facility] Comment on above: Result Comment: <0.3 4 UIU/ml HYPERTHYROID 0.34-5.60 UIU/ml EUTHYROID >5.60 UIU/ml HYPOTHYROID Performed By: #### B MP, URIC, TSH #### [facility] [address] [place], [place] [id number] Dr. Mychal Jordan URIC ACID SERUMon 11-25-2021 Urate [Mass/Vol] 7.6 mg/dL Normal 3.5-8.5 [facility] Comment on above: Performed By: #### B MP, URIC, TSH #### [facility] [address] [address] [address] Mychal Jordan Vital Signs Date Time Vital Sign Value Performing Clinician Faci lity 05-25-2023 14:15-0400 Hourly Rounding [facility] 05-25-2023 14:15-0400 Promise to Return [facility] 05-25-2023 14:00-0400 Blood Pressure Location [facility] 05-25-2023 14:00-0400 Heart rate 85 /min [facility] 05-25-2023 14:00-0400 Respiratory rate 17 /min [facility] 05-25-2023 13:35-0400 Hourly Rounding [facility] 05-25-2023 13:35-0400 Promise to Return [facility] 05-25-2023 12:23-0400 Hourly Rounding [facility] 05-25-2023 12:23-0400 Promise to Return [facility] 05-25-2023 11:31-0400 Heart rate 80 /min [facility] 05-25-2023 11:31-0400 SaO2% (BldA) [Mass fraction] 97 % [facility] 05-25-2023 11:31-0400 Body temperature 97.16 [degF] [facility] 05-25-2023 11:31-0400 Diastolic blood pressure 80 mm[Hg] [facility]-25[facility] 11:31-0400 Mean blood pressure 102 mm[Hg] [facility] 05-25-2023 11:31-0400 Systolic blood pressure 147 mm[Hg] [facility] 05-25-2023 10:23-0400 Diastolic blood pressure 74 mm[Hg] [facility] 05-25-2023 10:23-0400 Systolic blood pressure 132 mm[Hg] [facility] 05-25-2023 07:49-0400 Heart rate 94 /min [facility] 05-25-2023 07:49-0400 Body temperature 97.88 [degF] [facility] 05-25-2023 07:49-0400 Diastolic blood pressure 74 mm[Hg] [facility] 05-25-2023 07:49-0400 Mean blood pressure 94 mm[Hg] [facility] 05-25-2023 07:49-0400 Systolic blood pressure 132 mm[Hg] [facility] 05-24-2023 20:29-0400 Mean blood pressure 88 mm[Hg] [facility] 05-24-2023 20:00-0400 Blood Pressure Location [facility] 05-24-2023 20:00-0400 Respiratory rate 18 /min [facility] 05-24-2023 14:00-0400 Mean blood pressure 87 mm[Hg] [facility] 05-24-2023 14:00-0400 Respiratory rate 17 /min [facility] 05-24-2023 13:00-0400 Mean blood pressure 69 mm[Hg] [facility] 05-24-2023 12:30-0400 Mean blood pressure 83 mm[Hg] [facility] 05-23-2023 20:00-0400 Body temperature 97.7 [degF] [facility] 05-23-2023 15:30-0400 Body temperature 97.52 [degF] [facility] 05-23-2023 15:30-0400 Heart rate 75 /min [facility] 05-23-2023 15:30-0400 Respiratory rate 22 /min [facility] 05-23-2023 09:10-0400 gluc 134 mg/dL [facility] 05-23-2023 09:10-0400 gluc [facility] 05-23-2023 08:56-0400 Heart rate 84 /min [facility] 05-23-2023 08:56-0400 Respiratory rate 18 /min [facility] Encounters Encounter Date Encounter Type Care Provider Facility Start: 09-10-2023 ambulatory ABDELRAHMAN REYNOSO Facility: [facility] Start: 08-02-2023 End: 08-02-2023 ambulatory Abdelrahman Reynoso Other [facility] Other Start: 08-02-2023 Telephone encounter Abdelrahman Reynoso FP [facility] Start: 07-27-2023 End: 07-27-2023 ambulatory Abdelrahman Reynoso Other [facility] Other Start: 07-27-2023 Telephone encounter Abdelrahman Reynoso FP [facility] Start: 07-26-2023 End: 07-26-2023 ambulatory Abdelrahman Reynoso Other [facility] Other Start: 07-26-2023 Sbsq nursing facil care/day new problem 25 min Abdelrahman Reynoso [facility] Start: 07-23-2023 ambulatory ABDELRAHMAN BALL Facility: [facility] Start: 07-16-2023 End: 07-16-2023 ambulatory Abdelrahman Reynoso Other [facility] Other Start: 07-16-2023 Telephone encounter Abdelrahman Reynoso FP [facility] [employer] [facility] Start: 07-12-2023 End: 07-12-2023 ambulatory Abdelrahman Reynoso Other [facility] Other Start: 07-12-2023 Telephone encounter Abdelrahman Reynoso FP [facility] Start: 07-11-2023 End: 07-11-2023 ambulatory Abdelrahman Reynoso Other [facility] Other Start: 07-11-2023 Telephone encounter Abdelrahman Ball FP [facility] Start: 07-05-2023 End: 07-05-2023 ambulatory Abdelrahman Reynoso Other [facility] Other Start: 07-05-2023 Telephone encounter Abdelrahman Ball FP [facility] Start: 07-04-2023 End: 07-04-2023 ambulatory Abdelrahman Reynoso Other [facility] Other Start: 07-04-2023 Telephone encounter Abdelrahman Ball FP [facility] Start: 06-22-2023 End: 06-22-2023 ambulatory Abdelrahman Reynoso Other [facility] Other Start: 06-22-2023 Telephone encounter Abdelrahman Reynoso FP [facility] Start: 06-21-2023 End: 06-21-2023 ambulatory Abdelrahman Reynoso Other [facility] Other Start: 06-21-2023 [facility] nursing facil care/day new problem 25 min Abdelrahman Reynoso [facility] [facility] [employer] Start: 06-19-2023 End: 06-19-2023 ambulatory Abdelrahman Edgardo Other [facility] Other Start: 06-19-2023 Telephone encounter Abdelrahman Ball FP [facility] Start: 06-15-2023 End: 06-15-2023 ambulatory Abdelrahman Ball Other [facility] Other Start: 06-15-2023 Telephone encounter Abdelrahman Ball FP [facility] Start: 05-31-2023 End: 05-31-2023 ambulatory Abdelrahman Reynoso Other [facility] Other Start: 05-31-2023 Initial nursing facility care/day 35 minutes [facility] Start: 05-31-2023 Telephone encounter Abdelrahman Reynoso FP [facility] Start: 05-30-2023 End: 05-30-2023 ambulatory Abdelrahman Reynoso Other [facility] Other Start: 05-30-2023 Telephone encounter Abdelrahman Reynoso FP [facility] Start: 05-28-2023 End: 05-28-2023 ambulatory Abdelrahman Reynoso Other [facility] Other Start: 05-28-2023 Telephone encounter Abdelrahman Reynoso FP [facility] Start: 05-24-2023 End: 05-24-2023 ambulatory Abdelrahman Reynoso Other [facility] Other Start: 05-24-2023 Telephone encounter Abdelrahman Reynoso FP [facility] Start: 05-23-2023 End: 05-25-2023 Evaluation and management of inpatient [facility] Facility[facility] Start: 05-23-2023 End: 05-25-2023 Evaluation and management of inpatient [facility] Start: 05-18-2023 End: 05-18-2023 ambulatory Abdelrahman Reynoso Other [facility] Other Start: 05-18-2023 Telephone encounter Abdelrahman Reynoso FP [facility] Start: 05-17-2023 End: 05-17-2023 ambulatory Abdelrahman Reynoso Other [facility] Other Start: 05-17-2023 Sbsq nursing facil care/day new problem 25 min [facility] Start: 05-15-2023 End: 05-15-2023 ambulatory Abdelrahman Reynoso Other [facility] Other Start: 05-15-2023 Telephone encounter Abdelrahman Reynoso FP [facility] Start: 05-10-2023 End: 05-10-2023 ambulatory Abdelrahman Reynoso Other [facility] Other Start: 05-10-2023 Sbsq nursing facil care/day new problem 25 min [facility] Start: 05-10-2023 Telephone encounter Abdelrahman Reynoso FP [facility] Start: 05-08-2023 End: 05-08-2023 ambulatory Abdelrahman Reynoso Other [facility] Other Start: 05-08-2023 Telephone encounter Abdelrahman QUIROS [facility] Start: 05-07-2023 End: 05-07-2023 ambulatory Abdelrahman Reynoso Other [facility] Other Start: 05-07-2023 Telephone encounter Abdelrahman Reynoso FP [facility] Start: 05-03-2023 End: 05-03-2023 ambulatory Abdelrahman Reynoso Other [facility] Other Start: 05-03-2023 Initial nursing facility care/day 45 minutes [place] [facility] Start: 05-03-2023 Telephone encounter Abdelrahman QUIROS [facility] Start: 05-01-2023 End: 05-01-2023 ambulatory Abdelrahman Reynoso Other [facility] Other Start: 05-01-2023 Telephone encounter Abdelrahman QUIROS [facility] Start: 11-25-2021 End: 11-26-[address] ABDELRAHMAN REYNOSO Facility:[facility]1 Start: 06-19-[address] ABDELRAHAMN REYNOSO Facili ty:[facility]1 Start: 04-15-2020 Adult health examination Abdelrahman Reynoso Other [facility] Other Procedures Date Procedure Procedure Detail Performing Clinician Start: 05-27-2019 Cataract extraction and insertion of intraocular lens Shanell FAGAN Comment on above: right Start: 05-13-2019 Cataract extraction and insertion of intraocular lens Shanell FAGAN Comment on above: left Start: 07-05-2017 End: 11-07-2019 Diabetes mellitus screening Abdelrahman Reynoso Other Start: 12-31-2015 End: 11-07-2019 Screening for malignant neoplasm of prostate Abdelrahman Reynoso Other Start: 05-21-2014 End: 04-15-2020 General examination of patient Abdelrahman Reynoso Other Depression screening Marco Reynoso Other Immunizations Immunization Date Immunization Notes Care Provider Fa chanopamela 05-10-2022 COVID-19 Pfizer (Pediatric) Abdelrahman Reynoso Other [facility] Other 05-10-2022 influenza virus vaccine, split virus (incl. purified surface antigen) Abdelrahman Reynoso Other [facility] Other 05-27-2021 influenza virus vaccine, split virus (incl. purified surface antigen) Abdelrahman Reynoso Other [facility] Other 09-08-2020 COVID-19 Vaccine Pfizer - Documentation Purposes Only Abdelrahman Reynoso Other [facility] Other 08-19-2020 COVID-19 Vaccine Moderna - Documentation Purposes Only Abdelrahman Reynoso Other [facility] Other 04-15-2020 influenza virus vaccine, split virus (incl. purified surface antigen) Abdelrahman Reynoso Other [facility] Other 05-15-2018 influenza virus vaccine, split virus (incl. purified surface antigen) Abdelrahman Reynoso Other [facility] Other 06-20-2017 influenza virus vaccine, split virus (incl. purified surface antigen) Abdelrahman Reynoso Other [facility] Other 06-19-2016 influenza virus vaccine, split virus (incl. purified surface antigen) Abdelrahman Reynoso Other [facility] Other 05-26-2015 pneumococcal conjuga te vaccine, 13 valent Abdelrahman Reynoso Other [facility] Other 05-19-2015 influenza virus vaccine, split virus (incl. purified surface antigen) Abdelrahman Reynoso Other [facility] Other 05-21-2014 tetanus and diphther ia toxoids, adsorbed, preservative free, for adult use (5 Lf of tetanus toxoid and 2 Lf of diphtheria toxoid) Abdelrahman Reynoso Other [facility] Other 06-27-2013 pneumococcal polysaccharide vaccine, 23 valent Abdelrahman Reynoso Other [facility] Other 05-08-2012 tetanus and diphther ia toxoids, adsorbed, preservative free, for adult use (5 Lf of tetanus toxoid and 2 Lf of diphtheria toxoid) Abdelrahman Reynoso Other [facility] Other pneumococcal Conjugate, unspecified formulation; Translations: [Need for prophylactic vaccination against Streptococcus pneumoniae (pneumococcus)] Abdelrahman Reynoso Other [facility] Other NEGATED: Highlighted row has not occurred!05-28-2019 influenza virus vaccine, split virus (incl. purified surface antigen) Abdelrahman Reynoso Other [facility] Other Payers Date Payer Category Payer Medicaid [id number] 1959 Self-pay [id number] 1959 Unknown [id number] 1940 Unknown [id number] 1940 Unknown [id number] [id number] [id number] 1940 Unknown [id number] [id number] 1940 Unknown [id number] 2.16.8 [id number] 1940 Unknown [id number] 2.16.8 [id number] Social History Date Type Detail Facility Sex Assigned At [facility] Tobacco smoking status No Smoking Status Entered [facility] Functional Status Date Assessment Result Facility 05-23-2023 Functional Status No [facility] 05-23-2023 Functional Status [facility] Clinical Notes 05-03-2023 to 07-26-2023 Note Date & Type Note Facility 07-26-2023 Evaluation note Encounter Date Diagnosis Assessment Notes Jul, Nonischemic cardiomyopathy (ICD-10 - I42.8) Healthy low fat diet Monitor weight and call w/ increased weight > 3lbs Jul, HFrEF (heart failure with reduced ejection fraction) (ICD-10 - I50.20) Instructed on low salt diet, exercise and daily weights. Instructed to notify office for any unexpected weight gain > 3lbs and/or increased dyspnea, difficulty breathing during sleep, worsening lower extremity swelling, chest pain or lightheadedness. Reviewed GDMT w/ beta blockers, LACY/ARB/ARNI, MRA and SGLT-2 Jul, Persistent atrial fibrillation (ICD-10 - I48.19) This patient is in NSR or rate controlled. This patient is anticoagulated to prevent thromboembolic events. They are maintaining regular scheduled appts with their automotive service cashier. No bleeding complications Jul, Chronic venous insufficiency (ICD-10 - I87.2) Avoid salt and elevate lower extremities, support stockings, inspect legs and feet daily for blisters and ulcerations. Jul, Lumbar spondylosis (ICD-10 - M47.816) The patient is instructed to avoid bending, twisting or lifting. They are to use intermittent heat and ice as needed. They may schedule a massage or gentle manipulation. They may safely use Tylenol as needed. 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 - RADHA - Mild - Mildly elevated RVSP - Mildly dilated aortic root measuring 3.9 cm. [facility] Other 11-16-2023 Evaluation note* Encounter Date Diagnosis Assessment Notes [...] Echocardiogram to assess LVEF and valvular function. Jun, Persistent atrial fibrillation (ICD-10 - I48.19) This patient is in NSR or rate controlled. This patient is anticoagulated to prevent thromboembolic events. They are maintaining regular scheduled appts with their automotive service cashier. No bleeding complications Jun, Chronic venous insufficiency (ICD-10 - I87.2) Avoid salt and elevate lower extremities, support stockings, inspect legs and feet daily for blisters and ulcerations. Jun, Lumbar spondylosis (ICD-10 - M47.816) The patient is instructed to avoid bending, twisting or lifting. They are to use intermittent heat and ice as needed. They may schedule a massage or gentle manipulation. They may safely use Tylenol as needed. Jun, Heart murmur, systolic (ICD-10 - R01.1) Echocardiogram to assess valvular function. 16 Nov, 2023 Benign prostatic hyperplasia with lower urinary tract symptoms (ICD-10 - N40.1) Continue Flomax bid. Contionue indwelling cook catheter to prevent obstructive uropathy Jun, Feeling of incomplete bladder emptying (ICD-10 - R39.14) PVR consistently > 350. Cook placed to prevent obstructive uropathy Continue FLomax. Refer to MOOSE - Sheron, Urolift? [facility] Other 11-14-2023 Evaluation note* Encounter Date Diagnosis Assessment Notes Treatment Notes Treatment Clinical Notes Jun, Acute on chronic diastolic heart failure (ICD-10 - I50.33) [facility] Other 11-10-2023 Evaluation note* Encounter Date Diagnosis Assessment Notes Treatment Notes Treatment Clinical Notes Jun, Acute idiopathic gout of right foot (ICD-10 - M10.071) [facility] Other 11-05-2023 NoteAdmission and Discharge Information Admit [...] mental status. Patient was found in the fpc unresponsive today in the morning.Blood pressure was [...] infection, site not specified) Urine culture grew >273063 gram negative Rods Rocephin 1 g daily [...] 52.8 % Lymph Auto - 22.0 % Grainger Auto - 13.6 % Eos Auto - 10.7 % Basophil Auto - 0.9 % Neutro Absolute - 2.1 E9/L Lymph Absolute - 0.9 E9/L Grainger Absolute - 0.6 E9/L Eos Absolute - [...] - 134 mg/dL POC Device SN - [id number] POC User ID - [id number] POC Username - ROMINA DUQUE CBC w/ Auto Diff (05/23/2023) WBC - [...] UA Ketones - NEGATIV (more content not included)...[facility] Comment on above:Result Comment: Electronically Signed By: MARISELA HERNANDEZ, Shanell\.br\Date and Time Signed: 06/10/23 17:[id number] Evaluation note* Encounter Date Diagnosis Assessment Notes Treatment Notes Treatment Clinical Notes May, Nonischemic cardiomyopathy (ICD-10 - I42.8) Healthy diet Monitor volume status May, Persistent atrial fibrillation (ICD-10 - I48.19) This patient is in NSR or rate controlled. This patient is anticoagulated to prevent thromboembolic events. They are maintaining regular scheduled appts with their automotive service cashier. No bleeding complications May, HFrEF (heart failure [...] monitor BP closely Care to avoid overdiuresis. [facility] Other 10-25-2023 NoteMicrobiology PROCEDURE: Blood Culture Charcoal [R1] SOURCE: Blood BODY SITE: Hand L COLLECTED DATE/TIME: 05/23/2023 09:29 EDT RECEIVED DATE/TIME: 05/23/2023 09:45 EDT START DATE/TIME: 05/23/2023 09:45 EDT FREE TEXT SOURCE: Higinio Reyna DO, DO, Kevin M. FINAL REPORTS Final Report [] Verified Date/Time: 05/30/2023 16:13 EDT No growth at 7 days. Performing Locations R1: This test was performed at: [facility], [address] [place] [address], [address] [place] [address], [id number] Oliver StreetComment on above:Performed By: #### [id number] ####[address] [id number] NoteMicrobiology PROCEDURE: Blood Culture Charcoal [R1] SOURCE: Blood BODY SITE: Hand R COLLECTED DATE/TIME: 05/23/2023 09:36 EDT RECEIVED DATE/TIME: 05/23/2023 09:45 EDT START DATE/TIME: 05/23/2023 09:45 EDT FREE TEXT SOURCE: Higinio Reyna DO. Higiino Reyna DO. FINAL REPORTS Final Report [] Verified Date/Time: 05/30/2023 16:12 EDT No growth at 7 days. Performing Locations R1: [facility] at[facility], [address] [place] [address], [address] [place] [address], [address] [place], [place] [address]Comment on above:Performed By: #### [id number] ####[address] [id number] Hospital Discharge instructions Patient Education 05/25/2023 09:25:41 [...] ?Adrenal gland problems. ?Metabolic conditions, such as Sylvester's disease or syndrome of inappropriate antidiuresis (SIAD). [...] improvement. Follow these instructions at home: Take ctxl-tlk-gdvpyyw and prescription medicines only as told by [...] provider. Document Revised: 01/31/2022 Document Reviewed: 01/31/2022 [employer] Patient Education 2022 Dining Secretary. 05/25/2023 09:25:38 Hypokalemia Hypokalemia Hypokalemia means that [...] products, such as yogurt. General instructions Take zzij-gwi-kwjijwc and prescription medicines only as told by [...] provider. Document Revised: 04/06/2022 Document Reviewed: 04/06/2022 [employer] Patient Education 2022 Dining Secretary. 05/25/2023 09:25:34 Urinary Tract Infection, Adult Urinary [...] Treatment for this condition includes: Antibiotic medicine. Vaae-bfh-owuxhxz medicines to treat discomfort. Drinking enough water [...] Follow these instructions at home: Medicines Take cula-fuz-qtftnfc and prescription medicines only as told by [...] provider. Document Revised: 03/04/2021 Document Reviewed: 03/04/2021 [employer] Patient Education 2022 Dining Secretary. 05/25/2023 09:25:27 Sepsis, Diagnosis, Adult Sepsis, Diagnosis, [...] Follow these instructions at home: Medicines Take ogez-rlt-sjmztap and prescription medicines only as told by [...] provider. Document Revised: 06/06/2021 Document Reviewed: 06/06/2021 [employer] Patient Education 2022 Dining Secretary. 05/25/2023 09:25:19 Acute Kidney Injury, Adult Acute [...] Follow these instructions at home: Medicines Take jazu-yod-uilqzxc and prescription medicines only as told by [...] follow-up visits. Where to find more information [employer]: www.aakp.org National Kidney Foundation: www.kidney.org [employer]: www.akfinc.org Medical Education [place]: ?LifeOptions: www.lifeoptions.org ?Kidney School: www.kidneyschool.org Contact a health care provider if: Your symptoms get worse. You have new symptoms such as: ?Headaches. ?Skin that is darker or sports book server than normal. ?Easy bruising. ?Itchiness. ?Hiccups. ?Lack [...] provider. Document Revised: 07/10/2022 Document Reviewed: 06/01/2020 [employer] Patient Education 2022 Dining Secretary. Follow Up Care 05/23/2023 08:53:10 With:ABDELRAHMAN REYNOSO Address: [address] [place] [phone] Business (1) When: Unknown [facility]10-19-2023 NoteOt [facility] six clicks score 1224 = SNF. Pt requires assist w/ all transfers and Iadls. Inpatient OT services to follow daily to progress as able w/ Adls/transfers.[facility] 05-24-2023 NotePT Evaluation completed with an AMPA score of 8/24. Pt currently requires Mod A for bed mobility, but able to maintain sitting balance x 6 min with CGA. Pt did perform LE sitting exercises. Did not perform transfers as pt states he uses a [employer]aya lit for transfers. Will follow daily, but would recommend [facility] NoteChief Complaint Pt had unresponsive episode at fpc. Pt was out for a reported 5 minutes. hypotensive History of Present Illness 83-year-old white male past medical history of hypertension, A-fib, BPH presented to emergency roomwith change mental status. Patient was found in the fpc unresponsive today in the morning.Blood pressure was [...] E9/L (05/23/23 09:29:00) RBC: 3.9 E12/L Low (05/23/23 09:29:00) HGB: 11.7 gm/dL Low (05/23/23 09:29:00) Hct: 35.1 % Low (05/23/23 09:29:00) MCV: 90.8 fL (05/23/23:29:00) MCH: 30.4 pg (05/23/23:29:00) MCHC: 33.5 gm/dL (05/23/23 09:29:00) RDW: 16.5 % High (05/23/23 09:29:00) Platelet: 164 E9/L (05/23/23:29:00) MPV: 7 fL (05/23/23:29:00) Neutro Auto: 52.8 % (05/23/23 09:29:00) Lymph Auto: 22 % (05/23/23 09:29:00) Grainger Auto: 13.6 % (05/23/23:29:00) Eos Auto: 10.7 % High (05/23/23:29:00) Basophil Auto: 0.9 % (05/23/23 09:29:00) Neutro Absolute: 2.1 E9/L (05/23/23 09:29:00) Lymph Absolute: 0.9 E9/L Low (05/23/23 09:29:00) Grainger Absolute: 0.6 E9/L (05/23/23::00) Eos Absolute: 0.4 E9/L (05/23/23::00) Basophil Absolute: 0 E9/L (05/23/23 09::00) PT: 17 second(s) High (05/23/23::00) INR: 1.5 (05/23/23::) PTT: 35.2 second(s) (05/23/23::00) Glucose Lvl: 122 mg/dL (05/23/23::) BUN: 23 mg/dL High (05/23/23) Creatinine: 1.4 mg/dL High (05/23/23::) eGFR: 50 mL/min/1.73 m2 Low (05/23/23:) BUN/Creat Ratio: 16 (05/23/23::) Sodium Lvl: 134 mmol/L Low (05/23/23::) Potassium Lvl: 3.4 mmol/L Low (05/23/23::) Chloride: 102 mmol/L (05/23/23::) CO2: 26 mmol/L (05/23/23::) AGAP: 9 mEq/L (05/23/23::) Calcium Lvl: 7.7 mg/dL Low (05/23/23::) Alk Phos: 106 Int._Unit/L High (05/23/23::) ALT: 12 Int._Unit/L (05/23/23::00) AST: 18 Int._Unit/L (05/23/23::) Total Protein: 5.1 gm/dL Low (05/23/23::) Albumin Lvl: 2.2 gm/dL Low (05/23/23::00) Globulin: 2.9 gm/dL (05/23/23::00) A/G Ratio: 0.8 Low (05/23/ (more content not included)...[facility]Result Comment: Electronically Signed By: MARISELA HERNANDEZ, Shanell\.br\Date and Time Signed: 05/23/23 13:[id number] Evaluation + Plan noteExtracted from: Title:ED Note [...] mental status. Patient was found in the fpc unresponsive today in the morning. Blood pressure [...] IV Up ad Patricia Vital Signs Weight [facility]10-12-2023 Evaluation note* Encounter Date Diagnosis Assessment Notes Treatment Notes Treatment Clinical Notes May, Persistent atrial fibrillation (ICD-10 - I48.19) This patient is in NSR or rate controlled. This patient is anticoagulated to prevent thromboembolic events. They are maintaining regular scheduled appts with their automotive service cashier. No bleeding complications May, Nonischemic cardiomyopathy (ICD-10 [...] as needed. Continue PT/OT - increase activity [facility] Other 10-05-2023 Evaluation note* Encounter Date Diagnosis [...] are maintaining regular scheduled appts with their automotive service cashier. No bleeding complications [facility] Other 10-03-2023 Evaluation note* Encounter Date Diagnosis Assessment Notes Treatment Notes Treatment Clinical Notes May, HFrEF (heart failure with reduced ejection fraction) (ICD-10 - I50.20) [facility] Other 09-28-2023 Evaluation note* Encounter Date Diagnosis Assessment Notes Treatment Notes Treatment Clinical Notes Apr, Right wrist pain (ICD-10 - M25.531) [facility] Other 09-28-2023 Evaluation note* Encounter Date Diagnosis [...] respond as expected to treatment. Diet instructions [facility] Other Evaluation noteNo InformationNort QuesCom Other History general Narrative - Reported* Type Description Date Medical History Non-ischemic cardiomyopathy Medical History Chronic venous insufficiency Medical History Benign prostatic hyp erplasia with lower urinary tract symptoms Medical History Lumbar spondylosis Medical History Paroxysmal atrial fibrillation Surgical History HEMRRHOIDECTOMY Hospitalization History SEE SURGICAL HX [facility] Med[facility] Other Hospital course Narrative No data available for this section [facility] No data available for this section [facility] for referral (narrative)* Reason Referral for urinary retention. Diagnosis 1 Benign prostatic hyp erplasia with lower urinary tract symptoms (N40.1) Diagnosis 2 Feeling of incomplet e bladder emptying (R39.14) Referral Organization [facility] alejandro Referring Provider First Name Abdelrahman Referring Provider Last Name Edgardo Referring Provider Specialty Internal Me dicine Referred Organization [facility] Referred Provider David Ervin Referred Address [address],[place], [place],[address] Referred Provider Specialty Urology Referral Priority Routine General Notes Mr. Thorne was recen tly admitted to [facility] w/ sepsis secondary to acute prostatitis. It is suspected to be secondary to incomplete bladder emptying due to BPH. Upon d/c back to the [place], he was prescribed FLomax, which was titrated up to bid. Despite this treatment, he continued w/ persistent PVR > 350 and a cook was placed to prevent obstructive uropathy. He is being referred for further evaluation and treatment. [facility] Other Summary Purpose Family History No Family History Records Found No data available for this section No Family History Records Found Advance Directives No Advanced Directives Records FoundNo Advanced Directives Records Found Additional Source Comments (unrecognized sect ion and content) No Status Records FoundNo Status Records Found INFORMATION SOURCE (unrecogn ized section and content) DATE CREATED AUTHOR 12/03/2021 [facility] pitia DATE CREATED AUTHOR AUTHOR'S ORGANIZ ATION 08/02/2023 [facility] REASON FOR VISIT (unrecogniz ed section and content) UROLOGY UPDATEMedication Samreen ngeWILLOWSConcernsdc medicationLab ResultsNew ordersAdd on labBCCPain Medication Patient Care team informatio n (unrecognized section and content) Personnel Name: ABDELRAHMAN REYNOSO DO Address: Address: [address] [facility], [address] FOR RECORDS PERTAINING TO PATIENTS WHO ARE [...] BE BASED ON THE PRIMARY CLINICAL RECORDS. [facility] provides no warranty or guarantee of the accuracy or completeness of information in this document.
[2023-08-03 08:41] LABS: Basophils Absolute Auto 0.2 10^3/uL (0.0-0.1); Eosinophils Absolute Auto 1.2 10^3/uL (0.0-0.7); Eosinophils Percent Auto 13.2 % (0.9-7.0); Hematocrit 41.8 % (42.0-54.0); Hemoglobin 13.5 g/dL (14.0-18.0); Immature Granulocytes Abs Auto 0.03 10^3/uL (0.00-0.03); Immature Granulocytes Pct Auto 0.3 % (0.0-0.5); Lymphocytes Absolute Auto 1.7 10^3/uL (1.2-3.8); Lymphocytes Percent Auto 18.4 % (20.5-60.0); Mean Corpuscular HGB Conc 32.3 g/dL (29.9-35.2); Mean Corpuscular Hemoglobin 29.6 pg (25.9-34.0); Mean Corpuscular Volume 91.7 fL (80.0-94.0); Mean Platelet Volume 9.3 fL (9.5-13.5); Monocytes Absolute Auto 0.8 10^3/uL (0.3-0.8); Monocytes Percent Auto 8.3 % (1.7-12.0); Neutrophils Absolute Auto 5.2 10^3/uL (1.4-6.5); Neutrophils Percent Auto 57.8 % (43.0-75.0); Platelet Count 211 10^3/uL (150-450); Red Blood Count 4.56 10^6/uL (4.70-6.10); Red Cell Distribution Width 14.1 % (11.0-15.0)
[2023-08-03 09:39] LABS: Bilirubin Urine NEGATIVE (NEGATIVE); Blood Urine SMALL (NEGATIVE); Color Urine LT. YELLOW (YELLOW); Glucose Urine UA NEGATIVE (NEGATIVE); Ketones Urine NEGATIVE (NEGATIVE); Leukocyte Esterase Urine MODERATE (NEGATIVE); Nitrite Urine POSITIVE (NEGATIVE); Protein Urine TRACE mg/dL (NEG/TRACE); Specific Gravity Urine 1.015 (1.005-1.025); Urine Microscopic Indicated YES; Urobilinogen Urine 0.2 EU/dL (0.2-1.0); pH Urine 5.5 (5.0-9.0)
[2023-08-03 09:48] LABS: Bacteria Urine MODERATE #/HPF (NONE SEEN); Cast Seen? NONE SEEN #/LPF (NONE SEEN); Clarity Urine SLIGHTLY CLOUDY (CLEAR); Crystals Seen? None Seen #/HPF (None Seen); Mucus Urine NONE SEEN (NONE SEEN); RBC Urine NONE SEEN #/HPF (0-2); Squamous Epithelial Cell Urine NONE SEEN #/LPF (NONE/RARE)
[2023-08-03 11:28] LABS: Anion Gap 11.1; BUN Creatinine Ratio 20.6; Calcium 9.3 mg/dL (8.5-10.1); Carbon Dioxide 31.8 mmol/L (21.0-32.0); Chloride 97 mmol/L (98-107); Estimated GFR (African America 49 (>=60); Estimated GFR (Non-African Ame 40 (>=60); Glucose 92 mg/dL (74-106); Potassium 3.9 mmol/L (3.5-5.1); Sodium 136 mmol/L (136-145); Uric Acid 8.2 mg/dL (3.5-7.2)
== END 2023-08-03 00:55 | disposition home or self-care (01) ==
LOC: LAB 00:54
PROVIDERS: Visit Provider Internal Medicine
DX: Z51.81 Encounter for therapeutic drug level monitoring (principal); R60.9 Edema, unspecified
CPT/HCPCS: 36415; 80048; 81001; 84550; 85025

== ENCOUNTER 2023-08-06 09:00 | Emergency (ER) | payer MEDICARE, MEDICAID, SELFPAY ==
[2023-08-06] VITALS (13 sets, daily range): BP systolic 44–50; BP diastolic 20–33; PULSE 0–93; RESP 4–13; O2SAT 65–99; BMI 28.3
--- NOTE | 2023-08-06 | XR_ITS ---
[address] [address] Patient Name: CAREN BELLO MRN: [id number] date: 1940 Sex: M Assigned Patient Location: ER Current Patient Location: ER Accession/Order Number: [id number] Exam Date: 08/06/2023 09:00 Report Date: 08/06/2023 09:47 At the request of: JORGE YBARRA Procedure: XR chest 1V EXAM: XR chest 1V INDICATION: Respiratory distress. COMPARISON: Chest radiograph 04/28/2023 TECHNIQUE: Single frontal view of the chest FINDINGS: Endotracheal tube tip 1.4 cm above the bren. Stable cardiomediastinal contours. No acute infiltrative process. No pleural effusion or pneumothorax. No acute osseous abnormality. Stable chronic elevation of the right hemidiaphragm. XR/XR chest 1V IMPRESSION: 1. Endotracheal tube in adequate position. 2. No acute cardiopulmonary process. Electronically authenticated by: MIKO LOPEZ Date: 08/06/2023 09:47
[2023-08-06] MEDS: 0.9 % SODIUM CHLORIDE 2,000 ML 999 ML IV (09:00)
--- OUTSIDE RECORDS SUMMARY | 2023-08-06 09:08 | XMS_ITS | CCD ---
Author Name Unknown Address [address] [place] [address] Organization [facility] Care Team Providers Care Embossed Or Impressed Lettering Painter Name Role Phone EDGARDO, DR NAYLOR Admitting Unavailable EDGARDO, DR NAYLOR Attending Unavailable EDGARDO, DR NAYLOR Primary Care Unavailable EDGARDO, DR NAYLOR Admitting Unavailable EDGARDO, DR NAYLOR Attending Unavailable EDGARDO, DR NAYLOR Primary Care Unavailable EDGARDO, DR NAYLOR Consulting Abdelrahman Argueta Unavailable ABDELRAHMAN REYNOSO Primary Care Physician ABDELRAHMAN REYNOSO Referring Unavailable David ERVIN Attending Unavailable Shanell FAGAN Attending Unavailable Shanell FAGAN Admitting Unavailable Allergies Allergy Classification Reported Allergen(s) Allergy Type Date of Onset Reaction(s) Facility (1 source) patient allergy list reviewed by nurse or physicia Propensity to adverse reactions 9 Comment:Done [employer] Other (1 source) No Known Medication Allergies; Translations: [No Known Medication Allergies] Propensity to adverse reactions (disorder) [facility] Repository Medications Current Medications Medication Drug Class(es) [...] Status: Ordered carvedilol 25 mg oral tablet (6 sources) alpha-Adrenergic Rene, beta-Adrenergic Rene take 1 [...] inulin 200 mg / lactobacillus rhamnosus gg [id number] unt oral capsule (9 sources) Culturelle - as directed Orally Active ammonium lactate 120 mg/ml topical lotion (15 sources) Ammonium Lactate 12 % 1 application [...] Start Date: 05/23/23 Status: Ordered Polyethylene Glycols (20 sources) Polyethylene Glycol - as directed Active predniSONE 20 mg oral tablet (7 sources) take 2 tablets by mouth every twenty-four hours predniSONE 20 MG 2 tablets Orally Once a day Active thiamine 100 mg oral tablet (16 sources) Start: 05-24-2023 take 1 tablet by mouth once daily thiamine 100 mg Tab 100 mg = 1 tab(s), Oral, Daily Start Date: 05/24/23 Status: Ordered torsemide 20 mg oral tablet (15 sources) Loop Diuretic Start: 06-15-2023 Torsemide 20 MG as directed Orally Once a day Jun, Active traMADol hydrochloride 50 mg oral tablet (20 sources) Opioid Agonist Start: 05-03-2023 take 1 tablet by mouth every eight hours as needed for pain traMADol HCl 50 MG 1 tablet as needed Orally every 8 hours PRN pain Apr, Active Triad Hydrophilic Wound Dress - (15 sources) Triad Hydrophili c Wound Dress - as directed Externally Active triamcinolone acetonide 5 mg/ml topical cream (15 sources) Corticosteroid Triamcinolone Acetonide 0.5 % 1 [...] Not-Taking losartan potassium 25 mg oral tablet (16 sources) Angiotensin 2 Receptor Rene Start: 05-10-20 [...] Insurance Correspondence Off 06-08-2023 Insurance Correspondence Office [id number]# 1.00TIFF [facility] Insurance Correspondence Off 05-30-2023 Insurance Correspondence Office [id number]# 1.00TIFF [facility] Coding Queryon 05-27-2023 Coding Query - From: Chuyita Rosas RN To: Shanell FAGAN MD; Sent: 05/24/2023 10:52:39 EDT ! Subject: Coding Query Due Date/Time: 05/25/2023 10:52:00 EDT Caller Name: CAREN THORNE; Caller Number: H Documentation per a client care consultant in the medical record indicates this patient has been diagnosed as having: Pressure ulcer coccyx The following is also documented in the medical record: Documented by nursing on 05/23 no tenderness, surrounding tissue erythema, open to air Based on your medical judgment of the documented diagnoses by the client care consultant, do you agree with the diagnosis? [___]Yes, I agree with the diagnosis documented by the client care consultant. Please further specify location and stage [___]No, I do not agree with the diagnosis documented by the client care consultant. Reason: [___]Other: In responding to this request, please exercise your independent professional judgement. The fact that a question is asked does not imply that any particular answer is desired or expected. Thank you! Chuyita [phone] From: Shanell FAGAN MD To: Chuyita Rosas RN; Sent: 05/27/2023 17:56:12 EDT Subject: RE: Coding Query Caller Name: CAREN THORNE; Caller Number: H yes i agree [facility] Coding Query - From: Chuyita Rosas RN To: Shanell FAGAN MD; Sent: 05/24/2023 10:49:07 EDT ! Subject: Coding Query Due Date/Time: 05/25/2023 10:49:00 EDT Caller Name: CAREN THORNE; Caller Number: H Documentation in the medical record indicates this patient has been admitted with or diagnosed as having: Confused disoriented The following is also documented in the medical record: H&M-76-cggx-old white male past medical history of hypertension, [...] THORNE; Caller Number: H metabolic encephalopathy Normal [facility] Coding Query - From: Chuyita Rosas RN [...] on Levophed , positive urine culture Normal [facility] BMPon 05-25-2023 Anion gap [Moles/Vol] 9 mmol/L Normal 6-16 [facility] Comment on above: Performed By: #### 2 [id number], [id number] ####[facility] [address] [place] [address] Calcium [Mass/Vol] 7.9 mg/dL Low 8.9-11.1 [facility] Comment on above: Performed By: #### 2 871034, [id number] ####[facility] [address] [place] [address] Chloride [Moles/Vol] 104 mmol/L Normal 101-111 [facility] Comment on above: Performed By: #### 2 243172, [id number] ####[facility] [address] [place] [address] CO2 [Moles/Vol] 25 mmol/L Normal 21-31 [facility] Comment on above: Performed By: #### 2 182545, [id number] ####[facility] [address] [place] [address] Creatinine [Mass/Vol] 0.9 mg/dL Normal 0.5-1.3 [facility] Comment on above: Performed By: #### 2 874727, [id number] ####[facility] [address] [place] [address] Glucose [Mass/Vol] 86 mg/dL Normal 55-199 [facility] Comment on above: Result Comment: If t his glucose result represents a fasting glucose, interpretation should refer to the following reference range: 55-99 mg/dL Performed By: #### 2 472971, [id number] ####[facility] [address] [place] [address] Potassium [Moles/Vol] 3.6 mmol/L Normal 3.5-5.3 [facility] Comment on above: Performed By: #### 2 508065, [id number] ####[facility] [address] [place] [address] Sodium [Moles/Vol] 134 mmol/L Low 135-145 [facility] Comment on above: Performed By: #### 2 976174, [id number] ####[facility] [address] [place] [address] Urea nitrogen [Mass/Vol] 13 mg/dL Normal 5-21 [facility] Comment on above: Performed By: #### 2 542721, [id number] ####[facility] [address] [place] [address] Urea nitrogen/Creatinine [Mass ratio] 14 No Units Normal 10-20 [facility] Comment on above: Performed By: #### 2 210895, [id number] ####[facility] [address] [place] [address] C Urineon 05-25-2023 Bacteria identified Cx Nom [...] Locations R1: This test was performed at: [facility], [address] [place] [address], [address] , [place], [facility] Comment on above: Performed By: #### 1 [id number], [id number] ####[place] [address] CHEMISTRYOrdered By: SYSTEM SYSTEM on 05-25-2023 Anion [...] 85 mL/min/1.73 m2 Normal >=59mL/min/1 .73 m2 [facility] Chem S Comment on above: Interpretive Data: C hronic kidney disease could be indicated at eGFR's of less than 60 mL/min/1.73m2. Kidney failure is indicated at less than 15 mL/min/1.73m2. Glucose [Mass/Vol] 86 mg/dL Normal 55 - 199 mg/dL [facility] Remisol Comment on above: Interpretive Data: I f this glucose result represents a fasting glucose, interpretation should refer to the following reference range: 55-99 mg/dL Potassium [Moles/Vol] 3.6 mmol/L Normal 3.5 - 5.3 mmol/L FT Remisol Sodium [Moles/Vol] 134 mmol/L Low 135 - 145 mmol/L [facility] Remisol Urea nitrogen [Mass/Vol] 13 mg/dL Normal 5 - 21 mg/dL [facility] Remisol Urea nitrogen/Creatinine [Mass ratio] 14 mg/mg Normal 10 - 20 [facility] Remisol Discharge Instructionson Discharge Instructions [id number]# 1.00TIFF Normal [facility] Discharge Note-Nursingon Discharge Note-Nursing CAREN THORNE Spike :1940 Visit Date:05/23/2023 Inpatient Discharge Instructions Your Care Team Admitting Physician - Shanell FAGAN MD Reason for Your Visit pt went unresponsive at [facility] Your Diagnosis UTI (urinary tract infection) Acute [...] Pending Diagnostic Test Results None Pharmacy Information [facility] New Follow Up Appointments after Discharge Follow Up with ABDELRAHMAN REYNOSO When: In 0 days Where: [address] [place] [address]- Business (1) Medications What How Much When [...] gland problems. ? Metabolic conditions, such as Watonwan's disease or syndrome of inappropriate antidiuresis (SIAD). ? Excessive vomiting, diarrhea, or sweating. ? Certain medicines or illegal drugs. ? Fluids given through an IV. What increases the risk? You (more content not included)... Normal [facility] Facesheeton 05-25-2023 Facesheet [id number]# 1.00TIFF [facility] Interdisciplinary Note - Aba e Manageron 05-25-2023 Interdisciplinary Note - Application Systems Engineer Pt is awake and alert in bed, previously rounded with Dr. Fagan. Pt is aware of plan to DC back to [facility] once precert obtained, pt is medically ready to DC once precert obtained. Decline need to call family at this time. Updated on change to inpatient status, medicare rights reviewed, form signed and original provided. Nursing updated. . PCP verified and insurance information reviewed and DME discussed. Contact information provided and white board updated. [facility] attempted to call pt daughter Trice [phone] to update on plan to DC back to [facility], no answer, provided with update and contact information [facility] Comment on above: Result Comment: Elec tronically Signed By: Traci CALHOUN, Soraya\.charli\Date and Time Signed: 05/25/23 13:05 EDT Living Will/POAon 05-25-2023 Living Will/POA [id number]# 1.00TIFF Normal [facility] Medication Listson 3 Medication Lists [id number]# 1.00TIFF Normal [facility] Medication Lists [id number]# 1.00TIFF Normal [facility] Message from Medicareon 05-07 Message from Medicare [id number]# 1.00TIFF Normal [facility] Outside Recordson 05-25-2023 Outside Records [id number]# 1.00TIFF Normal [facility] Outside Records [id number]# 1.00TIFF Normal [facility] Patient Education - Texton 1 Patient Education [...] these instructions at home: Medicines ? Take aait-wds-tazzaso and prescription medicines only as told by [...] visits. Where to find more information ? [place] [employer] Patients: www.aakp.org ? National Kidney Foundation: www.kidney.org ? [employer]: www.akfinc.org ? Medical Education Ennice: ? LifeOptions: www.lifeoptions.org ? Kidney School: www.kidneyschool.org Contact a health care provider if: ? Your symptoms get worse. ? You have new symptoms such as: ? Headaches. ? Skin that is darker or database engineer than normal. ? Easy bruising. ? Itchiness. ? Hiccups. ? Lack of menstrual periods. ? You have a fever. Get help right away if: ? You have symptoms of wors (more content not included)... Normal [facility] Prescriptions/Work Noteson 1 Prescriptions/Work Notes [id number]# 1.00TIFF Normal [facility] Progress Note-Physicianon Progress Note-Physician Basic Information 83-year-old white male past medical history of hypertension, A-fib, BPH presented to emergency room with change mental status. Patient was found in the alf unresponsive today in the morning. Blood pressure [...] infection, site not specified) Urine culture grew >487600 gram negative Rods Rocephin 1 g daily [...] mL co (more content not included)... Normal [facility] Comment on above: Result Comment: Elec tronically Signed By: MARISELA HERNANDEZ, Shanell\.br\Date and Time Signed: 05/25/23 09:41 EDT Transfer Documentson 023 Transfer Documents [id number]# 1.00TIFF Normal [facility] Transfer Documents [id number]# 1.00TIFF Normal [facility] Transfer Documents [id number]# 1.00TIFF [facility] eGFRon 05-25-2023 GFR/1.73 sq M.predicted among non-blacks MDRD (S/P/Bld) [Vol rate/Area] 85 mL/min/1.73 m2 Normal >=59 [facility] Comment on above: Order Comment: Order added by Discern Expert. Result Comment: Veneer Production Machine Operator bety kidney disease could be indicated at eGFR's of less than 60 mL/min/1.73m2. Kidney failure is indicated at less than 15 mL/min/1.73m2. Performed By: #### 2 715447, [id number] ####[facility] [address] [place] [address] ABO/Rh History Checkon 05-24 ABO/Rh History Check Type verified by second s Normal [facility] Comment on above: Performed By: #### 1 6844295, 1267956, 88030327, 12955764 ####[facility] [address] [place] [address] ABO/Rh Retypeon 05-24-2023 ABO/Rh Retype Interp Positive Invalid Interpretation Code [facility] Comment on above: Performed By: #### 2 786444, [id number], [id number] ####[facility] [address] [place] [address] BLOOD BANKOrdered By: Coty Pederson on 05-24-2023 ABO/Rh Retype Interp Positive Invalid Interpretation Code [facility] BB Subsection BMPon 05-24-2023 Calcium [Mass/Vol] 7.9 mg/dL Low 8.9-11.1 [facility] Comment on above: Performed By: #### 2 139258, 37691380, [id number] ####[facility] [address] [place] [address] Creatinine [Mass/Vol] 1.1 mg/dL Normal 0.5-1.3 [facility] Comment on above: Performed By: #### 2 688652, 66149808, 20640595 ####[facility] [address] [place] [address] Urea nitrogen [Mass/Vol] 18 mg/dL Normal 5-21 [facility] Comment on above: Performed By: #### 2 551524, 82751810, 04146185 ####[facility] [address] [place] [address] Urea nitrogen/Creatinine [Mass ratio] 16 No Units Normal - [facility] Comment on above: Performed By: #### 2 311965, 26277719, 35923402 ####[facility] [address] [place] [address] Anion gap [Moles/Vol] 13 mmol/L Normal 6-16 [facility] Comment on above: Performed By: #### 2 721023, 74033582, 73579290 ####[facility] [address] [place] [address] Chloride [Moles/Vol] 100 mmol/L Low 101-111 [facility] Comment on above: Performed By: #### 2 320465, 88605854, 12838004 ####[facility] [address] [place] [address] CO2 [Moles/Vol] 25 mmol/L Normal 21-31 [facility] Comment on above: Performed By: #### 2 101610, 27184756, 08389060 ####[facility] [address] [place] [address] Glucose [Mass/Vol] 98 mg/dL Normal 55-199 [facility] Comment on above: Result Comment: If t his glucose result represents a fasting glucose, interpretation should refer to the following reference range: 55-99 mg/dL Performed By: #### 2 092932, 44463836, 70996374 ####[facility] [address] [place] [address] Potassium [Moles/Vol] 3.6 mmol/L Normal 3.5-5.3 [facility] Comment on above: Performed By: #### 2 510117, 58451881, 87281923 ####[facility] [address] [place] [address] Sodium [Moles/Vol] 134 mmol/L Low 135-145 [facility] Comment on above: Performed By: #### 2 703006, 95216979, 84240055 ####[facility] [address] [place] [address] CHEMISTRYOrdered By: SYSTEM SYSTEM on 05-24-2023 Anion [...] 67 mL/min/1.73 m2 Normal >=59mL/min/1 .73 m2 [facility] Chem S Comment on above: Interpretive Data: C hronic kidney disease could be indicated at eGFR's of less than 60 mL/min/1.73m2. Kidney failure is indicated at less than 15 mL/min/1.73m2. Glucose [Mass/Vol] 98 mg/dL Normal 55 - 199 mg/dL [facility] Remisol Comment on above: Interpretive Data: I f this glucose result represents a fasting glucose, interpretation should refer to the following reference range: 55-99 mg/dL Potassium [Moles/Vol] 3.6 mmol/L Normal 3.5 - 5.3 mmol/L FT Remisol Sodium [Moles/Vol] 134 mmol/L Low 135 - 145 mmol/L [facility] Remisol Urea nitrogen [Mass/Vol] 18 mg/dL Normal 5 - 21 mg/dL [facility] Remisol Urea nitrogen/Creatinine [Mass ratio] 16 mg/mg Normal 10 - 20 FT Remisol Interdisciplinary Note - Aba e Manageron 05-24-2023 Interdisciplinary Note - Application Systems Engineer Pt is awake and alert in bed, previously rounded with Dr. Fagan. pt is from [facility], will verify if LTC or SNF. Observation [...] he does not normally wear oxygen at [facility], CRM following . PCP verified and insurance information reviewed and DME discussed. Contact information provided and white board updated. Pt is from [facility] SNF and will need precert to return, pending therapy evals and precert will be started today. Normal [facility] Comment on above: Result Comment: Elec tracyally Signed By: Traci CALHOUN, Soraya\bharathi\Date and Time Signed: 05/24/23 13:30 EDT Message from Medicareon 10- Message from Medicare [id number]# 1.00TIFF Normal [facility] Monitor Recordon 05-24-2023 Monitor Record [id number]# 1.00TIFF Normal [facility] Progress Note-Physicianon Progress Note-Physician Basic Information 83-year-old white male past medical history of hypertension, A-fib, BPH presented to emergency room with change mental status. Patient was found in the alf unresponsive today in the morning. Blood pressure [...] 09:29:00) Lymph Auto: 22 % (05/23/23 09:29:00) Taney Auto: 13.6 % (05/23/23 09:29:00) Eos Auto: 10.7 % High (05/23/23 09:29:00) Basophil Auto: 0.9 % (05/23/23 09:29:00) Neutro Absolute: 2.1 E9/L (05/23/23 09:29:00) Lymph Absolute: 0.9 E9/L Low (05/23/23 09:29:00) Taney Absolute: 0.6 E9/L (05/23/23 09:29:00) Eos Absolute: 0.4 E9/L (05/23/23 09:29:00) Basophil Absolute: 0 E9/L (05/23/23 09:29:00) PT: 17 second(s) High (05/23/23 09:29:00) INR: 1.5 (05/23/23 09:29:00) PTT: 35.2 second(s) (05/23/23 09:29:00) Glucos (more content not included)... Normal [facility] Comment on above: Result Comment: Elec tronically Signed By: MARISELA HERNANDEZ, Shanell\.br\Date and Time Signed: 05/24/23 07:55 EDT eGFRon 05-24-2023 GFR/1.73 sq M.predicted among non-blacks MDRD (S/P/Bld) [Vol rate/Area] 67 mL/min/1.73 m2 Normal >=59 [facility] Comment on above: Order Comment: Order added by Discern Expert. Result Comment: Veneer Production Machine Operator bety kidney disease could be indicated at eGFR's of less than 60 mL/min/1.73m2. Kidney failure is indicated at less than 15 mL/min/1.73m2. Performed By: #### 2 723781, [id number], [id number] ####[facility] [address] [place] [address] ABO/Rhon 05-23-2023 ABO/Rh Positive Invalid Interpretation Code [facility] Comment on above: Performed By: #### 1 1392396, 6964174, 47217391, 66330998 ####[facility] [address] [place] [address] ABSCon 05-23-2023 ABSC Gel Interp Negative Normal [facility] Comment on above: Performed By: #### 1 9151807, 0757197, 45451427, 72015357 ####[facility] [address] [place] [address] Auto Diffon 05-23-2023 Basophils/100 WBC (Bld) 0.9 % Normal 0.0-2.0 [facility] Comment on above: Order Comment: Order Added by Discern Expert. Performed By: #### 1 0199373, 1178539, 3405832, 6384707, 48262329, 2221858, 9870047 ####[address] [place] [address] Basophils/Leukocytes Auto (Bld) [Pure # fraction] 0.0 E9/L Normal 0.0-0.2 [facility] Comment on above: Order Comment: Order Added by Discern Expert. Performed By: #### 1 0377878, 0052635, 0082843, 7940426, 63678181, 1697139, 4909361 ####[address] [place] [address] Eosinophils/100 WBC (Bld) 10.7 % High 0.0-8.0 [facility] Comment on above: Order Comment: Order Added by Discern Expert. Performed By: #### 1 6378182, 5136648, 4183704, 1451289, 53629536, 6485084, 0456734 ####[address] [address] Eosinophils/Leukocytes Auto (Bld) [Pure # fraction] 0.4 E9/L Normal 0.0-0.5 [facility] Comment on above: Order Comment: Order Added by Discern Expert. Performed By: #### 1 7499298, 7438852, 8200982, 6874382, 63286512, 6234594, 7763808 ####[address] [address] Lymphocytes/100 WBC (Bld) 22.0 % Normal 14.0-50.0 [facility] Comment on above: Order Comment: Order Added by Discern Expert. Performed By: #### 1 1358447, 3270756, 9804887, 9995099, 65336673, 5354767, 7763634 ####[address] [place] [address] Lymphocytes/Leukocytes Auto (Bld) [Pure # fraction] 0.9 E9/L Low 1.0-4.0 [facility] Comment on above: Order Comment: Order Added by Discern Expert. Performed By: #### 1 1800306, 5925296, 7230429, 5537681, 12211711, 0054008, 5234633 ####[address] [place] [address] Monocytes/100 WBC (Bld) 13.6 % Normal 4.0-14.0 [facility] Comment on above: Order Comment: Order Added by Discern Expert. Performed By: #### 1 3664662, 0264463, 5082361, 0502654, 39254961, 0637814, 3213915 ####[address] [place] [address] Monocytes/Leukocytes Auto (Bld) [Pure # fraction] 0.6 E9/L Normal 0.2-1.0 [facility] Comment on above: Order Comment: Order Added by Discern Expert. Performed By: #### 1 2198618, 6078366, 0869679, 3151673, 53324858, 4483069, 6898525 ####[address] [address] Neutrophils/100 WBC (Bld) 52.8 % Normal 36.0-75.0 [facility] Comment on above: Order Comment: Order Added by Discern Expert. Performed By: #### 1 8012268, 0670856, 8046184, 7263766, 47188716, 4790501, 4178734 ####[address] [place] [address] Neutrophils/Leukocytes Auto (Bld) [Pure # fraction] 2.1 E9/L Normal 2.0-7.5 [facility] Comment on above: Order Comment: Order Added by Discern Expert. Performed By: #### 1 2756237, 7299001, 3341742, 3219427, 08808589, 8866262, 8544018 ####[address] [place] [address] BLOOD BANKOrdered By: Kiara mendiola on 05-23-2023 ABO/Rh Interp Positive Invalid Interpretation Code FT BB Subsection ABSC Gel Interp Negative (05/23/23 9:29 AM) Normal [facility] BB Subsection Blood Bank ID#on 05-23-2023 BBID# [id number] Invalid Interpretation Code [facility] Comment on above: Performed By: #### 1 0565324, 1975486, 58640645, [id number] ####[facility] [address] [place] [address] CBC w/ Auto Diffon Erythrocyte distribution width (RBC) [Ratio] 16.5 % High 10.9-14.2 [facility] Comment on above: Performed By: #### 1 6040546, 2168746, 7012834, 1598247, 73187315, 8610930, 5545477 ####[facility] [address] [place] [address] Hematocrit (Bld) [Volume fraction] 35.1 % Low 37.7-49.0 [facility] Comment on above: Performed By: #### 1 2634181, 7378088, 8185634, 0652384, 26542602, 9090823, 9318663 ####[facility] [address] [place] [address] Hemoglobin (Bld) [Mass/Vol] 11.7 g/dL Low 13.5-17.5 [facility] Comment on above: Performed By: #### 1 4347513, 4364566, 8597288, 7732912, 55010268, 3391015, 6218722 ####[facility] [address] [place] [address] MCH (RBC) [Entitic mass] 30.4 pg Normal 27.0-34.0 [facility] Comment on above: Performed By: #### 1 9671262, 8858613, 7338413, 2280962, 10331080, 4282276, 4918257 ####[facility] [address] [place] [address] MCHC (RBC) [Mass/Vol] 33.5 g/dL Normal 31.4-36.0 [facility] Comment on above: Performed By: #### 1 9062894, 0204143, 9755024, 8332351, 26122261, 3939357, 8761508 ####[address] [place] [address] MCV (RBC) [Entitic vol] 90.8 fL Normal 80.0-100.0 [facility] Comment on above: Performed By: #### 1 0697300, 6529437, 5204279, 8012382, 31714733, 9264279, 9995043 ####[address] [place] [address] Platelet mean volume (Bld) [Entitic vol] 7.0 fL Normal 6.4-10.8 [facility] Comment on above: Performed By: #### 1 4561801, 5160133, 9315696, 8436150, 49748977, 8093035, 0994840 ####[address] [place] [address] Platelets (Bld) [#/Vol] 164.0 E9/L Normal 150.0-500.0 [facility] Comment on above: Performed By: #### 1 4599975, 7461232, 9660360, 8410767, 99876167, 9914212, 8251303 ####[address] [address] RBC (Bld) [#/Vol] 3.9 E12/L Low 4.3-5.9 [facility] Comment on above: Performed By: #### 1 9594776, 3155142, 5999614, 1802549, 36590176, 9549510, 8075623 ####[address] [place] [address] WBC corrected for nucl RBC Auto (Bld) [#/Vol] 4.0 E9/L Normal 4.0-11.0 [facility] Comment on above: Result Comment: Slid e reviewed by BC. Performed By: #### 1 0411188, 7851236, 8144661, 5626174, 39165918, 1332542, 6943768 ####[address] [place] [address] CHEMISTRYOrdered By: SYSTEM SYSTEM on 05-23-2023 Lactate [...] 50 mL/min/1.73 m2 Low >=59mL/min/1 .73 m2 [facility] Chem S Comment on above: Interpretive Data: C hronic kidney disease could be indicated at eGFR's of less than 60 mL/min/1.73m2. Kidney failure is indicated at less than 15 mL/min/1.73m2. Globulin (S) [Mass/Vol] 2.9 g/dL Normal 1.4 - 4.0 gm/dL [facility] Remisol Glucose [Mass/Vol] 122 mg/dL Normal 55 - 199 mg/dL [facility] Remisol Comment on above: Interpretive Data: I f this glucose result represents a fasting glucose, interpretation should refer to the following reference range: 55-99 mg/dL Lactate [Mass/Vol] 1.3 mmol/L Normal 0.5 - 2.2 mmol/L [facility] Remisol Potassium [Moles/Vol] 3.4 mmol/L Low 3.5 - 5.3 mmol/L [facility] Remisol Protein [Mass/Vol] 5.1 g/dL Low 6.0 - 7.8 gm/dL [facility] Remisol Sodium [Moles/Vol] 134 mmol/L Low 135 - 145 mmol/L [facility] Remisol Troponin I.cardiac [Mass/Vol] 9.10 pg/mL Low 15.90 - 38.40 pg/mL [facility] Remisol Comment on above: Interpretive Data: T he 95% CI (Confidence Interval) PPV (Positive Predictive Value) for myocardial infarction in females is 38 pg/mL, in males 51 pg/mL. The results should be used in conjunction with clinical conditions of myocardial infarction. (Access High Sensitivity Troponin I Instructions For Use, Preston Soumya, March 2018) Urea nitrogen [Mass/Vol] 23 mg/dL High 5 - 21 mg/dL [facility] Urea nitrogen/Creatinine [Mass ratio] 16 mg/mg Normal 10 - 20 [facility] CHEMISTRYOrdered By: Rosalino ROP User on 05-23-2023 Glucose [Mass/Vol] 134 mg/dL High 55 - 99 mg/dL [facility] POC Subsection POC Username DUNIA, ROMINA Invalid Interpretation Code [facility] POC Subsection Sodium [Moles/Vol] 567033321719 mmol/L Invalid Interpretation Code [facility] POC Subsection Sodium [Moles/Vol] 765620799 mmol/L Invalid Interpretation Code [facility] POC Subsection CMPon 05-23-2023 Albumin [Mass/Vol] 2.2 g/dL Low 3.3-5.0 [facility] Comment on above: Performed By: #### 1 5086176, 5930868, 8090656, 9915650, 29416605, 4165622, 1110842 ####[facility] [address] [place] [address] Albumin/Globulin (S) [Mass conc ratio] 0.8 Low 1.1-2.2 [facility] Comment on above: Performed By: #### 1 6044658, 4483054, 5518830, 5370498, 01175274, 1113720, 7149623 ####[facility] [address] [place] [address] ALP [Catalytic activity/Vol] 106 Int._Unit/L High 21-98 [facility] Comment on above: Performed By: #### 1 6885447, 3819645, 8965379, 4665043, 84438142, 5823341, 0504537 ####[facility] [address] [place] [address] ALT No additional P-5'-P [Catalytic activity/Vol] 12 Int._Unit/L Normal 6-46 [facility] Comment on above: Performed By: #### 1 6214190, 4443516, 4813074, 9494603, 87966100, 4745674, 4284161 ####[facility] [address] [place] [address] AST [Catalytic activity/Vol] 18 Int._Unit/L Normal 5-43 [facility] Comment on above: Performed By: #### 1 2350658, 1965182, 3464795, 3665705, 82791171, 6263197, 5113169 ####[facility] [address] [place] [address] Bilirubin [Mass/Vol] 0.7 mg/dL Normal 0.0-1.1 [facility] Comment on above: Performed By: #### 1 7729529, 8036060, 3323878, 9047856, 02329264, 4672513, 3862142 ####[facility] [address] [place] [address] Creatinine [Mass/Vol] 1.4 mg/dL High 0.5-1.3 [facility] Comment on above: Performed By: #### 1 6675481, 7150043, 4705086, 7153108, 57857434, 1559697, 9364043 ####[facility] [address] [place] [address] Globulin (S) [Mass/Vol] 2.9 g/dL Normal 1.4-4.0 [facility] Comment on above: Performed By: #### 1 7541637, 1460363, 0920501, 8359812, 02183724, 2914682, 6878774 ####[facility] [address] [place] [address] Protein [Mass/Vol] 5.1 g/dL Low 6.0-7.8 [facility] Comment on above: Performed By: #### 1 6515275, 6876177, 0576046, 3439846, 92870962, 3523092, 1285328 ####[facility] [address] [place] [address] Urea nitrogen [Mass/Vol] 23 mg/dL High 5-21 [facility] Comment on above: Performed By: #### 1 2522732, 7567147, 5164059, 1059628, 00110924, 9326368, 1597315 ####[facility] [address] [place] [address] Urea nitrogen/Creatinine [Mass ratio] 16 No Units Normal 10-20 [facility] Comment on above: Performed By: #### 1 3046538, 7032794, 7909786, 3919943, 24887942, 6048776, 3796068 ####[facility] [address] [place] [address] Anion gap [Moles/Vol] 9 mmol/L Normal 6-16 [facility] Comment on above: Performed By: #### 1 3742109, 4293055, 0177293, 6257933, 34158466, 6534421, 0389160 ####[facility] [address] [place] [address] Calcium [Mass/Vol] 7.7 mg/dL Low 8.9-11.1 [facility] Comment on above: Performed By: #### 1 4678841, 0146857, 6671893, 5566981, 06284175, 9734152, 1710573 ####[facility] [address] [place] [address] Chloride [Moles/Vol] 102 mmol/L Normal 101-111 [facility] Comment on above: Performed By: #### 1 1301608, 2670736, 4447541, 2750629, 44618718, 2456883, 3904334 ####[facility] [address] [place] [address] CO2 [Moles/Vol] 26 mmol/L Normal 21-31 [facility] Comment on above: Performed By: #### 1 3911795, 6147941, 1332093, 6589707, 60719026, 8629297, 0236443 ####[facility] [address] [place] [address] Glucose [Mass/Vol] 122 mg/dL Normal 55-199 [facility] Comment on above: Result Comment: If t his glucose result represents a fasting glucose, interpretation should refer to the following reference range: 55-99 mg/dL Performed By: #### 1 9461569, 3112197, 4600759, 6611542, 23540038, 4753209, 7531247 ####[facility] [address] [place] [address] Potassium [Moles/Vol] 3.4 mmol/L Low 3.5-5.3 [facility] Comment on above: Performed By: #### 1 8313051, 3959411, 1965266, 7767755, 03412563, 9562972, 4162289 ####[facility] [address] [place] [address] Sodium [Moles/Vol] 134 mmol/L Low 135-145 [facility] Comment on above: Performed By: #### 1 7319432, 2381109, 6914837, 2381348, 54595614, 6085136, 8483374 ####[facility] [address] [place] [address] COAGULATIONOrdered By: Lorie Ha on 05-23-2023 aPTT Coag (PPP) [Time] 35.2 s Normal 25.1 - 36.5 second(s) [facility] Auto Coag Comment on above: Interpretive Data: [...] the same coagulation reagent and instrumentation as [facility]. Currently there are no coagulation studies available worldwide for children to 14 days, and no normal ranges. Heparin therapeutic range (represented by Anti-Factor Xa activity of 0.2 - 0.4 U/mL) corresponds to PTT of 56.6 - 109.0 sec. INR Coag (PPP) [Relative time] 1.5 {INR} Invalid Interpretation Code [facility] Auto Coag Comment on above: Interpretive Data: I NR results are specifically intended to assess patients stabilized on long-term Anticoagulation therapy suggested INR s Less Intensive Anticoagulation 2.0 3.0 Conventional Range 3.0 4.5 PT Coag (PPP) [Time] 17.0 s High 9.4 - 1 2.5 second(s) [facility] Auto Coag Comment on above: Interpretive Data: [...] the same coagulation reagent and instrumentation as [facility]. Currently there are no coagulation studies available [...] Oral contrast amount in ml's: 0 Normal [facility] CTA Cheston 05-23-2023 CTA Chest Exam Date/Time: [...] Contrast amount in ml's: 100 Normal [facility] Capillary Glucose POCon 10-1 8-2023 Glucose [Mass/Vol] 134 mg/dL High 55-99 [facility] Comment on above: Performed By: #### 2 [id number] ####[facility] [address] [place] [address] Consent for Treatmenton 05-06 Consent for Treatment [id number]# 1.00TIFF Normal [facility] DNR - Do Not Resuscitateon DNR - Do Not Resuscitate [id number]# 1.00TIFF Normal [facility] ED Clinical Summaryon 2022 ED Clinical Summary [address] [address] ED Clinical Summary Person Information Name: CAREN THORNE [facility] Age: 83 Years : 1940 Sex: Male Language: Angolan PCP: ABDELRAHMAN REYNOSO DO Marital Status: Unknown Phone: [phone] Visit Id: Visit Reason: Syncope/Near syncope; unresponsive [...] 12:57:59 Patient Care Request 05/23/2023 15:25:12 ADDRESS: [address] [place] [phone] [facility] DOC NOTES: MEDICAL INFORMATION: Prescriptions Given: [...] 3:Acute renal failure; 4:Hypokalemia; 5:Hyponatremia; 6:Afib Normal [facility] ED Note-Physicianon 05-23-20 ED Note-Physician Basic Information Time Seen: Higinio Reyna DO 05/23/2023 09:07 Chief Complaint Pt had unresponsive episode at alf. Pt was out for a reported 5 minutes. hypotensive History of Present Illness 83-year-old male to the emergency department with chief complaint of low blood pressure. Patient is a resident at [facility]. Patient reports he feels fine. He denies [...] They are unable to produce a DNR. [facility] is unable to produce a DNR. Patient's daughter who is power of prosecuting attorney is at the bedside. Patient's sister is also at the bedside who helps support decisions made by the daughter. Long conv (more content not included)... Normal [facility] Comment on above: Result Comment: Elec tronically Signed By: Higinio Reyna DO\.br\Date and Time Signed: 05/23/23 15:39 EDT ED Patient Education Noteon 05-23-2023 ED Patient Education Note Normal [facility] ED Patient Summaryon 023 ED Patient Summary [place] [address] Patient Discharge Instructions Person Information Name: CAREN THORNE Age: 83 Years Arrival Date: 05/23/2023 08:52:31 Discharge Diagnosis: 1:Septic shock; 2:UTI (urinary tract infection); 3:Acute renal failure; 4:Hypokalemia; 5:Hyponatremia; 6:Afib Primary Care Physician: ABDELRAHMAN REYNOSO DO Provider Information Primary Provider: Higinio Reyna DO Advanced Orthodontist Vice President:None The exam and treatment you received in the Emergency Department were for an urgent problem and are not intended as complete care. It is important that you follow up with a doctor, nurse practitioner, or physician?s assistant portfolio manager for ongoing care. If your symptoms become [...] opioids can be used to help relieve xyprpbuj-zr-tblpng pain and are often prescribed following a [...] struggling with addiction, tell your health career guidance counselor and ask for guidance or call [facility]?S National Helpline at 2-733-846-SMSB. h Source: [place] Department of Health and Human Services/Center for Disease Control & Prevention (more content not included)... Normal [facility] EMS Documentationon 05-23-20 EMS Documentation Please click on link to see report [facility] Comment on above: Result Comment: Miss higuera Attachment - attachment exceeds size limitation [id number] Can be viewed in source system Formson 05-23-2023 Forms [id number]# 1.00TIFF [facility] HEMATOLOGYOrdered By: SYSTEM SYSTEM on 05-23-2023 [...] Inpatient Clinical Summaryon 05-23-2023 Inpatient Clinical Summary [address] [address] Clinical Summary Person Information: Name: CAREN THORNE Age: 83 Years : 1940 Sex: Male PCP: ABDELRAHMAN REYNOSO DO Marital Status: Unknown Phone: [phone] Race: White Ethnicity: Non- or Language: Angolan Visit Id: Visit Reason: Syncope/Near syncope; unresponsive Speciality: Acuity: Enc Type: Inpatient Med Service: Medical Arrival: 05/23/2023 08:52:31 Discharge: Dispo Type: Address: [address] [place] [phone] Provider Notes: Diagnosis: 1:Septic shock; 2:UTI (urinary [...] Physician: Follow up: Patient Education Information: Normal [facility] Inpatient Patient Summaryon 05-23-2023 Inpatient Patient Summary [address] [address] Patient Discharge Instructions PERSON INFORMATION [...] to serve you. Thank you for choosing [facility] Normal [facility] Lactic Acidon 05-23-2023 Lactate [Mass/Vol] 1.6 mmol/L Normal 0.5-2.2 [facility] Comment on above: Performed By: #### 2 631803 ####[address] [place] [address] Lactate [Mass/Vol] 1.3 mmol/L Normal 0.5-2.2 [facility] Comment on above: Performed By: #### 1 5626802, 1420030, 7198943, 0328312, 02344943, 1996368, 3379902 ####[address] [place] [address] Monitor Recordon 05-23-2023 Monitor Record [id number]# 1.00TIFF Normal [facility] Monitor Record [id number]# 1.00TIFF Normal [facility] Monitor Record [id number]# 1.00TIFF Normal [facility] No Panel InformationOrdered By: ANGPROCESSSERVER MICROBIOLOGY on 05-23-2023 Blood Culture Charcoal No growth at 2 da ys. Final to follow at 7 days. [facility] Blood Culture Charcoal No growth at 2 da ys. Final to follow at 7 days. [facility] Penitentiary Recordson 05-23 Penitentiary Records [id number]# 1.00TIFF Normal [facility] PIPERACILLIN+TAZOBACTAM:SUSC :PT:ISOLATE:ORDQN:MICOrdered By: Lakia Crowder on 05-23-2023 Piperacillin+Tazobacta m ROBBY [Susc] >100,000 cfu/ml Citrobacter youngae [facility] PT & PTTon 05-23-2023 aPTT Coag (PPP) [Time] 35.2 second(s) Normal 25.1-36.5 [facility] Comment on above: Result Comment: Para meter [...] the same coagulation reagent and instrumentation as [facility]. Currently there are no coagulation studies available worldwide for children to 14 days, and no normal ranges. Heparin therapeutic range (represented by Anti-Factor Xa activity of 0.2 - 0.4 U/mL) corresponds to PTT of 56.6 - 109.0 sec. Performed By: #### 1 5100549, 3202740, 3058080, 0979913, 42376123, 9123881, 9385759 ####[facility] [address] [place] [address] INR Coag (PPP) [Relative time] 1.5 {INR} Invalid Interpretation Code [facility] Comment on above: Result Comment: INR results are specifically intended to assess patients stabilized on long-term Anticoagulation therapy suggested INR?s ?Less Intensive Anticoagulation? 2.0 ? 3.0 Conventional Range 3.0 ? 4.5 Performed By: #### 1 5597661, 0589079, 1347339, 5158295, 08518843, 7447482, 2081063 ####[facility] [address] [place] [address] PT Coag (PPP) [Time] 17.0 second(s) High 9.4-12.5 [facility] Comment on above: Result Comment: 15 d [...] the same coagulation reagent and instrumentation as [facility]. Currently there are no coagulation studies available worldwide for children to 14 days, and no normal ranges. Performed By: #### 1 8025360, 8982065, 4931520, 0591010, 70037910, 4262596, 3934761 ####[facility] [address] [place] [address] Piperacillin+Tazobactam ROBBY [Susc]Ordered By: Lakia Crowder on 05-23-2023 Citrobacter youngae Citrobacter youngae [facility] Pre-Arrival Noteon 3 Pre-Arrival Note [facility]: 05/23/2023 08:53:11 EDT Gender: Male Date of : Age: 83 Pre-Arrival Type: EMS ETA: 05/23/2023 09:10:00 EDT Primary Care Physician: Presenting Problem: low BP/unresponsive awake now Pre-Arrival User: Gianna CALHOUN, Cristopher Lala Referring Source: Location: [place] Completion Date/Time: 05/23/2023 08:41:00 [facility] Emergency Department Pre-Hospital Report Form Vital Signs: Pre-Hospital Report: Treatment in Route: Response to Treatment: Misc. Issues: Normal [facility] Troponinon 05-23-2023 Troponin I.cardiac [Mass/Vol] 9.10 pg/mL Low 15.90-38.40 [facility] Comment on above: Result Comment: The 95% CI (Confidence Interval) PPV (Positive Predictive Value) for myocardial infarction in females is 38 pg/mL, in males 51 pg/mL. The results should be used in conjunction with clinical conditions of myocardial infarction. (Access High Sensitivity Troponin I Instructions For Use, [employer], March 2018) Performed By: #### 1 8000883, 9467058, 1128464, 5851916, 50002215, 4644599, 2124094 ####[facility] [address] [place] [address] UA With Cult Reflexon 2022 Bacteria LM Ql (Urine sed) 2+ /HPF Abnormal Trace [facility] Comment on above: Performed By: #### 1 8290553, 2117213 ####[address] [address] Bilirubin Ql (U) Negative Normal Negative [facility] Comment on above: Performed By: #### 1 6364109, 9282743 ####[address] [address] Clarity (U) SL CLOUDY Invalid Interpretation Code [facility] Comment on above: Performed By: #### 1 5040933, 3449377 ####[address] [address] Color (U) YELLOW Normal Yellow [facility] Comment on above: Performed By: #### 1 4647200, 5482105 ####[address] [address] Epithelial cells.squamous LM.HPF (Urine sed) [#/Area] 3-4 Normal 0-2 [facility] Comment on above: Performed By: #### 1 9624713, 9137791 ####[facility] [address] [place] [address] Glucose Test strip (U) [Mass/Vol] Negative Normal Negative [facility] Comment on above: Performed By: #### 1 6958111, 3854243 ####[facility] [address] [place] [address] Hemoglobin Ql (U) 1+ Abnormal Negative [facility] Comment on above: Performed By: #### 1 4548195, 8323831 ####[address] [place] [address] Ketones (U) [Mass/Vol] Negative Normal Negative [facility] Comment on above: Performed By: #### 1 8894810, 6339431 ####[address] [address] Tabiona.plasma/Tabiona .RBC (Bld) [Mass ratio] 4-20 Normal 0-3 [facility] Comment on above: Performed By: #### 1 5749176, 8337947 ####[address] [address] Nitrite Ql (U) Positive Abnormal Negative [facility] Comment on above: Performed By: #### 1 6477614, 5254491 ####[address] [address] pH (U) 7.0 [pH] Invalid Interpretation Code 5.0-9.0 [facility] Comment on above: Performed By: #### 1 8487381, 7568629 ####[address] [address] Protein (U) [Mass/Vol] 1+ Abnormal Negative [facility] Comment on above: Performed By: #### 1 4868490, 2853958 ####[address] [address] Specific gravity (U) [Rel density] 1.010 Invalid Interpretation Code 1.005-1.030 [facility] Comment on above: Performed By: #### 1 7224819, 2655502 ####[facility] [place] [address] Type of Urine collection method Cook Normal [facility] Comment on above: Performed By: #### 1 6795338, 9024223 ####[facility] [address] [place] [address] Urobilinogen Qn (U) 0.2 {Maki'U}/dL Normal 0.0-1.0 [facility] Comment on above: Performed By: #### 1 6760607, 4299710 ####[facility] [address] [place] [address] WBC Auto Ql (U) 3+ Abnormal Negative [facility] Comment on above: Performed By: #### 1 4597656, 2912550 ####[facility] [address] [place] [address] WBC LM.HPF (Urine sed) [#/Area] /[HPF] Abnormal 0-5 [facility] Comment on above: Performed By: #### 1 8943010, 9372269 ####[facility] [address] [place] [address] URINALYSISOrdered By: Michael Ha on 05-23-2023 Bacteria LM Ql (Urine sed) 2+ /HPF Invalid Interpretation Code Trace/HPF [facility] UA Auto SS Bilirubin Ql (U) Negative (05/23/23 11:36 AM) Normal Negative [facility] UA Auto SS Clarity (U) SL CLOUDY Invalid Interpretation Code FT UA Auto SS Color (U) Yellow (05/23/23 11:36 AM) Normal Yellow [facility] UA Auto SS Epithelial cells.squamous LM.HPF (Urine sed) [#/Area] 3-4 /HPF Normal 0-2/HPF [facility] UA Aut o SS Glucose Test strip (U) [Mass/Vol] Negative (05/23/23 11:36 AM) Normal Negative [facility] UA Auto SS Hemoglobin Ql (U) 1+ *ABN* (05/23/23 11:36 AM) Invalid Interpretation Code Negative [facility] UA Auto SS Ketones (U) [Mass/Vol] Negative (05/23/23 11:36 AM) Normal Negative [facility] UA Auto SS Tabiona.plasma/Tabiona .RBC (Bld) [Mass ratio] 4-20 /HPF Normal [...] [facility] UA Auto SS Urobilinogen Qn (U) [id number] {Maki'U}/dL Normal 0.0 - 1.0 EU/dL [facility] [...] mGy = na DAP = na Normal [facility] eGFRon 05-23-2023 GFR/1.73 sq M.predicted among non-blacks MDRD (S/P/Bld) [Vol rate/Area] 50 mL/min/1.73 m2 Low >=59 [facility] Comment on above: Order Comment: Order added by Discern Expert. Result Comment: [employer] Machine Operator bety kidney disease could be indicated at eGFR's of less than 60 mL/min/1.73m2. Kidney failure is indicated at less than 15 mL/min/1.73m2. Performed By: #### 1 [id number] ####[facility] [id number] [place] [address] CBC AUTO DIFFon 11-25-2021 BASO # 0.1 103/ul Normal 0.0-0.1 [facility] Comment on above: Performed By: #### C BC #### [facility] [address] [place] [address] Dr. Mychal Jordan Basophils/100 WBC (Bld) 1.1 % Normal 0.2-2.0 [facility] Comment on above: Performed By: #### C BC #### [facility] [address] [place] [address] Dr. Mychal Jordan EO # 0.4 103/ul Normal 0.0-0.7 [facility] Comment on above: Performed By: #### C BC #### [facility] [address] [place] [address] Dr. Mychal Jordan Eosinophils/100 WBC (Bld) 3.6 % Normal 0.9-7.0 [facility] Comment on above: Performed By: #### C BC #### [facility] [address] [place] [address] Dr. Mychal Jordan Erythrocyte distribution width (RBC) [Ratio] 14.1 % Normal 11.0-15.0 [facility] Comment on above: Performed By: #### C BC #### [facility] [address] [place] [address] Dr. Mychal Jordan Hematocrit (Bld) [Volume fraction] 44.8 % Normal 42.0-54.0 [facility] Comment on above: Performed By: #### C BC #### [facility] [address] [place] [address] Dr. Mychal Jordan Hemoglobin (Bld) [Mass/Vol] 14.5 g/dL Normal 14.0-18.0 [facility] Comment on above: Performed By: #### C BC #### [facility] [address] [place] [address] Dr. Mychal Jordan IG # 0.06 10e3/ul Critically high 0.00-0.03 [facility] Comment on above: Performed By: #### C BC #### [facility] [address] [place] [address] Dr. Mychal Jordan IG % 0.6 % Critically high 0.0-0.5 [facility] Comment on above: Performed By: #### C BC #### [facility] [address] [place] [address] Dr. Mychal Jordan LYMPH # 1.4 103/ul Normal 1.2-3.8 [facility] Comment on above: Performed By: #### C BC #### [facility] [address] [place] [address] Dr. Mychal Jordan Lymphocytes/100 WBC (Bld) 14.2 % Critically low 20.5-60.0 [facility] Comment on above: Performed By: #### C BC #### [facility] [address] [place] [address] Dr. Mychal Jordan MANUAL DIFF REQ NO Normal [facility] Comment on above: Performed By: #### C BC #### [facility] [address] [place] [address] Dr. Mychal Jordan MCH (RBC) [Entitic mass] 30.8 pg Normal 25.9-34.0 [facility] Comment on above: Performed By: #### C BC #### [facility] [address] [place] [address] Dr. Mychal Jordan MCHC (RBC) [Mass/Vol] 32.4 g/dL Normal 29.9-35.2 [facility] Comment on above: Performed By: #### C BC #### [facility] [address] [address] [address] Mychal Jordan MCV (RBC) [Entitic vol] 95.1 fL Critically high 80.0-94.0 [facility] Comment on above: Performed By: #### C BC #### [facility] [address] [place] [address] Dr. Mychal Jordan MONO # 0.9 103/ul Critically high 0.3-0.8 [facility] Comment on above: Performed By: #### C BC #### [facility] [address] [place] [address] Dr. Mychal Jordan Monocytes/100 WBC (Bld) 8.6 % Normal 1.7-12.0 [facility] Comment on above: Performed By: #### C BC #### [facility] [address] [place] [address] Dr. Mychal Jordan NEUT # 7.2 103/ul Critically high 1.4-6.5 [facility] Comment on above: Performed By: #### C BC #### [facility] [address] [place] [address] Dr. Mychal Jordan Neutrophils/100 WBC (Bld) 71.9 % Normal 43.0-75.0 [facility] Comment on above: Performed By: #### C BC #### [facility] [address] [place] [address] Dr. Mychal Jordan Platelet mean volume (Bld) [Entitic vol] 8.6 fL Critically low 9.5-13.5 [facility] Comment on above: Performed By: #### C BC #### [facility] [address] [place] [address] Dr. Mychal Jordan PLT 237 103/ul Normal 150-450 [facility] Comment on above: Performed By: #### C BC #### [facility] [address] [place] [address] Dr. Mychal Jordan RBC 4.71 106/ul Normal 4.70-6.10 [facility] Comment on above: Performed By: #### C BC #### [facility] [address] [place] [address] Dr. Mychal Jordan WBC 10.0 103/ul Normal 4.0-11.0 [facility] Comment on above: Performed By: #### C BC #### [facility] [address] [place] [address] Dr. Mychal Jordan PROF CHEM 8 (BAS METB)on Anion gap [Moles/Vol] 11.8 mmol/L Normal Th [facility] Comment on above: Performed By: #### B MP, URIC, TSH #### [facility] [address] [place] [address] Dr. Mychal Jordan Calcium [Mass/Vol] 8.6 mg/dL Normal 8.5-10.1 [facility] Comment on above: Performed By: #### B MP, URIC, TSH #### [facility] [address] [place] [address] Dr. Mychal Jordan Chloride [Moles/Vol] 100 mmol/L Normal 98-107 [facility] Comment on above: Performed By: #### B MP, URIC, TSH #### [facility] [address] [place] [address] Dr. Mychal Jordan CO2 [Moles/Vol] 29.1 mmol/L Normal 22.0-30.0 [facility] Comment on above: Performed By: #### B MP, URIC, TSH #### [facility] [address] [place] [address] Dr. Mychal Jordan Creatinine [Mass/Vol] 1.66 mg/dL Critically high 0.66-1.25 [facility] Comment on above: Performed By: #### B MP, URIC, TSH #### [facility] [address] [place] [address] Dr. Mychal Jordan EGFR-AF HUNGARIAN 48 mL/min/1.73m2 Critically low >=60 [facility] Comment on above: Performed By: #### B MP, URIC, TSH #### [facility] [address] [place] [address] Dr. Mychal Jordan EGFR-NON AF HUNGARIAN 40 mL/min/1.73m2 Critically low >=60 [facility] Comment on above: Performed By: #### B MP, URIC, TSH #### [facility] [address] [address] [address] Mychal Jordan Glucose [Mass/Vol] 114 mg/dL Critically high 74-[address] [facility] Comment on above: Performed By: #### B MP, URIC, TSH #### [facility] [address] [address] [address] Mychal Jordan Potassium [Moles/Vol] 3.9 mmol/L Normal 3.4-5.0 [facility] Comment on above: Performed By: #### B MP, URIC, TSH #### [facility] [address] [address] [address] Mychal Jordan Sodium [Moles/Vol] 137 mmol/L Normal 137-145 [facility] Comment on above: Performed By: #### B MP, URIC, TSH #### [facility] [address] [address] [address] Mychal Jordan Urea nitrogen [Mass/Vol] 22.0 mg/dL Critically high 7.0-18.0 [facility] Comment on above: Performed By: #### B MP, URIC, TSH #### [facility] [address] [address] [address] Mychal Jordan Urea nitrogen/Creatinine [Mass ratio] 13.3 mg/mg Normal [facility] Comment on above: Performed By: #### B MP, URIC, TSH #### [facility] [address] [address] [address] Mychal Jordan TSHon 11-25-2021 TSH 1.779 uIU/mL Normal 0.470-4.680 [facility] Comment on above: Performed By: #### B MP, URIC, TSH #### [facility] [address] [address] [address] Mychal Jordan TSH RANGE SEE BELOW Normal [facility] Comment on above: Result Comment: <0.3 4 UIU/ml HYPERTHYROID 0.34-5.60 UIU/ml EUTHYROID >5.60 UIU/ml HYPOTHYROID Performed By: #### B MP, URIC, TSH #### [facility] [address] [place], [place] [address] Dr. Mychal Jordan URIC ACID SERUMon 11-25-2021 Urate [Mass/Vol] 7.6 mg/dL Normal 3.5-8.5 [facility] Comment on above: Performed By: #### B MP, URIC, TSH #### [facility] [address] [address] [address] Mychal Jordan Vital Signs Date Time Vital Sign Value Performing Clinician Faci lity 05-25-2023 14:15-0400 Hourly Rounding [facility] 05-25-2023 14:15-0400 Promise to Return [facility] 05-25-2023 14:00-0400 Blood Pressure Location [facility] 05-25-2023 14:00-0400 Heart rate 85 /min [facility] 05-25-2023 14:00-0400 Respiratory rate 17 /min [facility] 05-25-2023 13:35-0400 Hourly [address] [facility] 05-25-2023 13:35-0400 Promise to Return [facility] 05-25-2023 12:23-0400 Hourly [address] [facility] 05-25-2023 12:23-0400 Promise to Return [facility] 05-25-2023 11:31-0400 Heart rate 80 /min [facility] 05-25-2023 11:31-0400 SaO2% (BldA) [Mass fraction] 97 % [facility] 05-25-2023 11:31-0400 Body temperature 97.16 [degF] [facility] 05-25-2023 11:31-0400 Diastolic blood pressure 80 mm[Hg] [facility] 05-25-[facility]23 11:31-0400 Mean blood pressure 102 mm[Hg] [facility]-25-[facility]23 11:31-0400 Systolic blood pressure 147 mm[Hg] [facility] 05-25-2023 10:23-0400 Diastolic blood pressure 74 mm[Hg] [facility] 05-25-2023 10:23-0400 Systolic blood pressure 132 mm[Hg] [facility] 05-25-2023 07:49-0400 Heart rate 94 /min [facility] 05-25-2023 07:49-0400 Body temperature 97.88 [degF] [facility] 05-25-2023 07:49-0400 Diastolic blood pressure 74 mm[Hg] [facility] 05-25-2023 07:49-0400 Mean blood pressure 94 mm[Hg] [facility] 05-25-2023 07:49-0400 Systolic blood pressure 132 mm[Hg] [facility] 05-24-2023 20:29-0400 Mean blood pressure 88 mm[Hg] [facility] 05-24-[facility]23 20:00-0400 Blood Pressure Location [facility] 05-24-2023 20:00-0400 Respiratory rate 18 /min [facility] 05-24-2023 14:00-0400 Mean blood pressure 87 mm[Hg] [facility] 05-24-2023 14:00-0400 Respiratory rate 17 /min [facility] 05-24-2023 13:00-0400 Mean blood pressure 69 mm[Hg] [facility] 05-24-2023 12:30-0400 Mean blood pressure 83 mm[Hg] [facility] 05-23-2023 20:00-0400 Body temperature 97.7 [degF] [facility] 05-23-2023 15:30-0400 Body temperature 97.52 [degF] [facility] 05-23-2023 15:30-0400 Heart rate 75 /min [facility] 05-23-2023 15:30-0400 Respiratory rate 22 /min [facility] 05-23-2023 09:10-0400 gluc 134 mg/dL [facility] 05-23-2023 09:10-[address] [facility] 05-23-2023 08:56-0400 Heart rate 84 /min [facility] 05-23-2023 08:56-0400 Respiratory rate 18 /min [facility] Encounters Encounter Date Encounter Type Care Provider Facility Start: 09-10-2023 ambulatory ABDELRAHMAN REYNOSO Facility[facility] Start: 08-04-2023 End: 08-04-2023 ambulatory Abdelrahman Reynoso Other [employer] Other Start: 08-04-2023 Telephone encounter Abdelrahman Reynoso [facility] Start: 08-02-2023 End: 08-02-2023 ambulatory Abdelrahman Reynoso Other [facility] Other Start: 08-02-2023 Telephone encounter Abdelrahman Reynoso [facility] Start: 07-27-2023 End: 07-27-2023 ambulatory Abdelrahman Reynoso Other [facility] Other Start: 07-27-2023 Telephone encounter Abdelrahman Reynoso [facility] Start: 07-26-2023 End: 07-26-2023 ambulatory Abdelrahman Reynoso Other [facility] Other Start: 07-26-2023 Sbsq nursing facil care/day new problem 25 min Abdelrahman Reynoso [facility] Start: 07-23-2023 ambulatory ABDELRAHMAN REYNOSO Facility: [facility] Start: 07-16-2023 End: 07-16-2023 ambulatory Abdelrahman Reynoso Other [employer] Other Start: 07-16-2023 Telephone encounter Abdelrahman Reynoso FP [facility] Start: 07-12-2023 End: 07-12-2023 ambulatory Abdelrahman Reynoso Other [facility] Other Start: 07-12-2023 Telephone encounter Abdelrahman Ball [facility] Start: 07-11-2023 End: 07-11-2023 ambulatory Abdelrahman Reynoso Other [facility] [employer] Other Start: 07-11-2023 Telephone encounter Abdelrahman Ball [facility] Start: 07-05-2023 End: 07-05-2023 ambulatory Abdelrahman Reynoso Other [facility] Other Start: 07-05-2023 Telephone encounter Abdelrahman Ball [facility] Start: 07-04-2023 End: 07-04-2023 ambulatory Abdelrahman Reynoso Other [facility] Other Start: 07-04-2023 Telephone encounter Abdelrahman Ball [facility] Start: 06-22-2023 End: 06-22-2023 ambulatory Abdelrahman Reynoso Other [facility] Other Start: 06-22-2023 Telephone encounter Abdelrahman Ball [facility] Start: 06-21-2023 End: 06-21-2023 ambulatory Abdelrahman Reynoso Other [facility] Other Start: 06-21-2023 Sbs nursing facil care/day new problem 25 min Abdelrahman Reynoso [facility] Start: 06-19-2023 End: 06-19-2023 ambulatory Abdelrahman Reynoso Other [facility] Other Start: 06-19-2023 Telephone encounter Abdelrahman Ball [facility] Start: 06-15-2023 End: 06-15-2023 ambulatory Abdelrahman Reynoso Other [facility] Other Start: 06-15-2023 Telephone encounter Abdelrahman Reynoso [facility] Start: 05-31-2023 End: 05-31-2023 ambulatory Abdelrahman Reynoso Other [facility] Other Start: 05-31-2023 Initial nursing facility care/day 35 minutes Abdelrahman Reynoso [facility] Start: 05-31-2023 Telephone encounter Abdelrahman Reynoso [facility] Start: 05-30-2023 End: 05-30-2023 ambulatory Abdelrahman Reynoso Other [facility] [employer] Other Start: 05-30-2023 Telephone encounter Abdelrahman Reynoso [facility] Start: 05-28-2023 End: 05-28-2023 ambulatory Abdelrahman Reynoso Other [facility] Other Start: 05-28-2023 Telephone encounter Abdelrahman Reynoso [facility] Start: 05-24-2023 End: 05-24-2023 ambulatory Abdelrahman Reynoso Other [facility] Other Start: 05-24-2023 Telephone encounter Abdelrahman Reynoso [facility] Start: 05-23-2023 End: 05-25-2023 Evaluation and management of inpatient [facility] Facility:[facility] Start: 05-23-2023 End: 05-25-2023 [facility] Start: 05-18-2023 End: 05-18-2023 ambulatory Abdelrahman Reynoso Other [employer] Other Start: 05-18-2023 Telephone encounter Abdelrahman Reynoso [facility] Start: 05-17-2023 End: 05-17-2023 ambulatory Abdelrahman Reynoso Other [facility] Other Start: 05-17-2023 Sbsq nursing facil care/day new problem 25 min Abdelrahman Reynoso [facility] Start: 05-15-2023 End: 05-15-2023 ambulatory Abdelrahman Reynoso Other [employer] Other Start: 05-15-2023 Telephone encounter Abdelrahman Reynoso [facility] Start: 05-10-2023 End: 05-10-2023 ambulatory Abdelrahman Reynoso Other [facility] Other Start: 05-10-2023 Sbsq nursing facil care/day new problem 25 min Abdelrahman Reynoso [facility] Start: 05-10-2023 Telephone encounter Abdelrahman Reynoso [facility] Start: 05-08-2023 End: 05-08-2023 ambulatory Abdelrahman Reynoso Other [facility] Other Start: 05-08-2023 Telephone encounter Abdelrahman Reynoso [facility] Start: 05-07-2023 End: 05-07-2023 ambulatory Abdelrahman Reynoso Other [employer] Other Start: 05-07-2023 Telephone encounter Abdelrahman Reynoso [facility] Start: 05-03-2023 End: 05-03-2023 ambulatory Abdelrahman Reynoso Other [facility] Other Start: 05-03-2023 Initial nursing facility care/day 45 minutes Abdelrahman Reynoso [facility] Start: 05-03-2023 Telephone encounter Abdelrahman Reynoso [facility] Start: 05-01-2023 End: 05-01-2023 ambulatory Abdelrahman Reynoso Other [facility] Other Start: 05-01-2023 Telephone encounter Abdelrahman Reynoso FP [facility] Start: 11-25-2021 End: 11-26-[address] ABDELRAHMAN REYNOSO Facility:[facility] Start: 06-19-[address] ABDELRAHMAN REYNOSO Facili ty:[facility] Start: 04-15-2020 Adult health examination Abdelrahman Reynoso Other [facility] Other Procedures Date Procedure Procedure Detail Performing [...] 05-10-2022 COVID-19 Pfizer (Pediatric) Abdelrahman Reynoso Other [facility] [employer] Other 05-10-2022 influenza virus vaccine, split virus (incl. purified surface antigen) Abdelrahman Reynoso Other [facility] Other 05-27-2021 influenza virus vaccine, split virus (incl. purified surface antigen) Abdelrahman Reynoso Other [facility] [employer] Other 09-08-2020 COVID-19 Vaccine Pfizer - Documentation Purposes Only Abdelrahman Reynoso Other [facility] Other 08-19-2020 COVID-19 Vaccine Moderna - Documentation Purposes Only Abdelrahman Reynoso Other [facility] [employer] Other 04-15-2020 influenza virus vaccine, split virus (incl. purified surface antigen) Abdelrahman Reynoso Other [facility] Other 05-15-2018 influenza virus vaccine, split virus (incl. purified surface antigen) Abdelrahman Reynoso Other [facility] [employer] Other 06-20-2017 influenza virus vaccine, split virus (incl. purified surface antigen) Abdelrahman Reynoso Other [facility] Other 06-19-2016 influenza virus vaccine, split virus (incl. purified surface antigen) Abdelrahman Reynoso Other [facility] Other 05-26-2015 pneumococcal conjuga te vaccine, 13 valent Abdelrahman Reynoso Other [facility] Other 05-19-2015 influenza virus vaccine, split virus (incl. purified surface antigen) Abdelrahman Reynoso Other [facility] Other 05-21-2014 tetanus and diphther ia toxoids, adsorbed, preservative free, for adult use (5 Lf of tetanus toxoid and 2 Lf of diphtheria toxoid) Abdelrahman Reynoso Other [facility] Other 06-27-2013 pneumococcal polysaccharide vaccine, 23 valent Abdelrahman Reynoso Other [facility] Other 05-08-2012 tetanus and diphther ia toxoids, adsorbed, preservative free, for adult use (5 Lf of tetanus toxoid and 2 Lf of diphtheria toxoid) Abdelrahman Reynoso Other [employer] Other pneumococcal Conjugate, unspecified formulation; Translations: [Need for prophylactic vaccination against Streptococcus pneumoniae (pneumococcus)] Abdelrahman Reynoso Other [employer] Other NEGATED: Highlighted row has not occurred!05-28-2019 influenza virus vaccine, split virus (incl. purified surface antigen) Abdelrahman Reynoso Other [facility] [employer] Other Payers Date Payer Category Payer Medicaid [id number] 1959 Self-pay [id number] 1959 Unknown [id number] 1940 Unknown [id number] 1940 Unknown [id number] [id number] 1940 Unknown [id number] [id number] 1940 Unknown [id number] [id number] 1940 Unknown [id number] [id number] Social History Date Type Detail Facility Sex Assigned At [facility] Tobacco smoking status No Smoking Status Entered [facility] Functional Status Date Assessment Result Facility 05-23-2023 Functional Status No [facility] 05-23-2023 Functional Status [facility] Clinical Notes 05-03-2023 to 07-26-2023 Note Date [...] are maintaining regular scheduled appts with their wrap turner. 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 - RADHA - Mild - Mildly elevated RVSP - Mildly dilated aortic root measuring 3.9 cm. [facility] Other 11-16-2023 Evaluation note* Encounter Date Diagnosis [...] are maintaining regular scheduled appts with their wrap turner. No bleeding complications Jun, Chronic venous insufficiency [...] prevent obstructive uropathy Continue FLomax. Refer to Sima Mosher? [facility] Other 11-14-2023 Evaluation note* Encounter Date Diagnosis Assessment Notes Treatment Notes Treatment Clinical Notes Jun, Acute on chronic diastolic heart failure (ICD-10 - I50.33) [facility] [employer] Other 11-10-2023 Evaluation note* Encounter Date Diagnosis Assessment Notes Treatment Notes Treatment Clinical Notes Jun, Acute idiopathic gout of right foot (ICD-10 - M10.071) [facility] Other 11-05-2023 NoteAdmission and Discharge Information Admit [...] mental status. Patient was found in the alf unresponsive today in the morning.Blood pressure was [...] infection, site not specified) Urine culture grew >[id number] gram negative Rods Rocephin 1 g daily [...] 52.8 % Lymph Auto - 22.0 % Taney Auto - 13.6 % Eos Auto - 10.7 % Basophil Auto - 0.9 % Neutro Absolute - 2.1 E9/L Lymph Absolute - 0.9 E9/L Taney Absolute - 0.6 E9/L Eos Absolute - [...] - 134 mg/dL POC Device SN - [id number] POC User ID - [id number] POC Username - ROMINA DUQUE CBC w/ [...] UA Ketones - NEGATIV (more content not included)...[facility] Comment on above:Result Comment: Electronically Signed By: MARISELA HERNANDEZ, Shanell\.br\Date and Time Signed: 06/10/23 [id number] Evaluation note* Encounter Date Diagnosis Assessment Notes Treatment Notes Treatment Clinical Notes May, Nonischemic cardiomyopathy (ICD-10 - I42.8) Healthy diet Monitor volume status May, Persistent atrial fibrillation (ICD-10 - I48.19) This patient is in NSR or rate controlled. This patient is anticoagulated to prevent thromboembolic events. They are maintaining regular scheduled appts with their wrap turner. No bleeding complications May, HFrEF (heart failure [...] monitor BP closely Care to avoid overdiuresis. [facility] [employer] Other 10-25-2023 NoteMicrobiology PROCEDURE: Blood Culture Charcoal [R1] SOURCE: Blood BODY SITE: Hand L COLLECTED DATE/TIME: 05/23/2023 09:29 EDT RECEIVED DATE/TIME: 05/23/2023 09:45 EDT START DATE/TIME: 05/23/2023 09:45 EDT FREE TEXT SOURCE: Higinio Reyna DO, DO, Kevin M. FINAL REPORTS Final Report [] Verified Date/Time: 05/30/2023 16:13 EDT No growth at 7 days. Performing Locations R1: This test was performed at: [facility], [address] [place] [address], [address] [place] [address], [email or web address] [facility] CenterComment on above:Performed By: #### [id number] ####[address] [id number] NoteMicrobiology PROCEDURE: Blood Culture Charcoal [R1] SOURCE: Blood BODY SITE: Hand R COLLECTED DATE/TIME: 05/23/2023 09:36 EDT RECEIVED DATE/TIME: 05/23/2023 09:45 EDT START DATE/TIME: 05/23/2023 09:45 EDT FREE TEXT SOURCE: Higinio Reyna DO, DO, Kevin M. FINAL REPORTS Final Report [] Verified Date/Time: 05/30/2023 16:12 EDT No growth at 7 days. Performing Locations R1: This test was performed at: [facility], [address] [place] [address], [address] [place] [address], [address] Hunt StreetComment on above:Performed By: #### [id number] ####[address] [id number] Hospital Discharge instructions Patient Education 05/25/2023 09:25:41 [...] improvement. Follow these instructions at home: Take makh-enf-oyqidfe and prescription medicines only as told by [...] provider. Document Revised: 01/31/2022 Document Reviewed: 01/31/2022 [employer] Patient Education 2022 Shoptiques. 05/25/2023 09:25:38 Hypokalemia Hypokalemia Hypokalemia means that [...] products, such as yogurt. General instructions Take zbre-jgv-fcswvwz and prescription medicines only as told by [...] provider. Document Revised: 04/06/2022 Document Reviewed: 04/06/2022 [employer] Patient Education 2022 Shopt[employer]. 05/25/2023 09:25:34 Urinary Tract Infection, Adult Urinary [...] Treatment for this condition includes: Antibiotic medicine. Arta-rfw-hsoyogj medicines to treat discomfort. Drinking enough water [...] Follow these instructions at home: Medicines Take fvvv-tnk-gbpvowm and prescription medicines only as told by [...] provider. Document Revised: 03/04/2021 Document Reviewed: 03/04/2021 [employer] Patient Education 2022 Shopt[employer]. 05/25/2023 09:25:27 Sepsis, Diagnosis, Adult Sepsis, Diagnosis, [...] Follow these instructions at home: Medicines Take bcuw-mbo-cuwbrin and prescription medicines only as told by [...] provider. Document Revised: 06/06/2021 Document Reviewed: 06/06/2021 [employer] Patient Education 2022 [employer]. 05/25/2023 09:25:19 Acute Kidney Injury, Adult Acute [...] Follow these instructions at home: Medicines Take yknt-pxt-vayfrbx and prescription medicines only as told by [...] follow-up visits. Where to find more information [employer]: www.aakp.org National Kidney Foundation: www.kidney.org [employer]: www.akfinc.org Medical Education Ennice: ?LifeOptions: www.lifeoptions.org ?Kidney School: www.kidneyschool.org Contact a health care provider if: Your symptoms get worse. You have new symptoms such as: ?Headaches. ?Skin that is darker or database engineer than normal. ?Easy bruising. ?Itchiness. ?Hiccups. ?Lack [...] provider. Document Revised: 07/10/2022 Document Reviewed: 06/01/2020 [employer] Patient Education 2022 Shoptiques. Follow Up Care 05/23/2023 08:53:10 With:ABDELRAHMAN REYNOSO Address: [address] [place] [phone] (1) When: Unknown [facility]10-19-2023 NoteOt [facility] six clicks score 1224 = SNF. Pt requires assist w/ all transfers and Iadls. Inpatient OT services to follow daily to progress as able w/ Adls/transfers.[facility] 05-24-2023 NotePT Evaluation completed with an AMPA score of 8/24. Pt currently requires Mod A for bed mobility, but able to maintain sitting balance x 6 min with CGA. Pt did perform LE sitting exercises. Did not perform transfers as pt states he uses a Taya lit for transfers. Will follow daily, but would recommend returning to SNF [facility] NoteChief Complaint Pt had unresponsive episode at alf. Pt was out for a reported 5 minutes. hypotensive History of Present Illness 83-year-old white male past medical history of hypertension, A-fib, BPH presented to emergency roomwith change mental status. Patient was found in the alf unresponsive today in the morning.Blood pressure was [...] 90.8 fL (05/23/23 09:29:00) MCH: 30.4 pg (05/23/23 09:29:00) MCHC: 33.5 gm/dL (05/23/23 09:29:00) RDW: 16.5 % High (05/23/23 09:29:00) Platelet: 164 E9/L (05/23/23 09:29:00) MPV: 7 fL (05/23/23 09:29:00) Neutro Auto: 52.8 % (05/23/23 09:29:00) Lymph Auto: 22 % (05/23/23 09:29:00) Taney Auto: 13.6 % (05/23/23 09:29:00) Eos Auto: 10.7 % High (05/23/23:29:00) Basophil Auto: 0.9 % (05/23/23::) Neutro Absolute: 2.1 E9/L (05/23/23::00) Lymph Absolute: 0.9 E9/L Low (05/23/23::00) Taney Absolute: 0.6 E9/L (05/23/23::00) Eos Absolute: 0.4 E9/L (05/23/23::) Basophil Absolute: 0 E9/L (05/23/23::) PT: 17 second(s) High (05/23/23::) INR: 1.5 (05/23/23:) PTT: 35.2 second(s) (05/23/23::) Glucose Lvl: 122 mg/dL (05/23/23:) BUN: 23 mg/dL High (05/23/23:) Creatinine: 1.4 mg/dL High (05/23/23::) eGFR: 50 mL/min/1.73 m2 Low (05/23/23::) BUN/Creat Ratio: 16 (05/23/23::) Sodium Lvl: 134 mmol/L Low (05/23/23::00) Potassium Lvl: 3.4 mmol/L Low (05/23/23::) Chloride: 102 mmol/L (05/23/23::) CO2: 26 mmol/L (05/23/23::) AGAP: 9 mEq/L (05/23/23::) Calcium Lvl: 7.7 mg/dL Low (05/23/23::) Alk Phos: 106 Int._Unit/L High (05/23/23::) ALT: 12 Int._Unit/L (05/23/23::00) AST: 18 Int._Unit/L (05/23/23::) Total Protein: 5.1 gm/dL Low (05/23/23 09:29:00) Albumin Lvl: 2.2 gm/dL Low (05/23/23 09:29:00) Globulin: 2.9 gm/dL (05/23/23 09:29:00) A/G Ratio: 0.8 Low (05/23/ (more content not included)...[facility] CenterComment on above:Result Comment: Electronically Signed By: MARISELA HERNANDEZ, Shanell\.br\Date and Time Signed: 05/23/23 13:[id number] Evaluation + Plan noteExtracted from: Title:ED Note [...] mental status. Patient was found in the alf unresponsive today in the morning. Blood pressure [...] are maintaining regular scheduled appts with their wrap turner. No bleeding complications May, Nonischemic cardiomyopathy (ICD-10 [...] as needed. Continue PT/OT - increase activity [employer] Other 10-05-2023 Evaluation note* Encounter Date Diagnosis [...] are maintaining regular scheduled appts with their wrap turner. No bleeding complications [employer] Other 10-03-2023 Evaluation note* Encounter Date Diagnosis Assessment Notes Treatment Notes Treatment Clinical Notes May, HFrEF (heart failure with reduced ejection fraction) (ICD-10 - I50.20) [employer] Other 09-28-2023 Evaluation note* Encounter Date Diagnosis Assessment Notes Treatment Notes Treatment Clinical Notes Apr, Right wrist pain (ICD-10 - M25.531) [employer] Other 09-28-2023 Evaluation note* Encounter Date Diagnosis [...] respond as expected to treatment. Diet instructions [employer] Other Evaluation noteNo InformationNortEvangelical [id number] [employer] Other History general Narrative - Reported* Type Description Date Medical History Non-ischemic cardiomyopathy Medical History Chronic venous insufficiency Medical History Benign prostatic hyp erplasia with lower urinary tract symptoms Medical History Lumbar spondylosis Medical History Paroxysmal atrial fibrillation Surgical History HEMRRHOIDECTOMY Hospitalization History SEE SURGICAL HX [employer] Other Hospital course Narrative No data available for this section [facility] No data available for this section [facility] IncReason for referral (narrative)* Reason Referral for urinary retention. Diagnosis 1 Benign prostatic hyp erplasia with lower urinary tract symptoms (N40.1) Diagnosis 2 Feeling of incomplet e bladder emptying (R39.14) Referral Organization [facility] alejandro Referring Provider First Name Abdelrahman Referring Provider Last Name Edgardo Referring Provider Specialty Internal Me brett Referred Organization [facility] Referred Provider David Ervin Referred Address [address] [facility],[place], [place],[address] Referred Provider Specialty Urology Referral Priority Routine General Notes Mr. Thorne was recen tly admitted to [facility] w/ sepsis secondary to acute prostatitis. It is suspected to be secondary to incomplete bladder emptying due to BPH. Upon d/c back to the OR, he was prescribed FLomax, which was titrated up to bid. Despite this treatment, he continued w/ persistent PVR > 350 and a cook was placed to prevent obstructive uropathy. He is being referred for further evaluation and treatment. [employer] Other Summary Purpose Family History No Family History Records Found No data available for this section No Family History Records Found Advance Directives No Advanced Directives Records FoundNo Advanced Directives Records Found Additional Source Comments (unrecognized sect ion and content) No Status Records FoundNo Status Records Found INFORMATION SOURCE (unrecogn ized section and content) DATE CREATED AUTHOR 12/03/2021 [facility] DATE CREATED AUTHOR AUTHOR'S ORGANIZ ATION 08/02/2023 [facility] REASON FOR VISIT (unrecogniz ed section and content) 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 [facility] [employer] [facility]. provides no warranty or guarantee of the accuracy or completeness of information in this document.
--- NOTE | 2023-08-06 09:15 | ECG_ITS ---
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
--- NOTE | 2023-08-06 09:16 | PC.NURSE ---
pt was brought in by ems with agonal respirations pt is a dnrcca code blue called resp 8/min glucose 104 cook shaheen dark blood noted no bp obtained at this time dr rogers in with patient 1905-etomodate 15mg given per coreen rogers intubated patient at 1906 21 at the lip 7.0 et tube with good color change and ls faint but clear bilat chest xray completed abg ordered and complete per gcarlson rt 1lns bolus complete at 09 2nd ns bolus initiated at 09 0921 86/min 8 respirations bp unable to obtain per doppler after multiple attempts 22/doppler pupils were fixed and dilated spo2 unable to obtain at this time no corneal reflex noted dr rogers in and verbally orders levophed to be given at this time family has not arrived this nurse received report prior to patient coming from [facility] nurse davies that pt was found unresponsive w a bp at 84.50 and pt was a dnrcca w respirations of 20 min and a spot in the 90s per nonrebreather initiated per ems upon arrival at [facility] pt arrives to us with nonrebreather and spo2 of 70's with agonal respirations per ems pt showed a STEMI on monitor
[2023-08-06] MEDS: NOREPINEPHRINE BITARTRATE 4 MG in DEXTROSE 5 % IN WATER 250 ML 45.72 MG IV (09:35)
--- NOTE | 2023-08-06 09:35 | PC.NURSE ---
0935- levophed initiated at 12mcg/min spo2 100% while bagging 3rd liter of ns running at 999ml/hr at this time dr rogers in to talk to family at this time no bp at this time hr 70/min
--- NOTE | 2023-08-06 09:40 | SUR.HOLD ---
0942- hr 77/min spo2 94% bp unable to be obtained per Doppler
--- NOTE | 2023-08-06 09:42 | PC.NURSE ---
0944 family arrive at this time 0944 levophed increased to 20 mcg/min 0946 daughter leaves to call more family in at this time
[2023-08-06 09:57] LABS: Basophils Absolute Auto 0.1 10^3/uL (0.0-0.1); Basophils Percent Auto 1.4 % (0.2-2.0); Eosinophils Absolute Auto 0.1 10^3/uL (0.0-0.7); Hematocrit 39.6 % (42.0-54.0); Hemoglobin 12.6 g/dL (14.0-18.0); Immature Granulocytes Abs Auto 0.04 10^3/uL (0.00-0.03); Immature Granulocytes Pct Auto 1.1 % (0.0-0.5); Lymphocytes Absolute Auto 0.4 10^3/uL (1.2-3.8); Lymphocytes Percent Auto 11.8 % (20.5-60.0); Mean Corpuscular HGB Conc 31.8 g/dL (29.9-35.2); Mean Corpuscular Hemoglobin 29.9 pg (25.9-34.0); Mean Corpuscular Volume 93.8 fL (80.0-94.0); Mean Platelet Volume 9.7 fL (9.5-13.5); Monocytes Percent Auto 0.3 % (1.7-12.0); Neutrophils Percent Auto 82.4 % (43.0-75.0); Platelet Count 198 10^3/uL (150-450); Red Blood Count 4.22 10^6/uL (4.70-6.10); Red Cell Distribution Width 14.3 % (11.0-15.0); White Blood Count 3.6 10^3/uL (4.0-11.0)
--- NOTE | 2023-08-06 10:01 | PC.NURSE ---
Patient family at bedside and updated on plan of care.
--- NOTE | 2023-08-06 10:02 | PC.NURSE ---
blood pressure 50/33
--- NOTE | 2023-08-06 10:02 | PC.NURSE ---
Dr. rogers made aware patient heart rate decreased [address] . dr. rogers in the room.
--- NOTE | 2023-08-06 10:05 | PC.NURSE ---
family at bedside side with dr. Germain. family decided to make patient a DNRCC at this time verbally at bedside.
--- NOTE | 2023-08-06 10:09 | PC.NURSE ---
Dr. Germain remains in room and talking with family.
[2023-08-06 10:21] LABS: Alanine Aminotransferase 13 U/L (16-63); Albumin Globulin Ratio 0.8; Albumin Level 2.5 g/dL (3.4-5.0); Alkaline Phosphatase 138 U/L (46-116); Anion Gap 13.4; Aspartate Amino Transferase 21 U/L (15-37); BUN Creatinine Ratio 16.9; Bilirubin Total 1.4 mg/dL (0.2-1.0); Calcium 8.9 mg/dL (8.5-10.1); Carbon Dioxide 26.2 mmol/L (21.0-32.0); Chloride 101 mmol/L (98-107); Estimated GFR (African America 39 (>=60); Estimated GFR (Non-African Ame 32 (>=60); Globulin 3.3 g/dL; Glucose 103 mg/dL (74-106); Potassium 3.6 mmol/L (3.5-5.1); Sodium 137 mmol/L (136-145); Total Protein 5.8 g/dL (6.4-8.2); Troponin I High Sensitivity 10.4 pg/mL (4.0-76.1)
--- NOTE | 2023-08-06 10:30 | ED.CPR2 ---
HPI - CPR General Chief Complaint: Cardiac Arrest/CPR Stated Complaint: UNRESPONSIVE Mode of arrival: ambulance History of Present Illness HPI Narrative: this patient was brought to us from the long-term for being unresponsive. When the paramedics arrived he had no verbal respoonse to stimuli. He was in atrial fibrillation. He had agonal respirations. He is DNR CCA. He began bag mask ventilation. CPR was not performed. IVs were established. We were able to review his previous charts and recent medical records. He had recently been hospitalized with severe sepsis and lives in a long-term recovering. He was recently diagnosis: At that facility. When family members arrived they indicated that they had nice conversations and he was doing pretty well yesterday. We don't know the time course with which she deteriorated last evening We were awaiting his arrival. He is placed on the trauma bay vital signs assessed. On initial arrival his pupils were fixed and dilated. He had no corneal blink response. He had no pupillary light response. Despite that he is in atrial fibrillation rate approximately one hundred. He had agonal respiratory effort at approximately 4/m. His skin was warm at this time. I decided since he CCA to go ahead and intubate the patient until the power of document review attorney was able to arrive and discuss treatment options. After etomidate one 5 mg the patient was easily intubated with a #7.0 endotracheal tube. Confirmation of tube was made with auscultation, vaporization and end-tidal CO2 metering. Chest x-ray was done confirming the end of the endotracheal tube placement. The chest x-ray did not show any other collapsed hemothorax or pneumothorax. The patient's overall examination showed he arrived with a Carlin catheter in place that was added. Blood in the Carlin catheter. Moving to the chest he was in atrial fibrillation but we could not detect a pulse. Because that he was started on Levophed. He was given aggressive IV fluid resuscitation and despite those measures did not have any response with his blood pressure. He never had any spontaneous respirations other than agonal response. Fortunately all family members in the community were able to arrive and after a detailed discussion decided that they did not want him to have compressions or defibrillation. So despite aggressive fluids, pressors, airway management he failed to show any indication of improvement and as noted above his cranial nerves examination showed no improvement whatsoever. At that time we discontinued bagging him and shortly thereafter he had no agonal respiratory effort and his heart rate slowed. He is pronounced at ten twenty-eight with a flat line EKG. Related Data Home Medications Medication Instructions Recorded Confirmed tamsulosin 0.4 mg capsule 0.4 mg PO DAILY 04/25/23 04/25/23 Previous Rx's Medication Instructions Recorded apixaban 5 mg tablet (Eliquis) 2.5 mg (1/2 x 5 mg) PO BID 30 days 04/30/23 #30 tabs cephalexin 500 mg capsule 500 mg PO BID 7 days #14 caps 04/30/23 diltiazem HCl 60 mg tablet 30 mg (1/2 x 60 mg) PO Q12H 30 04/30/23 days #30 tabs metoprolol tartrate 50 mg tablet 100 mg (2 x 50 mg) PO Q12H 30 days 04/30/23 #120 tabs prednisone 20 mg tablet 40 mg (2 x 20 mg) PO DAILY 7 days 04/30/23 #14 tabs Allergies Allergy/AdvReac Type Severity Reaction Status Date / Time No Known Drug Allergies Allergy Verified 04/25/23 12:35 [facility] Medical History Social History Within the past year, how often did you have a drink containing alcohol: 4 or more times a week Within the past year, how many standard drinks containing alcohol did you have on a typical day: 5 or 6 Within the past year, how often did you have six or more drinks on one occasion: monthly Total score: 6 Score interpretation: A score of 4 or more indicates drinking is likely to affect patient's safety. Smoking status: Never smoker Non-prescribed substance use: denies use MDM - Cardiac Arrest/CPR Lab Data Labs: Lab Results 08/06/23 Range/Units 09:08 WBC 3.6 L (4.0-11.0) 10^3/uL RBC 4.22 L (4.70-6.10) 10^6/uL Hgb 12.6 L (14.0-18.0) g/dL Hct 39.6 L (42.0-54.0) % MCV 93.8 (80.0-94.0) fL MCH 29.9 (25.9-34.0) pg MCHC 31.8 (29.9-35.2) g/dL RDW 14.3 (11.0-15.0) % Plt Count 198 (150-450) 10^3/uL MPV 9.7 (9.5-13.5) fL Neut % (Auto) 82.4 H (43.0-75.0) % Lymph % (Auto) 11.8 L (20.5-60.0) % Fallon % (Auto) 0.3 L (1.7-12.0) % Eos % (Auto) 3.0 (0.9-7.0) % Baso % (Auto) 1.4 (0.2-2.0) % Neut # (Auto) 3.0 (1.4-6.5) 10^3/uL Lymph # (Auto) 0.4 L (1.2-3.8) 10^3/uL Fallon # (Auto) 0.0 L (0.3-0.8) 10^3/uL Eos # (Auto) 0.1 (0.0-0.7) 10^3/uL Baso # (Auto) 0.1 (0.0-0.1) 10^3/uL Abs Immat Gran (auto) 0.04 H (0.00-0.03) 10^3/uL Imm/Tot Granulo (auto) 1.1 H (0.0-0.5) % Sodium 137 (136-145) mmol/L Potassium 3.6 (3.5-5.1) mmol/L Chloride 101 (98-107) mmol/L Carbon Dioxide 26.2 (21.0-32.0) mmol/L Anion Gap 13.4 BUN 34.0 H (7.0-18.0) mg/dL Creatinine 2.01 H (0.70-1.30) mg/dL Est GFR ( Amer) 39 L (>=60) Est GFR (Non-Af Amer) 32 L (>=60) BUN/Creatinine Ratio 16.9 Glucose 103 (74-106) mg/dL Calcium 8.9 (8.5-10.1) mg/dL Total Bilirubin 1.4 H (0.2-1.0) mg/dL AST 21 (15-37) U/L ALT 13 L (16-63) U/L Alkaline Phosphatase 138 H (46-116) U/L Troponin I High Sens 10.4 (4.0-76.1) pg/mL Total Protein 5.8 L (6.4-8.2) g/dL Albumin 2.5 L (3.4-5.0) g/dL Globulin 3.3 g/dL Albumin/Globulin Ratio 0.8 Discharge Plan Discharge Chief Complaint: Cardiac Arrest/CPR Clinical Impression: 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
--- NOTE | 2023-08-06 10:44 | PC.NURSE ---
[facility] called and Referral #[id number]
--- NOTE | 2023-08-06 10:45 | PC.NURSE ---
Dr. Germain talking with PCP Dr. Reynoso about patient status.
--- NOTE | 2023-08-06 10:46 | PC.NURSE ---
10:28 Dr. Rogers into room. time of 10:28 and patient family at bedside and Dr. rogers talking with family.
--- NOTE | 2023-08-06 10:51 | PC.NURSE ---
Family gave ok to call [facility] [place].
--- NOTE | 2023-08-06 11:18 | PC.NURSE ---
[facility] home arrival and handed over care of patient.
== END 2023-08-06 11:20 | disposition expired ==
PROVIDERS: Emergency Provider Emergency Medicine Emergency Medical Services; PCP Internal Medicine
DX: I46.9 Cardiac arrest, cause unspecified (principal); G93.1 Anoxic brain damage, not elsewhere classified; Z66 Do not resuscitate; Z79.899 Other long term (current) drug therapy
CPT/HCPCS: 31500; 36415; 71045; 80053; 82948; 84484; 85025; 93005; 96365; 96366; 99291; 99292